=== PATIENT | female | born 1970 | race Caucasian/White ===

== ENCOUNTER 2016-12-03 12:43 | Emergency (ER) | payer MEDICARE, MEDICAID ==
[~2016-12-03 12:43] MED LIST: /CARB4TA PO; /HYDR1TAB PO; /LAMO20TA; ALBU17IN INH; ALPR1TAB3 PO; AMIT100TA PO; AMIT75TA PO; ATEN50TA2 PO; AUGM875T27 PO; BACT800T5 PO; BENZ100C5 PO; BUSP1TAB PO; CARI350T19 PO; CELE20TA; CIPR-250 PO; DOXY100C PO; DRIS50002 PO; FLUC150T PO; HYDR25TAB PO; HYDRO50TAB PO; IBUP200T2 PO; IBUP80TA PO; KLOR1TAB77 PO; LANS30CA PO; LASI40TA PO; LEVO750T33 PO; METO10TA2 PO; MORP15TASA PO; MYCO500T PO; ONDA4TAB6 PO; OXYC-299 PO; OXYC1TAB23 PO; OXYC1TAB55 PO; PAXI30TA11 PO; PERC10TA17 PO; PERCOCET PO; PRED10TA PO; PRED20TA PO; PROP20TA2; PROZ40CA; REME15TA; REST30CA PO; ROBA750T4 PO; SERO50TA PO; SERT-141 PO; SPIR25TA2 PO; TYLE325T5 PO; VENL37TA PO; WELL100T PO; WELLTAB38 PO; ZOLO100T PO
[2016-12-03] MEDS ORDERED: diphenhydrAMINE INJ 50MG/ML VIAL (J1200) As Ordered ONE (13:45)
[2016-12-03] MEDS ORDERED: METOCLOPRAMIDE INJ 10MG/2ML VIAL (J2765) As Ordered ONE (13:45)
[2016-12-03 14:54] LABS: BASO % 0.5 % (0.0-1.0); EOS # 0.1 K/mm3 (0.0-0.50); LARGE UNSTAINED CELL # 0.1 K/mm3 (0.0-0.4); LARGE UNSTAINED CELL % 1.6 % (0.0-4.0); LYMPH # 1.1 K/mm3 (1.5-4.5); LYMPH % 15.5 % (24.0-44.0); MEAN CORPUSCULAR HEMOGLOBIN 29.2 pg (27.0-33.0); MEAN CORPUSCULAR HGB CONC 32.7 g/dl (32.0-36.5); MEAN CORPUSCULAR VOLUME 89.5 fl (80.0-96.0); MONO # 0.2 K/mm3 (0.0-0.8); MONO % 3.1 % (0.0-5.0); NEUTROPHILS # 5.3 K/mm3 (1.8-7.7); NEUTROPHILS % 77.3 % (36.0-66.0); PLATELET COUNT, AUTOMATED 270 k/mm3 (150-450); RED CELL DISTRIBUTION WIDTH 13.6 % (11.5-14.5); WHITE BLOOD COUNT 6.8 K/mm3 (4.0-10.0)
[2016-12-03 15:13] LABS: ALBUMIN 3.9 GM/DL (3.2-5.2); ALBUMIN/GLOBULIN RATIO 1.26 (1.00-1.93); ALKALINE PHOSPHATASE 90 U/L (45-117); ALT/SGPT 22 U/L (12-78); ANION GAP 7 MEQ/L (8-16); AST/SGOT 13 U/L (15-37); BILIRUBIN,TOTAL 0.3 MG/DL (0.2-1.0); BLOOD UREA NITROGEN 12 MG/DL (7-18); CALCIUM LEVEL 9.5 MG/DL (8.5-10.1); CARBON DIOXIDE LEVEL 28 MEQ/L (21-32); CHLORIDE LEVEL 108 MEQ/L (98-107); CREATININE FOR GFR 0.77 MG/DL (0.55-1.02); GLOMERULAR FILTRATION RATE > 60.0 (>58); GLUCOSE, FASTING 107 MG/DL (70-105); POTASSIUM SERUM 3.8 MEQ/L (3.5-5.1); SODIUM LEVEL 143 MEQ/L (136-145)
[2016-12-03] MEDS ORDERED: ISOVUE-370 76% 100ML VIAL (Q9967) As Ordered ONE (15:22)
--- NOTE | 2016-12-03 15:47 | REP ---
Head CT without contrast followed by with IV contrast. : History: Extreme headache. Comparison study: September 23, 2011. CT contrast dose: 75 ml of Isovue [address] findings: Bone window settings demonstrate an intact bony calvarium. There is no evidence of skull fracture or incidental bony calvarial lesion. The visualized paranasal sinuses appear clear. No intraorbital abnormality is seen. On soft tissue window setting images; the lateral, third, and fourth ventricles are normal in size and position. Hill-white differentiation pattern is normal above and below the tentorium. There are is no evidence of intracranial hemorrhage. No mass, edema, infarction, or midline shift is seen. No extra-axial fluid collection is appreciated. Postcontrast CT images show enhancement of normal vessels. No abnormal contrast enhancement is appreciated. Impression: Negative head CT, without and with IV contrast . Signed by Boby Camara MD 12/03/2016 03:39 P
[2016-12-03 15:52] LABS: ERYTHROCYTE SEDIMENTATION RATE 19 mm/hr (0-20)
--- NOTE | 2016-12-03 16:25 | EDDOCDS ---
Nurse's Notes [facility] Name: Meg Garcia Age: 46 yrs Sex: Female : 1970 Arrival Date: 12/03/2016 Time: 12:43 Bed I2 / M2 Private MD: Marifer Chiang Diagnosis: Migraine without aura, not intractable, without status migrainosus Presentation: 12/03 12:58 Presenting complaint: Patient states: "My ears are always ringing but for the past 3-4 jc4 days they have been ringing really bad. I'm dizzy, it feels like there are electrical shocks in my head that go into my neck and my arms. I'm going from hot to cold". This patient has no additional risk factors. Adult Sepsis Screening: The patient does not have new or worsening altered mentation. Patient's respiratory rate is less than 22. Systolic blood pressure is greater than 100. Patient has a qSOFA score of 0- Negative Sepsis Screen. Suicide/Homicide risk assessment- the patient denies having any suicidal and/or homicidal ideations and does not present with any other emotional, behavioral or mental health complaints. 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 Transition of care: patient was not received from another setting of care. 12:58 Acuity: LB Level 3 jc4 12:58 Method Of Arrival: Walkin/Carried/Asstd jc4 Triage Assessment: 13:02 Headache History: A change in the character of the headache the patient is experiencing jc4 has occured. General: Appears in no apparent distress. Pain:. Neurological: Level of Consciousness is awake, alert. 13:02 Pain: Denies pain. Pain currently is 0 out of 10 on a pain scale. Pain began 2-3 days jc4 ago Also complains of ringing in ears. HIV screening NA for this visit Offered previously. 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 cyclosporine 50mg Oral cap twice a day (Last dose: 12/02/2016) 2. lansoprazole 30 mg oral cpDR 1 cap once daily (Last dose: 12/02/2016) 3. Lasix 40 mg Oral tab 1 tab 2 times per day (Last dose: 12/02/2016) 4. MS Contin 15 mg Oral TbER 1 tab every 12 hours (Last dose: Unknown) 5. Paxil 30 mg Oral tab 1 tab once daily (Last dose: 12/02/2016) 6. Percocet 10-325 mg Oral tab 1 tab every 6 hours as needed (Last dose: 12/02/2016) 7. potassium chloride 20 mEq Oral TbTQ 2 times per day (Last dose: 12/02/2016) 8. Soma 350 mg Oral tab 1 tab 3 times per day (Last dose: 12/02/2016) 9. hydrochlorothiazide 25 mg Oral tab 1 tab once daily (Last dose: 12/02/2016) 10. Wellbutrin XL 150 mg Oral Tb24 1 tab once daily (Last dose: 12/02/2016) 11. Xanax 1 mg Oral tab 1 tab 3 times per day (Last dose: 12/02/2016) - PMHx: COPD; edema; Fibromyalgia; GERD; Hypertension; lung disease; Lupus; - PSHx: Appendectomy; Laparoscopy; lung biopsy; - Social history: Smoking status: Patient uses tobacco products, light tobacco smoker. No barriers to communication noted, The patient speaks fluent Bhutanese. - Family history: Not pertinent. - : The pt / caregiver states he / she is not on anticoagulants. Home medication list is obtained from the patient. - Exposure Risk Screening:: None identified. Screenin:34 Screening information is obtained from the patient. Primary language is Bhutanese. Fall jam1 risk: No risks identified. Assistance ADL's: requires no assistance with activities of daily living. Abuse/DV Screen: The patient / caregiver reports he/she is: not in a situation that causes fear, pain or injury. Nutritional screening: No deficits noted. Exposure Risk Screening: None identified. Advance Directives: Currently, there is no health care proxy. There is no active DNR order. There is no living will. There is no Power of Aircraft Technician. Advance directive information has not previously been placed in an [facility] medical record. Further advance directive information is declined. home support is adequate. Assessment: 13:51 General: Appears in no apparent distress, comfortable, Behavior is cooperative. Pain: kr3 Location: head Pain currently is 6 out of 10 on a pain scale. At worst was 10 out of 10 on a pain scale. Quality of pain is described as electrical shocks. Neurological: Level of Consciousness is awake, alert. Respiratory: Respiratory effort is even, unlabored. Derm: Skin is normal. 14:30 Reassessment: No significant improvement following initial round of medication. jo3 Continuing to monitor . 15:36 General: Appears in no apparent distress, Behavior is appropriate for age, cooperative. jo3 General: Taken to CT at this time. Reports that "buzzing" sensation has resolved. Remains somewhat photosensitive. Rates pain a 3/10. Awaiting results. Aware of plan of care . Neurological: Level of Consciousness is awake, alert, Oriented to person, place, time. Respiratory: Airway is patent Respiratory effort is even, unlabored. 16:21 Reassessment: Patient appears in no apparent distress at this time. Patient states jo3 feeling better. Patient states symptoms have improved. Pt reports slight MENDENHALL. Discharged at this time . Vital Signs: 12:46 BP 129 / 86; Pulse 71; Resp 16; Temp 96.5; Pulse Ox 100% ; Weight 86.18 kg; Height 5 elp ft. 5 in. (165.10 cm); Pain 0/10; 16:21 BP 121 / 77; Pulse 68; Resp 16; Temp 97.8(T); Pulse Ox 98% on R/A; jo3 12:46 Body Mass Index 31.62 (86.18 kg, 165.10 cm) [facility] Vitals: 12:46 Log In Time: December 03, 2016 at 12:43. [facility] ED Course: 12:44 Patient visited by Asya Toney PCA. elp 12:44 Patient moved to Waiting elp 12:45 Marifer Chiang is Private Physician. elp 12:46 Patient visited by Asya Toney PCA. elp 12:46 Patient moved to Pre RCE elp 12:59 Triage Initiated jc4 13:04 Patient moved to Triage 1 jc4 13:19 [facility] Jauregui [facility] is [facility]. btw 13:19 Daisy Hernandez MD is Attending Physician. btw 13:19 Patient visited by Brodie Jauregui PA. btw 13:28 Patient moved to I2 / M2 dls 13:34 Pt greeted and oriented to ED. Patient advised of names of staff involved in care, jam1 location of call johnson, wait times and NPO status. Patient has correct armband on for positive identification. Placed in gown. Bed in low position. Call light in reach. Side rails up X 1. Door closed. 13:39 [facility] Payment Agreement was scanned into [employer] and attached to record. lg 13:40 Inserted saline lock: 20 gauge in right antecubital area. Labs drawn. (by ED staff). jo3 Sent per order to lab. 13:45 CRP Sent. kr3 13:45 ESR Sent. kr3 13:45 Complete Comphrensive Metabolic Sent. kr3 13:45 CBC with Diff Sent. kr3 13:50 Patient visited by Diana Vargas RN. kr3 13:51 The patient / caregiver is instructed regarding the plan of care and ED course. kr3 15:37 Patient visited by Sarah Mohamud RN. jo3 15:48 CT Head W/o Foll By With Contr Returned. EDMS 16:11 Marifer Chiang is Referral Physician. btw 16:21 Discontinued IV lock intact, bleeding controlled, pressure dressing applied, No jo3 redness/swelling at site. No procedures done that require assistance. Administered Medications: 13:48 Drug: diphenhydrAMINE 50 mg [diphenhydramine 50 mg/mL injection solution (1 mL)] Route: kr3 IVP; Site: right antecubital; 14:17 Follow up: Response: No significant change. kr3 13:51 Drug: Metoclopramide 20 mg [metoclopramide 5 mg/mL injection solution] Route: IV; Rate: kr3 80 mg/hr; Infused Over: 15 mins; Site: right antecubital; 14:17 Follow up: Response: No significant change.; IV Status: Completed infusion kr3 Order Results: Lab Order: CBC with Diff; SPEC'M 12/03/16 14:39 Test: WHITE BLOOD COUNT; Value: 6.8; Range: 4.0-10.0; Units: K/mm3; Status: F Test: RED BLOOD COUNT; Value: 5.00; Range: 4.00-5.40; Units: M/mm3; Status: F Test: HEMOGLOBIN; Value: 14.6; Range: 12.0-16.0; Units: g/dl; Status: F Test: HEMATOCRIT; Value: 44.7; Range: 36.0-47.0; Units: %; Status: F Test: MEAN CORPUSCULAR VOLUME; Value: 89.5; Range: 80.0-96.0; Units: fl; Status: F Test: MEAN CORPUSCULAR HEMOGLOBIN; Value: 29.2; Range: 27.0-33.0; Units: pg; Status: F Test: MEAN CORPUSCULAR HGB CONC; Value: 32.7; Range: 32.0-36.5; Units: g/dl; Status: F Test: RED CELL DISTRIBUTION WIDTH; Value: 13.6; Range: 11.5-14.5; Units: %; Status: F Test: PLATELET COUNT, AUTOMATED; Value: 270; Range: 150-450; Units: k/mm3; Status: F Test: NEUTROPHILS %; Value: 77.3; Range: 36.0-66.0; Abnormal: Above high normal; Units: %; Status: F Test: LYMPH %; Value: 15.5; Range: 24.0-44.0; Abnormal: Below low normal; Units: %; Status: F Test: MONO %; Value: 3.1; Range: 0.0-5.0; Units: %; Status: F Test: EOS %; Value: 2.0; Range: 0.0-3.0; Units: %; Status: F Test: BASO %; Value: 0.5; Range: 0.0-1.0; Units: %; Status: F Test: LARGE UNSTAINED CELL %; Value: 1.6; Range: 0.0-4.0; Units: %; Status: F Test: NEUTROPHILS #; Value: 5.3; Range: 1.8-7.7; Units: K/mm3; Status: F Test: LYMPH #; Value: 1.1; Range: 1.5-4.5; Abnormal: Below low normal; Units: K/mm3; Status: F Test: MONO #; Value: 0.2; Range: 0.0-0.8; Units: K/mm3; Status: F Test: EOS #; Value: 0.1; Range: 0.0-0.50; Units: K/mm3; Status: F Test: BASO #; Value: 0.0; Range: 0.0-0.2; Units: K/mm3; Status: F Test: LARGE UNSTAINED CELL #; Value: 0.1; Range: 0.0-0.4; Units: K/mm3; Status: F Lab Order: Complete Comphrensive Metabolic; SPEC'M 12/03/16 14:39 Test: GLUCOSE, FASTING; Value: 107; Range: 70-105; Abnormal: Above high normal; Units: MG/DL; Status: F Test: BLOOD UREA NITROGEN; Value: 12; Range: 7-18; Units: MG/DL; Status: F Test: CREATININE FOR GFR; Value: 0.77; Range: 0.55-1.02; Units: MG/DL; Status: F Test: GLOMERULAR FILTRATION RATE; Value: > 60.0; Range: >58; Status: F Test: SODIUM LEVEL; Value: 143; Range: 136-145; Units: MEQ/L; Status: F Test: POTASSIUM SERUM; Value: 3.8; Range: 3.5-5.1; Units: MEQ/L; Status: F Test: CHLORIDE LEVEL; Value: 108; Range: 98-107; Abnormal: Above high normal; Units: MEQ/L; Status: F Test: CARBON DIOXIDE LEVEL; Value: 28; Range: 21-32; Units: MEQ/L; Status: F Test: ANION GAP; Value: 7; Range: 8-16; Abnormal: Below low normal; Units: MEQ/L; Status: F Test: CALCIUM LEVEL; Value: 9.5; Range: 8.5-10.1; Units: MG/DL; Status: F Test: AST/SGOT; Value: 13; Range: 15-37; Abnormal: Below low normal; Units: U/L; Status: F Test: ALT/SGPT; Value: 22; Range: 12-78; Units: U/L; Status: F Test: ALKALINE PHOSPHATASE; Value: 90; Range: 45-117; Units: U/L; Status: F Test: BILIRUBIN,TOTAL; Value: 0.3; Range: 0.2-1.0; Units: MG/DL; Status: F Test: TOTAL PROTEIN; Value: 7.0; Range: 6.4-8.2; Units: GM/DL; Status: F Test: ALBUMIN; Value: 3.9; Range: 3.2-5.2; Units: GM/DL; Status: F Test: ALBUMIN/GLOBULIN RATIO; Value: 1.26; Range: 1.00-1.93; Status: F Test Note: ; Units are mL/min/1.73 m2 Chronic Kidney Disease Staging per NKF: Stage I & II GFR >=60 Normal to Mildly Decreased Stage III GFR 30-59 Moderately Decreased Stage IV GFR 15-29 Severely Decreased Stage V GFR <15 Very Little GFR Left ESRD GFR <15 on EXTRA HAND Lab Order: ESR; SPEC'M 12/03/16 14:39 Test: ERYTHROCYTE SEDIMENTATION RATE; Value: 19; Range: 0-20; Units: mm/hr; Status: F Lab Order: CRP; SPEC'M 12/03/16 14:39 Test: C REACTIVE PROTEIN QUANTITATIV; Value: 0.36; Range: 0.00-0.30; Abnormal: Above high normal; Units: MG/DL; Status: F Radiology Order: CT Head W/o Foll By With Contr Test: CT Head W/o Foll By With Contr REASON FOR EXAMINATION: "Extreme MENDENHALL"; Head CT without contrast followed by with IV contrast. :; ; History: Extreme headache.; ; Comparison study: September 23, 2011.; ; CT contrast dose: 75 ml of Isovue 370 is administered intravenously.; ; CT findings: Bone window settings demonstrate an intact bony calvarium. There; is no evidence of skull fracture or incidental bony calvarial lesion. The; visualized paranasal sinuses appear clear. No intraorbital abnormality is seen.; On soft tissue window setting images; the lateral, third, and fourth ventricles; are normal in size and position. Hill-white differentiation pattern is normal; above and below the tentorium. There are is no evidence of intracranial; hemorrhage. No mass, edema, infarction, or midline shift is seen. No; extra-axial fluid collection is appreciated. Postcontrast CT images show; enhancement of normal vessels. No abnormal contrast enhancement is appreciated.; ; Impression:; ; Negative head CT, without and with IV contrast .; ; ; Signed by; Boby Camara MD 12/03/2016 03:39 P; Outcome: 16:12 Discharge ordered by Provider. btw 16:24 Discharge Assessment: Patient awake, alert and oriented x 3. No cognitive and/or jo3 functional deficits noted. Patient verbalized understanding of disposition instructions. patient administered narcotics - no. The following High Risk Discharge criteria are identified: None. Discharged to home ambulatory. Condition: stable Condition: improved. Discharge instructions given to patient, Instructed on discharge instructions, follow up and referral plans. Demonstrated understanding of instructions, Pt was receptive of discharge instructions/ teaching. CT Study completed. Property sent home with patient. 16:24 Patient left the ED. jo3 Signatures: Dispatcher [employer] EDMS Marj Nair, RN RN dls Mary Rivera, MANAGER OF PHOTOGRAPHY MANAGER OF PHOTOGRAPHY jam1 Paris Rutherford, Reg Reg lg Diana Vargas,RN RN flory3 Sarah Mohamud,RN RN pj3 Brodie Jauregui, Sarah Bhakta, RN RN jc4 Asya Toney, MANAGER OF PHOTOGRAPHY MANAGER OF PHOTOGRAPHY elp CHRISTOFER
--- NOTE | 2016-12-03 16:25 | EDDOCDS ---
Physician Documentation [facility] Name: Meg Garcia Age: 46 yrs Sex: Female : 1970 Arrival Date: 12/03/2016 Time: 12:43 Bed I2 / M2 Private MD: Marifer Chiang Disposition: 12/03/16 16:12 Discharged to Home/Self Care. Impression: Migraine without aura, not intractable, without status migrainosus. - Condition is Stable. - Discharge Instructions: Migraine Headache, [id number]. - Medication Reconciliation, Local Pharmacy Hours form. - Follow up: Marifer Chiang; When: Call to arrange an appointment; Reason: Further diagnostic work-up, Recheck today's complaints, Continuance of care. - Problem is new. - Symptoms have improved. Historical: - Allergies: Mobic (gets aggressive); Neurontin (gets aggressive); - Home Meds: 1. cyclosporine 50mg Oral cap twice a day (Last dose: 12/02/2016) 2. lansoprazole 30 mg oral cpDR 1 cap once daily (Last dose: 12/02/2016) 3. Lasix 40 mg Oral tab 1 tab 2 times per day (Last dose: 12/02/2016) 4. MS Contin 15 mg Oral TbER 1 tab every 12 hours (Last dose: Unknown) 5. Paxil 30 mg Oral tab 1 tab once daily (Last dose: 12/02/2016) 6. Percocet 10-325 mg Oral tab 1 tab every 6 hours as needed (Last dose: 12/02/2016) 7. potassium chloride 20 mEq Oral TbTQ 2 times per day (Last dose: 12/02/2016) 8. Soma 350 mg Oral tab 1 tab 3 times per day (Last dose: 12/02/2016) 9. hydrochlorothiazide 25 mg Oral tab 1 tab once daily (Last dose: 12/02/2016) 10. Wellbutrin XL 150 mg Oral Tb24 1 tab once daily (Last dose: 12/02/2016) 11. Xanax 1 mg Oral tab 1 tab 3 times per day (Last dose: 12/02/2016) - PMHx: COPD; edema; Fibromyalgia; GERD; Hypertension; lung disease; Lupus; - PSHx: Appendectomy; Laparoscopy; lung biopsy; - Social history: Smoking status: Patient uses tobacco products, light tobacco smoker. No barriers to communication noted, The patient speaks fluent Mongolian. - Family history: Not pertinent. - : The pt / caregiver states he / she is not on anticoagulants. Home medication list is obtained from the patient. - Exposure Risk Screening:: None identified. 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 5 in. (165.10 cm); Pain 0/10; 16:21 BP 121 / 77; Pulse 68; Resp 16; Temp 97.8(T); Pulse Ox 98% on R/A; jo3 12:46 Body Mass Index 31.62 (86.18 kg, 165.10 cm) elp MDM: 13:25 Financial registration complete. lg 13:27 IV Saline Lock ordered. btw 13:27 Metoclopramide 20 mg IV at 80 mg/hr once over 15 mins ordered. btw 13:27 diphenhydrAMINE 50 mg IVP once ordered. btw 13:28 CBC with Diff Ordered. EDMS 13:28 Complete Comphrensive Metabolic Ordered. EDMS 13:28 ESR Ordered. EDMS 13:28 CRP Ordered. EDMS 13:28 CT Head W/o Foll By With Contr Ordered. EDMS 13:39 [facility] Payment Agreement was scanned into [email or web address] and attached to record. lg 15:19 CBC with Diff Reviewed. btw 15:19 Complete Comphrensive Metabolic Reviewed. btw 15:19 CRP Reviewed. btw 16:09 CBC with Diff Reviewed. btw 16:09 ESR Reviewed. btw 16:09 CT Head W/o Foll By With Contr Reviewed. btw Administered Medications: 13:48 Drug: diphenhydrAMINE 50 mg [diphenhydramine 50 mg/mL injection solution (1 mL)] Route: kr3 IVP; Site: right antecubital; 14:17 Follow up: Response: No significant change. kr3 13:51 Drug: Metoclopramide 20 mg [metoclopramide 5 mg/mL injection solution] Route: IV; Rate: kr3 80 mg/hr; Infused Over: 15 mins; Site: right antecubital; 14:17 Follow up: Response: No significant change.; IV Status: Completed infusion kr3 Signatures: Dispatcher [employer] Paris Ball Reg Reg lg Sarah Mohamud,GARFIELD RN jo3 Brodie Jauregui PA PA btw Castle, Jennifer, RN RN jc4 Diana Vargas RN kr3 The chart was reviewed and I authenticate all verbal orders and agree with the evaluation and treatment provided.Attachments: 13:39 [facility] Payment Agreement lg MTDD
--- NOTE | 2016-12-06 11:23 | EDDOCDS ---
Physician Documentation [facility] Name: Meg Garcia Age: 46 yrs Sex: Female : 1970 Arrival Date: 12/03/2016 Time: 12:43 Bed I2 / M2 Private MD: Marifer Chiang Disposition: 12/03/16 16:12 Discharged to Home/Self Care. Impression: Migraine without aura, not intractable, without status migrainosus. - Condition is Stable. - Discharge Instructions: Migraine Headache, [id number]. - Medication Reconciliation, Local Pharmacy Hours form. - Follow up: Marifer Chiang; When: Call to arrange an appointment; Reason: Further diagnostic work-up, Recheck today's complaints, Continuance of care. - Problem is new. - Symptoms have improved. Historical: - Allergies: Mobic (gets aggressive); Neurontin (gets aggressive); - Home Meds: 1. cyclosporine 50mg Oral cap twice a day (Last dose: 12/02/2016) 2. lansoprazole 30 mg oral cpDR 1 cap once daily (Last dose: 12/02/2016) 3. Lasix 40 mg Oral tab 1 tab 2 times per day (Last dose: 12/02/2016) 4. MS Contin 15 mg Oral TbER 1 tab every 12 hours (Last dose: Unknown) 5. Paxil 30 mg Oral tab 1 tab once daily (Last dose: 12/02/2016) 6. Percocet 10-325 mg Oral tab 1 tab every 6 hours as needed (Last dose: 12/02/2016) 7. potassium chloride 20 mEq Oral TbTQ 2 times per day (Last dose: 12/02/2016) 8. Soma 350 mg Oral tab 1 tab 3 times per day (Last dose: 12/02/2016) 9. hydrochlorothiazide 25 mg Oral tab 1 tab once daily (Last dose: 12/02/2016) 10. Wellbutrin XL 150 mg Oral Tb24 1 tab once daily (Last dose: 12/02/2016) 11. Xanax 1 mg Oral tab 1 tab 3 times per day (Last dose: 12/02/2016) - PMHx: COPD; edema; Fibromyalgia; GERD; Hypertension; lung disease; Lupus; - PSHx: Appendectomy; Laparoscopy; lung biopsy; - Social history: Smoking status: Patient uses tobacco products, light tobacco smoker. No barriers to communication noted, The patient speaks fluent Venezuelan. - Family history: Not pertinent. - : The pt / caregiver states he / she is not on anticoagulants. Home medication list is obtained from the patient. - Exposure Risk Screening:: None identified. 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 5 in. (165.10 cm); Pain 0/10; 16:21 BP 121 / 77; Pulse 68; Resp 16; Temp 97.8(T); Pulse Ox 98% on R/A; jo3 12:46 Body Mass Index 31.62 (86.18 kg, 165.10 cm) elp MDM: 13:25 Financial registration complete. lg 13:27 IV Saline Lock ordered. btw 13:27 Metoclopramide 20 mg IV at 80 mg/hr once over 15 mins ordered. btw 13:27 diphenhydrAMINE 50 mg IVP once ordered. btw 13:28 CBC with Diff Ordered. EDMS 13:28 Complete Comphrensive Metabolic Ordered. EDMS 13:28 ESR Ordered. EDMS 13:28 CRP Ordered. EDMS 13:28 CT Head W/o Foll By With Contr Ordered. EDMS 13:39 [facility] Payment Agreement was scanned into [employer] and attached to record. lg 15:19 CBC with Diff Reviewed. btw 15:19 Complete Comphrensive Metabolic Reviewed. btw 15:19 CRP Reviewed. btw 16:09 CBC with Diff Reviewed. btw 16:09 ESR Reviewed. btw 16:09 CT Head W/o Foll By With Contr Reviewed. btw 20:19 T-Sheet-- Draft Copy was scanned into [employer] and attached to record. klr Administered Medications: 13:48 Drug: diphenhydrAMINE 50 mg [diphenhydramine 50 mg/mL injection solution (1 mL)] Route: kr3 IVP; Site: right antecubital; 14:17 Follow up: Response: No significant change. kr3 13:51 Drug: Metoclopramide 20 mg [metoclopramide 5 mg/mL injection solution] Route: IV; Rate: kr3 80 mg/hr; Infused Over: 15 mins; Site: right antecubital; 14:17 Follow up: Response: No significant change.; IV Status: Completed infusion kr3 Signatures: Dispatcher [employer] EDParis Sparks, Francis Reg lg Sarah Mohamud RN RN jo3 Brodie Jauregui PA PA btw Castle, Jennifer, RN RN jc4 Cristel Royal Kathleen RN kr3 The chart was reviewed and I authenticate all verbal orders and agree with the evaluation and treatment provided.Attachments: 13:39 [facility] Payment Agreement lg 20:19 T-Sheet-- Draft Copy david Chart Complete MTDD
--- NOTE | 2016-12-06 11:23 | EDDOCDS ---
Nurse's Notes [facility] Name: Meg Garcia Age: 46 yrs Sex: Female : 1970 Arrival Date: 12/03/2016 Time: 12:43 Bed I2 / M2 Private MD: Marifer Chiang Diagnosis: Migraine without aura, not intractable, without status migrainosus Presentation: 12/03 12:58 Presenting complaint: Patient states: "My ears are always ringing but for the past 3-4 jc4 days they have been ringing really bad. I'm dizzy, it feels like there are electrical shocks in my head that go into my neck and my arms. I'm going from hot to cold". This patient has no additional risk factors. Adult Sepsis Screening: The patient does not have new or worsening altered mentation. Patient's respiratory rate is less than 22. Systolic blood pressure is greater than 100. Patient has a qSOFA score of 0- Negative Sepsis Screen. Suicide/Homicide risk assessment- the patient denies having any suicidal and/or homicidal ideations and does not present with any other emotional, behavioral or mental health complaints. 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 Transition of care: patient was not received from another setting of care. 12:58 Acuity: LB Level 3 jc4 12:58 Method Of Arrival: Walkin/Carried/Asstd jc4 Triage Assessment: 13:02 Headache History: A change in the character of the headache the patient is experiencing jc4 has occured. General: Appears in no apparent distress. Pain:. Neurological: Level of Consciousness is awake, alert. 13:02 Pain: Denies pain. Pain currently is 0 out of 10 on a pain scale. Pain began 2-3 days jc4 ago Also complains of ringing in ears. HIV screening NA for this visit Offered previously. 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 cyclosporine 50mg Oral cap twice a day (Last dose: 12/02/2016) 2. lansoprazole 30 mg oral cpDR 1 cap once daily (Last dose: 12/02/2016) 3. Lasix 40 mg Oral tab 1 tab 2 times per day (Last dose: 12/02/2016) 4. MS Contin 15 mg Oral TbER 1 tab every 12 hours (Last dose: Unknown) 5. Paxil 30 mg Oral tab 1 tab once daily (Last dose: 12/02/2016) 6. Percocet 10-325 mg Oral tab 1 tab every 6 hours as needed (Last dose: 12/02/2016) 7. potassium chloride 20 mEq Oral TbTQ 2 times per day (Last dose: 12/02/2016) 8. Soma 350 mg Oral tab 1 tab 3 times per day (Last dose: 12/02/2016) 9. hydrochlorothiazide 25 mg Oral tab 1 tab once daily (Last dose: 12/02/2016) 10. Wellbutrin XL 150 mg Oral Tb24 1 tab once daily (Last dose: 12/02/2016) 11. Xanax 1 mg Oral tab 1 tab 3 times per day (Last dose: 12/02/2016) - PMHx: COPD; edema; Fibromyalgia; GERD; Hypertension; lung disease; Lupus; - PSHx: Appendectomy; Laparoscopy; lung biopsy; - Social history: Smoking status: Patient uses tobacco products, light tobacco smoker. No barriers to communication noted, The patient speaks fluent Croatian. - Family history: Not pertinent. - : The pt / caregiver states he / she is not on anticoagulants. Home medication list is obtained from the patient. - Exposure Risk Screening:: None identified. Screenin:34 Screening information is obtained from the patient. Primary language is Croatian. Fall jam1 risk: No risks identified. Assistance ADL's: requires no assistance with activities of daily living. Abuse/DV Screen: The patient / caregiver reports he/she is: not in a situation that causes fear, pain or injury. Nutritional screening: No deficits noted. Exposure Risk Screening: None identified. Advance Directives: Currently, there is no health care proxy. There is no active DNR order. There is no living will. There is no Power of Aerologist. Advance directive information has not previously been placed in an [facility] medical record. Further advance directive information is declined. home support is adequate. Assessment: 13:51 General: Appears in no apparent distress, comfortable, Behavior is cooperative. Pain: kr3 Location: head Pain currently is 6 out of 10 on a pain scale. At worst was 10 out of 10 on a pain scale. Quality of pain is described as electrical shocks. Neurological: Level of Consciousness is awake, alert. Respiratory: Respiratory effort is even, unlabored. Derm: Skin is normal. 14:30 Reassessment: No significant improvement following initial round of medication. jo3 Continuing to monitor . 15:36 General: Appears in no apparent distress, Behavior is appropriate for age, cooperative. jo3 General: Taken to CT at this time. Reports that "buzzing" sensation has resolved. Remains somewhat photosensitive. Rates pain a 3/10. Awaiting results. Aware of plan of care . Neurological: Level of Consciousness is awake, alert, Oriented to person, place, time. Respiratory: Airway is patent Respiratory effort is even, unlabored. 16:21 Reassessment: Patient appears in no apparent distress at this time. Patient states jo3 feeling better. Patient states symptoms have improved. Pt reports slight MENDENHALL. Discharged at this time . Vital Signs: 12:46 BP 129 / 86; Pulse 71; Resp 16; Temp 96.5; Pulse Ox 100% ; Weight 86.18 kg; Height 5 elp ft. 5 in. (165.10 cm); Pain 0/10; 16:21 BP 121 / 77; Pulse 68; Resp 16; Temp 97.8(T); Pulse Ox 98% on R/A; jo3 12:46 Body Mass Index 31.62 (86.18 kg, 165.10 cm) [facility] Vitals: 12:46 Log In Time: December 03, 2016 at 12:43. [facility] ED Course: 12:44 Patient visited by Asya Toney PCA. elp 12:44 Patient moved to Waiting elp 12:45 Marifer Chiang is Private Physician. elp 12:46 Patient visited by Asya Toney PCA. elp 12:46 Patient moved to Pre RCE elp 12:59 Triage Initiated jc4 13:04 Patient moved to Triage 1 jc4 13:19 [facility]. btw 13:19 Daisy Hernandez MD is Attending Physician. btw 13:19 Patient visited by Brodie Jauregui PA. btw 13:28 Patient moved to I2 / M2 dls 13:34 Pt greeted and oriented to ED. Patient advised of names of staff involved in care, jam1 location of call johnson, wait times and NPO status. Patient has correct armband on for positive identification. Placed in gown. Bed in low position. Call light in reach. Side rails up X 1. Door closed. 13:39 [facility] [place] was scanned into minicabit and attached to record. lg 13:40 Inserted saline lock: 20 gauge in right antecubital area. Labs drawn. (by ED staff). jo3 Sent per order to lab. 13:45 CRP Sent. kr3 13:45 ESR Sent. kr3 13:45 Complete Comphrensive Metabolic Sent. kr3 13:45 CBC with Diff Sent. kr3 13:50 Patient visited by Diana Vargas RN. kr3 13:51 The patient / caregiver is instructed regarding the plan of care and ED course. kr3 15:37 Patient visited by Sarah Mohamud RN. jo3 15:48 CT Head W/o Foll By With Contr Returned. EDMS 16:11 Marifer Chiang is Referral Physician. btw 16:21 Discontinued IV lock intact, bleeding controlled, pressure dressing applied, No jo3 redness/swelling at site. No procedures done that require assistance. 20:19 T-Sheet-- Draft Copy was scanned into minicabit and attached to record. klr Administered Medications: 13:48 Drug: diphenhydrAMINE 50 mg [diphenhydramine 50 mg/mL injection solution (1 mL)] Route: kr3 IVP; Site: right antecubital; 14:17 Follow up: Response: No significant change. kr3 13:51 Drug: Metoclopramide 20 mg [metoclopramide 5 mg/mL injection solution] Route: IV; Rate: kr3 80 mg/hr; Infused Over: 15 mins; Site: right antecubital; 14:17 Follow up: Response: No significant change.; IV Status: Completed infusion kr3 Order Results: Lab Order: CBC with Diff; SPEC'M 12/03/16 14:39 Test: WHITE BLOOD COUNT; Value: 6.8; Range: 4.0-10.0; Units: K/mm3; Status: F Test: RED BLOOD COUNT; Value: 5.00; Range: 4.00-5.40; Units: M/mm3; Status: F Test: HEMOGLOBIN; Value: 14.6; Range: 12.0-16.0; Units: g/dl; Status: F Test: HEMATOCRIT; Value: 44.7; Range: 36.0-47.0; Units: %; Status: F Test: MEAN CORPUSCULAR VOLUME; Value: 89.5; Range: 80.0-96.0; Units: fl; Status: F Test: MEAN CORPUSCULAR HEMOGLOBIN; Value: 29.2; Range: 27.0-33.0; Units: pg; Status: F Test: MEAN CORPUSCULAR HGB CONC; Value: 32.7; Range: 32.0-36.5; Units: g/dl; Status: F Test: RED CELL DISTRIBUTION WIDTH; Value: 13.6; Range: 11.5-14.5; Units: %; Status: F Test: PLATELET COUNT, AUTOMATED; Value: 270; Range: 150-450; Units: k/mm3; Status: F Test: NEUTROPHILS %; Value: 77.3; Range: 36.0-66.0; Abnormal: Above high normal; Units: %; Status: F Test: LYMPH %; Value: 15.5; Range: 24.0-44.0; Abnormal: Below low normal; Units: %; Status: F Test: MONO %; Value: 3.1; Range: 0.0-5.0; Units: %; Status: F Test: EOS %; Value: 2.0; Range: 0.0-3.0; Units: %; Status: F Test: BASO %; Value: 0.5; Range: 0.0-1.0; Units: %; Status: F Test: LARGE UNSTAINED CELL %; Value: 1.6; Range: 0.0-4.0; Units: %; Status: F Test: NEUTROPHILS #; Value: 5.3; Range: 1.8-7.7; Units: K/mm3; Status: F Test: LYMPH #; Value: 1.1; Range: 1.5-4.5; Abnormal: Below low normal; Units: K/mm3; Status: F Test: MONO #; Value: 0.2; Range: 0.0-0.8; Units: K/mm3; Status: F Test: EOS #; Value: 0.1; Range: 0.0-0.50; Units: K/mm3; Status: F Test: BASO #; Value: 0.0; Range: 0.0-0.2; Units: K/mm3; Status: F Test: LARGE UNSTAINED CELL #; Value: 0.1; Range: 0.0-0.4; Units: K/mm3; Status: F Lab Order: Complete Comphrensive Metabolic; SPEC'M 12/03/16 14:39 Test: GLUCOSE, FASTING; Value: 107; Range: 70-105; Abnormal: Above high normal; Units: MG/DL; Status: F Test: BLOOD UREA NITROGEN; Value: 12; Range: 7-18; Units: MG/DL; Status: F Test: CREATININE FOR GFR; Value: 0.77; Range: 0.55-1.02; Units: MG/DL; Status: F Test: GLOMERULAR FILTRATION RATE; Value: > 60.0; Range: >58; Status: F Test: SODIUM LEVEL; Value: 143; Range: 136-145; Units: MEQ/L; Status: F Test: POTASSIUM SERUM; Value: 3.8; Range: 3.5-5.1; Units: MEQ/L; Status: F Test: CHLORIDE LEVEL; Value: 108; Range: 98-107; Abnormal: Above high normal; Units: MEQ/L; Status: F Test: CARBON DIOXIDE LEVEL; Value: 28; Range: 21-32; Units: MEQ/L; Status: F Test: ANION GAP; Value: 7; Range: 8-16; Abnormal: Below low normal; Units: MEQ/L; Status: F Test: CALCIUM LEVEL; Value: 9.5; Range: 8.5-10.1; Units: MG/DL; Status: F Test: AST/SGOT; Value: 13; Range: 15-37; Abnormal: Below low normal; Units: U/L; Status: F Test: ALT/SGPT; Value: 22; Range: 12-78; Units: U/L; Status: F Test: ALKALINE PHOSPHATASE; Value: 90; Range: 45-117; Units: U/L; Status: F Test: BILIRUBIN,TOTAL; Value: 0.3; Range: 0.2-1.0; Units: MG/DL; Status: F Test: TOTAL PROTEIN; Value: 7.0; Range: 6.4-8.2; Units: GM/DL; Status: F Test: ALBUMIN; Value: 3.9; Range: 3.2-5.2; Units: GM/DL; Status: F Test: ALBUMIN/GLOBULIN RATIO; Value: 1.26; Range: 1.00-1.93; Status: F Test Note: ; Units are mL/min/1.73 m2 Chronic Kidney Disease Staging per NKF: Stage I & II GFR >=60 Normal to Mildly Decreased Stage III GFR 30-59 Moderately Decreased Stage IV GFR 15-29 Severely Decreased Stage V GFR <15 Very Little GFR Left ESRD GFR <15 on HELICOPTER OFFICER Lab Order: ESR; SPEC'M 12/03/16 14:39 Test: ERYTHROCYTE SEDIMENTATION RATE; Value: 19; Range: 0-20; Units: mm/hr; Status: F Lab Order: CRP; SPEC'M 12/03/16 14:39 Test: C REACTIVE PROTEIN QUANTITATIV; Value: 0.36; Range: 0.00-0.30; Abnormal: Above high normal; Units: MG/DL; Status: F Radiology Order: CT Head W/o Foll By With Contr Test: CT Head W/o Foll By With Contr REASON FOR EXAMINATION: "Extreme MENDENHALL"; Head CT without contrast followed by with IV contrast. :; ; History: Extreme headache.; ; Comparison study: September 23, 2011.; ; CT contrast dose: 75 ml of Isovue 370 is administered intravenously.; ; CT findings: Bone window settings demonstrate an intact bony calvarium. There; is no evidence of skull fracture or incidental bony calvarial lesion. The; visualized paranasal sinuses appear clear. No intraorbital abnormality is seen.; On soft tissue window setting images; the lateral, third, and fourth ventricles; are normal in size and position. Hill-white differentiation pattern is normal; above and below the tentorium. There are is no evidence of intracranial; hemorrhage. No mass, edema, infarction, or midline shift is seen. No; extra-axial fluid collection is appreciated. Postcontrast CT images show; enhancement of normal vessels. No abnormal contrast enhancement is appreciated.; ; Impression:; ; Negative head CT, without and with IV contrast .; ; ; Signed by; Boby Camara MD 12/03/2016 03:39 P; Outcome: 16:12 Discharge ordered by Provider. btw 16:24 Discharge Assessment: Patient awake, alert and oriented x 3. No cognitive and/or jo3 functional deficits noted. Patient verbalized understanding of disposition instructions. patient administered narcotics - no. The following High Risk Discharge criteria are identified: None. Discharged to home ambulatory. Condition: stable Condition: improved. Discharge instructions given to patient, Instructed on discharge instructions, follow up and referral plans. Demonstrated understanding of instructions, Pt was receptive of discharge instructions/ teaching. CT Study completed. Property sent home with patient. 16:24 Patient left the ED. jo3 Signatures: Dispatcher [employer] EDMS Marj Nair, RN RN Mary Main, INSPECTOR AND UNLOADER INSPECTOR AND UNLOADER jam1 Paris Rutherford, Reg Reg lg Diana Vargas,RN RN flory3 Sarah Mohamud,RN RN pj3 Brodie Jauregui PA PA btw Sarah Hagan, RN RN jc4 Asya Toney, INSPECTOR AND UNLOADER INSPECTOR AND UNLOADER Cristel Perera Chart Complete MTDD
--- NOTE | 2016-12-06 11:23 | EDDOCDS ---
Physician Documentation [facility] Name: Meg Garcia Age: 46 yrs Sex: Female : 1970 Arrival Date: 12/03/2016 Time: 12:43 Bed I2 / M2 Private MD: Marifer Chiang Disposition: 12/03/16 16:12 Discharged to Home/Self Care. Impression: Migraine without aura, not intractable, without status migrainosus. - Condition is Stable. - Discharge Instructions: Migraine Headache, [id number]. - Medication Reconciliation, Local Pharmacy Hours form. - Follow up: Marifer Chiang; When: Call to arrange an appointment; Reason: Further diagnostic work-up, Recheck today's complaints, Continuance of care. - Problem is new. - Symptoms have improved. Historical: - Allergies: Mobic (gets aggressive); Neurontin (gets aggressive); - Home Meds: 1. cyclosporine 50mg Oral cap twice a day (Last dose: 12/02/2016) 2. lansoprazole 30 mg oral cpDR 1 cap once daily (Last dose: 12/02/2016) 3. Lasix 40 mg Oral tab 1 tab 2 times per day (Last dose: 12/02/2016) 4. MS Contin 15 mg Oral TbER 1 tab every 12 hours (Last dose: Unknown) 5. Paxil 30 mg Oral tab 1 tab once daily (Last dose: 12/02/2016) 6. Percocet 10-325 mg Oral tab 1 tab every 6 hours as needed (Last dose: 12/02/2016) 7. potassium chloride 20 mEq Oral TbTQ 2 times per day (Last dose: 12/02/2016) 8. Soma 350 mg Oral tab 1 tab 3 times per day (Last dose: 12/02/2016) 9. hydrochlorothiazide 25 mg Oral tab 1 tab once daily (Last dose: 12/02/2016) 10. Wellbutrin XL 150 mg Oral Tb24 1 tab once daily (Last dose: 12/02/2016) 11. Xanax 1 mg Oral tab 1 tab 3 times per day (Last dose: 12/02/2016) - PMHx: COPD; edema; Fibromyalgia; GERD; Hypertension; lung disease; Lupus; - PSHx: Appendectomy; Laparoscopy; lung biopsy; - Social history: Smoking status: Patient uses tobacco products, light tobacco smoker. No barriers to communication noted, The patient speaks fluent Icelandic. - Family history: Not pertinent. - : The pt / caregiver states he / she is not on anticoagulants. Home medication list is obtained from the patient. - Exposure Risk Screening:: None identified. 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 5 in. (165.10 cm); Pain 0/10; 16:21 BP 121 / 77; Pulse 68; Resp 16; Temp 97.8(T); Pulse Ox 98% on R/A; jo3 12:46 Body Mass Index 31.62 (86.18 kg, 165.10 cm) elp MDM: 13:25 Financial registration complete. lg 13:27 IV Saline Lock ordered. btw 13:27 Metoclopramide 20 mg IV at 80 mg/hr once over 15 mins ordered. btw 13:27 diphenhydrAMINE 50 mg IVP once ordered. btw 13:28 CBC with Diff Ordered. EDMS 13:28 Complete Comphrensive Metabolic Ordered. EDMS 13:28 ESR Ordered. EDMS 13:28 CRP Ordered. EDMS 13:28 CT Head W/o Foll By With Contr Ordered. EDMS 13:39 [facility] Payment Agreement was scanned into NPTV and attached to record. lg 15:19 CBC with Diff Reviewed. btw 15:19 Complete Comphrensive Metabolic Reviewed. btw 15:19 CRP Reviewed. btw 16:09 CBC with Diff Reviewed. btw 16:09 ESR Reviewed. btw 16:09 CT Head W/o Foll By With Contr Reviewed. btw 20:19 T-Sheet-- Draft Copy was scanned into NPTV and attached to record. klr Administered Medications: 13:48 Drug: diphenhydrAMINE 50 mg [diphenhydramine 50 mg/mL injection solution (1 mL)] Route: kr3 IVP; Site: right antecubital; 14:17 Follow up: Response: No significant change. kr3 13:51 Drug: Metoclopramide 20 mg [metoclopramide 5 mg/mL injection solution] Route: IV; Rate: kr3 80 mg/hr; Infused Over: 15 mins; Site: right antecubital; 14:17 Follow up: Response: No significant change.; IV Status: Completed infusion kr3 Signatures: Dispatcher [employer] EDParis Sparks, Francis Reg lg Sarah Mohamud RN RN jo3 Brodie Jauregui PA PA btw Castle, Jennifer, RN RN jc4 Cristel Royal Kathleen RN kr3 The chart was reviewed and I authenticate all verbal orders and agree with the evaluation and treatment provided.Attachments: 13:39 [facility] Payment Agreement lg 20:19 T-Sheet-- Draft Copy david Chart Complete MTDD
== END 2016-12-03 16:24 | disposition home or self-care (01) ==
LOC: M ED 12:43
DX: G43.909 Migraine, unspecified, not intractable, without status migrainosus (principal); I10 Essential (primary) hypertension; J44.9 Chronic obstructive pulmonary disease, unspecified; M79.7 Fibromyalgia; K21.9 Gastro-esophageal reflux disease without esophagitis; D68.62 Lupus anticoagulant syndrome; R60.0 Localized edema; Z87.09 Personal history of other diseases of the respiratory system; Z79.899 Other long term (current) drug therapy; Z88.6 Allergy status to analgesic agent; Z88.8 Allergy status to other drugs, medicaments and biological substances; F17.210 Nicotine dependence, cigarettes, uncomplicated
CPT/HCPCS: 36415; 70470; 80053; 85025; 85652; 86140; 96365; 96375; 99284; J1200; J2765; Q9967

== ENCOUNTER → 2017-03-03 | Outpatient (CLI) | payer MEDICARE, MEDICAID ==
[~2017-03-03] MED LIST changes: -CARI350T19 PO; +CARI350T20 PO; -SERT-141 PO; +SERT50TA PO
--- NOTE | 2017-03-03 11:58 | REP ---
CERVICAL SPINE, EIGHT VIEWS: HISTORY: Spondylosis. There is no acute fracture. The C6-7 intervertebral disc is decreased in height consistent with disc degeneration. Osteophytes are present on C6 and C7. There is narrowing of the left C6 neural foramen secondary to uncinate process hypertrophy. The remaining neural foramina are patent. There are 2 mm of retrolisthesis of C4 on C5 with extension. This is not seen in neutral or flexion radiographs. IMPRESSION: Degenerative change as described above. Signed by Imer Medina MD 03/03/2017 12:01 P
--- NOTE | 2017-03-03 12:07 | REP ---
LUMBAR SPINE, SEVEN VIEWS: HISTORY: Spondylosis. COMPARISON: 06/08/2016 An interspinous pacer is present at the L4-5 level. There is no acute fracture or subluxation. The L4-5 intervertebral disc is decreased in height consistent with disc degeneration. Osteophytes are present on L5. There is narrowing of the L4-5 and L5-S1 facet joints. IMPRESSION: The patient is status post interspinous spacer placement at the L4-5 level. Degenerative change as described above. Signed by Imer Medina MD 03/03/2017 12:09 P
== END ==
LOC: M RAD 10:54
PROVIDERS: ATTEND Neurological Surgery
DX: M47.892 Other spondylosis, cervical region (principal); M47.896 Other spondylosis, lumbar region; M50.923 Unspecified cervical disc disorder at C6-C7 level; M51.36 Other intervertebral disc degeneration, lumbar region

== ENCOUNTER → 2017-03-08 | Outpatient (CLI) | payer MEDICARE, MEDICAID ==
--- NOTE | 2017-03-15 23:35 | ECWPNPC ---
PATIENT NAME: CONSTANCE WYMAN : 1970 GENDER: FEMALE VISIT DATE: 03/08/2017 DISCHARGE DATE: 03/08/17 1018 VISIT LOCKED DATE TIME: PHYSICIAN: KIM VELASCO RESOURCE: KIM VELASCO REASON FOR APPOINTMENT 1. INCREASED BACK PAIN HISTORY OF PRESENT ILLNESS HISTORY OF PRESENT ILLNESS: HERE FOR F/U AND MEDICINE MANAGEMENT OF CHRONIC LBP.WAS DOING WELL UNTIL LAST WEEK WHEN SHE WAS ASSISTING TO MOVE A 400# MAN AND HAD RETURN OF SEVERE LOW BACK PAIN/RIGHT LEG NUMBNESS.REPORTING DIARHEA STOOLS.SAW DR. VALENCIA ON AN URGENT BASIS 5 DAYS AGO.HX OF LUMBAR SURGERY WITH HARDWARE .DR. VALENCIA PUT HER ON HYDROCODONE 5/325 1-2 TAB BID.HE ORDERD IMAGING OF L/S SPINE WHICH WILL BE DONE TODAY.REPORTING R>L LOWER EXTREMITY NUMBNESS.RATING LBP 7/10 VAS AT REST AND 9/10 WITH MOVEMENT.PATIENT IS IN OBVIOUS DISTRESS. PAIN THE PATIENT DESCRIBES THE PAIN... FALL RISK SCREENING: SCREENING :NO FALLS IN THE PAST YEAR CURRENT MEDICATIONS TAKING LASIX 40 MG TABLET 1 TABLET ORALLY BID TAKING POTASSIUM CHLORIDE 20 MG CAPSULE EXTENDED RELEASE 1 CAPSULE WITH FOOD ORALLY TWICE A DAY TAKING WELLBUTRIN XL 150 MG TABLET EXTENDED RELEASE 24 HOUR 1 TABLET IN THE MORNING ORALLY ONCE A DAY TAKING PAXIL 30 MG TABLET 1 TABLET IN THE MORNING ORALLY ONCE A DAY TAKING NORTRIPTYLINE HCL 10 MG CAPSULE 3 CAPSULE= 30 MG ORALLY ONCE A DAY TAKING LANSOPRAZOLE 30 MG CAPSULE DELAYED RELEASE 1 CAPSULE ORALLY ONCE A DAY TAKING XANAX 1 MG TABLET 1 TABLET ORALLY THREE TIMES DAILY NEEDED TAKING IBUPROFEN 800 MG TABLET 1 TABLET ORALLY THREE TIMES A DAY TAKING ATENOLOL 50 MG TABLET 1 TABLET ORALLY TWICE A DAY TAKING HYDROCHLOROTHIAZIDE 25 MG TABLET 1 TABLET ORALLY ONCE A DAY TAKING VITAMIN D 88641 UNIT CAPSULE 1 CAPSULE ORALLY WEEKLY TAKING SOMA 350 MG TABLET 1 TABLET NEEDED ORALLY TID MDD3 TAKING BUSPAR 15 MG ORALLY DAILY TAKING NORCO 5-325 MG TABLET 1 TABLET NEEDED ORALLY EVERY 6 HRS NOT-TAKING BUSPAR 10 MG TABLET 2 TABLET ORALLY TWICE A DAY NOT-TAKING SPIRONOLACTONE 25 MG TABLET 1 TABLET ORALLY DAILY NOT-TAKING ADDERALL 15 MG TABLET 1 TABLET IN THE MORNING ORALLY TWICE A DAY NEEDED NOT-TAKING PERCOCET 10-325 MG TABLET 1 ORALLY 1 TAB Q6H PRN MDD4 NOT-TAKING MORPHINE SULFATE ER 15 MG TABLET EXTENDED RELEASE 1 TABLET ORALLY EVERY 12 HRS MDD2 NOT-TAKING VALIUM 10 MG TABLET 1 ORALLY 1 TAB 1HR PRE PROC. MDD1, NOTES: 07-21-16 3446 MEDICATION LIST REVIEWED AND RECONCILED WITH THE PATIENT PAST MEDICAL HISTORY FIBROMYALGIA LUPUS INTERSTITIAL LUNG DISEASE INFLAMMATORY ARTHRITIS ALLERGIES MOBIC: AGGRESIVE: SIDE EFFECTS NEURONTIN: AGGRESIVE: SIDE EFFECTS IMURAN: NAUSEA/VOMITING: ALLERGY SOCIAL HISTORY GENERAL: PAIN CLINIC PFS, CLERGY, PUBLIC HEALTH REFERRALS CLERGY REFERRAL NEEDED?NO WAS THE PROVIDER NOTIFIED OF ANY PERTINENT INFO?NO PFS REFERRAL NEEDED?NO PUBLIC HEALTH REFERRAL NEEDED?NO PATIENT: ____. REVIEW OF SYSTEMS CONSTITUTIONAL: ANY CHANGE IN YOUR MEDICAL CONDITION? YES, INCREASED PAIN . RECENT ILLNESS DENIES . CHILLS NO . FEVER NO . WEIGHT LOSS DENIES . INFECTION: DO YOU HAVE NEW INFECTIONS? NO . DO YOU HAVE HISTORY OF MRSA? NO . MUSCULOSKELETAL: ANY NEW PATTERNS OF PAIN OR NUMBNESS? YES, ENTIRE RIGHT LEG INCREASED PAIN AND MUSCLE CRAMPS, INCREASED PAIN UP BACK AND HEADACHES . GASTROENTEROLOGY: ANY NEW CHANGE IN BOWEL CONTROL? NO . GENITOURINARY: ANY NEW CHANGE IN BLADDER CONTROL? NO . IS THERE A CHANCE YOU COULD BE ? NO . HEMATOLOGY/LYMPH: DO YOU TAKE ANY BLOOD THINNERS? (FOR EXAMPLE- COUMADIN, PLAVIX, AGGRENOX, PLATEL, PRADAXA, OR XARELTO) NO . WHEN WAS YOUR LAST DOSE? DATE: TIME: . NEUROLOGY: HAVE YOU FALLEN IN THE PAST 6 MONTHS? NO . ANY NEW EXTREMITY NUMBNESS OR WEAKNESS? NO . CARDIOLOGY: DO YOU HAVE A PACEMAKER OR DEFIBRILLATOR? NO . CHEST PAIN DENIES . SHORTNESS OF BREATH DENIES . RESPIRATORY: HAVE YOU BEEN SICK IN THE PAST WEEK? NO . FEVER NO . FLU LIKE SYMPTOMS? NO . COUGH NO, DENIES . SHORTNESS OF BREATH DENIES . INTEGUMENTARY: DO YOU HAVE ANY RASHES OR OPEN SORES? YES, LUPUS . ALLERGIC/IMMUNO: ARE YOU ALLERGIC TO SHELLFISH OR IV DYE? NO . ANY NEW ALLERGIES? NO . PSYCHIATRIC: DO YOU HAVE THOUGHTS OF HURTING YOURSELF OR SOMEONE ELSE? NO . ARE YOU ABUSED, NEGLECTED, OR IN AN UNSAFE ENVIRONMENT? NO . ENDOCRINOLOGY: ARE YOU DIABETIC? NO . OTHER: DO YOU NEED ANY PRESCRIPTIONS? YES . IF YES, PLEASE LIST: PAIN MEDS AND MUSCLE RELAXER . ANY NEW PROBLEMS WITH YOUR MEDICATIONS? NO . WHEN DID YOU LAST EAT? ____ . WHEN DID YOU LAST DRINK? ____ . WHAT DID YOU LAST DRINK? ____ . NAME OF PERSON DRIVING YOU HOME? ____ . DO YOU HAVE ANY OTHER QUESTIONS OR CONCERNS NO . REVIEWED BY: PROVIDER: KIM BERNAL . VITAL SIGNS WT 184 LBS, HT 65 IN, BMI 30.62 INDEX, BP 124/71 MM HG, HR 66 /MIN, RR 16 /MIN, TEMP 97.8 F, OXYGEN SAT % 98, NA INITIALS [id number], REVIEWED BY: CS. EXAMINATION GENERAL EXAMINATION: LUNGS:LUNG SOUNDS ARE CLEAR. HEART:HEART RATE REGULAR. MUSCULOSKELETAL:*, MUSCLE STRENGTH TESTING 3/5 RLE.4/5 LLE., PALPATION: POSITIVE FOR PAIN OVER L/S SPINE. POSITIVE FOR PAIN OVER L/S PARASPINALS. DIAGNOSTIC: . ASSESSMENTS LUMBAR DISC HERNIATION - M51.26 (PRIMARY) ACUTE LOW BACK PAIN DUE TO SPINAL DISORDER - M54.5 LUMBAR RADICULOPATHY - M54.16 CHRONIC PRESCRIPTION OPIATE USE - Z79.891 TREATMENT LUMBAR DISC HERNIATION REFILL SOMA TABLET, 350 MG, 1 TABLET NEEDED, ORALLY, TID MDD3, 15 DAYS, 45, REFILLS 0 START PERCOCET TABLET, 10-325 MG, 1 TABLET NEEDED, ORALLY, EVERY 6 HRS PRN MDD4, 30 DAY(S), 120, REFILLS 0 NOTES: ISTOP REGISTRY REVIEWED AND DEMNOSTRATES COMPLLIANCE. BRINGS IN MEDICATIONS WHICH IS APPROPRIATE FOR WHAT WAS DISPENSED. RECENT URINE TOXICOLOGY REVIEWED. NO UNAUTHORIZED MEDICATIONS. NO ILLICIT SUBSTANCES AND PRESCRIBED MEDICATIONS WERE PRESENT. , RISKS AND BENEFITS OF NARCOTIC/OPIOD MEDICATIONS WERE REVIEWED WITH PATIENT - THIS INCLUDES BUT IS NOT LIMITED TO RISK OF DEPENDANCE/DEVELOPMENT OF ADDICTION, MOOD DISTURBANCE AND DEPRESSION, OSTEOPOROSIS, HORMONAL AND LABIDAL CHANGES, RESPIRATORY DEPRESSION AND . PATIENT IS ADVISED NOT TO DRIVE WHILE ON THESE MEDICATIONS. PROCEDURE CODES FA211 ESTABILISHED PATIENT [facility] CHARGE G1030 PAIN ASSESS POS TOOL F/U PLAN DOC G8427 DOC MEDS VERIFIED W/PT OR RE DISPOSITION & COMMUNICATION FOLLOW UP 4 WEEKS ELECTRONICALLY SIGNED BY GABE ELLIOTT ON 03/15/2017 AT 07:13 PM EDT DISCLAIMER : THIS IS A VISIT SUMMARY EXTRACTED FROM THE [email or web address] CHART. IT IS NOT A COPY OF THE [email or web address] PROGRESS NOTE. CHRISTOFER
== END ==
LOC: M PAIN 09:20
PROVIDERS: ATTEND Nurse Practitioner Family
DX: G89.29 Other chronic pain (principal); M51.26 Other intervertebral disc displacement, lumbar region; M54.16 Radiculopathy, lumbar region; M19.90 Unspecified osteoarthritis, unspecified site; M79.7 Fibromyalgia; M32.9 Systemic lupus erythematosus, unspecified; M47.817 Spondylosis without myelopathy or radiculopathy, lumbosacral region; M46.1 Sacroiliitis, not elsewhere classified; J84.9 Interstitial pulmonary disease, unspecified; Z79.891 Long term (current) use of opiate analgesic; Z79.1 Long term (current) use of non-steroidal anti-inflammatories (NSAID); Z79.899 Other long term (current) drug therapy; Z88.8 Allergy status to other drugs, medicaments and biological substances; Z98.1 Arthrodesis status
CPT/HCPCS: 72131; G0463

== ENCOUNTER → 2017-03-08 | Outpatient (CLI) | payer MEDICAID, MEDICARE ==
--- NOTE | 2017-03-08 16:19 | REP ---
CT lumbar spine without contrast: History: Sacral ileitis. Comparison is made with the CT study from 02/08/2016. The prior study showed moderate central canal stenosis at L4-5. In the interval since the prior study the patient has undergone a surgical fusion across the L4-5 interspinous level with a spinous process clamp in place. CT findings: The sacroiliac joints are normal on CT images. No bony destructive lesion is seen. A laminectomy defect is visible on the right side at the L4-5. There is disc space narrowing at L4-5 as before. There is a small quantity of air consistent with vacuum phenomenon in the 4-5 disc. The previously noted diffusely bulging disc is resolved. There is some spray artifact from the metallic fusion device. At L3-4, there is no evidence of disc herniation. The L2-3 and L1-2 disc levels remain unremarkable. At L5-S1, there is mild bilateral facet hypertrophy unchanged from prior study. Impression: Status post spinous process fusion clamping across L4-5. Status post right L4-5 laminectomy. Improved central canal stenosis. There is some osteoarthritic facet hypertrophy at L5-S1 unchanged. No other new abnormality. Signed by Boby Camara MD 03/09/2017 01:08 P
== END ==
LOC: M RAD 15:03
PROVIDERS: ATTEND Neurological Surgery
DX: M46.1 Sacroiliitis, not elsewhere classified (principal); M47.817 Spondylosis without myelopathy or radiculopathy, lumbosacral region

== ENCOUNTER → 2017-04-07 | Outpatient (CLI) | payer MEDICARE, MEDICAID ==
--- NOTE | 2017-04-20 23:43 | ECWPNPC ---
PATIENT NAME: CONSTANCE WYMAN : 1970 GENDER: FEMALE VISIT DATE: 04/07/2017 DISCHARGE DATE: 04/07/17 1555 VISIT LOCKED DATE TIME: PHYSICIAN: KIM VELASCO RESOURCE: KIM VELASCO REASON FOR APPOINTMENT 1. BACK HISTORY OF PRESENT ILLNESS HISTORY OF PRESENT ILLNESS: HERE FOR F/U AND MEDICINE MANAGEMENT OF CHRONIC LBP.WAS DOING WELL UNTIL 6 WEEKS AGO WHEN SHE WAS ASSISTING TO MOVE A 400# MAN AND HAD RETURN OF SEVERE LOW BACK PAIN.HX OF LUMBAR SURGERY WITH HARDWARE .REPORTING R>L LOWER EXTREMITY NUMBNESS.RATING LBP 8/10 VAS AT REST AND 9/10 WITH MOVEMENT.PATIENT IS IN OBVIOUS DISTRESS.REPORTS TWO EPISODES OF URINARY INCONTINENCE LAST WEEK.DISCUSSED SERIOUS NATURE OF THIS AND NEED TO NOTIFY DR. CORONEL OFFICE IMMEDIATLEY.LOLI ALSO ADVISED ER EVALUATION WITH ANY FURTHER EPISODES.CURRENTLY USING OXYCODONE 10/325 AND SOMA 350MG APROXIMATLEY 2-3 TIMES PER DAY.FINDS MEDICATION EFFECTIVE BUT CONTINUES TO REPORT SEVERE PAIN.PAIN IS AGGREVATED BY SLIGHT FLEXION OF SPINE. PAIN THE PATIENT DESCRIBES THE PAIN... THE PATIENT DESCRIBES THE PAIN... FALL RISK SCREENING: SCREENING :NO FALLS IN THE PAST YEAR CURRENT MEDICATIONS TAKING LASIX 40 MG TABLET 1 TABLET ORALLY BID TAKING POTASSIUM CHLORIDE 20 MG CAPSULE EXTENDED RELEASE 1 CAPSULE WITH FOOD ORALLY TWICE A DAY TAKING WELLBUTRIN XL 150 MG TABLET EXTENDED RELEASE 24 HOUR 1 TABLET IN THE MORNING ORALLY ONCE A DAY TAKING PAXIL 30 MG TABLET 1 TABLET IN THE MORNING ORALLY ONCE A DAY TAKING NORTRIPTYLINE HCL 10 MG CAPSULE 3 CAPSULE= 30 MG ORALLY ONCE A DAY TAKING LANSOPRAZOLE 30 MG CAPSULE DELAYED RELEASE 1 CAPSULE ORALLY ONCE A DAY TAKING XANAX 1 MG TABLET 1 TABLET ORALLY THREE TIMES DAILY NEEDED TAKING IBUPROFEN 800 MG TABLET 1 TABLET ORALLY THREE TIMES A DAY TAKING ATENOLOL 50 MG TABLET 1 TABLET ORALLY TWICE A DAY TAKING HYDROCHLOROTHIAZIDE 25 MG TABLET 1 TABLET ORALLY ONCE A DAY TAKING VITAMIN D 78769 UNIT CAPSULE 1 CAPSULE ORALLY WEEKLY TAKING BUSPAR 15 MG ORALLY DAILY TAKING PERCOCET 10-325 MG TABLET 1 TABLET NEEDED ORALLY EVERY 6 HRS PRN MDD4 TAKING SOMA 350 MG TABLET 1 TABLET NEEDED ORALLY TID MDD3 NOT-TAKING NORCO 5-325 MG TABLET 1 TABLET NEEDED ORALLY EVERY 6 HRS NOT-TAKING BUSPAR 10 MG TABLET 2 TABLET ORALLY TWICE A DAY NOT-TAKING SPIRONOLACTONE 25 MG TABLET 1 TABLET ORALLY DAILY NOT-TAKING ADDERALL 15 MG TABLET 1 TABLET IN THE MORNING ORALLY TWICE A DAY NEEDED NOT-TAKING PERCOCET 10-325 MG TABLET 1 ORALLY 1 TAB Q6H PRN MDD4 NOT-TAKING MORPHINE SULFATE ER 15 MG TABLET EXTENDED RELEASE 1 TABLET ORALLY EVERY 12 HRS MDD2 NOT-TAKING VALIUM 10 MG TABLET 1 ORALLY 1 TAB 1HR PRE PROC. MDD1, NOTES: 07-21-16 1105 MEDICATION LIST REVIEWED AND RECONCILED WITH THE PATIENT PAST MEDICAL HISTORY FIBROMYALGIA LUPUS INTERSTITIAL LUNG DISEASE INFLAMMATORY ARTHRITIS ALLERGIES MOBIC: AGGRESIVE: SIDE EFFECTS NEURONTIN: AGGRESIVE: SIDE EFFECTS IMURAN: NAUSEA/VOMITING: ALLERGY SURGICAL HISTORY LOWER BACK SURGERY 08/2016 HOSPITALIZATION/MAJOR DIAGNOSTIC PROCEDURE LUPUS BACK PAIN REVIEW OF SYSTEMS CONSTITUTIONAL: ANY CHANGE IN YOUR MEDICAL CONDITION? NO . CHILLS NO . FEVER NO . INFECTION: DO YOU HAVE NEW INFECTIONS? NO . DO YOU HAVE HISTORY OF MRSA? NO . MUSCULOSKELETAL: ANY NEW PATTERNS OF PAIN OR NUMBNESS? YES. LBP AND SACRAL PAIN 07/06. PT STATES PAIN MEDS HELPED AT FIRST, BUT PAIN IS WORSE NOW; PT STATES SHE IS IN UNBEARABLE PAIN IF SHE BENDS OVER/DOWN. . GASTROENTEROLOGY: ANY NEW CHANGE IN BOWEL CONTROL? NO . GENITOURINARY: ANY NEW CHANGE IN BLADDER CONTROL? YES. PT C/O INCONTINENCE SINCE LAST VISIT 03/23/17. . IS THERE A CHANCE YOU COULD BE ? NO . HEMATOLOGY/LYMPH: DO YOU TAKE ANY BLOOD THINNERS? (FOR EXAMPLE- COUMADIN, PLAVIX, AGGRENOX, PLATEL, PRADAXA, OR XARELTO) NO . WHEN WAS YOUR LAST DOSE? DATE: TIME: . NEUROLOGY: HAVE YOU FALLEN IN THE PAST 6 MONTHS? NO . ANY NEW EXTREMITY NUMBNESS OR WEAKNESS? NO . CARDIOLOGY: DO YOU HAVE A PACEMAKER OR DEFIBRILLATOR? NO . RESPIRATORY: HAVE YOU BEEN SICK IN THE PAST WEEK? NO . FEVER NO . FLU LIKE SYMPTOMS? NO . COUGH NO . INTEGUMENTARY: DO YOU HAVE ANY RASHES OR OPEN SORES? NO . ALLERGIC/IMMUNO: ARE YOU ALLERGIC TO SHELLFISH OR IV DYE? NO . ANY NEW ALLERGIES? NO . PSYCHIATRIC: DO YOU HAVE THOUGHTS OF HURTING YOURSELF OR SOMEONE ELSE? NO . ARE YOU ABUSED, NEGLECTED, OR IN AN UNSAFE ENVIRONMENT? NO . ENDOCRINOLOGY: ARE YOU DIABETIC? NO . OTHER: DO YOU NEED ANY PRESCRIPTIONS? NO . IF YES, PLEASE LIST: ____ . ANY NEW PROBLEMS WITH YOUR MEDICATIONS? NO . WHEN DID YOU LAST EAT? ____ . WHEN DID YOU LAST DRINK? ____ . WHAT DID YOU LAST DRINK? ____ . NAME OF PERSON DRIVING YOU HOME? ____ . DO YOU HAVE ANY OTHER QUESTIONS OR CONCERNS NO . REVIEWED BY: PROVIDER: KIM BERNAL . VITAL SIGNS WT 180.0 LBS, HT 65 IN, BMI 29.95 INDEX, BP 112/64 MM HG, HR 67 /MIN, RR 16 /MIN, TEMP 98.3 F, OXYGEN SAT % 99%, SAFE IN ENV? (Y/N) Y, NA INITIALS TL 1451, REVIEWED BY: EM. EXAMINATION GENERAL EXAMINATION: LUNGS:LUNG SOUNDS ARE CLEAR. HEART:HEART RATE REGULAR. MUSCULOSKELETAL:*, MUSCLE STRENGTH TESTING 3/5 RLE.4/5 LLE., PALPATION: POSITIVE FOR PAIN OVER L/S SPINE. POSITIVE FOR PAIN OVER L/S PARASPINALS. DIAGNOSTIC: . ASSESSMENTS LUMBAR DISC HERNIATION - M51.26 (PRIMARY) ACUTE LOW BACK PAIN DUE TO SPINAL DISORDER - M54.5 LUMBAR RADICULOPATHY - M54.16 CHRONIC PRESCRIPTION OPIATE USE - Z79.891 TREATMENT LUMBAR DISC HERNIATION REFILL PERCOCET TABLET, 10-325 MG, 1 TABLET NEEDED, ORALLY, EVERY 6 HRS PRN MDD4, 30 DAY(S), 120, REFILLS 0 CONTINUE SOMA TABLET, 350 MG, 1 TABLET NEEDED, ORALLY, TID MDD3, 30 DAY(S), 90, REFILLS 1 NOTES: ISTOP REGISTRY REVIEWED AND DEMNOSTRATES COMPLLIANCE. BRINGS IN MEDICATIONS WHICH IS APPROPRIATE FOR WHAT WAS DISPENSED. RECENT URINE TOXICOLOGY REVIEWED. NO UNAUTHORIZED MEDICATIONS. NO ILLICIT SUBSTANCES AND PRESCRIBED MEDICATIONS WERE PRESENT. , REVIEWED WITH PATIENT THE POTENTIAL RISK OF INCREASED SEDATION, RESPIRATORY SUPPRESSION AND WITH THE COMBINATION OF BENZODIAZAPINE AND OPIOD MEDICATIONS. PATIENT STATES HE UNDERSTANDS THIS RISK AND WISHES TO CONTINUE WITH THERAPY, RISKS AND BENEFITS OF NARCOTIC/OPIOD MEDICATIONS WERE REVIEWED WITH PATIENT - THIS INCLUDES BUT IS NOT LIMITED TO RISK OF DEPENDANCE/DEVELOPMENT OF ADDICTION, MOOD DISTURBANCE AND DEPRESSION, OSTEOPOROSIS, HORMONAL AND LABIDAL CHANGES, RESPIRATORY DEPRESSION AND . PATIENT IS ADVISED NOT TO DRIVE WHILE ON THESE MEDICATIONS. PROCEDURE CODES G8730 PAIN ASSESS POS TOOL F/U PLAN DOC G8427 DOC MEDS VERIFIED W/PT OR RE DISPOSITION & COMMUNICATION FOLLOW UP 2 WEEKS ELECTRONICALLY SIGNED BY GABE ELLIOTT ON 04/20/2017 AT 05:25 PM EDT DISCLAIMER : THIS IS A VISIT SUMMARY EXTRACTED FROM THE [employer] CHART. IT IS NOT A COPY OF THE [employer] PROGRESS NOTE. CHRISTOFER
== END ==
LOC: M PAIN 14:40
PROVIDERS: ATTEND Nurse Practitioner Family
DX: G89.29 Other chronic pain (principal); M51.26 Other intervertebral disc displacement, lumbar region; M54.16 Radiculopathy, lumbar region; M79.7 Fibromyalgia; M32.9 Systemic lupus erythematosus, unspecified; M13.80 Other specified arthritis, unspecified site; J84.9 Interstitial pulmonary disease, unspecified; Z88.8 Allergy status to other drugs, medicaments and biological substances; Z79.82 Long term (current) use of aspirin; Z79.891 Long term (current) use of opiate analgesic; Z79.899 Other long term (current) drug therapy

== ENCOUNTER → 2017-04-21 | Outpatient (CLI) | payer MEDICARE, MEDICAID ==
[2017-04-21 16:31] LABS: BLOOD UREA NITROGEN 13 MG/DL (7-18); CREATININE FOR GFR 0.86 MG/DL (0.55-1.02); GLOMERULAR FILTRATION RATE > 60.0 (>58)
== END ==
LOC: M LAB 14:25
PROVIDERS: ATTEND Neurological Surgery
DX: Z01.812 Encounter for preprocedural laboratory examination (principal)

== ENCOUNTER → 2017-05-03 | Outpatient (CLI) | payer MEDICARE, MEDICAID ==
--- NOTE | 2017-05-04 00:57 | ECWPNPC ---
PATIENT NAME: CONSTANCE WYMAN : 1970 GENDER: FEMALE VISIT DATE: 05/03/2017 DISCHARGE DATE: 05/03/17 1614 VISIT LOCKED DATE TIME: PHYSICIAN: KIM VELASCO RESOURCE: KIM VELASCO REASON FOR APPOINTMENT 1. FOLLOWUP HISTORY OF PRESENT ILLNESS HISTORY OF PRESENT ILLNESS: HERE FOR F/U AND MEDICINE MANAGEMENT OF CHRONIC LBP AND BILATERAL LEG R>L PAIN/NUMBNESS.HX OF LUMBAR SURGERY WITH HARDWARE .REPORTING R>L LOWER EXTREMITY NUMBNESS.RATING LBP 4/10 VAS .CONTINUES WITH EPISODES OF URINARY LEAKAGE .DISCUSSED SERIOUS NATURE OF THIS ADVISED ER EVALUATION WITH ANY FURTHER EPISODES. SAW DR. VALENCIA DUE TO URINARY INCONTINENCE AND MRI OF L/S AND CERVICAL SPINE WAS DONE.PATIENT STATES THAT DR. VALENCIA TOLD HER URINARY INCONTINENCE MAY BE FROM CERVICAL SPINE.CURRENTLY USING OXYCODONE 10/325 AND SOMA 350MG APROXIMATLEY 2-3 TIMES PER DAY.FINDS MEDICATION EFFECTIVE BUT CONTINUES TO REPORT SEVERE PAIN.PAIN IS AGGREVATED BY SLIGHT FLEXION OF SPINE. PAIN THE PATIENT DESCRIBES THE PAIN... THE PATIENT DESCRIBES THE PAIN... THE PATIENT DESCRIBES THE PAIN... FALL RISK SCREENING: SCREENING :NO FALLS IN THE PAST YEAR CURRENT MEDICATIONS TAKING LASIX 40 MG TABLET 1 TABLET ORALLY BID TAKING POTASSIUM CHLORIDE 20 MG CAPSULE EXTENDED RELEASE 1 CAPSULE WITH FOOD ORALLY TWICE A DAY TAKING WELLBUTRIN XL 150 MG TABLET EXTENDED RELEASE 24 HOUR 1 TABLET IN THE MORNING ORALLY ONCE A DAY TAKING PAXIL 30 MG TABLET 1 TABLET IN THE MORNING ORALLY ONCE A DAY TAKING NORTRIPTYLINE HCL 10 MG CAPSULE 3 CAPSULE= 30 MG ORALLY ONCE A DAY TAKING LANSOPRAZOLE 30 MG CAPSULE DELAYED RELEASE 1 CAPSULE ORALLY ONCE A DAY TAKING XANAX 1 MG TABLET 1 TABLET ORALLY THREE TIMES DAILY NEEDED TAKING IBUPROFEN 800 MG TABLET 1 TABLET ORALLY THREE TIMES A DAY TAKING ATENOLOL 50 MG TABLET 1 TABLET ORALLY TWICE A DAY TAKING HYDROCHLOROTHIAZIDE 25 MG TABLET 1 TABLET ORALLY ONCE A DAY TAKING VITAMIN D 00255 UNIT CAPSULE 1 CAPSULE ORALLY WEEKLY TAKING BUSPAR 15 MG ORALLY DAILY TAKING PERCOCET 10-325 MG TABLET 1 TABLET NEEDED ORALLY EVERY 6 HRS PRN MDD4 TAKING SOMA 350 MG TABLET 1 TABLET NEEDED ORALLY TID MDD3 NOT-TAKING NORCO 5-325 MG TABLET 1 TABLET NEEDED ORALLY EVERY 6 HRS NOT-TAKING BUSPAR 10 MG TABLET 2 TABLET ORALLY TWICE A DAY NOT-TAKING SPIRONOLACTONE 25 MG TABLET 1 TABLET ORALLY DAILY NOT-TAKING ADDERALL 15 MG TABLET 1 TABLET IN THE MORNING ORALLY TWICE A DAY NEEDED NOT-TAKING PERCOCET 10-325 MG TABLET 1 ORALLY 1 TAB Q6H PRN MDD4 NOT-TAKING MORPHINE SULFATE ER 15 MG TABLET EXTENDED RELEASE 1 TABLET ORALLY EVERY 12 HRS MDD2 NOT-TAKING VALIUM 10 MG TABLET 1 ORALLY 1 TAB 1HR PRE PROC. MDD1, NOTES: 07-21-16 1105 MEDICATION LIST REVIEWED AND RECONCILED WITH THE PATIENT PAST MEDICAL HISTORY FIBROMYALGIA LUPUS INTERSTITIAL LUNG DISEASE INFLAMMATORY ARTHRITIS ALLERGIES MOBIC: AGGRESIVE: SIDE EFFECTS NEURONTIN: AGGRESIVE: SIDE EFFECTS IMURAN: NAUSEA/VOMITING: ALLERGY SURGICAL HISTORY LOWER BACK SURGERY 08/2016 HOSPITALIZATION/MAJOR DIAGNOSTIC PROCEDURE LUPUS BACK PAIN REVIEW OF SYSTEMS CONSTITUTIONAL: ANY CHANGE IN YOUR MEDICAL CONDITION? NO . CHILLS NO . FEVER NO . INFECTION: DO YOU HAVE NEW INFECTIONS? NO . DO YOU HAVE HISTORY OF MRSA? NO . MUSCULOSKELETAL: ANY NEW PATTERNS OF PAIN OR NUMBNESS? NO . GASTROENTEROLOGY: ANY NEW CHANGE IN BOWEL CONTROL? NO . GENITOURINARY: ANY NEW CHANGE IN BLADDER CONTROL? YES, INCONTINENCE . IS THERE A CHANCE YOU COULD BE ? NO . HEMATOLOGY/LYMPH: DO YOU TAKE ANY BLOOD THINNERS? (FOR EXAMPLE- COUMADIN, PLAVIX, AGGRENOX, PLATEL, PRADAXA, OR XARELTO) NO . WHEN WAS YOUR LAST DOSE? DATE: TIME: . NEUROLOGY: HAVE YOU FALLEN IN THE PAST 6 MONTHS? NO . ANY NEW EXTREMITY NUMBNESS OR WEAKNESS? NO . CARDIOLOGY: DO YOU HAVE A PACEMAKER OR DEFIBRILLATOR? NO . RESPIRATORY: HAVE YOU BEEN SICK IN THE PAST WEEK? NO . FEVER NO . FLU LIKE SYMPTOMS? NO . COUGH NO . INTEGUMENTARY: DO YOU HAVE ANY RASHES OR OPEN SORES? NO . ALLERGIC/IMMUNO: ARE YOU ALLERGIC TO SHELLFISH OR IV DYE? NO . ANY NEW ALLERGIES? NO . PSYCHIATRIC: DO YOU HAVE THOUGHTS OF HURTING YOURSELF OR SOMEONE ELSE? NO . ARE YOU ABUSED, NEGLECTED, OR IN AN UNSAFE ENVIRONMENT? NO . ENDOCRINOLOGY: ARE YOU DIABETIC? NO . OTHER: DO YOU NEED ANY PRESCRIPTIONS? YES, PERCOSET . IF YES, PLEASE LIST: ____ . ANY NEW PROBLEMS WITH YOUR MEDICATIONS? NO . WHEN DID YOU LAST EAT? ____ . WHEN DID YOU LAST DRINK? ____ . WHAT DID YOU LAST DRINK? ____ . NAME OF PERSON DRIVING YOU HOME? ____ . DO YOU HAVE ANY OTHER QUESTIONS OR CONCERNS NO . REVIEWED BY: PROVIDER: KIM BERNAL . VITAL SIGNS WT 185 LBS, HT 65 IN, BMI 30.78 INDEX, BP 118/73 MM HG, HR 56 /MIN, RR 16 /MIN, TEMP 98.3 F, OXYGEN SAT % 96%, SAFE IN ENV? (Y/N) Y, NA INITIALS AW 1531, REVIEWED BY: EM. EXAMINATION GENERAL EXAMINATION: LUNGS:LUNG SOUNDS ARE CLEAR. HEART:HEART RATE REGULAR. MUSCULOSKELETAL:*, MUSCLE STRENGTH TESTING 3/5 RLE.4/5 LLE., PALPATION: POSITIVE FOR PAIN OVER L/S SPINE. POSITIVE FOR PAIN OVER L/S PARASPINALS.SPECIFIC POINT TENDERNESS OVER BILATERAL SIJ R>L. DIAGNOSTIC: . ASSESSMENTS LUMBAR DISC HERNIATION - M51.26 (PRIMARY) CHRONIC PRESCRIPTION OPIATE USE - Z79.891 BILATERAL SACROILIITIS - M46.1 TREATMENT LUMBAR DISC HERNIATION REFILL IBUPROFEN TABLET, 800 MG, 1 TABLET, ORALLY, THREE TIMES A DAY, 30 DAY(S), 90 TABLET, REFILLS 5 REFILL PERCOCET TABLET, 10-325 MG, 1 TABLET NEEDED, ORALLY, EVERY 6 HRS PRN MDD4, 30 DAY(S), 120, REFILLS 0 CONTINUE SOMA TABLET, 350 MG, 1 TABLET NEEDED, ORALLY, TID MDD3 NOTES: BILATRAL SIJ, ISTOP REGISTRY REVIEWED AND DEMNOSTRATES COMPLLIANCE. BRINGS IN MEDICATIONS WHICH IS APPROPRIATE FOR WHAT WAS DISPENSED. RECENT URINE TOXICOLOGY REVIEWED. NO UNAUTHORIZED MEDICATIONS. NO ILLICIT SUBSTANCES AND PRESCRIBED MEDICATIONS WERE PRESENT. , RISKS AND BENEFITS OF NARCOTIC/OPIOD MEDICATIONS WERE REVIEWED WITH PATIENT - THIS INCLUDES BUT IS NOT LIMITED TO RISK OF DEPENDANCE/DEVELOPMENT OF ADDICTION, MOOD DISTURBANCE AND DEPRESSION, OSTEOPOROSIS, HORMONAL AND LABIDAL CHANGES, RESPIRATORY DEPRESSION AND . PATIENT IS ADVISED NOT TO DRIVE WHILE ON THESE MEDICATIONS.URINE TOX TODAY,ANATOMY OF THE SACROILIAC JOINT MATERIAL WAS PRINTED, REVIEWED AND GIVEN TO PT,CERVICAL EPIDURAL INJECTION: YOUR EXPERIENCE MATERIAL WAS PRINTED, REVIEWED AND GIVEN TO PT,ANATOMY OF THE SACROILIAC JOINT MATERIAL WAS PRINTED, REVIEWED AND GIVEN TO PT. [facility] REASON:CERVICAL DISC PROTRUSION/LUMBAR DISC PROTRUSION W RADICULOPATHY-NEW ONSET URINARY LEAKAGE PROCEDURE CODES FA211 ESTABILISHED PATIENT [facility] CHARGE DISPOSITION & COMMUNICATION FOLLOW UP 6 WEEKS (REASON: BILATRAL SIJ) ELECTRONICALLY SIGNED BY GABE ELLIOTT ON 05/03/2017 AT 04:51 PM EDT DISCLAIMER : THIS IS A VISIT SUMMARY EXTRACTED FROM THE [employer] CHART. IT IS NOT A COPY OF THE [email or web address] PROGRESS NOTE. CHRISTOFER
== END ==
LOC: M PAIN 15:00
PROVIDERS: ATTEND Nurse Practitioner Family
DX: G89.29 Other chronic pain (principal); M51.26 Other intervertebral disc displacement, lumbar region; M46.1 Sacroiliitis, not elsewhere classified; M79.7 Fibromyalgia; M19.90 Unspecified osteoarthritis, unspecified site; M32.9 Systemic lupus erythematosus, unspecified; J84.9 Interstitial pulmonary disease, unspecified; Z88.8 Allergy status to other drugs, medicaments and biological substances; Z79.891 Long term (current) use of opiate analgesic; Z79.1 Long term (current) use of non-steroidal anti-inflammatories (NSAID); Z79.899 Other long term (current) drug therapy

== ENCOUNTER → 2017-05-12 | Outpatient (CLI) | payer MEDICARE, MEDICAID ==
[~2017-05-12] MED LIST changes: +BUPIVACAINE HCL 0.25% 30 ML VIAL As Ordered ONE; +ISOVUE-M 300 61% 15ML VIAL (Q9967) As Ordered ONE; +LIDOCAINE 1% SDV INJ 30 ML VIAL As Ordered ONE; +TRIAMCINOLONE ACETONIDE SUSP 40 MG/ML VIAL (J3301) As Ordered ONE; +diazePAM 5 MG TAB As Ordered ONE; +oxyCODONE 5MG TAB As Ordered ONE
--- NOTE | 2017-05-12 15:45 | REP ---
FLUOROSCOPIC GUIDANCE: The images were reviewed with Dr. Hill. The patient has a history of sacroiliitis. The portable C-arm was provided in the OR for Dr. Soria for fluoroscopic guidance. Five intraoperative fluoroscopic spot films were obtained for needle placement verification for bilateral SI joint injection. The films are on the PACs system and are available for review. 9 seconds of fluoroscopic time was utilized for this procedure. Reviewed by JAVID Boss 05/12/2017 03:57 PEdited and Signed by Jacob Hill MD 05/12/2017 05:29 P
--- NOTE | 2017-05-19 00:01 | ECWPNPC ---
PATIENT NAME: CONSTANCE WYMAN : 1970 GENDER: FEMALE VISIT DATE: 05/12/2017 DISCHARGE DATE: 05/12/17 1128 VISIT LOCKED DATE TIME: PHYSICIAN: JOHN LLANES RESOURCE: JOHN LLANES REASON FOR APPOINTMENT 1. [facility] HISTORY OF PRESENT ILLNESS HISTORY OF PRESENT ILLNESS: PAIN THE PATIENT DESCRIBES THE PAIN... THE PATIENT DESCRIBES THE PAIN... PAIN THE PATIENT DESCRIBES THE PAIN... THE PATIENT DESCRIBES THE PAIN... FALL RISK SCREENING: SCREENING :NO FALLS IN THE PAST YEAR :NO FALLS IN THE PAST YEAR SCREENING :NO FALLS IN THE PAST YEAR :NO FALLS IN THE PAST YEAR CURRENT MEDICATIONS TAKING LASIX 40 MG TABLET 1 TABLET ORALLY BID, NOTES: 05/11/17599 TAKING POTASSIUM CHLORIDE 20 MG CAPSULE EXTENDED RELEASE 1 CAPSULE WITH FOOD ORALLY TWICE A DAY, NOTES: 05/11/17599 TAKING WELLBUTRIN XL 150 MG TABLET EXTENDED RELEASE 24 HOUR 1 TABLET IN THE MORNING ORALLY ONCE A DAY, NOTES: 05/10/17 TAKING PAXIL 30 MG TABLET 1 TABLET IN THE MORNING ORALLY ONCE A DAY, NOTES: 05/11/17599 TAKING NORTRIPTYLINE HCL 10 MG CAPSULE 3 CAPSULE= 30 MG ORALLY ONCE A DAY, NOTES: 05/11/17599 TAKING LANSOPRAZOLE 30 MG CAPSULE DELAYED RELEASE 1 CAPSULE ORALLY ONCE A DAY, NOTES: 05/11/17599 TAKING XANAX 1 MG TABLET 1 TABLET ORALLY THREE TIMES DAILY NEEDED, NOTES: 05/10/17 TAKING ATENOLOL 50 MG TABLET 1 TABLET ORALLY TWICE A DAY, NOTES: 05/11/17599 TAKING HYDROCHLOROTHIAZIDE 25 MG TABLET 1 TABLET ORALLY ONCE A DAY, NOTES: 05/11/17599 TAKING VITAMIN D 32650 UNIT CAPSULE 1 CAPSULE ORALLY WEEKLY, NOTES: 05/09/17 TAKING BUSPAR 15 MG ORALLY DAILY, NOTES: 05/11/17599 TAKING IBUPROFEN 800 MG TABLET 1 TABLET ORALLY THREE TIMES A DAY, NOTES: 05/12/17 08 TAKING PERCOCET 10-325 MG TABLET 1 TABLET NEEDED ORALLY EVERY 6 HRS PRN MDD4, NOTES: 05/12/17 0600 TAKING SOMA 350 MG TABLET 1 TABLET NEEDED ORALLY TID MDD3, NOTES: 05/12/17 0800 TAKING SANDIMMUNE 25 MG CAPSULE ORALLY TAKES 50 MG TWICE A DAY, NOTES: 05/03/17 NOT-TAKING NORCO 5-325 MG TABLET 1 TABLET NEEDED ORALLY EVERY 6 HRS NOT-TAKING BUSPAR 10 MG TABLET 2 TABLET ORALLY TWICE A DAY NOT-TAKING SPIRONOLACTONE 25 MG TABLET 1 TABLET ORALLY DAILY NOT-TAKING ADDERALL 15 MG TABLET 1 TABLET IN THE MORNING ORALLY TWICE A DAY NEEDED NOT-TAKING PERCOCET 10-325 MG TABLET 1 ORALLY 1 TAB Q6H PRN MDD4 NOT-TAKING MORPHINE SULFATE ER 15 MG TABLET EXTENDED RELEASE 1 TABLET ORALLY EVERY 12 HRS MDD2 NOT-TAKING VALIUM 10 MG TABLET 1 ORALLY 1 TAB 1HR PRE PROC. MDD1, NOTES: 07-21-16 1105 MEDICATION LIST REVIEWED AND RECONCILED WITH THE PATIENT PAST MEDICAL HISTORY FIBROMYALGIA LUPUS INTERSTITIAL LUNG DISEASE INFLAMMATORY ARTHRITIS ALLERGIES MOBIC: AGGRESIVE: SIDE EFFECTS NEURONTIN: AGGRESIVE: SIDE EFFECTS IMURAN: NAUSEA/VOMITING: SIDE EFFECTS SURGICAL HISTORY L4-5 LAMINECTOMY LOWER BACK SURGERY (DR. VALENCIA) 08/2016 SOCIAL HISTORY GENERAL: TOBACCO USE ARE YOU A: CURRENT SMOKER , ADDITIONAL FINDINGS: TOBACCO USER MODERATE CIGARETTE SMOKER (10-19 CIGS/DAY) , SMOKING CESSATION INFORMATION GIVEN SEE ABOVE, VAPOR NO , E-CIGARETTE NO , ARE YOU INTERESTED IN QUITTING? THINKING ABOUT QUITTING , HOW MANY CIGARETTES A DAY DO YOU SMOKE? 11-20 , HOW SOON AFTER YOU WAKE UP DO YOU SMOKE YOUR FIRST CIGARETTE? 6-30 MIN , HOW OFTEN DO YOU SMOKE CIGARETTES? EVERY DAY , PATIENT COUNSELED ON THE DANGERS OF TOBACCO USE AND URGED TO QUIT: INFORMATION RE SMOKING CEASSATION OFFERED TO PT, COUNSELED THE PATIENT ON SMOKING CESSATION, EDUCATION PROVIDED SEE ABOVE. RECREATIONAL DRUG USE DRUG USE?NO PATIENT DENIES ABUSE OR MISSUSED OF ANY MEDICATION. PATIENT DENIES USE OF ANY ILLEGAL SUBSTANCE INCLUDING MARIJUANA OR COCAINE. CAFFEINE CAFFEINE USE? YES , HOW OFTEN AND HOW MUCH? 2 COFFEE 2 SODAS. LEARNING BARRIERS / SPECIAL NEEDS ABILITY TO UNDERSTAND VERBAL INSTRUCTIONS AVERAGE, ABILITY TO UNDERSTAND WRITTEN INSTRUCTIONS AVERAGE, KNOWLEDGE OF EDUCATIONAL NEEDS/TREATMENT PLAN AVERAGE, GNOSTICISM? NO, LEARNING PREFERENCE NO PREFERENCE, ORIENTED TO PLAN OF CARE: PATIENT, TEACHING MATERIALS PRINTED HANDOUT, RESPONSE TO EDUCATION EXPLAINES ACCURATELY/VERBALIZES UNDERSTANDING, PAIN MANAGEMENT PATIENT, TEACHING MATERIALS PRINTED HANDOUT, RESPONSE TO EDUCATION EXPLAINS ACCURATELY/VERBALIZES UNDERSTANDING. PSYCHOLOGICAL HX TREATMENT YES , HOW OFTEN AND HOW MUCH? WEEKLY. PAIN CLINIC PFS, CLERGY, PUBLIC HEALTH REFERRALS PFS REFERRAL NEEDED?NO CLERGY REFERRAL NEEDED?NO PUBLIC HEALTH REFERRAL NEEDED?NO WAS THE PROVIDER NOTIFIED OF ANY PERTINENT INFO?YES REVIEWED BY: KIMMY. PATIENT: DENIES USE OF ANY ILLEGAL SUBSTANCE INCLUDING MARIJUANA OR COCAINE, REPORTS BEING EMOTIONALLY STABLE, REPORTS HAVING A SAFE AND ADEQUATE PLACE TO STORE THE MEDICATIONS, IS AWARE THAT THEY ARE RESPONSIBLE AND GUARDIAN OF THE PRESCRIBED MEDICATIONS, DENIES RECREATIONAL DRUG USE. ADVANCE DIRECTIVES HEALTH CARE PROXY? NO DECLINES FURTHER INFORMATION AT THIS TIME, POWER OF WHOLESALE ACCOUNT EXECUTIVE? NO . HOSPITALIZATION/MAJOR DIAGNOSTIC PROCEDURE LUPUS BACK PAIN SURGERY REVIEW OF SYSTEMS REVIEWED BY: PROVIDER: , . CONSTITUTIONAL: ANY CHANGE IN YOUR MEDICAL CONDITION? NO, NO . CHILLS NO, NO . FEVER NO, NO . INFECTION: DO YOU HAVE NEW INFECTIONS? NO, NO . DO YOU HAVE HISTORY OF MRSA? NO, NO . MUSCULOSKELETAL: ANY NEW PATTERNS OF PAIN OR NUMBNESS? NO, NO . GASTROENTEROLOGY: ANY NEW CHANGE IN BOWEL CONTROL? NO, NO . GENITOURINARY: ANY NEW CHANGE IN BLADDER CONTROL? NO, NO . IS THERE A CHANCE YOU COULD BE ? NO, NO . HEMATOLOGY/LYMPH: DO YOU TAKE ANY BLOOD THINNERS? (FOR EXAMPLE- COUMADIN, PLAVIX, AGGRENOX, PLATEL, PRADAXA, OR XARELTO) NO, NO . WHEN WAS YOUR LAST DOSE? DATE: TIME: , DATE: TIME: . NEUROLOGY: HAVE YOU FALLEN IN THE PAST 6 MONTHS? NO, NO . ANY NEW EXTREMITY NUMBNESS OR WEAKNESS? NO, NO . CARDIOLOGY: DO YOU HAVE A PACEMAKER OR DEFIBRILLATOR? NO, NO . RESPIRATORY: HAVE YOU BEEN SICK IN THE PAST WEEK? NO, NO . FEVER NO, NO . FLU LIKE SYMPTOMS? NO, NO . COUGH NO, NO . INTEGUMENTARY: DO YOU HAVE ANY RASHES OR OPEN SORES? NO, NO . ALLERGIC/IMMUNO: ARE YOU ALLERGIC TO SHELLFISH OR IV DYE? NO, NO . ANY NEW ALLERGIES? NO, NO . PSYCHIATRIC: DO YOU HAVE THOUGHTS OF HURTING YOURSELF OR SOMEONE ELSE? NO, NO . ARE YOU ABUSED, NEGLECTED, OR IN AN UNSAFE ENVIRONMENT? NO, NO . ENDOCRINOLOGY: ARE YOU DIABETIC? NO, NO . OTHER: DO YOU NEED ANY PRESCRIPTIONS? NO, NO . IF YES, PLEASE LIST: ____, ____ . ANY NEW PROBLEMS WITH YOUR MEDICATIONS? NO, NO . WHEN DID YOU LAST EAT? 2329, ____ . WHEN DID YOU LAST DRINK? 2329, ____ . WHAT DID YOU LAST DRINK? SODA, ____ . NAME OF PERSON DRIVING YOU HOME? DONNIE AMOS, ____ . DO YOU HAVE ANY OTHER QUESTIONS OR CONCERNS NO, NO . VITAL SIGNS WT 185 LBS, HT 65 IN, BMI 30.78 INDEX, BP 102/71 MM HG, HR 70 /MIN, RR 16 /MIN, TEMP 99.7 F, OXYGEN SAT % 97%, NA INITIALS AW 0951, REVIEWED BY: LESLEY. ASSESSMENTS SACROILIITIS, NOT ELSEWHERE CLASSIFIED - M46.1 (PRIMARY) PROCEDURES PN SI PRE PROCEDURE DIAGNOSIS SACROILIITIS, SACROILIAC JOINT DYSFUNCTION POST PROCEDURE DIAGNOSIS SACROILIITIS, SACROILIAC JOINT DYSFUNCTION PROCEDURE BILATERAL SACROILIAC JOINT BLOCK SURGEON DR. JOHN LLANES SIEBEL CONSULTANT NONE ANESTHESIA LOCAL PRE PROCEDURE NOTE PATIENT WITH HISTORY OF CHRONIC LOW BACK PAIN. I EVALUATED THE PATIENT AND REVIEWED THE CHART. I WENT OVER THE RISKS, ALTERNATIVES, AND BENEFITS ASSOCIATED WITH THIS PROCEDURE. THE PATIENT WOULD LIKE TO PROCEED AND GAVE CONSENT TO PERFORM THE PROCEDURE. THE PATIENT DENIES UNEXPLAINABLE WEIGHT LOSS, FEVER, CHILLS, OR NEW CHANGES IN URINARY OR BOWEL CONTROL DESCRIPTION OF PROCEDURE THE PATIENT WAS BROUGHT TO THE PROCEDURE ROOM AND PLACED IN THE PRONE POSITION. THE LUMBOSACRAL AREA WAS CLEANED WITH CHLORAPREP SOLUTION AND DRAPED ASEPTICALLY. THE PROCEDURE WAS DONE UNDER STERILE CONDITIONS. I CHECKED LATERALITY AND THE LEVEL WHERE THE PROCEDURE WAS GOING TO BE PERFORMED WITH THE PATIENT AND THE SUPPORTING STAFF AT THE MOMENT OF THE TIME OUT IN THE PROCEDURE ROOM. UNDER FLUOROSCOPIC GUIDANCE, TARGET POINT WAS SELECTED AT THE LOWER BORDER OF THE RIGHT AND LEFT SACROILIAC JOINT. TARGET POINT WAS SELECTED AFTER MEDIAL ROTATION AND TILT OF THE MAGNIFIER OF THE C-ARM. LIDOCAINE WAS USED TO NUMB THE SKIN AND SUBCUTANEOUS TISSUE BELOW IT. A SPINAL NEEDLE, 22-GAUGE, WAS ADVANCED UNDER FLUOROSCOPIC GUIDANCE AND FOLLOWING PATIENT FEEDBACK UNTIL THE TARGET AREA WAS TOUCHED. THE POSITION OF THE NEEDLE WAS VERIFIED WITH AP AND LATERAL VIEWS. AFTER PROPER POSITION OF THE NEEDLE WAS ACHIEVED, ISOVUE M DYE 30%, 0.25 ML, WAS INJECTED SHOWING SPREAD OF THE DYE. THEN, A SOLUTION OF 20 MG OF KENALOG WAS INJECTED IN RIGHT JOINT WITH 3 ML OF BUPIVACAINE 0.125%. THERE WAS NO EVIDENCE OF BLOOD, PARESTHESIA OR CEREBROSPINAL FLUID DURING THE PROCEDURE. THE PATIENT WAS SENT TO THE RECOVERY ROOM. THE PATIENT WAS MOVING THE EXTREMITIES AND DOING WELL. THERE WAS NO COMPLICATION DURING THE PROCEDURE. FLUOROSCOPY TIME WAS 9 SECONDS POST PROCEDURE NOTE THE PATIENT WILL BE SEEN IN A FOLLOW UP IN THE NEXT FEW WEEKS. INSTRUCTIONS WERE GIVEN, QUESTIONS WERE ANSWERED, AND THE PATIENT EXPRESSED UNDERSTANDING AND AGREED WITH THE PLAN. I, CHER FORD, DOCUMENTED THE ABOVE INFORMATION ACTING A SCRIBE FOR DR. LLANES. I HAVE REVIEWED THE ABOVE DOCUMENT, WRITTEN BY CHER FORD SCRIBE AND I VERIFY THAT IT IS [facility]UR[facility] DIAGNOSTIC IMAGING [facility] FLUORO GUIDANCE (PAIN)[id number] PROCEDURE CODES 85026 INJECT SACROILIAC JOINT 6045F RADXPS IN END [id number] PXD DISPOSITION & COMMUNICATION FOLLOW UP 3 WEEKS ELECTRONICALLY SIGNED BY JOHN LLANES MD ON 05/18/2017 AT 11:10 AM EDT DISCLAIMER : THIS IS A VISIT SUMMARY EXTRACTED FROM THE [employer] CHART. IT IS NOT A COPY OF THE [employer] PROGRESS NOTE. MTDD
== END ==
LOC: M PAIN 09:00
PROVIDERS: ATTEND Anesthesiology
DX: G89.29 Other chronic pain (principal); M46.1 Sacroiliitis, not elsewhere classified; M79.7 Fibromyalgia; M32.9 Systemic lupus erythematosus, unspecified; J84.10 Pulmonary fibrosis, unspecified; F17.210 Nicotine dependence, cigarettes, uncomplicated; Z79.891 Long term (current) use of opiate analgesic; Z79.1 Long term (current) use of non-steroidal anti-inflammatories (NSAID); Z79.899 Other long term (current) drug therapy; Z88.8 Allergy status to other drugs, medicaments and biological substances
CPT/HCPCS: G0260; J3301; Q9967

== ENCOUNTER → 2017-06-06 | Outpatient (CLI) | payer MEDICARE, MEDICAID ==
[~2017-06-06] MED LIST changes: -BUPIVACAINE HCL 0.25% 30 ML VIAL As Ordered ONE; +CARI350T PO; -CARI350T20 PO; -ISOVUE-M 300 61% 15ML VIAL (Q9967) As Ordered ONE; +LEVO750T13 PO; -LEVO750T33 PO; -LIDOCAINE 1% SDV INJ 30 ML VIAL As Ordered ONE; +OXYC-141 PO; -OXYC-299 PO; +OXYC-403 PO; -OXYC1TAB55 PO; -PERC10TA17 PO; +PERC10TA26 PO; -TRIAMCINOLONE ACETONIDE SUSP 40 MG/ML VIAL (J3301) As Ordered ONE; -diazePAM 5 MG TAB As Ordered ONE; -oxyCODONE 5MG TAB As Ordered ONE
--- NOTE | 2017-06-07 01:13 | ECWPNPC ---
PATIENT NAME: CONSTANCE WYMAN : 1970 GENDER: FEMALE VISIT DATE: 06/06/2017 DISCHARGE DATE: 06/06/17 1015 VISIT LOCKED DATE TIME: PHYSICIAN: KIM VELASCO RESOURCE: KIM VELASCO REASON FOR APPOINTMENT 1. POST [facility] HISTORY OF PRESENT ILLNESS HISTORY OF PRESENT ILLNESS: HERE FOR POST PROCEDURE F/U.HAD [facility] ON 05-12-17.REPORTS NO IMPROVEMENT IN PAIN POST PROCEDURE AND SOME AGGREVATION.CURRENTLY HAVING A LUPUS FLARE UP AND HAVING INCREASE IN LOW BACK.WILL BE STARTING PREDNISONE BY PRIMARY CARE TODAY FOR THIS.COMPLAINING OF RIGHT HIP INTERMITTENT SHARP PAIN WITH DRAGGING OF RIGHT FOOT.USING OXYCODONE 10/325 Q6H PRN WITH SOME IMPROVEMENT.COMPLAINING OF RIGHT LEG CRAMPING AT NIGHT MAINLY.CURRENTLY USING SOMA 350MG BID.RATING PAIN VAS 7/10. PAIN THE PATIENT DESCRIBES THE PAIN... FALL RISK SCREENING: SCREENING :NO FALLS IN THE PAST YEAR CURRENT MEDICATIONS TAKING LASIX 40 MG TABLET 1 TABLET ORALLY BID TAKING POTASSIUM CHLORIDE 20 MG CAPSULE EXTENDED RELEASE 1 CAPSULE WITH FOOD ORALLY TWICE A DAY TAKING WELLBUTRIN XL 150 MG TABLET EXTENDED RELEASE 24 HOUR 1 TABLET IN THE MORNING ORALLY ONCE A DAY TAKING PAXIL 30 MG TABLET 1 TABLET IN THE MORNING ORALLY ONCE A DAY TAKING NORTRIPTYLINE HCL 10 MG CAPSULE 3 CAPSULE= 30 MG ORALLY ONCE A DAY TAKING XANAX 1 MG TABLET 1 TABLET ORALLY THREE TIMES DAILY NEEDED TAKING ATENOLOL 50 MG TABLET 1 TABLET ORALLY TWICE A DAY TAKING HYDROCHLOROTHIAZIDE 25 MG TABLET 1 TABLET ORALLY ONCE A DAY TAKING VITAMIN D 53443 UNIT CAPSULE 1 CAPSULE ORALLY WEEKLY TAKING BUSPAR 15 MG ORALLY DAILY TAKING IBUPROFEN 800 MG TABLET 1 TABLET ORALLY THREE TIMES A DAY TAKING PERCOCET 10-325 MG TABLET 1 TABLET NEEDED ORALLY EVERY 6 HRS PRN MDD4 TAKING SOMA 350 MG TABLET 1 TABLET NEEDED ORALLY TID MDD3 TAKING SANDIMMUNE 25 MG CAPSULE ORALLY TAKES 50 MG TWICE A DAY TAKING KEFLEX 250 MG CAPSULE 1 CAPSULE ORALLY EVERY 6 HRS TAKING PROTONIX 40 MG TABLET DELAYED RELEASE 1 TABLET ORALLY ONCE A DAY TAKING PREDNISONE 20 MG TABLET 2 TABLET ORALLY ONCE A DAY NOT-TAKING LANSOPRAZOLE 30 MG CAPSULE DELAYED RELEASE 1 CAPSULE ORALLY ONCE A DAY NOT-TAKING NORCO 5-325 MG TABLET 1 TABLET NEEDED ORALLY EVERY 6 HRS NOT-TAKING BUSPAR 10 MG TABLET 2 TABLET ORALLY TWICE A DAY NOT-TAKING SPIRONOLACTONE 25 MG TABLET 1 TABLET ORALLY DAILY NOT-TAKING ADDERALL 15 MG TABLET 1 TABLET IN THE MORNING ORALLY TWICE A DAY NEEDED NOT-TAKING PERCOCET 10-325 MG TABLET 1 ORALLY 1 TAB Q6H PRN MDD4 NOT-TAKING MORPHINE SULFATE ER 15 MG TABLET EXTENDED RELEASE 1 TABLET ORALLY EVERY 12 HRS MDD2 NOT-TAKING VALIUM 10 MG TABLET 1 ORALLY 1 TAB 1HR PRE PROC. MDD1, NOTES: 07-21-16 1105 MEDICATION LIST REVIEWED AND RECONCILED WITH THE PATIENT PAST MEDICAL HISTORY FIBROMYALGIA LUPUS INTERSTITIAL LUNG DISEASE INFLAMMATORY ARTHRITIS ALLERGIES MOBIC: AGGRESIVE: SIDE EFFECTS NEURONTIN: AGGRESIVE: SIDE EFFECTS IMURAN: NAUSEA/VOMITING: SIDE EFFECTS SURGICAL HISTORY L4-5 LAMINECTOMY LOWER BACK SURGERY (DR. VALENCIA) 08/2016 HOSPITALIZATION/MAJOR DIAGNOSTIC PROCEDURE LUPUS BACK PAIN SURGERY REVIEW OF SYSTEMS REVIEWED BY: PROVIDER: KIM BERNAL . CONSTITUTIONAL: ANY CHANGE IN YOUR MEDICAL CONDITION? YES, LUPUS EXACERBATION . CHILLS NO . FEVER NO . INFECTION: DO YOU HAVE NEW INFECTIONS? NO . DO YOU HAVE HISTORY OF MRSA? NO . MUSCULOSKELETAL: ANY NEW PATTERNS OF PAIN OR NUMBNESS? YES, RIGHT HIP PAIN . GASTROENTEROLOGY: ANY NEW CHANGE IN BOWEL CONTROL? NO . GENITOURINARY: ANY NEW CHANGE IN BLADDER CONTROL? NO . IS THERE A CHANCE YOU COULD BE ? NO . HEMATOLOGY/LYMPH: DO YOU TAKE ANY BLOOD THINNERS? (FOR EXAMPLE- COUMADIN, PLAVIX, AGGRENOX, PLATEL, PRADAXA, OR XARELTO) NO . WHEN WAS YOUR LAST DOSE? DATE: TIME: . NEUROLOGY: HAVE YOU FALLEN IN THE PAST 6 MONTHS? NO . ANY NEW EXTREMITY NUMBNESS OR WEAKNESS? NO . CARDIOLOGY: DO YOU HAVE A PACEMAKER OR DEFIBRILLATOR? NO . RESPIRATORY: HAVE YOU BEEN SICK IN THE PAST WEEK? NO . FEVER NO . FLU LIKE SYMPTOMS? NO . COUGH NO . INTEGUMENTARY: DO YOU HAVE ANY RASHES OR OPEN SORES? NO . ALLERGIC/IMMUNO: ARE YOU ALLERGIC TO SHELLFISH OR IV DYE? NO . ANY NEW ALLERGIES? NO . PSYCHIATRIC: DO YOU HAVE THOUGHTS OF HURTING YOURSELF OR SOMEONE ELSE? NO . ARE YOU ABUSED, NEGLECTED, OR IN AN UNSAFE ENVIRONMENT? NO . ENDOCRINOLOGY: ARE YOU DIABETIC? NO . OTHER: DO YOU NEED ANY PRESCRIPTIONS? YES, SOMA,PERCOSET . IF YES, PLEASE LIST: ____ . ANY NEW PROBLEMS WITH YOUR MEDICATIONS? NO . WHEN DID YOU LAST EAT? ____ . WHEN DID YOU LAST DRINK? ____ . WHAT DID YOU LAST DRINK? ____ . NAME OF PERSON DRIVING YOU HOME? ____ . DO YOU HAVE ANY OTHER QUESTIONS OR CONCERNS NO . VITAL SIGNS WT 183.4 LBS, HT 65 IN, BMI 30.52 INDEX, BP 125/65 MM HG, HR 64 /MIN, RR 16 /MIN, TEMP 96.6 F, OXYGEN SAT % 96%, SAFE IN ENV? (Y/N) Y, NA INITIALS CT 09:40, REVIEWED BY: MIRELLA. EXAMINATION GENERAL EXAMINATION: LUNGS:LUNG SOUNDS ARE CLEAR. HEART:HEART RATE REGULAR. MUSCULOSKELETAL:*, MUSCLE STRENGTH TESTING 3/5 RLE.4/5 LLE., PALPATION: POSITIVE FOR PAIN OVER L/S SPINE. POSITIVE FOR PAIN OVER L/S PARASPINALS.SPECIFIC POINT TENDERNESS OVER BILATERAL SIJ R>L. DIAGNOSTIC: . ASSESSMENTS LUMBAR DISC HERNIATION - M51.26 (PRIMARY) CHRONIC PRESCRIPTION OPIATE USE - Z79.891 SYSTEMIC LUPUS ERYTHEMATOSUS, UNSPECIFIED SLE TYPE, UNSPECIFIED ORGAN INVOLVEMENT STATUS - M32.9 TREATMENT LUMBAR DISC HERNIATION REFILL NORTRIPTYLINE HCL CAPSULE, 10 MG, 3 CAPSULE= 30 MG, ORALLY, ONCE A DAY, 30 DAY(S), 90 CAPSULE, REFILLS 2 REFILL IBUPROFEN TABLET, 800 MG, 1 TABLET, ORALLY, THREE TIMES A DAY, 30 DAY(S), 90 TABLET, REFILLS 5 REFILL PERCOCET TABLET, 10-325 MG, 1 TABLET NEEDED, ORALLY, EVERY 6 HRS PRN MDD4, 30 DAY(S), 120, REFILLS 0 REFILL SOMA TABLET, 350 MG, 1 TABLET NEEDED, ORALLY, TID MDD3, 30 DAY(S), 90, REFILLS 2 NOTES: ISTOP REGISTRY REVIEWED AND DEMNOSTRATES COMPLLIANCE. BRINGS IN MEDICATIONS WHICH IS APPROPRIATE FOR WHAT WAS DISPENSED. RECENT URINE TOXICOLOGY REVIEWED. NO UNAUTHORIZED MEDICATIONS. NO ILLICIT SUBSTANCES AND PRESCRIBED MEDICATIONS WERE PRESENT. , RISKS AND BENEFITS OF NARCOTIC/OPIOD MEDICATIONS WERE REVIEWED WITH PATIENT - THIS INCLUDES BUT IS NOT LIMITED TO RISK OF DEPENDANCE/DEVELOPMENT OF ADDICTION, MOOD DISTURBANCE AND DEPRESSION, OSTEOPOROSIS, HORMONAL AND LABIDAL CHANGES, RESPIRATORY DEPRESSION AND . PATIENT IS ADVISED NOT TO DRIVE WHILE ON THESE MEDICATIONS. REFERRAL TO:[facility] REASON:RIGHT LEG WEAKNESS AND FOOT DROP,LUPUS ,S/P LUMBAR SURGERY PROCEDURE CODES FA211 ESTABILISHED PATIENT [facility]GE G8730 PAIN ASSESS POS TOOL F/U PLAN DOC G8427 DOC MEDS VERIFIED W/PT OR RE DISPOSITION & COMMUNICATION FOLLOW UP 2 MONTHS ELECTRONICALLY SIGNED BY GABE ELLIOTT ON 06/06/2017 AT 04:03 PM EDT DISCLAIMER : THIS IS A VISIT SUMMARY EXTRACTED FROM THE [employer] CHART. IT IS NOT A COPY OF THE [employer] PROGRESS NOTE. CHRISTOFER
== END ==
LOC: M PAIN 09:00
PROVIDERS: ATTEND Nurse Practitioner Family
DX: G89.29 Other chronic pain (principal); M51.26 Other intervertebral disc displacement, lumbar region; M32.9 Systemic lupus erythematosus, unspecified; M79.7 Fibromyalgia; M25.551 Pain in right hip; J84.9 Interstitial pulmonary disease, unspecified; Z79.891 Long term (current) use of opiate analgesic; Z88.8 Allergy status to other drugs, medicaments and biological substances; Z79.52 Long term (current) use of systemic steroids; Z79.1 Long term (current) use of non-steroidal anti-inflammatories (NSAID); Z79.899 Other long term (current) drug therapy

== ENCOUNTER → 2017-08-31 | Outpatient (CLI) | payer MEDICARE, MEDICAID ==
--- NOTE | 2017-09-19 01:04 | ECWPNPC ---
PATIENT NAME: CONSTANCE WYMAN : 1970 GENDER: FEMALE VISIT DATE: 08/31/2017 DISCHARGE DATE: 08/31/17 1443 VISIT LOCKED DATE TIME: PHYSICIAN: KIM VELASCO RESOURCE: KIM VELASCO HISTORY OF PRESENT ILLNESS HISTORY OF PRESENT ILLNESS: HERE FOR ROUTINE F/U OF CHRONIC LOW BACK PAIN/RIGHT POSTERIOR LEG PAIN.ALSO SUFFERING FROM NECK AND LEFT ARM PAIN.RATING PAIN VAS 6/10.VERY SICK TODAY AND HAS BEEN HAVING ALMOST CONTINUOUS FLARE SINCE MAY.WILL BE STARTING BENLISTA WEEKLY SUB Q PRESCRIBED BY RHEUMATOLOGY.CURRENTLY TAKING SOMA 350MG TID,IBUPROFEN 800MG TID,CORISPROLOL 350MG TID AND PERCOCET 10/325 WITH SOME IMPROVEMENT. PAIN THE PATIENT DESCRIBES THE PAIN... FALL RISK SCREENING: SCREENING :NO FALLS IN THE PAST YEAR CURRENT MEDICATIONS TAKING LASIX 40 MG TABLET 1 TABLET ORALLY BID TAKING POTASSIUM CHLORIDE 20 MG CAPSULE EXTENDED RELEASE 1 CAPSULE WITH FOOD ORALLY TWICE A DAY TAKING WELLBUTRIN XL 150 MG TABLET EXTENDED RELEASE 24 HOUR 1 TABLET IN THE MORNING ORALLY ONCE A DAY TAKING PAXIL 30 MG TABLET 1 TABLET IN THE MORNING ORALLY ONCE A DAY TAKING XANAX 1 MG TABLET 1 TABLET ORALLY THREE TIMES DAILY NEEDED TAKING ATENOLOL 50 MG TABLET 1 TABLET ORALLY TWICE A DAY TAKING HYDROCHLOROTHIAZIDE 25 MG TABLET 1 TABLET ORALLY ONCE A DAY TAKING BUSPAR 15 MG ORALLY TWICE A DAY TAKING PREDNISONE 20 MG TABLET 1 TAB ORALLY ONCE A DAY TAKING NORTRIPTYLINE HCL 10 MG CAPSULE 3 CAPSULE= 30 MG ORALLY ONCE A DAY TAKING IBUPROFEN 800 MG TABLET 1 TABLET ORALLY THREE TIMES A DAY TAKING PERCOCET 10-325 MG TABLET 1 TABLET NEEDED ORALLY EVERY 6 HRS PRN MDD4 TAKING SOMA 350 MG TABLET 1 TABLET NEEDED ORALLY TID MDD3 TAKING LEVAQUIN 500 MG TABLET 1 TABLET ORALLY ONCE A DAY TAKING CYCLOSPORINE 25 MG CAPSULE 2 CAP ORALLY TWICE A DAY TAKING LANSOPRAZOLE 30 MG CAPSULE DELAYED RELEASE 1 CAPSULE ORALLY ONCE A DAY NOT-TAKING VITAMIN D 01888 UNIT CAPSULE 1 CAPSULE ORALLY WEEKLY NOT-TAKING SANDIMMUNE 25 MG CAPSULE ORALLY TAKES 50 MG TWICE A DAY NOT-TAKING KEFLEX 250 MG CAPSULE 1 CAPSULE ORALLY EVERY 6 HRS NOT-TAKING PROTONIX 40 MG TABLET DELAYED RELEASE 1 TABLET ORALLY ONCE A DAY NOT-TAKING NORCO 5-325 MG TABLET 1 TABLET NEEDED ORALLY EVERY 6 HRS NOT-TAKING BUSPAR 10 MG TABLET 2 TABLET ORALLY TWICE A DAY NOT-TAKING SPIRONOLACTONE 25 MG TABLET 1 TABLET ORALLY DAILY NOT-TAKING ADDERALL 15 MG TABLET 1 TABLET IN THE MORNING ORALLY TWICE A DAY NEEDED NOT-TAKING PERCOCET 10-325 MG TABLET 1 ORALLY 1 TAB Q6H PRN MDD4 NOT-TAKING MORPHINE SULFATE ER 15 MG TABLET EXTENDED RELEASE 1 TABLET ORALLY EVERY 12 HRS MDD2 NOT-TAKING VALIUM 10 MG TABLET 1 ORALLY 1 TAB 1HR PRE PROC. MDD1, NOTES: 07-21-16 1105 MEDICATION LIST REVIEWED AND RECONCILED WITH THE PATIENT PAST MEDICAL HISTORY FIBROMYALGIA LUPUS INTERSTITIAL LUNG DISEASE INFLAMMATORY ARTHRITIS ALLERGIES MOBIC: AGGRESIVE: SIDE EFFECTS NEURONTIN: AGGRESIVE: SIDE EFFECTS IMURAN: NAUSEA/VOMITING: SIDE EFFECTS SOCIAL HISTORY GENERAL: TOBACCO USE ARE YOU A: CURRENT SMOKER , ADDITIONAL FINDINGS: TOBACCO USER MODERATE CIGARETTE SMOKER (10-19 CIGS/DAY) , SMOKING CESSATION INFORMATION GIVEN SEE ABOVE, VAPOR NO , E-CIGARETTE NO , ARE YOU INTERESTED IN QUITTING? THINKING ABOUT QUITTING , HOW MANY CIGARETTES A DAY DO YOU SMOKE? 11-20 , HOW SOON AFTER YOU WAKE UP DO YOU SMOKE YOUR FIRST CIGARETTE? 6-30 MIN , HOW OFTEN DO YOU SMOKE CIGARETTES? EVERY DAY , PATIENT COUNSELED ON THE DANGERS OF TOBACCO USE AND URGED TO QUIT: INFORMATION RE SMOKING CEASSATION OFFERED TO PT, COUNSELED THE PATIENT ON SMOKING CESSATION, EDUCATION PROVIDED SEE ABOVE. RECREATIONAL DRUG USE DRUG USE?NO PATIENT DENIES ABUSE OR MISSUSED OF ANY MEDICATION. PATIENT DENIES USE OF ANY ILLEGAL SUBSTANCE INCLUDING MARIJUANA OR COCAINE. CAFFEINE CAFFEINE USE? YES , HOW OFTEN AND HOW MUCH? 2 COFFEE 2 SODAS. EVANGELICAL [id number] NONE LANGUAGE LANGUAGES SPOKEN:TAJIK LEARNING BARRIERS / SPECIAL NEEDS BARRIERS TO LEARNING?NO HEARING IMPAIRED?NO VISION IMPAIRED?YES :CORRECTIVE LENSES COGNITIVELY IMPAIRED?NO READINESS TO LEARN?YES LEARNING PREFERENCES?NO LEARNING CAPABILITIES PRESENT?YES EMOTIONAL BARRIERS?NO SPECIAL DEVICES?NO SPARES SCHEDULER NEEDED?NO PSYCHOLOGICAL HX TREATMENT YES , HOW OFTEN AND HOW MUCH? WEEKLY. PAIN CLINIC PFS, CLERGY, PUBLIC HEALTH REFERRALS PFS REFERRAL NEEDED?NO CLERGY REFERRAL NEEDED?NO PUBLIC HEALTH REFERRAL NEEDED?NO WAS THE PROVIDER NOTIFIED OF ANY PERTINENT INFO?YES HAS THE PATIENT BEEN EDUCATED REGARDING HIS/HER PLAN OF CARE?YES HAS THE PATIENT BEEN EDUCATED REGARDING PAIN, THE RISK FOR PAIN, THE IMPORTANCE OF EFFECTIVE PAIN MANAGEMENT, AND THE PAIN ASSESSMENT PROCESS?YES REVIEWED BY: KIMMY. PATIENT: DENIES USE OF ANY ILLEGAL SUBSTANCE INCLUDING MARIJUANA OR COCAINE, REPORTS BEING EMOTIONALLY STABLE, REPORTS HAVING A SAFE AND ADEQUATE PLACE TO STORE THE MEDICATIONS, IS AWARE THAT THEY ARE RESPONSIBLE AND GUARDIAN OF THE PRESCRIBED MEDICATIONS, DENIES RECREATIONAL DRUG USE. ADVANCE DIRECTIVES HEALTH CARE PROXY? NO DECLINES FURTHER INFORMATION AT THIS TIME, POWER OF HERBICIDE SPRAYER? NO . REVIEW OF SYSTEMS REVIEWED BY: PROVIDER: KIM BERNAL . CONSTITUTIONAL: ANY CHANGE IN YOUR MEDICAL CONDITION? YES, LUPUS FLARE UP. WEARING OXYGEN BECAUSE OF LUPUS INTERFERING WITH LUNG DISEASE. GOING TO BE STARTING BENLYSTA INJECTIONS THIS WEEK . CHILLS NO . FEVER NO . INFECTION: DO YOU HAVE NEW INFECTIONS? NO . DO YOU HAVE HISTORY OF MRSA? NO . MUSCULOSKELETAL: ANY NEW PATTERNS OF PAIN OR NUMBNESS? NO . GASTROENTEROLOGY: ANY NEW CHANGE IN BOWEL CONTROL? NO . GENITOURINARY: ANY NEW CHANGE IN BLADDER CONTROL? NO . IS THERE A CHANCE YOU COULD BE ? NO . HEMATOLOGY/LYMPH: DO YOU TAKE ANY BLOOD THINNERS? (FOR EXAMPLE- COUMADIN, PLAVIX, AGGRENOX, PLATEL, PRADAXA, OR XARELTO) NO . WHEN WAS YOUR LAST DOSE? DATE: TIME: . NEUROLOGY: HAVE YOU FALLEN IN THE PAST 6 MONTHS? YES . ANY NEW EXTREMITY NUMBNESS OR WEAKNESS? NO . CARDIOLOGY: DO YOU HAVE A PACEMAKER OR DEFIBRILLATOR? NO . RESPIRATORY: HAVE YOU BEEN SICK IN THE PAST WEEK? NO . FEVER NO . FLU LIKE SYMPTOMS? NO . COUGH NO . INTEGUMENTARY: DO YOU HAVE ANY RASHES OR OPEN SORES? NO . ALLERGIC/IMMUNO: ARE YOU ALLERGIC TO SHELLFISH OR IV DYE? NO . ANY NEW ALLERGIES? NO . PSYCHIATRIC: DO YOU HAVE THOUGHTS OF HURTING YOURSELF OR SOMEONE ELSE? NO . ARE YOU ABUSED, NEGLECTED, OR IN AN UNSAFE ENVIRONMENT? NO . ENDOCRINOLOGY: ARE YOU DIABETIC? NO . OTHER: DO YOU NEED ANY PRESCRIPTIONS? YES . IF YES, PLEASE LIST: SOMA AND OXYCODONE . ANY NEW PROBLEMS WITH YOUR MEDICATIONS? NO . WHEN DID YOU LAST EAT? ____ . WHEN DID YOU LAST DRINK? ____ . WHAT DID YOU LAST DRINK? ____ . NAME OF PERSON DRIVING YOU HOME? ____ . DO YOU HAVE ANY OTHER QUESTIONS OR CONCERNS NO . VITAL SIGNS WT 180 LBS, HT 65 IN, BMI 29.95 INDEX, BP 107/55 MM HG, HR 57 /MIN, RR 16 /MIN, TEMP 98.3 F, OXYGEN SAT % 96%, SAFE IN ENV? (Y/N) YES, NA INITIALS [place] 13:43, REVIEWED BY: [place]. EXAMINATION GENERAL EXAMINATION: LUNGS:LUNG SOUNDS ARE CLEAR. HEART:HEART RATE REGULAR. MUSCULOSKELETAL:*, MUSCLE STRENGTH TESTING 3/5 RLE.4/5 LLE., PALPATION: POSITIVE FOR PAIN OVER L/S SPINE. POSITIVE FOR PAIN OVER L/S PARASPINALS.SPECIFIC POINT TENDERNESS OVER BILATERAL SIJ R>L. DIAGNOSTIC: . ASSESSMENTS LUMBAR DISC HERNIATION - M51.26 (PRIMARY) SYSTEMIC LUPUS ERYTHEMATOSUS, UNSPECIFIED SLE TYPE, UNSPECIFIED ORGAN INVOLVEMENT STATUS - M32.9 TREATMENT LUMBAR DISC HERNIATION REFILL PERCOCET TABLET, 10-325 MG, 1 TABLET NEEDED, ORALLY, EVERY 6 HRS PRN MDD4, 30 DAY(S), 120, REFILLS 0 REFILL SOMA TABLET, 350 MG, 1 TABLET NEEDED, ORALLY, TID MDD3, 30 DAY(S), 90, REFILLS 2 REFILL IBUPROFEN TABLET, 800 MG, 1 TABLET, ORALLY, THREE TIMES A DAY, 30 DAY(S), 90 TABLET, REFILLS 5 NOTES: ISTOP REGISTRY REVIEWED [id number] AND DEMNOSTRATES COMPLLIANCE. BRINGS IN MEDICATIONS WHICH IS APPROPRIATE FOR WHAT WAS DISPENSED. RECENT URINE TOXICOLOGY REVIEWED. NO UNAUTHORIZED MEDICATIONS. NO ILLICIT SUBSTANCES AND PRESCRIBED MEDICATIONS WERE PRESENT. , RISKS AND BENEFITS OF NARCOTIC/OPIOD MEDICATIONS WERE REVIEWED WITH PATIENT - THIS INCLUDES BUT IS NOT LIMITED TO RISK OF DEPENDANCE/DEVELOPMENT OF ADDICTION, MOOD DISTURBANCE AND DEPRESSION, OSTEOPOROSIS, HORMONAL AND LABIDAL CHANGES, RESPIRATORY DEPRESSION AND . PATIENT IS ADVISED NOT TO DRIVE WHILE ON THESE MEDICATIONS. PROCEDURE CODES FA211 ESTABILISHED PATIENT [facility] FACILITY CHARGE G8730 PAIN ASSESS POS TOOL F/U PLAN DOC G8427 DOC MEDS VERIFIED W/PT OR RE DISPOSITION & COMMUNICATION FOLLOW UP 3 MONTHS ELECTRONICALLY SIGNED BY GABE ELLIOTT ON 09/18/2017 AT 08:11 PM EDT DISCLAIMER : THIS IS A VISIT SUMMARY EXTRACTED FROM THE [employer] CHART. IT IS NOT A COPY OF THE [employer] PROGRESS NOTE. MTDD
== END ==
LOC: M PAIN 13:45
PROVIDERS: ATTEND Nurse Practitioner Family
DX: G89.29 Other chronic pain (principal); M51.26 Other intervertebral disc displacement, lumbar region; M32.9 Systemic lupus erythematosus, unspecified; M79.7 Fibromyalgia; J84.9 Interstitial pulmonary disease, unspecified; F17.210 Nicotine dependence, cigarettes, uncomplicated; Z79.891 Long term (current) use of opiate analgesic; Z79.899 Other long term (current) drug therapy; Z79.52 Long term (current) use of systemic steroids; Z88.8 Allergy status to other drugs, medicaments and biological substances

== ENCOUNTER → 2017-10-24 | Outpatient (CLI) | payer MEDICARE, MEDICAID ==
--- NOTE | 2017-11-09 00:18 | ECWPNPC ---
PATIENT NAME: CONSTANCE WYMAN : 1970 GENDER: FEMALE VISIT DATE: 10/24/2017 DISCHARGE DATE: 10/24/17 1506 VISIT LOCKED DATE TIME: PHYSICIAN: KIM VELASCO RESOURCE: KIM VELASCO REASON FOR APPOINTMENT 1. INCREASED PAIN HISTORY OF PRESENT ILLNESS HISTORY OF PRESENT ILLNESS: HERE FOR ROUTINE F/U OF CHRONIC LOW BACK PAIN/RIGHT POSTERIOR LEG PAIN.ALSO SUFFERING FROM NECK AND LEFT ARM PAIN.RATING PAIN VAS 9/10.VERY SICK TODAY AND HAS BEEN HAVING ALMOST CONTINUOUS FLARE SINCE MAY.STARTED BENLISTA WEEKLY SUB Q PRESCRIBED BY RHEUMATOLOGY.NOT NOTICING MUCH IMPROVEMENT.TAKING FENTANYL 12MCG Q3 DAYS WITHOUT IMPROVEMENT.THIS WAS STARTED ONE MONTH AGOCURRENTLY TAKING SOMA 350MG TID,IBUPROFEN 800MG TID, AND PERCOCET 10/325 WITH SOME IMPROVEMENT.TRIALED ON LYRICA 200MG AND THIS CAUSED SEVERE SIDE EFFECTS/SUICIDAL IDEATION.TRIALED ON GABAPENTIN WITH SIMILIAR EFFECT. PAIN THE PATIENT DESCRIBES THE PAIN... THE PATIENT DESCRIBES THE PAIN... FALL RISK SCREENING: SCREENING :NO FALLS IN THE PAST YEAR CURRENT MEDICATIONS TAKING LASIX 40 MG TABLET 1 TABLET ORALLY BID TAKING POTASSIUM CHLORIDE 20 MG CAPSULE EXTENDED RELEASE 1 CAPSULE WITH FOOD ORALLY TWICE A DAY TAKING WELLBUTRIN XL 150 MG TABLET EXTENDED RELEASE 24 HOUR 1 TABLET IN THE MORNING ORALLY ONCE A DAY TAKING PAXIL 30 MG TABLET 1 TABLET IN THE MORNING ORALLY ONCE A DAY TAKING XANAX 1 MG TABLET 1 TABLET ORALLY THREE TIMES DAILY NEEDED TAKING ATENOLOL 50 MG TABLET 1 TABLET ORALLY TWICE A DAY TAKING BUSPAR 15 MG ORALLY TWICE A DAY TAKING NORTRIPTYLINE HCL 10 MG CAPSULE 3 CAPSULE= 30 MG ORALLY ONCE A DAY TAKING CYCLOSPORINE 25 MG CAPSULE 2 CAP ORALLY TWICE A DAY TAKING LANSOPRAZOLE 30 MG CAPSULE DELAYED RELEASE 1 CAPSULE ORALLY ONCE A DAY TAKING SOMA 350 MG TABLET 1 TABLET NEEDED ORALLY TID MDD3 TAKING IBUPROFEN 800 MG TABLET 1 TABLET ORALLY THREE TIMES A DAY TAKING FENTANYL 12 MCG/HR PATCH 72 HOUR 1 PATCH TO SKIN TRANSDERMAL 1 PATCH A32P=JJN TAKING PERCOCET 10-325 MG TABLET 1 TABLET NEEDED ORALLY EVERY 6 HRS PRN MDD4 TAKING BENLYSTA 400 MG SOLUTION RECONSTITUTED 1 INJECTION SUBCUTANEOUSLY WEEKLY NOT-TAKING HYDROCHLOROTHIAZIDE 25 MG TABLET 1 TABLET ORALLY ONCE A DAY NOT-TAKING PREDNISONE 20 MG TABLET 1 TAB ORALLY ONCE A DAY NOT-TAKING LEVAQUIN 500 MG TABLET 1 TABLET ORALLY ONCE A DAY NOT-TAKING LYRICA 200 MG CAPSULE 1 CAPSULE ORALLY TID MDD3 NOT-TAKING VITAMIN D [id number] UNIT CAPSULE 1 CAPSULE ORALLY WEEKLY NOT-TAKING SANDIMMUNE 25 MG CAPSULE ORALLY TAKES 50 MG TWICE A DAY NOT-TAKING KEFLEX 250 MG CAPSULE 1 CAPSULE ORALLY EVERY 6 HRS NOT-TAKING PROTONIX 40 MG TABLET DELAYED RELEASE 1 TABLET ORALLY ONCE A DAY NOT-TAKING NORCO 5-325 MG TABLET 1 TABLET NEEDED ORALLY EVERY 6 HRS NOT-TAKING BUSPAR 10 MG TABLET 2 TABLET ORALLY TWICE A DAY NOT-TAKING SPIRONOLACTONE 25 MG TABLET 1 TABLET ORALLY DAILY NOT-TAKING ADDERALL 15 MG TABLET 1 TABLET IN THE MORNING ORALLY TWICE A DAY NEEDED NOT-TAKING PERCOCET 10-325 MG TABLET 1 ORALLY 1 TAB Q6H PRN MDD4 NOT-TAKING MORPHINE SULFATE ER 15 MG TABLET EXTENDED RELEASE 1 TABLET ORALLY EVERY 12 HRS MDD2 NOT-TAKING VALIUM 10 MG TABLET 1 ORALLY 1 TAB 1HR PRE PROC. MDD1, NOTES: [id number] MEDICATION LIST REVIEWED AND RECONCILED WITH THE PATIENT PAST MEDICAL HISTORY FIBROMYALGIA LUPUS INTERSTITIAL LUNG DISEASE INFLAMMATORY ARTHRITIS ALLERGIES MOBIC: AGGRESIVE: SIDE EFFECTS NEURONTIN: AGGRESIVE: SIDE EFFECTS IMURAN: NAUSEA/VOMITING: SIDE EFFECTS SURGICAL HISTORY L4-5 LAMINECTOMY LOWER BACK SURGERY (DR. VALENCIA) 08/2016 SOCIAL HISTORY GENERAL: TOBACCO USE ARE YOU A:CURRENT SMOKER ARE YOU INTERESTED IN QUITTING?NOT READY TO QUIT COUNSELED THE PATIENT ON SMOKING EFFECTS, EDUCATION [id number] PATIENT COUNSELED ON THE DANGERS OF TOBACCO USE AND URGED TO QUIT:10/24/2017 RECREATIONAL DRUG USE DRUG USE?NO PATIENT DENIES ABUSE OR MISSUSED OF ANY MEDICATION. PATIENT DENIES USE OF ANY ILLEGAL SUBSTANCE INCLUDING MARIJUANA OR COCAINE. CAFFEINE CAFFEINE USE? YES , HOW OFTEN AND HOW MUCH? 2 COFFEE 2 SODAS. YAZDANISM [id number] NONE LANGUAGE LANGUAGES SPOKEN:TELUGU LEARNING BARRIERS / SPECIAL NEEDS BARRIERS TO LEARNING?NO HEARING IMPAIRED?NO VISION IMPAIRED?YES :CORRECTIVE LENSES COGNITIVELY IMPAIRED?NO READINESS TO LEARN?YES LEARNING PREFERENCES?NO LEARNING CAPABILITIES PRESENT?YES EMOTIONAL BARRIERS?NO SPECIAL DEVICES?NO BACTERIOLOGY PROFESSOR NEEDED?NO PSYCHOLOGICAL HX TREATMENT YES , HOW OFTEN AND HOW MUCH? WEEKLY. PAIN CLINIC PFS, CLERGY, PUBLIC HEALTH REFERRALS PFS REFERRAL NEEDED?NO CLERGY REFERRAL NEEDED?NO PUBLIC HEALTH REFERRAL NEEDED?NO WAS THE PROVIDER NOTIFIED OF ANY PERTINENT INFO?YES HAS THE PATIENT BEEN EDUCATED REGARDING HIS/HER PLAN OF CARE?YES HAS THE PATIENT BEEN EDUCATED REGARDING PAIN, THE RISK FOR PAIN, THE IMPORTANCE OF EFFECTIVE PAIN MANAGEMENT, AND THE PAIN ASSESSMENT PROCESS?YES REVIEWED BY: KIMMY. PATIENT: DENIES USE OF ANY ILLEGAL SUBSTANCE INCLUDING MARIJUANA OR COCAINE, REPORTS BEING EMOTIONALLY STABLE, REPORTS HAVING A SAFE AND ADEQUATE PLACE TO STORE THE MEDICATIONS, IS AWARE THAT THEY ARE RESPONSIBLE AND GUARDIAN OF THE PRESCRIBED MEDICATIONS, DENIES RECREATIONAL DRUG USE. ADVANCE DIRECTIVES HEALTH CARE PROXY? NO DECLINES FURTHER INFORMATION AT THIS TIME, POWER OF SALES APPRENTICE? NO . HOSPITALIZATION/MAJOR DIAGNOSTIC PROCEDURE LUPUS BACK PAIN SURGERY REVIEW OF SYSTEMS REVIEWED BY: PROVIDER: KIM BERNAL . CONSTITUTIONAL: ANY CHANGE IN YOUR MEDICAL CONDITION? YES, NEW BACK PAIN, PT STATES SHE HEARD IT POP AND HAS BEEN IN SEVERE BACK PAIN SINCE THEN . CHILLS NO . FEVER NO . INFECTION: DO YOU HAVE NEW INFECTIONS? NO . DO YOU HAVE HISTORY OF MRSA? NO . MUSCULOSKELETAL: ANY NEW PATTERNS OF PAIN OR NUMBNESS? YES, PT STATES SHE WENT TO REACH FOR A COFFEE CUP ON 10/13/17 AND THREW HER BACK OUT . GASTROENTEROLOGY: ANY NEW CHANGE IN BOWEL CONTROL? NO . GENITOURINARY: ANY NEW CHANGE IN BLADDER CONTROL? NO . IS THERE A CHANCE YOU COULD BE ? NO . HEMATOLOGY/LYMPH: DO YOU TAKE ANY BLOOD THINNERS? (FOR EXAMPLE- COUMADIN, PLAVIX, AGGRENOX, PLATEL, PRADAXA, OR XARELTO) NO . WHEN WAS YOUR LAST DOSE? DATE: TIME: . NEUROLOGY: HAVE YOU FALLEN IN THE PAST 6 MONTHS? YES, PT STATES SHE FALLS OCCASIONALLY FROM PAIN, WEAKNESS AND LOSS OF BALANCE . ANY NEW EXTREMITY NUMBNESS OR WEAKNESS? NO . CARDIOLOGY: DO YOU HAVE A PACEMAKER OR DEFIBRILLATOR? NO . RESPIRATORY: HAVE YOU BEEN SICK IN THE PAST WEEK? NO . FEVER NO . FLU LIKE SYMPTOMS? NO . COUGH NO . INTEGUMENTARY: DO YOU HAVE ANY RASHES OR OPEN SORES? YES, RASH ON HANDS AND WRIST, PT STATES FROM LUPUS . ALLERGIC/IMMUNO: ARE YOU ALLERGIC TO SHELLFISH OR IV DYE? NO . ANY NEW ALLERGIES? NO . PSYCHIATRIC: DO YOU HAVE THOUGHTS OF HURTING YOURSELF OR SOMEONE ELSE? NO . ARE YOU ABUSED, NEGLECTED, OR IN AN UNSAFE ENVIRONMENT? NO . ENDOCRINOLOGY: ARE YOU DIABETIC? NO . OTHER: DO YOU NEED ANY PRESCRIPTIONS? YES, TO DISCUSS WITH Boogie VELASCO . IF YES, PLEASE LIST: ____ . ANY NEW PROBLEMS WITH YOUR MEDICATIONS? NO . WHEN DID YOU LAST EAT? ____ . WHEN DID YOU LAST DRINK? ____ . WHAT DID YOU LAST DRINK? ____ . NAME OF PERSON DRIVING YOU HOME? ____ . DO YOU HAVE ANY OTHER QUESTIONS OR CONCERNS NO . VITAL SIGNS WT 180 LBS, HT 65 IN, BMI 29.95 INDEX, BP 120/61 MM HG, HR 74 /MIN, RR 16 /MIN, TEMP 97.4 F, OXYGEN SAT % 92%, NA INITIALS SC 14:17, REVIEWED BY: EM. EXAMINATION GENERAL EXAMINATION: LUNGS:LUNG SOUNDS ARE CLEAR. HEART:HEART RATE REGULAR. MUSCULOSKELETAL:*, MUSCLE STRENGTH TESTING 3/5 RLE.4/5 LLE., PALPATION: POSITIVE FOR PAIN OVER L/S SPINE. POSITIVE FOR PAIN OVER L/S PARASPINALS.SPECIFIC POINT TENDERNESS OVER BILATERAL SIJ R>L. DIAGNOSTIC: . ASSESSMENTS LUMBAR DISC HERNIATION - M51.26 (PRIMARY) SYSTEMIC LUPUS ERYTHEMATOSUS, UNSPECIFIED SLE TYPE, UNSPECIFIED ORGAN INVOLVEMENT STATUS - M32.9 TREATMENT LUMBAR DISC HERNIATION REFILL SOMA TABLET, 350 MG, 1 TABLET NEEDED, ORALLY, TID MDD3, 30 DAY(S), 90, REFILLS 2 REFILL IBUPROFEN TABLET, 800 MG, 1 TABLET, ORALLY, THREE TIMES A DAY, 30 DAY(S), 90 TABLET, REFILLS 5 INCREASE FENTANYL PATCH 72 HOUR, 25 MCG/HR, 1 PATCH TO SKIN, TRANSDERMAL, 1 PATCH M28T=KDG, 30 DAY(S), 10, REFILLS 0 REFILL PERCOCET TABLET, 10-325 MG, 1 TABLET NEEDED, ORALLY, EVERY 6 HRS PRN MDD4, 30 DAY(S), 120, REFILLS 0 PROCEDURE CODES FA211 ESTABILISHED PATIENT [facility] FACILITY CHARGE G8730 PAIN ASSESS POS TOOL F/U PLAN DOC G8427 DOC MEDS VERIFIED W/PT OR RE DISPOSITION & COMMUNICATION FOLLOW UP 4 WEEKS ELECTRONICALLY SIGNED BY GABE ELLIOTT ON 11/08/2017 AT 01:42 PM EST DISCLAIMER : THIS IS A VISIT SUMMARY EXTRACTED FROM THE [employer] CHART. IT IS NOT A COPY OF THE [employer] PROGRESS NOTE. MTDD
== END ==
LOC: M PAIN 14:30
PROVIDERS: ATTEND Nurse Practitioner Family
DX: G89.29 Other chronic pain (principal); M51.26 Other intervertebral disc displacement, lumbar region; M32.9 Systemic lupus erythematosus, unspecified; M79.7 Fibromyalgia; F17.210 Nicotine dependence, cigarettes, uncomplicated; J84.10 Pulmonary fibrosis, unspecified; Z79.891 Long term (current) use of opiate analgesic; Z79.899 Other long term (current) drug therapy; Z88.8 Allergy status to other drugs, medicaments and biological substances

== ENCOUNTER → 2017-12-14 | Outpatient (CLI) | payer MEDICARE, MEDICAID | LOC: M PAIN 13:15 | DX: M51.26 Other intervertebral disc displacement, lumbar region (principal); M25.551 Pain in right hip; M79.7 Fibromyalgia; M32.9 Systemic lupus erythematosus, unspecified; M06.4 Inflammatory polyarthropathy; J84.9 Interstitial pulmonary disease, unspecified; F17.200 Nicotine dependence, unspecified, uncomplicated; Z88.6 Allergy status to analgesic agent; Z88.8 Allergy status to other drugs, medicaments and biological substances; Z79.1 Long term (current) use of non-steroidal anti-inflammatories (NSAID); Z79.891 Long term (current) use of opiate analgesic; Z79.899 Other long term (current) drug therapy | CPT/HCPCS: G0463 ==

== ENCOUNTER → 2017-12-21 | Outpatient (CLI) | payer SELFPAY, MEDICARE ==
[2017-12-21 15:51] LABS: IRON (FE) 27 UG/DL (50-170); PERCENT SATURATION 8.2 % (13.2-45.0); TOTAL IRON BINDING CAPACITY 329 UG/DL (250-450)
[2017-12-22 10:03] LABS: ALPHA FETOPROTEIN TUMOR QUANT 5.6 NG/ML (<8.1)
[2017-12-22 10:38] LABS: HEPATITIS B SURFACE ANTIGEN NEGATIVE (NEGATIVE)
[2017-12-22 10:42] LABS: HEPATITIS C VIRUS ABY INDEX < 0.0 INDEX (<0.8)
[2017-12-22 10:45] LABS: HEPATITIS B CORE ANTIBODY IGM NEGATIVE (NEGATIVE)
[2017-12-22 10:47] LABS: HEPATITIS A ANTIBODY IGM NEGATIVE (NEGATIVE)
[2017-12-23 08:06] LABS: ALPHA 1 ANTITRYPSIN 175 mg/dL (90-200)
[2017-12-23 08:06] LABS: CERULOPLASMIN 39.2 mg/dL (19.0-39.0)
== END ==
LOC: M RAD 14:02
DX: R79.89 Other specified abnormal findings of blood chemistry (principal); M32.9 Systemic lupus erythematosus, unspecified
CPT/HCPCS: 73721

== ENCOUNTER → 2018-01-15 | Outpatient (CLI) | payer MEDICARE, MEDICAID | LOC: M PAIN 14:30 | DX: G89.29 Other chronic pain (principal); M51.26 Other intervertebral disc displacement, lumbar region; M25.551 Pain in right hip; M79.7 Fibromyalgia; M32.9 Systemic lupus erythematosus, unspecified; F17.210 Nicotine dependence, cigarettes, uncomplicated; J84.9 Interstitial pulmonary disease, unspecified; Z79.891 Long term (current) use of opiate analgesic; Z79.899 Other long term (current) drug therapy; Z88.8 Allergy status to other drugs, medicaments and biological substances | CPT/HCPCS: G0463 ==

== ENCOUNTER → 2018-03-29 | Outpatient (CLI) | payer MEDICARE | LOC: M PAIN 13:45 | DX: M51.26 Other intervertebral disc displacement, lumbar region (principal); M19.90 Unspecified osteoarthritis, unspecified site; G89.29 Other chronic pain; M79.7 Fibromyalgia; M32.9 Systemic lupus erythematosus, unspecified; J84.9 Interstitial pulmonary disease, unspecified; M06.4 Inflammatory polyarthropathy; F17.200 Nicotine dependence, unspecified, uncomplicated; Z79.891 Long term (current) use of opiate analgesic; Z79.899 Other long term (current) drug therapy; Z88.5 Allergy status to narcotic agent; Z88.8 Allergy status to other drugs, medicaments and biological substances | CPT/HCPCS: G0463 ==

== ENCOUNTER → 2018-05-03 | Outpatient (CLI) | payer MEDICARE, SELFPAY | LOC: M PAIN 08:30 | DX: M51.26 Other intervertebral disc displacement, lumbar region (principal); M32.9 Systemic lupus erythematosus, unspecified; M06.4 Inflammatory polyarthropathy; M79.7 Fibromyalgia; J84.9 Interstitial pulmonary disease, unspecified; F17.200 Nicotine dependence, unspecified, uncomplicated; Z79.891 Long term (current) use of opiate analgesic; Z79.899 Other long term (current) drug therapy; Z88.6 Allergy status to analgesic agent; Z88.8 Allergy status to other drugs, medicaments and biological substances; Z91.81 History of falling | CPT/HCPCS: G0463 ==

== ENCOUNTER → 2018-07-26 | Outpatient (CLI) | payer MEDICARE, SELFPAY | LOC: M PAIN 08:45 | DX: M70.61 Trochanteric bursitis, right hip (principal); M51.26 Other intervertebral disc displacement, lumbar region; G89.29 Other chronic pain; M32.9 Systemic lupus erythematosus, unspecified; M06.4 Inflammatory polyarthropathy; F17.210 Nicotine dependence, cigarettes, uncomplicated; F17.200 Nicotine dependence, unspecified, uncomplicated; Z79.891 Long term (current) use of opiate analgesic; Z79.899 Other long term (current) drug therapy; Z88.6 Allergy status to analgesic agent; Z88.8 Allergy status to other drugs, medicaments and biological substances | CPT/HCPCS: G0463 ==

== ENCOUNTER 2018-08-15 15:09 | Emergency (ER) | payer SELFPAY, MEDICARE ==
[2018-08-15] MEDS: predniSONE 20 MG TAB PO (17:16)
[2018-08-15] MEDS: KETOROLAC 60 MG/2 ML VIAL (J1885) IM (17:18)
== END 2018-08-15 18:02 | disposition home or self-care (01) ==
LOC: M ED 15:09
DX: M16.11 Unilateral primary osteoarthritis, right hip (principal); G89.29 Other chronic pain; I10 Essential (primary) hypertension; J44.9 Chronic obstructive pulmonary disease, unspecified; J84.9 Interstitial pulmonary disease, unspecified; M32.9 Systemic lupus erythematosus, unspecified; K21.9 Gastro-esophageal reflux disease without esophagitis; M79.7 Fibromyalgia; F17.210 Nicotine dependence, cigarettes, uncomplicated; Z79.891 Long term (current) use of opiate analgesic; Z79.899 Other long term (current) drug therapy; Z88.8 Allergy status to other drugs, medicaments and biological substances
CPT/HCPCS: J1885

== ENCOUNTER → 2018-08-20 | Outpatient (CLI) | payer MEDICARE, SELFPAY ==
[~2018-08-20] MED LIST changes: -/CARB4TA PO; -/HYDR1TAB PO; -/LAMO20TA; -ALBU17IN INH; -ALPR1TAB3 PO; -AMIT100TA PO; -AMIT75TA PO; -ATEN50TA2 PO; -AUGM875T27 PO; -BACT800T5 PO; -BENZ100C5 PO; +BUPIVACAINE HCL 0.25% 30 ML VIAL As Ordered; -BUSP1TAB PO; -CARI350T PO; -CELE20TA; -CIPR-250 PO; -DOXY100C PO; -DRIS50002 PO; -FLUC150T PO; -HYDR25TAB PO; -HYDRO50TAB PO; -IBUP200T2 PO; -IBUP80TA PO; +ISOVUE-M 300 61% 15ML VIAL (Q9967) As Ordered; -KLOR1TAB77 PO; -LANS30CA PO; -LASI40TA PO; -LEVO750T13 PO; +LIDOCAINE 1% SDV INJ 30 ML VIAL As Ordered; -METO10TA2 PO; +MIDAZOLAM INJ 2 MG/2 ML VIAL (J2250) As Ordered; -MORP15TASA PO; -MYCO500T PO; -ONDA4TAB6 PO; -OXYC-141 PO; -OXYC-403 PO; -OXYC1TAB23 PO; -PAXI30TA11 PO; -PERC10TA26 PO; -PERCOCET PO; -PRED10TA PO; -PRED20TA PO; -PROP20TA2; -PROZ40CA; -REME15TA; -REST30CA PO; -ROBA750T4 PO; -SERO50TA PO; -SERT50TA PO; -SPIR25TA2 PO; +TRIAMCINOLONE ACETONIDE SUSP 40 MG/ML VIAL (J3301) As Ordered; -TYLE325T5 PO; -VENL37TA PO; -WELL100T PO; -WELLTAB38 PO; -ZOLO100T PO; +fentaNYL 100 MCG/2 ML INJECTION (J3010) As Ordered
== END ==
LOC: M PAIN 13:30
DX: M70.61 Trochanteric bursitis, right hip (principal); M79.7 Fibromyalgia; M32.9 Systemic lupus erythematosus, unspecified; J84.9 Interstitial pulmonary disease, unspecified; F17.210 Nicotine dependence, cigarettes, uncomplicated; Z79.891 Long term (current) use of opiate analgesic; Z79.899 Other long term (current) drug therapy; Z88.6 Allergy status to analgesic agent; Z88.8 Allergy status to other drugs, medicaments and biological substances
CPT/HCPCS: J3301

== ENCOUNTER → 2018-08-29 | Outpatient (CLI) | payer MEDICARE, SELFPAY | LOC: M PAIN 11:30 | DX: M25.551 Pain in right hip (principal); M16.11 Unilateral primary osteoarthritis, right hip; F17.210 Nicotine dependence, cigarettes, uncomplicated; Z79.891 Long term (current) use of opiate analgesic; Z79.899 Other long term (current) drug therapy; Z88.8 Allergy status to other drugs, medicaments and biological substances | CPT/HCPCS: G0463 ==

== ENCOUNTER → 2018-09-07 | Outpatient (CLI) | payer SELFPAY, MEDICARE ==
[2018-09-07 12:52] LABS: EOS % 0.1 % (0.0-3.0); HEMOGLOBIN 12.2 g/dl (12.0-15.5); IMMATURE GRANULOCYTE # 0.1 10^3/uL (0-0); IMMATURE GRANULOCYTE % 0.8 % (0-3.0); LYMPH # 0.7 10^3/uL (1.5-4.5); LYMPH % 9.4 % (24.0-44.0); MEAN CORPUSCULAR HEMOGLOBIN 31.9 pg (27.0-33.0); MEAN CORPUSCULAR HGB CONC 33.9 g/dl (32.0-36.5); MONO # 0.3 10^3/uL (0.0-0.8); MONO % 3.7 % (0.0-5.0); NEUTROPHILS # 6.3 10^3/uL (1.8-7.7); PLATELET COUNT, AUTOMATED 141 10^3/uL (150-450); RED BLOOD COUNT 3.83 10^6/uL (4.00-5.40); RED CELL DISTRIBUTION WIDTH 14.8 % (11.5-14.5); WHITE BLOOD COUNT 7.3 10^3/uL (4.0-10.0)
[2018-09-07 13:04] LABS: INR 0.91; PROTHROMBIN TIME 12.3 SECONDS (12.1-14.4)
[2018-09-07 13:08] LABS: APPEARANCE, URINE CLEAR (CLEAR); BACTERIA, URINE AUTO NEGATIVE (NEGATIVE); BILIRUBIN, URINE AUTO NEGATIVE (NEGATIVE); BLOOD, URINE BLOOD NEGATIVE (NEGATIVE); COLOR, URINE STRAW (YELLOW); GLUCOSE, URINE (UA) AUTO NEGATIVE (NEGATIVE); KETONE, URINE AUTO NEGATIVE (NEGATIVE); LEUKOCYTE ESTERASE, URINE AUTO NEGATIVE (NEGATIVE); NITRITE, URINE AUTO NEGATIVE (NEGATIVE); PROTEIN, URINE AUTO NEGATIVE (NEGATIVE); RBC, URINE AUTO 0 /HPF (0-3); SPECIFIC GRAVITY URINE AUTO 1.004 (1.002-1.035); SQUAMOUS EPITHELIAL CELL UR AU 0 /HPF (0-6); UROBILINOGEN, URINE AUTO 0.2 mg/dL (0.0-2.0); WBC, URINE AUTO 0 /HPF (0-3)
[2018-09-07 13:15] LABS: ERYTHROCYTE SEDIMENTATION RATE 8 mm/hr (0-20)
[2018-09-07 13:18] LABS: ESTIMATED AVERAGE GLUCOSE 123 MG/DL (60-110); HEMOGLOBIN A1c 5.9 %
[2018-09-07 13:36] LABS: ALBUMIN 3.5 GM/DL (3.2-5.2); ALBUMIN/GLOBULIN RATIO 1.46 (1.00-1.93); ALKALINE PHOSPHATASE 89 U/L (45-117); ALT/SGPT 49 U/L (12-78); ANION GAP 8 MEQ/L (8-16); AST/SGOT 15 U/L (7-37); BILIRUBIN,TOTAL 0.4 MG/DL (0.2-1.0); BLOOD UREA NITROGEN 9 MG/DL (7-18); C REACTIVE PROTEIN QUANTITATIV 0.94 MG/DL (0.00-0.30); CALCIUM LEVEL 8.3 MG/DL (8.5-10.1); CARBON DIOXIDE LEVEL 27 MEQ/L (21-32); CHLORIDE LEVEL 107 MEQ/L (98-107); CHOLESTEROL LEVEL 153 MG/DL (<200); CREATININE FOR GFR 0.73 MG/DL (0.55-1.30); FERRITIN 85 NG/ML (8-252); FREE T4 0.96 NG/DL (0.76-1.46); GLOMERULAR FILTRATION RATE > 60.0 (>58); GLUCOSE, FASTING 137 MG/DL (70-100); HDL CHOLESTEROL 60 MG/DL (>40); IRON (FE) 101 UG/DL (50-170); LDL CHOLESTEROL 79 MG/DL (<100); NON-HDL-C 93 MG/DL; PERCENT SATURATION 32.7 % (13.2-45.0); POTASSIUM SERUM 4.1 MEQ/L (3.5-5.1); RHEUMATOID FACTOR QUANT < 10.0 IU/ML (<15.0); SODIUM LEVEL 142 MEQ/L (136-145); THYROID STIMULATING HORMONE 0.511 uIU/ML (0.358-3.740); TOTAL IRON BINDING CAPACITY 309 UG/DL (250-450); TOTAL PROTEIN 5.9 GM/DL (6.4-8.2); TRIGLYCERIDES LEVEL 68 MG/DL (<150)
[2018-09-07 13:37] LABS: TOTAL 25(OH) VITAMIN D 24.7 NG/ML (30.0-100.0)
[2018-09-07 13:39] LABS: CREATININE, URINE < 13.0 MG/DL; MALB URINE SIEMENS < 5.0 MG/L
[2018-09-07 13:41] LABS: FOLATE > 24.0 NG/ML (>5.4); MAU/CREAT RATIO 38.5 MCG/MG (0.0-30.0)
[2018-09-10 00:07] LABS: CYCLIC CITRULLINATED PEPTIDE 5 units (0-19)
== END ==
LOC: M LAB 11:53
DX: J84.9 Interstitial pulmonary disease, unspecified (principal); M32.9 Systemic lupus erythematosus, unspecified; K21.9 Gastro-esophageal reflux disease without esophagitis; M79.7 Fibromyalgia; I10 Essential (primary) hypertension; E78.2 Mixed hyperlipidemia; R73.03 Prediabetes
CPT/HCPCS: 82746

== ENCOUNTER → 2018-09-12 | Outpatient (CLI) | payer MEDICARE | LOC: M PAIN 15:45 | DX: M16.11 Unilateral primary osteoarthritis, right hip (principal); M25.551 Pain in right hip; G89.29 Other chronic pain; J84.9 Interstitial pulmonary disease, unspecified; M06.4 Inflammatory polyarthropathy; Z72.0 Tobacco use; Z79.891 Long term (current) use of opiate analgesic; Z79.899 Other long term (current) drug therapy; Z88.5 Allergy status to narcotic agent; Z88.8 Allergy status to other drugs, medicaments and biological substances; Z87.39 Personal history of other diseases of the musculoskeletal system and connective tissue | CPT/HCPCS: G0463 ==

== ENCOUNTER → 2018-10-09 | Outpatient (CLI) | payer MEDICARE, SELFPAY | LOC: M PAIN 09:45 | DX: M70.61 Trochanteric bursitis, right hip (principal); M32.9 Systemic lupus erythematosus, unspecified; G89.29 Other chronic pain; M19.90 Unspecified osteoarthritis, unspecified site; M79.7 Fibromyalgia; Z72.0 Tobacco use; Z79.891 Long term (current) use of opiate analgesic; Z79.899 Other long term (current) drug therapy; Z88.5 Allergy status to narcotic agent; Z88.8 Allergy status to other drugs, medicaments and biological substances | CPT/HCPCS: G0463 ==

== ENCOUNTER → 2018-10-09 | Outpatient (CLI) | payer MEDICARE, SELFPAY | LOC: M PAIN 09:45 | DX: M70.61 Trochanteric bursitis, right hip (principal); M32.9 Systemic lupus erythematosus, unspecified; M06.4 Inflammatory polyarthropathy; M79.7 Fibromyalgia; J84.9 Interstitial pulmonary disease, unspecified; Z72.0 Tobacco use; Z79.891 Long term (current) use of opiate analgesic; Z88.5 Allergy status to narcotic agent; Z88.8 Allergy status to other drugs, medicaments and biological substances | CPT/HCPCS: G0463 ==

== ENCOUNTER → 2018-12-13 | Outpatient (CLI) | payer MEDICARE, SELFPAY ==
[~2018-12-13] MED LIST changes: +/CARB4TA PO; +/HYDR1TAB PO; +/LAMO20TA; +ALBU17IN INH; +ALPR1TAB3 PO; +AMIT100TA PO; +AMIT75TA PO; +ATEN50TA2 PO; +ATOR1TAB19 PO; +AUGM875T27 PO; +BACT800T5 PO; +BENZ-18 PO; -BUPIVACAINE HCL 0.25% 30 ML VIAL As Ordered; +BUSP15TA47 PO; +BUSP1TAB PO; +CARI1TAB7 PO; +CELE20TA; +CIPR-250 PO; +DOXY100C PO; +DRIS50003 PO; +DURA75DI2 TD; +FENT1DIS14; +FLUC150T PO; +HYDR25TAB PO; +HYDRO50TAB PO; +IBUP1TAB7 PO; +IBUP200T2 PO; +IBUP80TA PO; -ISOVUE-M 300 61% 15ML VIAL (Q9967) As Ordered; +KLOR1TAB77 PO; +LANS30CA PO; +LASI40TA9 PO; +LEVO750T13 PO; -LIDOCAINE 1% SDV INJ 30 ML VIAL As Ordered; +METH2.5T48; +METO10TA2 PO; -MIDAZOLAM INJ 2 MG/2 ML VIAL (J2250) As Ordered; +MORP15TASA PO; +MYCO500T PO; +ONDA4TAB6 PO; +OXYC-141 PO; +OXYC-403 PO; +OXYC15TA76 PO; +OXYC1TAB23 PO; +PANT40TA3 PO; +PAXI30TA11 PO; +PERC10TA26 PO; +PERCOCET PO; +POTA20TA6 PO; +PRED10TA PO; +PRED20TA PO; +PROAAER10 INH; +PROP20TA2; +PROZ40CA; +REME15TA; +REST30CA PO; +ROBA750T4 PO; +SERO50TA PO; +SERT50TA PO; +SPIR-10 PO; -TRIAMCINOLONE ACETONIDE SUSP 40 MG/ML VIAL (J3301) As Ordered; +TYLE325T5 PO; +VENL37TA PO; +WELL100T PO; +WELLTAB38 PO; +ZOLO100T PO; +[UNRECOGNIZED DRUG - CODE] XX; -fentaNYL 100 MCG/2 ML INJECTION (J3010) As Ordered
[2018-12-13 13:42] LABS: HEMATOCRIT 41.9 % (36.0-47.0); HEMOGLOBIN 13.8 g/dl (12.0-15.5); MEAN CORPUSCULAR HEMOGLOBIN 31.1 pg (27.0-33.0); MEAN CORPUSCULAR HGB CONC 32.9 g/dl (32.0-36.5); MEAN CORPUSCULAR VOLUME 94.4 fl (80.0-96.0); PLATELET COUNT, AUTOMATED 193 10^3/uL (150-450); RED BLOOD COUNT 4.44 10^6/uL (4.00-5.40); WHITE BLOOD COUNT 5.8 10^3/uL (4.0-10.0)
[2018-12-13 13:48] LABS: INR 0.92; PROTHROMBIN TIME 12.5 SECONDS (12.1-14.4)
[2018-12-13 14:03] LABS: ALBUMIN 3.7 GM/DL (3.2-5.2); ALT/SGPT 18 U/L (12-78); BILIRUBIN,TOTAL 0.3 MG/DL (0.2-1.0); BLOOD UREA NITROGEN 16 MG/DL (7-18); CALCIUM LEVEL 8.7 MG/DL (8.5-10.1); CARBON DIOXIDE LEVEL 26 MEQ/L (21-32); CHLORIDE LEVEL 104 MEQ/L (98-107); CREATININE FOR GFR 0.94 MG/DL (0.55-1.30); GLOMERULAR FILTRATION RATE > 60.0 (>58); GLUCOSE, FASTING 137 MG/DL (70-100); POTASSIUM SERUM 3.9 MEQ/L (3.5-5.1); SODIUM LEVEL 138 MEQ/L (136-145); TOTAL PROTEIN 6.3 GM/DL (6.4-8.2)
--- NOTE | 2018-12-13 14:15 | REP ---
Chest two views HISTORY: Preop Comparison: 11/15/2016 Linear densities are present in the right lower lobe consistent with scar. The left lung is clear. The heart is normal in size. The pulmonary vasculature is normal in appearance. The bony structure is intact. IMPRESSION: No acute disease. Electronically Signed by Imer Medina MD 12/13/2018 02:05 P
[2018-12-13 14:35] LABS: ERYTHROCYTE SEDIMENTATION RATE 5 mm/hr (0-20)
--- NOTE | 2018-12-13 20:34 | ECGEPIP ---
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
== END ==
LOC: M LAB 12:52
PROVIDERS: ATTEND Orthopaedic Surgery
DX: M16.11 Unilateral primary osteoarthritis, right hip (principal)

== ENCOUNTER 2018-12-31 07:01 | Inpatient (IN) | payer MEDICARE, SELFPAY ==
--- NOTE | 2018-12-24 14:44 | HPE ---
DATE OF ADMISSION: 12/31/2018 HISTORY OF PRESENT ILLNESS: This is a pleasant 48-year-old female with continuing symptomatic right hip osteoarthritis. She has consented for a right total hip arthroplasty per Dr. Jonathan Muir. Medical optimization per MICHAEL Grajeda. X-rays are consistent with advanced osteoarthritis. ALLERGIES: Meloxicam adverse reaction severe mood changes, gabapentin adverse reaction mood change. MEDICATIONS: Medication list includes: Hydroxyzine HCL 50 mg 1 tab by mouth four times a day as needed, ibuprofen 800 mg by mouth three times a day. She is reminded to discontinue that preoperative five day before surgery, alprazolam 1 mg tablet by mouth three times a day, paroxetine HCL 30 mg tablet by mouth daily, bupropion HCL 150 mg tab every 24 hours, Fentanyl 75 mcg every 72 hours, Oxycodone HCL 50 mg tablet 1 tab by mouth four times a day as needed, furosemide 4 mg tablet by mouth twice a day, nortriptyline HCL 10 mg capsule 30 mg by mouth at bedtime, atorvastatin calcium 10 mg by mouth daily, atenolol 50 mg by mouth twice a day, Zofran 4 mg patient by mouth three times a day as needed, albuterol sulfate 0.5-3 mg ampule nebulizer 3ml IH four times a day, albuterol sulfate (ProAir HFA) 200/8.5 gm inhale 1-2 puff IH every 4-6 hours as needed. MEDICAL PROBLEMS: Symptomatic right hip osteoarthritis, anxiety, depression, gout, headaches, hearing loss, hypertension, irritable colon, ischemic attacks, bradycardia, smoker, obesity, systemic lupus erythematous, borderline diabetes FAMILY HISTORY: Abnormal vision. Daughter has MS. Carcinoma of breast. Diabetes mellitus, hearing loss, hypertension, kidney disease. SOCIAL HISTORY: She is a smoker looking to cut back. Denies alcohol intake or illicit drugs. REVIEW OF SYSTEMS: Denies chest pain, shortness of breath, dyspnea on exertion, fevers, chills, malaise, upper respiratory or urinary tract symptoms. LABORATORY STUDIES: RBC 4.19, MCH 32.7, glucose fasting elevated at 137, creatinine for GFR 0394, alkaline phosphatase 119, otherwise labs were grossly within normal limits acquired on 12/13/2018. Additionally on 12/21/2018 additional labs showed ceruloplasmin 39.2, iron SATN MFR SERPL 8.2 and serum iron measurement 27. Chest x-ray, no acute disease, [facility], service date 12/13/[address] Medina EKG sinus bradycardia, possible left atrial enlargement read by Dr. Ricardo. Consent was completed 11/15/2018. PHYSICAL EXAMINATION: Height 5'3 1/,2", weight 193.2, temperature 98.1, BLOOD PRESSURE 98/61 which she states is within her normal, pulse 62, respiration 16. She is a pleasant obese female in no acute distress. She is alert and oriented times three. Mood and affect are appropriate. She is ambulating with favoring of her left lower extremity. Right hip range of motion is limited and irritable throughout range of motion. Bilateral lower are supple, soft and nontender to palpation and gross intact to light touch. Benign and noninfectious looking. Skin is intact. Bowel sounds times four, soft and nontender. Chest rise symmetric and regular rate and rhythm. Lungs are clear to auscultation. Neck is supple and negative JVD or bruits. Normocephalic. IMPRESSION: 1. Right hip symptomatic osteoarthritis. 2. Patient consented for a right total hip arthroplasty per Dr. Jonathan Muir. 3. Medical optimization per Kobe RODRIGUEZ 4. call or contact centre team leader or OR 2 grams IV Kefzol in OR. 5. SCD and TEDS in OR. MTDD
[~2018-12-31] VITALS: Ht 165.1 cm; Wt 89.5 kg
[2018-12-31] VITALS (8 sets, daily range): BP systolic 98–148; BP diastolic 54–82; O2SAT 97
[~2018-12-31 07:01] MED LIST changes: +ACETAMINOPHEN 500 MG TAB PO ONE; +LR 1,000 ML IV ONE
[2018-12-31 07:41] LABS: URINE PREG TEST NEGATIVE (NEGATIVE)
[2018-12-31] MEDS ORDERED: ONDANSETRON 4MG/2ML VIAL (J2405) As Ordered ONE ×2 (08:16→12:42)
[2018-12-31] MEDS ORDERED: PROPOFOL 200 MG/20 ML VIAL As Ordered ONE (08:16)
[2018-12-31] MEDS ORDERED: LIDOCAINE 2% INJ 100 MG/5 ML SDV (FOR ANES.) As Ordered ONE (08:16)
[2018-12-31] MEDS ORDERED: dexameTHASONE 4 MG/ML 1ML VIAL (J1100) As Ordered ONE (08:16)
[2018-12-31] MEDS ORDERED: fentaNYL 100 MCG/2 ML INJECTION (J3010) As Ordered ONE ×3 (08:17→12:42)
[2018-12-31] MEDS ORDERED: MIDAZOLAM INJ 2 MG/2 ML VIAL (J2250) As Ordered ONE ×2 (08:18→14:09)
[2018-12-31] MEDS ORDERED: ROCURONIUM BROMIDE 50 MG/5 ML VIAL As Ordered ONE (08:50)
[2018-12-31] MEDS ORDERED: SUGAMMADEX SODIUM 500 MG/5 ML VIAL (BRIDION) As Ordered ONE (08:50)
[2018-12-31] MEDS ORDERED: HYDROmorphone HCL 2 MG/ML 1ML VIAL (J1170) As Ordered ONE ×2 (08:50→10:40)
[2018-12-31] MEDS ORDERED: ATENOLOL 25 MG TAB As Ordered ONE (08:51)
[2018-12-31] MEDS ORDERED: ATENOLOL 50 MG TAB PO ONE (09:00)
[2018-12-31] MEDS ORDERED: ceFAZolin 1GM INJ (J0690 PER 500MG) As Ordered ONE (09:30)
[2018-12-31] MEDS: MORPHINE 1MG/ML IN 0.9% NACL 100ML IV BAG IV PRN (10:55)
[2018-12-31] MEDS ORDERED: ePHEDrine SULFATE 25 MG/5 ML(5MG/ML) SYRINGE As Ordered ONE (11:06)
[2018-12-31] MEDS ORDERED: EPINEPHrine INJ 1 MG/ML 1ML AMP As Ordered ONE (11:15)
[2018-12-31] MEDS ORDERED: TRANEXAMIC ACID 100 MG/ML 10ML VIAL As Ordered ONE (11:15)
[2018-12-31] MEDS ORDERED: PERCOCET 5MG/325MG TAB As Ordered ONE (12:42)
[2018-12-31] MEDS ORDERED: diphenhydrAMINE INJ 50MG/ML VIAL (J1200) IV PRN (12:45)
[2018-12-31] MEDS ORDERED: NALOXONE INJ 0.4 MG/1 ML VIAL (J2310) IV PRN (12:45)
[2018-12-31] MEDS ORDERED: EPIDURAL/PCA KEYS XX PRN (12:45)
[2018-12-31] MEDS ORDERED: NALBUPHINE HCL 10 MG/ML AMP (J2300) IV PRN (12:45)
[2018-12-31] MEDS ORDERED: FLEET ENEMA PR PRN (12:45)
[2018-12-31] MEDS: fentaNYL 100 MCG/2 ML INJECTION (J3010) IV PRN ×4 (12:45→13:00)
[2018-12-31] MEDS ORDERED: LR 1,000 ML IV SCH ×2 (12:45)
[2018-12-31] MEDS ORDERED: ONDANSETRON 4MG/2ML VIAL (J2405) IV PRN ×2 (12:45)
[2018-12-31] MEDS: PERCOCET 5MG/325MG TAB PO PRN ×2 (12:45→13:15)
[2018-12-31] MEDS ORDERED: METOCLOPRAMIDE INJ 10MG/2ML VIAL (J2765) IV PRN (12:45)
--- NOTE | 2018-12-31 13:04 | REP ---
AP, LATERAL RIGHT HIP, TWO VIEWS: HISTORY: Hip replacement. The patient is status-post right total hip replacement. There is no acute fracture or dislocation. Subcutaneous air and surgical sheila are present in the overlying soft tissue. IMPRESSION:The patient is status-post right total hip replacement. There is anatomic alignment. Electronically Signed by Imer Medina MD 12/31/2018 01:06 P
[2018-12-31] MEDS ORDERED: KETAMINE HCL 200 MG/20 ML VIAL As Ordered ONE (14:11)
[2018-12-31] MEDS ORDERED: MIDAZOLAM INJ 2 MG/2 ML VIAL (J2250) IV ONE (14:30)
[2018-12-31] MEDS: HYDROMORPHONE HCL 0.5 MG/ 0.5 ML SYRINGE (J1170 PER 1) IV PRN ×4 (14:30→15:00)
[2018-12-31] MEDS ORDERED: HYDROMORPHONE HCL 0.5 MG/ 0.5 ML SYRINGE (J1170 PER 1) As Ordered ONE ×2 (14:32→14:35)
[2018-12-31] MEDS ORDERED: ALBUTEROL 90 MCG/ACT 8GM HFA INHALER INH PRN (17:15)
--- NOTE | 2018-12-31 17:21 | CR.PDOC ---
General Date of Consultation: Dec 31, 2018 Consultation REASON FOR CONSULTATION/CHIEF COMPLAINT: Presented to [facility] for an elective R hip replacement with orthopedic surgery. 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 Patient follows with Marifer Chiang as an outpatient for her primary care. . She has received medical clearance 1 week ago after receiving blood work, x-ray and EKG. Patient noted that she has failed to improve her right hip pain with medications and steroid injections that she was scheduled for a right hip replacement with orthopedic surgery. Patients post operatively. Currently she denies any headache, visual changes, nausea, vomiting, chest pain, shortness breath, palpitations, cough, abdominal pain, observation, diarrhea or discomfort with urination. She denies any recent fevers or chills in the last 2 weeks. ALLERGIES: Please see below. HOME MEDICATIONS: Please see below. PAST MEDICAL HISTORY: HTN, Hx of Bradycardia, Borderline DM2, SLE, Fibromyalgia, hearing loss 2/2 SLE, Headaches 2/2 SLE, TIA 2/2 SLE, Anxiety / Depression, Gout PAST SURGICAL HISTORY: Back surgery 2016 Bar placement of lumbar spine Appendectomy 1982 Adhesion removal, 1999 FAMILY HISTORY: - Noncontributory SOCIAL HISTORY: - Denies the use of alcohol or illicit drugs; current smoker of 20 years at less than 1 PPD - Denies recent travel or sick contacts - Lives with daughter REVIEW OF SYSTEMS: 10 point review systems complete, all negative otherwise stated in HPI PHYSICAL EXAMINATION: - Vitals: BP 137/66, HR 66, RR 20, Sat 98%RA, Temp 98.0F - General: Lying in bed, Complaining of R hip pain , Speaking in full sentences, AAOx3 - HEENT: NC, AT, PERRLA, EOMI - CVS: RRR, +S1S2, - Lungs: Fair air entry bilaterally, Clear to auscultation, No wheezing / rales / rhonchi - Abdomen: Soft, Non-distended, Non-tender - Extremities: No lower extremity edema, No calf tenderness, significant right hip pain - Neuro: No focal motor or sensory deficit - Skin: No visible rashes LABORATORY DATA: Please see below. ASSESSMENT/PLAN: Osteoarthritis of right hip - s/p total right hip arthroplasty (POD#0) - Presented to [facility] for an elective right hip arthroplasty with orthopedic surgery - Patient has received medical clearance via outpatient provider, Marifer Chiang - Pain control, anticoagulation and physical therapy at the direction of orthopedic surgery Uncontrolled pain - Patient has noted significant pain after surgery - Attending as discussed case with Dr. Bethea (Pain management) - Adjustments of pain regimen have been made and patient was transferred over to telemetry monitoring HTN - Blood pressure appears well controlled - Will resume Atenolol Hx of Bradycardia - Will continue to monitor with telemetry Borderline DM2 - Will check A1c SLE - Hearing loss 2/2 SLE - Headaches 2/2 SLE - TIA 2/2 SLE DLP - c/w Atorvastatin Fibromyalgia / Anxiety / Depression - c/w Paroxetine, Alprazolam, Bupropion, Buspirone Gout - Currently not on any medications GERD - c/w Protonix BID DVT prophylaxis - On full anticoagulation with Xarelto as per orthopedic surgery Vital Signs/I&O Vital Signs Date Time Temp Pulse Resp B/P (MAP) Pulse Ox O2 Delivery O2 Flow Rate FiO2 12/31/18 17:01 2.0 12/31/18 17:00 97 Nasal Cannula 12/31/18 16:58 21 12/31/18 16:00 98.0 66 137/66 (89) Laboratory Data Labs 24H Laboratory Tests 2 12/31/18 07:26: Urine Test NEGATIVE Allergies Coded Allergies: Gabapentin (Verified Adverse Reaction, Intermediate, mood swing, 12/06/18) Meloxicam (Verified Adverse Reaction, Intermediate, mood swings , 08/15/18) Home Medications Scheduled Atenolol (Atenolol) 50 Mg Tab, 50 MG PO ASDIRECTED, (Reported) for tachycardia and hypertension up to BID Atorvastatin Calcium (Atorvastatin Calcium) 10 Mg Tab, 10 MG PO DAILY, (Reported) Bupropion HCl (Wellbutrin Xl) 150 Mg Tab, 150 MG PO DAILY, (Reported) Buspirone HCl (Buspirone HCl) 15 Mg Tab, 15 MG PO BID, (Reported) Fentanyl (Duragesic) 75 Mcg/Hr Dis, 75 MCG TD Q3RD, (Reported) Furosemide (Lasix) 40 Mg Tab, 40 MG PO BID, (Reported) Methocarbamol (Robaxin-750) 750 Mg Tab, 750 MG PO TID, (Reported) Pantoprazole Sodium (Pantoprazole Sodium) 40 Mg Tab, 40 MG PO BID, (Reported) Paroxetine Hydrochloride (Paxil) 30 Mg Tab, 30 MG PO DAILY, (Reported) Potassium Chloride (Potassium Chloride ER) 20 Meq Tab, 20 MEQ PO BID, (Reported) Scheduled PRN Albuterol Sulfate (Proair Hfa) 108 Mcg/Act Aer, 2 PUFF INH Q4HP PRN for WHEEZING, (Reported) Alprazolam (Alprazolam) 1 Mg Tab, 1 MG PO TIDP PRN for ANXIETY/AGITATION, (Reported) Ibuprofen (Ibuprofen) 800 Mg Tab, 800 MG PO Q8HP PRN for PAIN, (Reported) Oxycodone Hcl (Oxycodone HCl) 15 Mg Tab, 15 MG PO Q6H PRN for PAIN, (Reported) CHOLO BARRETT MD Dec 31, 2018 17:21
[2018-12-31] MEDS ORDERED: FENTANYL REMOVAL DOCUMENTATION MISC XX SCH (18:00)
[2018-12-31] MEDS: oxyCODONE 5MG TAB PO SCH ×2 (18:04→22:17)
[2018-12-31] MEDS: PREGABALIN 100 MG CAP (LYRICA) PO SCH ×2 (18:20→22:15)
[2018-12-31] MEDS: fentaNYL 75 MCG/HR PATCH TOP SCH (19:02)
[2018-12-31] MEDS: busPIRone 5 MG TAB PO SCH (22:14)
[2018-12-31] MEDS: PANTOPRAZOLE 40MG TAB (PROTONIX) PO SCH (22:15)
[2018-12-31] MEDS: METHOCARBAMOL 750 MG TAB PO SCH (22:15)
[2018-12-31] MEDS: ACETAMINOPHEN TAB 650MG DOSE (2X325MG) PO PRN (23:07)
[2018-12-31] MEDS: ALPRAZolam 0.5 MG TAB PO PRN (23:07)
[2019-01-01] VITALS (10 sets, daily range): BP systolic 104–124; BP diastolic 53–67; O2SAT 89–97
[2019-01-01] MEDS: MORPHINE 1MG/ML IN 0.9% NACL 100ML IV BAG IV PRN (02:04)
[2019-01-01 06:29] LABS: HEMATOCRIT 31.6 % (36.0-47.0); HEMOGLOBIN 10.6 g/dl (12.0-15.5); MEAN CORPUSCULAR HEMOGLOBIN 31.2 pg (27.0-33.0); MEAN CORPUSCULAR HGB CONC 33.5 g/dl (32.0-36.5); MEAN CORPUSCULAR VOLUME 92.9 fl (80.0-96.0); PLATELET COUNT, AUTOMATED 183 10^3/uL (150-450); WHITE BLOOD COUNT 8.3 10^3/uL (4.0-10.0)
[2019-01-01] MEDS ORDERED: PERCOCET 5MG/325MG TAB PO PRN (06:30)
[2019-01-01] MEDS ORDERED: ONDANSETRON 4 MG TAB (S0181) PO PRN (06:30)
[2019-01-01 06:50] LABS: BLOOD UREA NITROGEN 10 MG/DL (7-18); CALCIUM LEVEL 8.2 MG/DL (8.5-10.1); CARBON DIOXIDE LEVEL 29 MEQ/L (21-32); CHLORIDE LEVEL 105 MEQ/L (98-107); CREATININE FOR GFR 0.68 MG/DL (0.55-1.30); GLOMERULAR FILTRATION RATE > 60.0 (>58); GLUCOSE, FASTING 121 MG/DL (70-100); SODIUM LEVEL 140 MEQ/L (136-145)
[2019-01-01 07:04] LABS: HEMOGLOBIN A1c 6.1 %
[2019-01-01] MEDS: ATORVASTATIN 10 MG TAB PO SCH (09:25)
[2019-01-01] MEDS: ATENOLOL 50 MG TAB PO SCH (09:25)
[2019-01-01] MEDS: PANTOPRAZOLE 40MG TAB (PROTONIX) PO SCH ×2 (09:25→22:36)
[2019-01-01] MEDS: METHOCARBAMOL 750 MG TAB PO SCH ×3 (09:26→22:37)
[2019-01-01] MEDS: PREGABALIN 100 MG CAP (LYRICA) PO SCH ×3 (09:26→22:36)
[2019-01-01] MEDS: MOM 30ML SUSPENSION UDC PO SCH (09:26)
[2019-01-01] MEDS: SENOKOT S TAB PO SCH ×2 (09:26→22:37)
[2019-01-01] MEDS: MIRALAX *UNIT DOSE* 17GM PACKET PO SCH (09:26)
[2019-01-01] MEDS: buPROPion **XL** TABLET 150MG (WELLBUTRIN XL) PO SCH (09:26)
[2019-01-01] MEDS: PARoxetine 10MG TABLET PO SCH (09:26)
[2019-01-01] MEDS: oxyCODONE 5MG TAB PO SCH ×4 (09:28→22:37)
--- NOTE | 2019-01-01 09:33 | CR ---
DATE: 01/01/2018 DATE OF VISIT: 12/31/2018 REFERRING PROVIDER: Dr. Jonathan Muir CHIEF COMPLAINT: Right hip pain post surgical right hip arthroplasty. HISTORY OF PRESENT ILLNESS: Meg is a 48-year-old female known to our pain practice who suffers from chronic pain associated with inflammatory arthropathy with a history of lupus erythematosus. She has been in poor condition over the past few years. She requires [id number] opioid medication. She has been maintained on fentanyl 75 mcg every 72 hours and oxycodone 15 mg four times a day over the past several months. Despite this her pain, especially in the right hip has been out of control. We received a call from Dr. Jonathan Muir after her right hip arthroplasty today requesting our assistance with post-op surgical pain due to her high dose narcotic pain medication and inability to control her postoperative pain. I discussed the patient's history with Dr. Bethea. Discussed current medications and relying on his suggestions today for postoperative pain control in her situation. The plan is to restart her chronic opioid medication of fentanyl 75 mcg every 72 hours and oxycodone 15 mg four times a day, and she would need a monitored environment with both cardiac and respiratory monitoring. Today, I visited her and she was in severe pain. She is approximately 2 hours post-op. She is awake. Alert and oriented. Discussed her situation and agreed to help to try to maintain her pain control while she is hospitalized. PAST MEDICAL HISTORY: 1. Fibromyalgia. 2. Lupus. 3. Interstitial lung disease. 4. Inflammatory arthritis. SURGICAL HISTORY: L4-5 laminectomy, lower back surgery, Dr. Neal, 09/15/2016. FAMILY HISTORY: Daughter with complications of MS. Mother is alive. Father alive. SOCIAL HISTORY: She is currently a smoker. Denies illicit drug use. Denies alcohol use. ALLERGIES: MOBIC, NEURONTIN, IMURAN. PHYSICAL EXAMINATION: Awake, alert, oriented. Appears in severe pain. Vital signs: 97.5, 73, 12. Blood pressure 107/55. Oxygen saturation is 95% on 2 liters oxygen. Cardiac: S1, S2. Normal rate and rhythm. Respiratory: Lung sounds are clear. Respirations nonlabored. Extremities: Warm to touch. No swelling. ASSESSMENT: 1. Acute postoperative pain. 2. Chronic opioid therapy. 3. Inflammatory arthropathy/lupus erythematosus. PLAN: Recommend stat oxycodone 15 mg by mouth dose. Continue morphine IV patient controlled analgesia ([employer]). Start fentanyl 75 mcg patch every 72 hours as she has been on this for several months at home. Start oxycodone 15 mg four times a day as she has been on this at home. Consider starting Xanax therapy as she was on this at home. Consider use of muscle relaxant if necessary. Thank you for allowing us to participate in the care of your patient. We will be glad to follow her progress during her hospital stay. CHRISTOFER
[2019-01-01] MEDS: busPIRone 5 MG TAB PO SCH ×2 (09:36→22:36)
[2019-01-01] MEDS: ALPRAZolam 0.5 MG TAB PO PRN ×2 (10:58→18:33)
--- NOTE | 2019-01-01 13:08 | IPNPDOC ---
Text Note Date of Service The patient was seen on 01/01/19. NOTE Subjective: Patient is a 48-year-old female with PMHx of HTN, Hx of Bradycardia, Borderline DM2, SLE, Fibromyalgia, hearing loss 2/2 SLE, Headaches 2/2 SLE, TIA 2/2 SLE, Anxiety / Depression, Gout who presented to [facility] for an elective right hip replacement with orthopedic surgery. Patient was seen and examined at the bedside. Currently notes that she would like to go home. She denies any CP, SOB or palpitations. Denies any N/V, abdominal pain, C/D. Has had the ability to pass flatus. Objective: Vitals (See below) General: Lying in bed, no acute distress, comfortable, AAOx3 HEENT: NC, AT CVS: RRR, +S1S2 Lungs: Fair air entry b/l, -w/r/r Abdomen: Soft, ND, NT Extremities: - Edema, - Calf tenderness Assessment and plan: Osteoarthritis of right hip - s/p total right hip arthroplasty (POD#1) - Presented to [facility] for an elective right hip arthroplasty with orthopedic surgery - Patient has received medical clearance via outpatient provider, Marifer Chiang - Pain control, anticoagulation and physical therapy at the direction of orthopedic surgery - Will be working with physical therapy today s/p Uncontrolled pain - Patient has noted significant pain after surgery - Adjustments of pain regimen have been made - Has been placed on telemetry monitoring - Dr. Bethea (Pain management) on consultation HTN - Blood pressure appears well controlled - c/w Atenolol Hx of Bradycardia - No significant bradycardia on telemetry Borderline DM2 - A1c of 6.1 - c/w Dietary modifications as an outpatient SLE - Hearing loss 2/2 SLE - Headaches 2/2 SLE - TIA 2/2 SLE DLP - c/w Atorvastatin Fibromyalgia / Anxiety / Depression - c/w Paroxetine, Alprazolam, Bupropion, Buspirone Gout - Currently not on any medications GERD - c/w Protonix BID DVT prophylaxis - On full anticoagulation with Xarelto as per orthopedic surgery Disposition: - c/w Physical therapy until cleared for discharge VS,Fishbone, I+O VS, Fishbone, I+O Laboratory Tests 01/01/19 06:09 Red Blood Count 3.40 L, Mean Corpuscular Volume 92.9, Mean Corpuscular Hemoglobin 31.2, Mean Corpuscular Hemoglobin Concent 33.5, Red Cell Distribution Width 13.6, Calcium Level 8.2 L Vital Signs Date Time Temp Pulse Resp B/P (MAP) Pulse Ox O2 Delivery O2 Flow Rate FiO2 01/01/19 10:00 99.6 86 17 108/64 (79) 93 01/01/19 09:00 Nasal Cannula 2.0 I&O- Last 24 Hours up to 6 AM 01/01/19 06:00 Intake Total 2920 ml Output Total 1585 ml Balance 1335 ml CHOLO BARRETT MD Jan 01, 2019 13:08
[2019-01-01] MEDS: RIVAROXABAN 10 MG TAB (XARELTO) PO SCH (16:58)
[2019-01-01] MEDS: ACETAMINOPHEN TAB 650MG DOSE (2X325MG) PO PRN (18:34)
[2019-01-01] MEDS: PERCOCET 5MG/325MG TAB PO PRN (19:35)
--- NOTE | 2019-01-01 19:52 | RO ---
DATE OF PROCEDURE: 12/31/2018 PREPROCEDURE DIAGNOSIS: Right hip degenerative osteoarthritis. POSTPROCEDURE DIAGNOSIS: Right hip degenerative osteoarthritis. PROCEDURE: Right total hip arthroplasty using a size 6 high off set Hudson stem with a +5 neck and a 36 mm ceramic head with a 52 mm Gription cup with a neutral 36 liner. Prosthesis was made by [employer]. It was a Hudson stem. SURGEON: Dr. Catalina Muir. [employer]: Mr. Jemal Novoa ANESTHESIA: General endotracheal tube anesthesia. COMPLICATIONS: None. ESTIMATED BLOOD LOSS: 200 mL SPECIMENS: Femoral head. DESCRIPTION OF PROCEDURE: Antibiotics were given intravenously preoperatively and successful spinal anesthetic was induced. She was placed in the lateral decubitus position with the down leg well padded, especially the peroneal nerve and axillary roll was utilized. Right hip areas was carefully prepped and draped in the usual sterile fashion. After an appropriate time-out, a longitudinal incision was made for direct lateral approach to the hip. Bovie cautery was used to coagulate the crossing vessels down to the tensor fascia, which was then divided. The gluteus medius was split in anterior one-third and posterior two-third junction, and then carefully dissected down to the gluteus minimus and the anterior hip capsule, carefully dissecting anteriorly as we dislocated the hip and placed it in the leg bag anteriorly. The femoral neck was noted to be very valgus and significantly retroverted, making it very tight and small area for the piriformis fossa starting point. I identified this and used the starter reamer and then the canal finding reamer and then the lateralizing reamer. Then we reamed up to a size 6. Femoral neck osteotomy performed and we began broaching up to a size 6. We then exposed the acetabulum. She was relatively high riding and lateralized. There was a dense thick tissue within the depths of the acetabulum, which was carefully dissected and removed with the Bovie cautery and the bleeding points coagulated. Tranexamic acid was also inserted into the acetabular area to help control the microbleeding. We then began reaming, beginning at a size 47, advanced to a 51. The trial fit nicely using extramedullary jig to help set version and abduction. We copiously irrigated again and then the real 52 Gription cup was placed, again using the extramedullary alignment jig. The central hole eliminator was placed, followed by the classic liner. We then exposed the femoral canal, copiously irrigated with sterile saline irrigant solution and then placed the broach. We initially trialed with a standard offset 1.5 head and neck combination. She was very stable with flexion and internal rotation; however, external rotation she did have a tendency to go outward anteriorly and there was a significant amount of telescoping noted, so I felt it best given our preoperative x-ray, which is lateralized, that the high off set stem would be better. Thus, I trialed with a high offset +5 and this gave her good stability in extension and external rotation, as well as flexion and internal rotation. We then removed the trial components, copiously pulsatile lavaged irrigated out the femoral canal once again and then inserted a real #6 high offset stem, dried the trunion, placed the 36 x +5 ceramic head onto the trunion. We then irrigated again and reduced the hip. Again, she was very stable in flexion and internal rotation and extension and external rotation. Minimal soft tissue telescoping. We then copiously irrigated again and closed the anterior hip capsule and gluteus minimus back anatomically with interrupted #1 PDS suture. We then closed the gluteus medius back anatomically with interrupted #1 PDS sutures. Irrigated between layers. Closed the tensor fascia with a combination of interrupted #1 PDS and #1 running single armed Stratafix. Irrigated again and closed the deep soft tissues in layers and the skin was closed sheila covered by an Optifoam dressing. She was then turned supine and transferred to the recovery room in stable condition. There were no intraoperative complications. Of note, upon dislocation of the hip, the femoral head was noted to be eburnated down to bare bone in the superolateral aspect of the femoral head. Mr. Jemal Novoa was critical to the success of this difficult operation in this morbidly obese patient by helping to manipulate the leg, in and out of the leg bag, dislocate and relocate the hip several times throughout the surgery, helped with appropriate soft tissue retraction so I could perform the operation smoothly and efficiently and safely, helped to close the wound, amongst many other tasks.
[2019-01-02] VITALS (8 sets, daily range): BP systolic 103–126; BP diastolic 54–68; O2SAT 93–94
[2019-01-02] MEDS: PERCOCET 5MG/325MG TAB PO PRN (03:42)
[2019-01-02 06:19] LABS: HEMATOCRIT 29.8 % (36.0-47.0); HEMOGLOBIN 9.8 g/dl (12.0-15.5); MEAN CORPUSCULAR HEMOGLOBIN 30.7 pg (27.0-33.0); MEAN CORPUSCULAR HGB CONC 32.9 g/dl (32.0-36.5); MEAN CORPUSCULAR VOLUME 93.4 fl (80.0-96.0); PLATELET COUNT, AUTOMATED 139 10^3/uL (150-450); RED BLOOD COUNT 3.19 10^6/uL (4.00-5.40); WHITE BLOOD COUNT 6.4 10^3/uL (4.0-10.0)
[2019-01-02 06:43] LABS: BLOOD UREA NITROGEN 9 MG/DL (7-18); CALCIUM LEVEL 7.7 MG/DL (8.5-10.1); CARBON DIOXIDE LEVEL 31 MEQ/L (21-32); CHLORIDE LEVEL 105 MEQ/L (98-107); CREATININE FOR GFR 0.67 MG/DL (0.55-1.30); GLOMERULAR FILTRATION RATE > 60.0 (>58); GLUCOSE, FASTING 108 MG/DL (70-100); POTASSIUM SERUM 4.1 MEQ/L (3.5-5.1); SODIUM LEVEL 140 MEQ/L (136-145)
[2019-01-02] MEDS ORDERED: XARE10TA PO (08:04)
[2019-01-02] MEDS ORDERED: PERC5TAB12 PO (08:04)
[2019-01-02] MEDS: PREGABALIN 100 MG CAP (LYRICA) PO SCH ×3 (08:54→20:57)
[2019-01-02] MEDS: busPIRone 5 MG TAB PO SCH ×2 (08:54→20:55)
[2019-01-02] MEDS: ATENOLOL 50 MG TAB PO SCH (08:55)
[2019-01-02] MEDS: ATORVASTATIN 10 MG TAB PO SCH (08:55)
[2019-01-02] MEDS: METHOCARBAMOL 750 MG TAB PO SCH ×3 (08:55→20:56)
[2019-01-02] MEDS: PARoxetine 10MG TABLET PO SCH (08:55)
[2019-01-02] MEDS: oxyCODONE 5MG TAB PO SCH ×4 (08:56→20:56)
[2019-01-02] MEDS: PANTOPRAZOLE 40MG TAB (PROTONIX) PO SCH ×2 (08:56→20:56)
[2019-01-02] MEDS: buPROPion **XL** TABLET 150MG (WELLBUTRIN XL) PO SCH (08:56)
[2019-01-02] MEDS: SENOKOT S TAB PO SCH ×2 (08:56→20:57)
[2019-01-02] MEDS: MIRALAX *UNIT DOSE* 17GM PACKET PO SCH (08:56)
[2019-01-02] MEDS: MOM 30ML SUSPENSION UDC PO SCH (08:56)
[2019-01-02] MEDS ORDERED: INFLUENZA QUADRIVALENT PF VACCINE 0.5ML SYRINGE (90686) IM ONE (09:00)
--- NOTE | 2019-01-02 12:31 | IPNPDOC ---
Text Note Date of Service The patient was seen on 01/02/19. 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 Patient was seen and examined at the bedside. Overnight, patient was found to have some confusion and sedation. Her opiate medications were held. This morning she is fully oriented and conversive. She denied any chest pain, shortness of breath or palpitations. Denied nausea, vomiting, abdominal pain, diarrhea or discomfort with urination. Patient notes that she's been working with physical therapy, however, has not yet cleared Objective: Vitals (See below) General: Lying in bed, no acute distress, comfortable, AAOx3 HEENT: NC, AT CVS: RRR, +S1S2 Lungs: Fair air entry b/l, auscultationis without any wheezing, rales or rhonchi Abdomen: Soft, remains nondistended without tenderness Extremities: No evidence of large from edema, - Calf tenderness Assessment and plan: Osteoarthritis of right hip - s/p total right hip arthroplasty (POD#2) - Presented to [facility] for an elective right hip arthroplasty with orthopedic surgery - Patient has received medical clearance via outpatient provider, Marifer Chiang - Pain control, anticoagulation and physical therapy at the direction of orthopedic surgery - c/w Physical therapy until cleared for discharge s/p Uncontrolled pain - Patient has noted significant pain after surgery - Adjustments of pain regimen have been made - Has been placed on telemetry monitoring - Dr. Bethea (Pain management) on consultation HTN - Blood pressure appears well controlled - c/w Atenolol Hx of Bradycardia - No significant bradycardia on telemetry Borderline DM2 - A1c of 6.1 - c/w Dietary modifications as an outpatient SLE - Hearing loss 2/2 SLE - Headaches 2/2 SLE - TIA 2/2 SLE DLP - c/w Atorvastatin Fibromyalgia / Anxiety / Depression - c/w Paroxetine, Alprazolam, Bupropion, Buspirone Gout - Currently not on any medications GERD - c/w Protonix BID DVT prophylaxis - On full anticoagulation with Xarelto as per orthopedic surgery Disposition: - c/w Physical therapy until cleared for discharge - Anticipate discharge within 24-48 hours VS,Agathae, I+O VS, Fishbone, I+O Laboratory Tests 01/02/19 06:04 Red Blood Count 3.19 L, Mean Corpuscular Volume 93.4, Mean Corpuscular Hemoglobin 30.7, Mean Corpuscular Hemoglobin Concent 32.9, Red Cell Distribution Width 13.4, Calcium Level 7.7 L Vital Signs Date Time Temp Pulse Resp B/P (MAP) Pulse Ox O2 Delivery O2 Flow Rate FiO2 01/02/19 12:21 2.0 01/02/19 10:00 97.8 86 15 126/68 (87) 94 01/02/19 01:39 Nasal Cannula I&O- Last 24 Hours up to 6 AM 01/02/19 06:00 Intake Total 2700 ml Output Total 850 ml Balance 1850 ml CHOLO BARRETT MD Jan 02, 2019 12:30
[2019-01-02] MEDS: ALPRAZolam 0.5 MG TAB PO PRN ×2 (12:55→21:03)
[2019-01-02] MEDS: RIVAROXABAN 10 MG TAB (XARELTO) PO SCH (17:52)
[2019-01-03 02:00] VITALS: BP 110/60
[2019-01-03 06:00] VITALS: BP 115/68
[2019-01-03] MEDS: ACETAMINOPHEN TAB 650MG DOSE (2X325MG) PO PRN (06:21)
[2019-01-03 06:29] LABS: HEMATOCRIT 30.8 % (36.0-47.0); HEMOGLOBIN 10.1 g/dl (12.0-15.5); MEAN CORPUSCULAR HEMOGLOBIN 30.4 pg (27.0-33.0); MEAN CORPUSCULAR HGB CONC 32.8 g/dl (32.0-36.5); MEAN CORPUSCULAR VOLUME 92.8 fl (80.0-96.0); PLATELET COUNT, AUTOMATED 167 10^3/uL (150-450); RED BLOOD COUNT 3.32 10^6/uL (4.00-5.40); WHITE BLOOD COUNT 6.3 10^3/uL (4.0-10.0)
[2019-01-03 06:54] LABS: BLOOD UREA NITROGEN 6 MG/DL (7-18); CALCIUM LEVEL 8.3 MG/DL (8.5-10.1); CARBON DIOXIDE LEVEL 31 MEQ/L (21-32); CHLORIDE LEVEL 104 MEQ/L (98-107); CREATININE FOR GFR 0.58 MG/DL (0.55-1.30); GLOMERULAR FILTRATION RATE > 60.0 (>58); GLUCOSE, FASTING 105 MG/DL (70-100); POTASSIUM SERUM 4.5 MEQ/L (3.5-5.1); SODIUM LEVEL 138 MEQ/L (136-145)
[2019-01-03] MEDS: METHOCARBAMOL 750 MG TAB PO SCH ×2 (09:13→17:03)
[2019-01-03] MEDS: PREGABALIN 100 MG CAP (LYRICA) PO SCH ×2 (09:14→17:04)
[2019-01-03] MEDS: oxyCODONE 5MG TAB PO SCH ×3 (09:14→17:04)
[2019-01-03 10:17] VITALS: BP 128/62
[2019-01-03] MEDS: MIRALAX *UNIT DOSE* 17GM PACKET PO SCH (10:55)
[2019-01-03] MEDS: PARoxetine 10MG TABLET PO SCH (10:55)
[2019-01-03 10:56] VITALS: BP 128/62
[2019-01-03] MEDS: ATENOLOL 50 MG TAB PO SCH (10:56)
[2019-01-03] MEDS: buPROPion **XL** TABLET 150MG (WELLBUTRIN XL) PO SCH (10:57)
[2019-01-03] MEDS: SENOKOT S TAB PO SCH (10:57)
[2019-01-03] MEDS: PANTOPRAZOLE 40MG TAB (PROTONIX) PO SCH (10:57)
[2019-01-03] MEDS: busPIRone 5 MG TAB PO SCH (10:57)
[2019-01-03] MEDS: ATORVASTATIN 10 MG TAB PO SCH (10:57)
[2019-01-03] MEDS: MOM 30ML SUSPENSION UDC PO SCH (10:59)
[2019-01-03 14:00] VITALS: BP 112/57
[2019-01-03] MEDS: RIVAROXABAN 10 MG TAB (XARELTO) PO SCH (17:03)
[2019-01-03] MEDS: fentaNYL 75 MCG/HR PATCH TOP SCH (17:05)
--- NOTE | 2019-01-13 22:08 | DSES ---
DATE OF ADMISSION: 12/31/2018 DATE OF DISCHARGE: 01/03/2019 DISCHARGE DIAGNOSIS: Right hip arthritis status post right total hip arthroplasty. HISTORY: This is a pleasant 48-year-old female with progressively worsening right hip pain and stiffness. She had failed to improve with conservative treatment and elected for surgery for her continued symptoms. PROCEDURE PERFORMED: Right total hip arthroplasty. HOSPITAL COURSE: The patient was admitted on the day of surgery and underwent right total hip arthroplasty that was without complications. The patient's hospital course was also without complications. She was up with physical therapy per the protocol weightbearing as tolerated to her right lower extremity with her walker. On the day of discharge the patient was doing well. She was weightbearing as tolerated, will resume her preoperative medications and diet. Will use oral medications for pain control and she will use oral medications and thromboembolic deterrent (TEDs) stockings for 30 days postoperatively for deep vein thrombosis (DVT) prophylaxis. Additionally, the patient will follow up in the office two weeks status post for wound check and staple removal. Please refer to the medical record for further detail.
== END 2019-01-03 17:54 | disposition home health service (06) | DRG 470 ==
LOC: M OR 07:01 → M MS5PR 15:25 → M MSPAV 16:30
PROVIDERS: ADMIT Orthopaedic Surgery; ATTEND Orthopaedic Surgery
PROC: 0SR904Z Replacement of Right Hip Joint with Ceramic on Polyethylene Synthetic Substitute, Open Approach (ICD-10-PCS; principal; 2018-12-31 09:45)
DX: M16.11 Unilateral primary osteoarthritis, right hip (principal); F41.9 Anxiety disorder, unspecified; M32.19 Other organ or system involvement in systemic lupus erythematosus; M10.9 Gout, unspecified; I10 Essential (primary) hypertension; E66.9 Obesity, unspecified; R73.03 Prediabetes; H91.90 Unspecified hearing loss, unspecified ear; M79.7 Fibromyalgia; G89.18 Other acute postprocedural pain; K58.9 Irritable bowel syndrome, unspecified; F17.200 Nicotine dependence, unspecified, uncomplicated; Z88.6 Allergy status to analgesic agent; Z88.8 Allergy status to other drugs, medicaments and biological substances; Z79.1 Long term (current) use of non-steroidal anti-inflammatories (NSAID); Z79.899 Other long term (current) drug therapy; Z90.49 Acquired absence of other specified parts of digestive tract; Z86.73 Personal history of transient ischemic attack (TIA), and cerebral infarction without residual deficits; Z79.891 Long term (current) use of opiate analgesic; Z68.32 Body mass index [BMI] 32.0-32.9, adult

== ENCOUNTER → 2019-04-05 | Outpatient (CLI) | payer MEDICARE ==
[~2019-04-05] MED LIST changes: -/CARB4TA PO; -/LAMO20TA; -ACETAMINOPHEN 500 MG TAB PO ONE; +HYDR-2541 PO; +HYDR-4274 PO; -HYDR25TAB PO; -HYDRO50TAB PO; +LAMI1TAB9; -LR 1,000 ML IV ONE; +MORP-38 PO; +PERC5TAB12 PO; -PERCOCET PO; +PRED-351 PO; -PRED10TA PO; +SERT-141 PO; -SERT50TA PO; +TEGR1TAB2 PO; +XARE10TA PO
--- NOTE | 2019-04-26 03:57 | ECWPNPC ---
PATIENT NAME: CONSTANCE WYMAN : 1970 GENDER: FEMALE VISIT DATE: 04/05/2019 DISCHARGE DATE: 04/05/19 1204 VISIT LOCKED DATE TIME: PHYSICIAN: KIM VELASCO RESOURCE: KIM VELASCO DISCLAIMER : THIS IS A VISIT SUMMARY EXTRACTED FROM THE [employer] CHART. IT IS NOT A COPY OF THE [employer] PROGRESS NOTE. CHRISTOFER
== END ==
LOC: M PAIN 11:15
PROVIDERS: ATTEND Nurse Practitioner Family
DX: M19.90 Unspecified osteoarthritis, unspecified site (principal); G89.29 Other chronic pain; M79.7 Fibromyalgia; F17.210 Nicotine dependence, cigarettes, uncomplicated; Z88.6 Allergy status to analgesic agent; Z88.8 Allergy status to other drugs, medicaments and biological substances; Z79.891 Long term (current) use of opiate analgesic; Z79.899 Other long term (current) drug therapy

== ENCOUNTER 2019-04-22 11:35 | Emergency (ER) | payer MEDICARE, SELFPAY ==
[~2019-04-22] VITALS: Ht 165.1 cm; Wt 91.6 kg
[~2019-04-22 11:35] MED LIST changes: -MORP-38 PO
[2019-04-22] MEDS ORDERED: PERCOCET 5MG/325MG TAB PO ONE (12:00)
[2019-04-22] MEDS ORDERED: MORP-38 PO (12:08)
[2019-04-22] MEDS ORDERED: IBUP1TAB7 PO (12:09)
--- NOTE | 2019-04-22 12:32 | REP ---
Clinical: Trauma. Technique: AP, lateral, bilateral oblique views right hand . Findings: The osseous structures and joint spaces are intact and normal. There is no evidence for acute fracture or dislocation. Surrounding soft tissues are unremarkable. No subcutaneous emphysema or radiodense foreign body. Impression: No acute fracture or dislocation. Electronically Signed by Nathan Farr MD 04/22/2019 12:23 P
--- NOTE | 2019-04-22 12:32 | REP ---
Clinical: Trauma. Technique: AP, lateral right humerus. Findings: The osseous structures and joint spaces are intact and normal. There is no evidence for acute fracture or dislocation. Surrounding soft tissues are unremarkable. No subcutaneous emphysema or radiodense foreign body. Impression: No acute fracture or dislocation. Electronically Signed by Nathan Farr MD 04/22/2019 12:23 P
--- NOTE | 2019-04-22 12:36 | REP ---
Clinical: Trauma . Technique: Internal rotation, external rotation, and Y view right shoulder . Findings: There is a nondisplaced avulsion fracture of the greater tuberosity. No other fracture or dislocation is appreciated. Impression: Nondisplaced avulsion fracture of the greater tuberosity. Electronically Signed by Nathan Farr MD 04/22/2019 12:27 P
--- NOTE | 2019-04-22 12:37 | REP ---
Clinical: Trauma. Technique: AP, lateral right forearm Findings: The osseous structures and joint spaces are intact and normal. There is no evidence for acute fracture or dislocation. Surrounding soft tissues are unremarkable. No subcutaneous emphysema or radiodense foreign body. Impression: No acute fracture or dislocation. Electronically Signed by Nathan Farr MD 04/22/2019 12:28 P
--- NOTE | 2019-04-22 12:38 | REP ---
Clinical: Trauma. Technique: AP, lateral, bilateral oblique views right foot . Findings: The osseous structures and joint spaces are intact and there is no evidence for acute fracture or dislocation. Moderate degenerative changes involving the first metatarsophalangeal joint. Surrounding soft tissues are unremarkable. No subcutaneous emphysema or radiodense foreign body. Impression: No acute fracture or dislocation. Electronically Signed by Natahn Farr MD 04/22/2019 12:29 P
[2019-04-22 13:12] VITALS: BP 115/71
[2019-04-22] MEDS ORDERED: KETOROLAC 60 MG/2 ML VIAL (J1885) IM ONE (13:15)
== END 2019-04-22 13:36 | disposition home or self-care (01) ==
LOC: M ED 11:35
DX: S42.201A Unspecified fracture of upper end of right humerus, initial encounter for closed fracture (principal); S40.021A Contusion of right upper arm, initial encounter; X58.XXXA Exposure to other specified factors, initial encounter; Y92.89 Other specified places as the place of occurrence of the external cause; Y93.K1 Activity, walking an animal; I10 Essential (primary) hypertension; J44.9 Chronic obstructive pulmonary disease, unspecified; J45.909 Unspecified asthma, uncomplicated; K21.9 Gastro-esophageal reflux disease without esophagitis; F33.9 Major depressive disorder, recurrent, unspecified; F41.9 Anxiety disorder, unspecified; Z78.0 Asymptomatic menopausal state; Z79.899 Other long term (current) drug therapy; Z88.8 Allergy status to other drugs, medicaments and biological substances; F17.210 Nicotine dependence, cigarettes, uncomplicated
CPT/HCPCS: 73030; 73060; 73090; 73130; 73630; 96372; 99284; J1885

== ENCOUNTER → 2019-06-27 | Outpatient (CLI) | payer MEDICARE, SELFPAY ==
[~2019-06-27] MED LIST changes: +ALPR0.5T3 PO; +METH750T2 PO; +MORP-69 PO
--- NOTE | 2019-07-16 01:13 | ECWPNPC ---
PATIENT NAME: CONSTANCE WYMAN : 1970 GENDER: FEMALE VISIT DATE: 06/27/2019 DISCHARGE DATE: 06/27/19 1137 VISIT LOCKED DATE TIME: PHYSICIAN: KIM VELASCO RESOURCE: KIM VELASCO REASON FOR APPOINTMENT 1. LOW BACK HISTORY OF PRESENT ILLNESS HISTORY OF PRESENT ILLNESS: HERE FOR F/U OF CHRONIC LBP WITH RIGHT LEG RADICULAR SYMPTOMS.RATING PAIN VAS 4/10.HAS BEEN DOING QUITE WELL LATELY.HAS REDUCED NARCOTIC PAIN MEDICATION.DISCUSSED MEDICATION AND TREATMENT OPTIONS. PAIN THE PATIENT DESCRIBES THE PAIN... FALL RISK SCREENING: SCREENING :NO FALLS REPORTED IN THE LAST YEAR CURRENT MEDICATIONS TAKING LASIX 40 MG TABLET 1 TABLET ORALLY BID TAKING POTASSIUM CHLORIDE 20 MG CAPSULE EXTENDED RELEASE 1 CAPSULE WITH FOOD ORALLY TWICE A DAY TAKING WELLBUTRIN XL 150 MG TABLET EXTENDED RELEASE 24 HOUR 1 TABLET IN THE MORNING ORALLY ONCE A DAY TAKING PAXIL 30 MG TABLET 1 TABLET IN THE MORNING ORALLY ONCE A DAY TAKING BUSPAR 15 MG ORALLY TWICE A DAY TAKING ROBAXIN-750 750 MG TABLET 1 TABLET ORALLY Q6H PRN TAKING OXYCODONE HCL 15 MG TABLET 1 TABLET ORALLY EVERY 6 HRS MDD4 TAKING MS CONTIN 15 MG TABLET EXTENDED RELEASE 1 TABLET ORALLY EVERY 12 HRS MDD2 TAKING XANAX 1 MG TABLET 1 TABLET ORALLY THREE TIMES DAILY NEEDED NOT-TAKING VALIUM 10 MG TABLET 1 TABLET NEEDED ORALLY PRN MDD1 #10 TAB SHOULD LAST 30 DAYS NOT-TAKING NORTRIPTYLINE HCL 10 MG CAPSULE 3 CAPSULE= 30 MG ORALLY ONCE A DAY NOT-TAKING METHOTREXATE 8 TABS OF 2.5MG ORAL WEEKLY NOT-TAKING LYRICA 200 MG CAPSULE 1 CAPSULE ORALLY TID MDD3 NOT-TAKING FENTANYL 75 MCG/HR PATCH 72 HOUR 1 PATCH TO SKIN TRANSDERMAL 1 PATCH [id number] NOT-TAKING PREDNISONE 10 MG TABLET 1 TABLET ORALLY 5 TAB X3 DAYS,4 TAB X3DAY,3TABX3,2TABX3,1TABX3, NOTES: 1 WEEK MEDICATION LIST REVIEWED AND RECONCILED WITH THE PATIENT PAST MEDICAL HISTORY FIBROMYALGIA LUPUS INTERSTITIAL LUNG DISEASE INFLAMMATORY ARTHRITIS BROKEN RIGHT SHOULDER CHRONIC BACK PAIN ALLERGIES MOBIC: AGGRESIVE - SIDE EFFECTS NEURONTIN: AGGRESIVE - SIDE EFFECTS IMURAN: NAUSEA/VOMITING - SIDE EFFECTS SURGICAL HISTORY L4-5 LAMINECTOMY LOWER BACK SURGERY (DR. VALENCIA) 08/2016 APPENDECTOMY 1983 ABDOMINAL ADHESION SURGERY LUNG BIOPSY RIGHT HIP REPLACEMENT 12/2018 FAMILY HISTORY FATHER: ALIVE MOTHER: ALIVE DAUGHTER DUE TO COMPLICATIONS FROM MS. SOCIAL HISTORY GENERAL: TOBACCO USE ARE YOU A:CURRENT SMOKER ARE YOU INTERESTED IN QUITTING?READY TO QUIT TRYING TO QUIT CURRENTLY - HAS CUT BACK SIGNIFICANTLY. COUNSELED THE PATIENT ON TOBACCO USE, CESSATION [id number]/01/2019 HOW MANY CIGARETTES A DAY DO YOU SMOKE?5 OR LESS PATIENT COUNSELED ON THE DANGERS OF TOBACCO USE AND URGED TO QUIT:06/27/2019 PAIN CLINIC PFS, CLERGY, PUBLIC HEALTH REFERRALS PFS REFERRAL NEEDED?NO CLERGY REFERRAL NEEDED?NO PUBLIC HEALTH REFERRAL NEEDED?NO WAS THE PROVIDER NOTIFIED OF ANY PERTINENT INFO?YES HAS THE PATIENT BEEN EDUCATED REGARDING HIS/HER PLAN OF CARE?YES RIGHT TROCHANTERIC BURSA INJECTION HAS THE PATIENT BEEN EDUCATED REGARDING PAIN, THE RISK FOR PAIN, THE IMPORTANCE OF EFFECTIVE PAIN MANAGEMENT, AND THE PAIN ASSESSMENT PROCESS?YES LATEX QUESTIONNAIRE LATEX ALLERGY : HAVE YOU EVER DEVELOPED ANY TYPE OF REACTION AFTER HANDLING LATEX PRODUCTS SUCH RUBBER GLOVES, CONDOMS, DIAPHRAGMS, BALLOONS, SOCKS, OR UNDERWEAR?YES - PLEASE INDICATE :RUBBER GLOVES LATEX ALLERGY : HAVE YOU EVER DEVELOPED ANY TYPE OF REACTION DURING OR AFTER DENTAL APPOINTMENT, VAGINAL/RECTAL EXAMINATION, SURGICAL PROCEDURE, OR ANY OTHER EXPOSURE?NO LATEX RISK : HAVE YOU EVER HAD ANY DIFFICULTY BREATHING OR HIVES AFTER EATING OR HANDLING ANY FRUITS, OR VEGETABLES; SUCH KIWI, BANANAS, STONE FRUITS, OR CHESTNUTSNO LATEX RISK : DO YOU HAVE A PREVIOUS PERSONAL HISTORY OF MORE THAN NINE SURGERIES, SPINA BIFIDA, OR REPEATED CATHERIZATIONS? NO LATEX RISK : ARE YOU FREQUENTLY EXPOSED TO LATEX PRODUCTS IN YOUR OCCUPATION?NO DATE ASKED : 06/27/2019 CAFFEINE CAFFEINE USE?YES HOW OFTEN AND HOW MUCH? 5-7 DRINKS PER DAY ADVANCE DIRECTIVE ADVANCE DIRECTIVE DISCUSSED WITH PATIENT:YES PATIENT DECLINED HCP INFO AT THIS TIME. BAPTISM [id number] NONE LANGUAGE LANGUAGES SPOKEN:[place] ALCOHOL SCREENING DID YOU HAVE A DRINK CONTAINING ALCOHOL IN THE PAST YEAR?NO POINTS0 INTERPRETATIONNEGATIVE RECREATIONAL DRUG USE DRUG USE?NO PATIENT DENIES ABUSE OR MISSUSED OF ANY MEDICATION. PATIENT DENIES USE OF ANY ILLEGAL SUBSTANCE INCLUDING MARIJUANA OR COCAINE. LEARNING BARRIERS / SPECIAL NEEDS BARRIERS TO LEARNING?NO HEARING IMPAIRED?NO VISION IMPAIRED?YES :CORRECTIVE LENSES COGNITIVELY IMPAIRED?NO READINESS TO LEARN?YES LEARNING PREFERENCES?NO LEARNING CAPABILITIES PRESENT?YES EMOTIONAL BARRIERS?NO SPECIAL DEVICES?NO MEDICAL SALES NEEDED?NO REVIEWED WITH PT 08/29/18 1149 BVREVIEWED WITH PT 10/09/18 1017 BVREVIEWED WITH PATIENT 06/27/19 1106 JS. HOSPITALIZATION/MAJOR DIAGNOSTIC PROCEDURE LUPUS BACK PAIN SURGERY REVIEW OF SYSTEMS REVIEWED BY: PROVIDER: KIM BERNAL . CONSTITUTIONAL: ANY CHANGE IN YOUR MEDICAL CONDITION? YES, BROKEN RIGHT SHOULDER AT THE END OF MARCH FROM WALKING HER DOG . CHILLS NO . FEVER NO . INFECTION: DO YOU HAVE NEW INFECTIONS? NO . DO YOU HAVE HISTORY OF MRSA? NO . MUSCULOSKELETAL: ANY NEW PATTERNS OF PAIN OR NUMBNESS? YES, BILATERAL LEGS EXTREMELY WEAK THE PAST FEW DAYS - HAS BEEN MORE ACTIVE RECENTLY, TAKING CARE OF GRAVE SITES. STATES LEGS FELT LIKE RUBBER AND COULD BARELY HOLD HER UP . GASTROENTEROLOGY: ANY NEW CHANGE IN BOWEL CONTROL? NO . GENITOURINARY: ANY NEW CHANGE IN BLADDER CONTROL? NO . IS THERE A CHANCE YOU COULD BE ? NO . HEMATOLOGY/LYMPH: DO YOU TAKE ANY BLOOD THINNERS? (FOR EXAMPLE- COUMADIN, PLAVIX, AGGRENOX, PLATEL, PRADAXA, OR XARELTO) NO . WHEN WAS YOUR LAST DOSE? DATE: TIME: . NEUROLOGY: HAVE YOU FALLEN IN THE PAST 12 MONTHS? YES, STATES FALL AT THE END OF MARCH WHILE WALKING HER DOG, BROKE HER RIGHT SHOULDER . ANY NEW EXTREMITY NUMBNESS OR WEAKNESS? YES, BILATERAL LEGS EXTREMELY WEAK THE PAST FEW DAYS - HAS BEEN MORE ACTIVE RECENTLY, TAKING CARE OF GRAVE SITES. STATES LEGS FELT LIKE RUBBER AND COULD BARELY HOLD HER UP. LOST HER BALANCE A FEW TIMES BUT STATES NO FALLS . CARDIOLOGY: DO YOU HAVE A PACEMAKER OR DEFIBRILLATOR? NO . RESPIRATORY: HAVE YOU BEEN SICK IN THE PAST WEEK? NO . FEVER NO . FLU LIKE SYMPTOMS? NO . COUGH NO . INTEGUMENTARY: DO YOU HAVE ANY RASHES OR OPEN SORES? NO . ALLERGIC/IMMUNO: ARE YOU ALLERGIC TO IV DYE? NO . ANY NEW ALLERGIES? NO . PSYCHIATRIC: DO YOU HAVE THOUGHTS OF HURTING YOURSELF OR SOMEONE ELSE? NO . ARE YOU ABUSED, NEGLECTED, OR IN AN UNSAFE ENVIRONMENT? NO . ENDOCRINOLOGY: ARE YOU DIABETIC? NO . OTHER: DO YOU NEED ANY PRESCRIPTIONS? YES - WOULD LIKE TO DISCUSS MEDICATIONS WITH KIM . IF YES, PLEASE LIST: ____ . ANY NEW PROBLEMS WITH YOUR MEDICATIONS? NO . WHEN DID YOU LAST EAT? ____ . WHEN DID YOU LAST DRINK? ____ . WHAT DID YOU LAST DRINK? ____ . NAME OF PERSON DRIVING YOU HOME? ____ . DO YOU HAVE ANY OTHER QUESTIONS OR CONCERNS YES, WOULD LIKE TO BE OFF THE MORPHINE . VITAL SIGNS WT 202.6 LBS, HT 65 IN, BMI 33.71 INDEX, BP 143/77 MM HG, HR 60 /MIN, RR 16 /MIN, TEMP 97.5 F, OXYGEN SAT % 98%, SAFE IN ENV? (Y/N) YES, NA INITIALS MP 1053, REVIEWED BY: CASSIUS. EXAMINATION GENERAL EXAMINATION: GENERALAWAKE,ALERT ,PLEAASANT . PSYCHAFFECT NORMAL . LUNGS:LUNG PAN ARE CLEAR TO AUSCULTATION BILATERALLY. GOOD MOVEMENT OF AIR . HEART:S1, S2 IN A REGULAR RATE AND RHYTHM. NO SIGNIFICANT MURMURS, RUBS OR GALLOPS NOTED . ASSESSMENTS INFLAMMATORY ARTHROPATHY - M19.90 (PRIMARY) TREATMENT INFLAMMATORY ARTHROPATHY REFILL OXYCODONE HCL TABLET, 15 MG, 1 TABLET, ORALLY, Q8H PRN MDD3, 30 DAY(S), 90, REFILLS 0 STOP MS CONTIN TABLET EXTENDED RELEASE, 15 MG, 1 TABLET, ORALLY, EVERY 12 HRS MDD2 CONTINUE ROBAXIN-750 TABLET, 750 MG, 1 TABLET, ORALLY, Q6H PRN NOTES: ADVISED PATIENT TO CONTINUE WEANING DOWN ON MS CONTIN AND OXYCODONE SHE HAS BEEN DOING.SHE WILL TAKE 1/2 TAB MS CONTIN 15MG X5 DAYS AND STOP.SHE WILL TRY TO REDUCE OXYCODONE TO MAX 3 PER DAY AND WILL TRY NOT TO USE 3 EVERYDAY., ISTOP REGISTRY REVIEWED AND DEMONSTRATES COMPLLIANCE. BRINGS IN MEDICATIONS WHICH IS APPROPRIATE FOR WHAT WAS DISPENSED. RECENT URINE TOXICOLOGY REVIEWED. NO UNAUTHORIZED MEDICATIONS. NO ILLICIT SUBSTANCES AND PRESCRIBED MEDICATIONS WERE PRESENT. , RISKS AND BENEFITS OF NARCOTIC/OPIOD MEDICATIONS WERE REVIEWED WITH PATIENT - THIS INCLUDES BUT IS NOT LIMITED TO RISK OF DEPENDANCE/DEVELOPMENT OF ADDICTION, MOOD DISTURBANCE AND DEPRESSION, OSTEOPOROSIS, HORMONAL AND LABIDAL CHANGES, RESPIRATORY DEPRESSION AND . PATIENT IS ADVISED NOT TO DRIVE OR DRINK ALCOHOL WHILE ON THESE MEDICATIONS. PROCEDURE CODES FA211 ESTABILISHED PATIENT [facility] CHARGE DISPOSITION & COMMUNICATION FOLLOW UP 2 MONTHS (REASON: MED MGMNT) ELECTRONICALLY SIGNED BY GABE WELLS ON 07/15/2019 AT 09:05 AM EDT DISCLAIMER : THIS IS A VISIT SUMMARY EXTRACTED FROM THE [employer] CHART. IT IS NOT A COPY OF THE [employer] PROGRESS NOTE. CHRISTOFER
== END ==
LOC: M PAIN 10:45
PROVIDERS: ATTEND Nurse Practitioner Family
DX: M19.90 Unspecified osteoarthritis, unspecified site (principal); G89.29 Other chronic pain; M79.7 Fibromyalgia; M32.9 Systemic lupus erythematosus, unspecified; Z96.641 Presence of right artificial hip joint; F17.210 Nicotine dependence, cigarettes, uncomplicated; Z88.6 Allergy status to analgesic agent; Z88.8 Allergy status to other drugs, medicaments and biological substances; Z79.891 Long term (current) use of opiate analgesic; Z79.899 Other long term (current) drug therapy

== ENCOUNTER → 2019-08-27 | Outpatient (CLI) | payer MEDICARE, SELFPAY ==
[~2019-08-27] MED LIST changes: -ALPR0.5T3 PO; -METH750T2 PO
--- NOTE | 2019-09-16 12:40 | ECWPNPC ---
PATIENT NAME: CONSTANCE WYMAN : 1970 GENDER: FEMALE VISIT DATE: 08/27/2019 DISCHARGE DATE: 08/27/19 1213 VISIT LOCKED DATE TIME: PHYSICIAN: KIM VELASCO RESOURCE: KIM VELASCO REASON FOR APPOINTMENT 1. LOW BACK HISTORY OF PRESENT ILLNESS HISTORY OF PRESENT ILLNESS: HERE FOR F/U OF CHRONIC LBP WITH RIGHT LEG RADICULAR SYMPTOMS.RATING PAIN VAS 8/10.HAS BEEN HAVING A SEVERE FLARE UP OF LUPUS LATELY.HAD A FALL INJURY 4 DAY AGO AND THIS AGGREVATED LOW BACK,RIGHT SHOULDER AND RIGHT FOOT PAIN.DISCUSSED MEDICATION AND TREATMENT OPTIONS. PAIN THE PATIENT DESCRIBES THE PAIN... THE PATIENT DESCRIBES THE PAIN... FALL RISK SCREENING: SCREENING :NO FALLS REPORTED IN THE LAST YEAR CURRENT MEDICATIONS TAKING LASIX 40 MG TABLET 1 TABLET ORALLY BID TAKING POTASSIUM CHLORIDE 20 MG CAPSULE EXTENDED RELEASE 1 CAPSULE WITH FOOD ORALLY TWICE A DAY TAKING WELLBUTRIN XL 150 MG TABLET EXTENDED RELEASE 24 HOUR 1 TABLET IN THE MORNING ORALLY ONCE A DAY TAKING PAXIL 30 MG TABLET 1 TABLET IN THE MORNING ORALLY ONCE A DAY TAKING XANAX 0.5 MG TABLET 1 TABLET ORALLY THREE TIMES DAILY NEEDED TAKING OXYCODONE HCL 15 MG TABLET 1 TABLET ORALLY Q8H PRN MDD3 TAKING MORPHINE SULFATE ER 15 MG TABLET EXTENDED RELEASE 1 TABLET ORALLY 1 AT HS MDD1 TAKING ROBAXIN-750 750 MG TABLET 1 TABLET ORALLY Q6H PRN TAKING TEMAZEPAM 30 MG CAPSULE 1 CAPSULE AT BEDTIME NEEDED ORALLY BEFORE BEDTIME NEEDED FOR SLEEP NOT-TAKING BUSPAR 15 MG ORALLY TWICE A DAY NOT-TAKING VALIUM 10 MG TABLET 1 TABLET NEEDED ORALLY PRN MDD1 #10 TAB SHOULD LAST 30 DAYS NOT-TAKING NORTRIPTYLINE HCL 10 MG CAPSULE 3 CAPSULE= 30 MG ORALLY ONCE A DAY NOT-TAKING METHOTREXATE 8 TABS OF 2.5MG ORAL WEEKLY NOT-TAKING LYRICA 200 MG CAPSULE 1 CAPSULE ORALLY TID MDD3 NOT-TAKING FENTANYL 75 MCG/HR PATCH 72 HOUR 1 PATCH TO SKIN TRANSDERMAL 1 PATCH [id number]=[id number] NOT-TAKING PREDNISONE 10 MG TABLET 1 TABLET ORALLY 5 TAB X3 DAYS,4 TAB X3DAY,3TABX3,2TABX3,1TABX3, NOTES: 1 WEEK MEDICATION LIST REVIEWED AND RECONCILED WITH THE PATIENT PAST MEDICAL HISTORY FIBROMYALGIA LUPUS INTERSTITIAL LUNG DISEASE INFLAMMATORY ARTHRITIS BROKEN RIGHT SHOULDER CHRONIC BACK PAIN ALLERGIES MOBIC: AGGRESIVE - SIDE EFFECTS NEURONTIN: AGGRESIVE - SIDE EFFECTS IMURAN: NAUSEA/VOMITING - SIDE EFFECTS SURGICAL HISTORY L4-5 LAMINECTOMY LOWER BACK SURGERY (DR. VALENCIA) 08/2016 APPENDECTOMY 1983 ABDOMINAL ADHESION SURGERY LUNG BIOPSY RIGHT HIP REPLACEMENT 12/2018 FAMILY HISTORY FATHER: ALIVE MOTHER: ALIVE DAUGHTER DUE TO COMPLICATIONS FROM MS. SOCIAL HISTORY GENERAL: TOBACCO USE ARE YOU A:CURRENT SMOKER ARE YOU INTERESTED IN QUITTING?READY TO QUIT TRYING TO QUIT CURRENTLY - HAS CUT BACK SIGNIFICANTLY. COUNSELED THE PATIENT ON TOBACCO USE, CESSATION [id number]/01/2019 HOW MANY CIGARETTES A DAY DO YOU SMOKE?5 OR LESS PATIENT COUNSELED ON THE DANGERS OF TOBACCO USE AND URGED TO QUIT:08/27/2019 PAIN CLINIC PFS, CLERGY, PUBLIC HEALTH REFERRALS PFS REFERRAL NEEDED?NO CLERGY REFERRAL NEEDED?NO PUBLIC HEALTH REFERRAL NEEDED?NO WAS THE PROVIDER NOTIFIED OF ANY PERTINENT INFO?YES HAS THE PATIENT BEEN EDUCATED REGARDING HIS/HER PLAN OF CARE?YES RIGHT TROCHANTERIC BURSA INJECTION HAS THE PATIENT BEEN EDUCATED REGARDING PAIN, THE RISK FOR PAIN, THE IMPORTANCE OF EFFECTIVE PAIN MANAGEMENT, AND THE PAIN ASSESSMENT PROCESS?YES LATEX QUESTIONNAIRE LATEX ALLERGY : HAVE YOU EVER DEVELOPED ANY TYPE OF REACTION AFTER HANDLING LATEX PRODUCTS SUCH RUBBER GLOVES, CONDOMS, DIAPHRAGMS, BALLOONS, SOCKS, OR UNDERWEAR?YES LATEX ALLERGY : HAVE YOU EVER DEVELOPED ANY TYPE OF REACTION DURING OR AFTER DENTAL APPOINTMENT, VAGINAL/RECTAL EXAMINATION, SURGICAL PROCEDURE, OR ANY OTHER EXPOSURE?NO - PLEASE INDICATE :RUBBER GLOVES DATE ASKED : 06/27/2019 LATEX RISK : HAVE YOU EVER HAD ANY DIFFICULTY BREATHING OR HIVES AFTER EATING OR HANDLING ANY FRUITS, OR VEGETABLES; SUCH KIWI, BANANAS, STONE FRUITS, OR CHESTNUTSNO LATEX RISK : DO YOU HAVE A PREVIOUS PERSONAL HISTORY OF MORE THAN NINE SURGERIES, SPINA BIFIDA, OR REPEATED CATHERIZATIONS? NO LATEX RISK : ARE YOU FREQUENTLY EXPOSED TO LATEX PRODUCTS IN YOUR OCCUPATION?NO CAFFEINE CAFFEINE USE?YES HOW OFTEN AND HOW MUCH? 5-7 DRINKS PER DAY ADVANCE DIRECTIVE ADVANCE DIRECTIVE DISCUSSED WITH PATIENT:YES PATIENT DECLINED HCP INFO AT THIS TIME. [facility] [id number] NONE LANGUAGE LANGUAGES SPOKEN:AZERI ALCOHOL SCREENING DID YOU HAVE A DRINK CONTAINING ALCOHOL IN THE PAST YEAR?NO POINTS0 INTERPRETATIONNEGATIVE RECREATIONAL DRUG USE DRUG USE?NO PATIENT DENIES ABUSE OR MISSUSED OF ANY MEDICATION. PATIENT DENIES USE OF ANY ILLEGAL SUBSTANCE INCLUDING MARIJUANA OR COCAINE. LEARNING BARRIERS / SPECIAL NEEDS BARRIERS TO LEARNING?NO HEARING IMPAIRED?NO VISION IMPAIRED?YES COGNITIVELY IMPAIRED?NO :CORRECTIVE LENSES READINESS TO LEARN?YES LEARNING PREFERENCES?NO LEARNING CAPABILITIES PRESENT?YES EMOTIONAL BARRIERS?NO SPECIAL DEVICES?NO PLATE GLASS GRINDER NEEDED?NO REVIEWED WITH PT 08/29/18 1149 BVREVIEWED WITH PT 10/09/18 1017 BVREVIEWED WITH PATIENT 06/27/19 1106 JSREVIEWED WITH PT 08/27/19 1131 NLJ. HOSPITALIZATION/MAJOR DIAGNOSTIC PROCEDURE LUPUS BACK PAIN SURGERY REVIEW OF SYSTEMS REVIEWED BY: PROVIDER: KIM BERNAL . CONSTITUTIONAL: ANY CHANGE IN YOUR MEDICAL CONDITION? NO . CHILLS NO . FEVER NO . INFECTION: DO YOU HAVE NEW INFECTIONS? NO . DO YOU HAVE HISTORY OF MRSA? NO . MUSCULOSKELETAL: ANY NEW PATTERNS OF PAIN OR NUMBNESS? YES- STATES LOW BACK AND RIGHT LEG PAIN HAVE INCREASED, STATES RIGHT LEG IS TINGLY . GASTROENTEROLOGY: ANY NEW CHANGE IN BOWEL CONTROL? NO . GENITOURINARY: ANY NEW CHANGE IN BLADDER CONTROL? NO . IS THERE A CHANCE YOU COULD BE ? NO . HEMATOLOGY/LYMPH: DO YOU TAKE ANY BLOOD THINNERS? (FOR EXAMPLE- COUMADIN, PLAVIX, AGGRENOX, PLATEL, PRADAXA, OR XARELTO) NO . WHEN WAS YOUR LAST DOSE? DATE: TIME: . NEUROLOGY: HAVE YOU FALLEN IN THE PAST 12 MONTHS? YES- STATES SHE WAS ASLEEP ON THE COUCH ON MONDAY AND WHEN SHE SAT UP SHE COULD NOT FEEL HER RIGHT LEG AND WHEN SHE STOOD UP HER TOES CURLED UNDER HER FOOT AND SHE COULD NOT FEEL HER LEG AT ALL. STATES SOME OF THE FEELING HAS COME BACK IN HER LEG AND HER FOOT AND TOES FEEL WEAK, STATES HER RIGHT FOOT AND RIGHT SHOULDER HURT BUT STATES SHE HAS HAD NO MEDICAL CARE . ANY NEW EXTREMITY NUMBNESS OR WEAKNESS? NO . CARDIOLOGY: DO YOU HAVE A PACEMAKER OR DEFIBRILLATOR? NO . RESPIRATORY: HAVE YOU BEEN SICK IN THE PAST WEEK? NO . FEVER NO . FLU LIKE SYMPTOMS? NO . COUGH NO . INTEGUMENTARY: DO YOU HAVE ANY RASHES OR OPEN SORES? YES- GROIN AREA RELATED TO HER LUPUS . ALLERGIC/IMMUNO: ARE YOU ALLERGIC TO IV DYE? NO . ANY NEW ALLERGIES? NO . PSYCHIATRIC: DO YOU HAVE THOUGHTS OF HURTING YOURSELF OR SOMEONE ELSE? NO . ARE YOU ABUSED, NEGLECTED, OR IN AN UNSAFE ENVIRONMENT? NO . ENDOCRINOLOGY: ARE YOU DIABETIC? NO . OTHER: DO YOU NEED ANY PRESCRIPTIONS? YES . IF YES, PLEASE LIST: ____MORPHONE NEEDS REFILLED . ANY NEW PROBLEMS WITH YOUR MEDICATIONS? NO . WHEN DID YOU LAST EAT? ____ . WHEN DID YOU LAST DRINK? ____ . WHAT DID YOU LAST DRINK? ____ . NAME OF PERSON DRIVING YOU HOME? ____ . DO YOU HAVE ANY OTHER QUESTIONS OR CONCERNS YES- STATES SHE WOULD LIKE TO TALK ABOUT INCREASING HER OXYCODONE DOSE . VITAL SIGNS WT 200.2 LBS, HT 65 IN, BMI 33.31 INDEX, BP 121/73 MM HG, HR 62 /MIN, RR 16 /MIN, TEMP 97.5 F, OXYGEN SAT % 98%, SAFE IN ENV? (Y/N) YES, NA INITIALS SC 11:05, REVIEWED BY: MARIA ELENA. EXAMINATION GENERAL EXAMINATION: GENERAL AWAKE,ALERT ,PLEASANT . PSYCH AFFECT NORMAL . LUNGS: LUNG PAN ARE CLEAR TO AUSCULTATION BILATERALLY. GOOD MOVEMENT OF AIR . HEART: S1, S2 IN A REGULAR RATE AND RHYTHM. NO SIGNIFICANT MURMURS, RUBS OR GALLOPS NOTED . SKIN: FINE RED PAPULAR RASH BILAT ARMS AND FACE. ASSESSMENTS LUPUS - M32.9 (PRIMARY) INFLAMMATORY ARTHROPATHY - M19.90 TREATMENT LUPUS INCREASE OXYCODONE HCL TABLET, 15 MG, 1 TABLET, ORALLY, Q6H PRN MDD4, 30 DAY(S), 120, REFILLS 0 REFILL MORPHINE SULFATE ER TABLET EXTENDED RELEASE, 15 MG, 1 TABLET, ORALLY, 1 AT HS MDD1, 30 DAYS, 30, REFILLS 0 START MEDROL TABLET THERAPY PACK, 4 MG, DIRECTED, ORALLY, DIRECTED, 21 DAY(S), 1, REFILLS 1 NOTES: ISTOP REGISTRY REVIEWED AND DEMONSTRATES COMPLLIANCE. BRINGS IN MEDICATIONS WHICH IS APPROPRIATE FOR WHAT WAS DISPENSED. RECENT URINE TOXICOLOGY REVIEWED. NO UNAUTHORIZED MEDICATIONS. NO ILLICIT SUBSTANCES AND PRESCRIBED MEDICATIONS WERE PRESENT. , RISKS OF NARCOTIC/OPIOD MEDICATIONS INCLUDES BUT IS NOT LIMITED TO RISK OF DEPENDANCE/DEVELOPMENT OF ADDICTION, MOOD DISTURBANCE AND DEPRESSION, OSTEOPOROSIS, HORMONAL AND LABIDAL CHANGES, RESPIRATORY DEPRESSION AND . PATIENT IS ADVISED NOT TO DRIVE OR DRINK ALCOHOL WHILE ON THESE MEDICATIONS. PROCEDURE CODES FA211 ESTABILISHED PATIENT [facility] CHARGE DISPOSITION & COMMUNICATION FOLLOW UP 6 WEEKS (REASON: MED MGMNT) ELECTRONICALLY SIGNED BY GABE WELLS ON 09/10/2019 AT 03:26 PM EDT DISCLAIMER : THIS IS A VISIT SUMMARY EXTRACTED FROM THE [employer] CHART. IT IS NOT A COPY OF THE [employer] PROGRESS NOTE. CHRISTOFER
== END ==
LOC: M PAIN 11:00
PROVIDERS: ATTEND Nurse Practitioner Family
DX: M32.9 Systemic lupus erythematosus, unspecified (principal); M19.90 Unspecified osteoarthritis, unspecified site; M54.5 Low back pain; F17.210 Nicotine dependence, cigarettes, uncomplicated; Z79.891 Long term (current) use of opiate analgesic; Z79.899 Other long term (current) drug therapy; Z88.8 Allergy status to other drugs, medicaments and biological substances

== ENCOUNTER → 2019-10-15 | Outpatient (CLI) | payer MEDICARE, SELFPAY ==
--- NOTE | 2019-10-31 01:33 | ECWPNPC ---
PATIENT NAME: CONSTANCE WYMAN : 1970 GENDER: FEMALE VISIT DATE: 10/15/2019 DISCHARGE DATE: 10/15/19 1130 VISIT LOCKED DATE TIME: PHYSICIAN: KIM VELASCO RESOURCE: KIM VELASCO REASON FOR APPOINTMENT 1. LOW BACK/ MED MNGMNT HISTORY OF PRESENT ILLNESS HISTORY OF PRESENT ILLNESS: HERE FOR F/U OF CHRONIC LBP WITH RIGHT LEG RADICULAR SYMPTOMS.RATING PAIN VAS 4-9/10.HAS BEEN HAVING A SEVERE FLARE UP OF LUPUS LATELY. REPORTING NEW ONSET OF BILATERAL HAND NUMBNESS/TINGLING.DISCUSSED MEDICATION AND TREATMENT OPTIONS.WAS FOLLOWING WITH DR BUENROSTRO/RHEUMATOLOGY WHO TRIALED HER ON MULTIPLE MEDICATIONS WITHOUT IMPROVEMENT OR WITH SEVERE SIDE EFFECTS. PAIN THE PATIENT DESCRIBES THE PAIN... FALL RISK SCREENING: SCREENING :NO FALLS REPORTED IN THE LAST YEAR CURRENT MEDICATIONS TAKING LASIX 40 MG TABLET 1 TABLET ORALLY BID TAKING POTASSIUM CHLORIDE 20 MG CAPSULE EXTENDED RELEASE 1 CAPSULE WITH FOOD ORALLY TWICE A DAY TAKING WELLBUTRIN XL 150 MG TABLET EXTENDED RELEASE 24 HOUR 1 TABLET IN THE MORNING ORALLY ONCE A DAY TAKING PAXIL 30 MG TABLET 1 TABLET IN THE MORNING ORALLY ONCE A DAY TAKING XANAX 0.5 MG TABLET 1 TABLET ORALLY THREE TIMES DAILY NEEDED TAKING ROBAXIN-750 750 MG TABLET 1 TABLET ORALLY Q6H PRN TAKING TEMAZEPAM 30 MG CAPSULE 1 CAPSULE AT BEDTIME NEEDED ORALLY BEFORE BEDTIME NEEDED FOR SLEEP TAKING OXYCODONE HCL 15 MG TABLET 1 TABLET ORALLY Q6H PRN MDD4 TAKING MORPHINE SULFATE ER 15 MG TABLET EXTENDED RELEASE 1 TABLET ORALLY 1 AT HS MDD1 TAKING AMOXICILLIN 875 MG TABLET 1 TABLET ORALLY EVERY 12 HRS, NOTES: 10 DAYS NOT-TAKING MEDROL 4 MG TABLET THERAPY PACK DIRECTED ORALLY DIRECTED NOT-TAKING BUSPAR 15 MG ORALLY TWICE A DAY NOT-TAKING VALIUM 10 MG TABLET 1 TABLET NEEDED ORALLY PRN MDD1 #10 TAB SHOULD LAST 30 DAYS NOT-TAKING NORTRIPTYLINE HCL 10 MG CAPSULE 3 CAPSULE= 30 MG ORALLY ONCE A DAY NOT-TAKING METHOTREXATE 8 TABS OF 2.5MG ORAL WEEKLY NOT-TAKING LYRICA 200 MG CAPSULE 1 CAPSULE ORALLY TID MDD3 NOT-TAKING FENTANYL 75 MCG/HR PATCH 72 HOUR 1 PATCH TO SKIN TRANSDERMAL 1 PATCH U52T=PRZ NOT-TAKING PREDNISONE 10 MG TABLET 1 TABLET ORALLY 5 TAB X3 DAYS,4 TAB X3DAY,3TABX3,2TABX3,1TABX3, NOTES: 1 WEEK MEDICATION LIST REVIEWED AND RECONCILED WITH THE PATIENT PAST MEDICAL HISTORY FIBROMYALGIA LUPUS INTERSTITIAL LUNG DISEASE INFLAMMATORY ARTHRITIS BROKEN RIGHT SHOULDER CHRONIC BACK PAIN BRONCHITIS/SINUSITIS ALLERGIES MOBIC: AGGRESIVE - SIDE EFFECTS NEURONTIN: AGGRESIVE - SIDE EFFECTS IMURAN: NAUSEA/VOMITING - SIDE EFFECTS SURGICAL HISTORY L4-5 LAMINECTOMY LOWER BACK SURGERY (DR. VALENCIA) 08/2016 APPENDECTOMY 1983 ABDOMINAL ADHESION SURGERY LUNG BIOPSY RIGHT HIP REPLACEMENT 12/2018 FAMILY HISTORY FATHER: ALIVE MOTHER: ALIVE DAUGHTER DUE TO COMPLICATIONS FROM MS. SOCIAL HISTORY GENERAL: TOBACCO USE ARE YOU A:CURRENT SMOKER ARE YOU INTERESTED IN QUITTING?READY TO QUIT TRYING TO QUIT CURRENTLY - HAS CUT BACK SIGNIFICANTLY. COUNSELED THE PATIENT ON TOBACCO USE, CESSATION [id number]/19/2019 HOW MANY CIGARETTES A DAY DO YOU SMOKE?5 OR LESS PATIENT COUNSELED ON THE DANGERS OF TOBACCO USE AND URGED TO QUIT:10/15/2019 PAIN CLINIC PFS, CLERGY, PUBLIC HEALTH REFERRALS PFS REFERRAL NEEDED?NO CLERGY REFERRAL NEEDED?NO PUBLIC HEALTH REFERRAL NEEDED?NO WAS THE PROVIDER NOTIFIED OF ANY PERTINENT INFO?YES HAS THE PATIENT BEEN EDUCATED REGARDING HIS/HER PLAN OF CARE?YES RIGHT TROCHANTERIC BURSA INJECTION HAS THE PATIENT BEEN EDUCATED REGARDING PAIN, THE RISK FOR PAIN, THE IMPORTANCE OF EFFECTIVE PAIN MANAGEMENT, AND THE PAIN ASSESSMENT PROCESS?YES LATEX QUESTIONNAIRE LATEX ALLERGY : HAVE YOU EVER DEVELOPED ANY TYPE OF REACTION AFTER HANDLING LATEX PRODUCTS SUCH RUBBER GLOVES, CONDOMS, DIAPHRAGMS, BALLOONS, SOCKS, OR UNDERWEAR?YES - PLEASE INDICATE :RUBBER GLOVES LATEX ALLERGY : HAVE YOU EVER DEVELOPED ANY TYPE OF REACTION DURING OR AFTER DENTAL APPOINTMENT, VAGINAL/RECTAL EXAMINATION, SURGICAL PROCEDURE, OR ANY OTHER EXPOSURE?NO LATEX RISK : HAVE YOU EVER HAD ANY DIFFICULTY BREATHING OR HIVES AFTER EATING OR HANDLING ANY FRUITS, OR VEGETABLES; SUCH KIWI, BANANAS, STONE FRUITS, OR CHESTNUTSNO LATEX RISK : DO YOU HAVE A PREVIOUS PERSONAL HISTORY OF MORE THAN NINE SURGERIES, SPINA BIFIDA, OR REPEATED CATHERIZATIONS? NO LATEX RISK : ARE YOU FREQUENTLY EXPOSED TO LATEX PRODUCTS IN YOUR OCCUPATION?NO DATE ASKED : 06/27/2019 CAFFEINE CAFFEINE USE?YES HOW OFTEN AND HOW MUCH? 5-7 DRINKS PER DAY ADVANCE DIRECTIVE ADVANCE DIRECTIVE DISCUSSED WITH PATIENT:YES PATIENT DECLINED HCP INFO AT THIS TIME. QUAKER [id number] NONE LANGUAGE LANGUAGES SPOKEN:[place]LANDER ALCOHOL SCREENING DID YOU HAVE A DRINK CONTAINING ALCOHOL IN THE PAST YEAR?NO POINTS0 INTERPRETATIONNEGATIVE RECREATIONAL DRUG USE DRUG USE?NO PATIENT DENIES ABUSE OR MISSUSED OF ANY MEDICATION. PATIENT DENIES USE OF ANY ILLEGAL SUBSTANCE INCLUDING MARIJUANA OR COCAINE. LEARNING BARRIERS / SPECIAL NEEDS BARRIERS TO LEARNING?NO HEARING IMPAIRED?NO VISION IMPAIRED?YES COGNITIVELY IMPAIRED?NO :CORRECTIVE LENSES READINESS TO LEARN?YES LEARNING PREFERENCES?NO LEARNING CAPABILITIES PRESENT?YES EMOTIONAL BARRIERS?NO SPECIAL DEVICES?NO DURALUMIN MECHANIC NEEDED?NO REVIEWED WITH PT 08/29/18 1149 BVREVIEWED WITH PT 10/09/18 1017 BVREVIEWED WITH PATIENT 06/27/19 1106 JSREVIEWED WITH PT 08/27/19 1131 NLJREVIEWED WITH PATIENT 10/15/19 1038 JS. HOSPITALIZATION/MAJOR DIAGNOSTIC PROCEDURE LUPUS BACK PAIN SURGERY REVIEW OF SYSTEMS REVIEWED BY: PROVIDER: KIM BERNAL . CONSTITUTIONAL: ANY CHANGE IN YOUR MEDICAL CONDITION? YES, BRONCHITIS/SINUSITIS . CHILLS NO . FEVER NO . INFECTION: DO YOU HAVE NEW INFECTIONS? YES, ON AMOXICILLIN . DO YOU HAVE HISTORY OF MRSA? NO . MUSCULOSKELETAL: ANY NEW PATTERNS OF PAIN OR NUMBNESS? YES, STATES HANDS NUMB/TINGLING ALL THE TIME AND INCREASED PAIN TO BACK AND NOW GONIG DOWN THE LEFT LEG . GASTROENTEROLOGY: ANY NEW CHANGE IN BOWEL CONTROL? NO . GENITOURINARY: ANY NEW CHANGE IN BLADDER CONTROL? NO . IS THERE A CHANCE YOU COULD BE ? NO . HEMATOLOGY/LYMPH: DO YOU TAKE ANY BLOOD THINNERS? (FOR EXAMPLE- COUMADIN, PLAVIX, AGGRENOX, PLATEL, PRADAXA, OR XARELTO) NO . WHEN WAS YOUR LAST DOSE? DATE: TIME: . NEUROLOGY: HAVE YOU FALLEN IN THE PAST 12 MONTHS? YES, STATES PRIOR TO LAST VISIT, DISCUSSED AT PREVIOUS VISIT . ANY NEW EXTREMITY NUMBNESS OR WEAKNESS? YES, LEFT LEG NUMBNESS/WEAKNESS . CARDIOLOGY: DO YOU HAVE A PACEMAKER OR DEFIBRILLATOR? NO . RESPIRATORY: HAVE YOU BEEN SICK IN THE PAST WEEK? YES, BRONCHITIS/SINUSITIS . FEVER YES . FLU LIKE SYMPTOMS? NO . COUGH YES . INTEGUMENTARY: DO YOU HAVE ANY RASHES OR OPEN SORES? YES, LUPUS RASH TO ARMS/HANDS . ALLERGIC/IMMUNO: ARE YOU ALLERGIC TO IV DYE? NO . ANY NEW ALLERGIES? NO . PSYCHIATRIC: DO YOU HAVE THOUGHTS OF HURTING YOURSELF OR SOMEONE ELSE? NO . ARE YOU ABUSED, NEGLECTED, OR IN AN UNSAFE ENVIRONMENT? NO . ENDOCRINOLOGY: ARE YOU DIABETIC? NO . OTHER: DO YOU NEED ANY PRESCRIPTIONS? NO . IF YES, PLEASE LIST: ____ . ANY NEW PROBLEMS WITH YOUR MEDICATIONS? NO . WHEN DID YOU LAST EAT? ____ . WHEN DID YOU LAST DRINK? ____ . WHAT DID YOU LAST DRINK? ____ . NAME OF PERSON DRIVING YOU HOME? ____ . DO YOU HAVE ANY OTHER QUESTIONS OR CONCERNS YES, STATES DIFFERENT PAIN IN BACK - PAIN SEEMS TO BE RIGHT OVER THE SPINE AND HER BACK HAS BEEN "POPPING/CRACKING" FREQUENTLY. PAIN NOW SHOOTING DOWN THE LEFT LEG MORE THAN THE RIGHT LEG . VITAL SIGNS WT 201.2 LBS, HT 65 IN, BMI 33.48 INDEX, BP 127/77 MM HG, HR 52 /MIN, RR 16 /MIN, TEMP 97.4 F, OXYGEN SAT % 98%, SAFE IN ENV? (Y/N) YES, NA INITIALS SC 10:33, REVIEWED BY: CASSIUS. EXAMINATION GENERAL EXAMINATION: LUNGS: LUNG SOUNDS ARE CLEAR . HEART: HEART RATE REGULAR . MUSCULOSKELETAL:*, MUSCLE STRENGTH TESTING 4/5 BILATERAL LOWER EXTREMITIES., ,PALPATION: POSITIVE FOR PAIN OVER L/S SPINE. POSITIVE FOR PAIN OVER L/S PARSPINALS.SPECIFIC POINT TENDERNESS OVER BILAT L4/5-L5/S1 LUMBR FACETS WITH FACET LOADING WELL HEALED SURGICAL SCAR OVER L/S AXIS. NEUROLOGIC EXAM:REPORTING DECREASE IN SENSATION TO LIGHT TOUCH RIGHT KNEE TO FOOT. DIAGNOSTIC:MRI L/S SPINE . ASSESSMENTS INTERVERTEBRAL DISC DISORDERS WITH RADICULOPATHY, LUMBAR REGION - M51.16 LUPUS - M32.9 TREATMENT INTERVERTEBRAL DISC DISORDERS WITH RADICULOPATHY, LUMBAR REGION CONTINUE OXYCODONE HCL TABLET, 15 MG, 1 TABLET, ORALLY, Q6H PRN MDD4 CONTINUE MORPHINE SULFATE ER TABLET EXTENDED RELEASE, 15 MG, 1 TABLET, ORALLY, 1 AT HS MDD1 CONTINUE ROBAXIN-750 TABLET, 750 MG, 1 TABLET, ORALLY, Q6H PRN NOTES: ISTOP REGISTRY REVIEWED AND DEMONSTRATES COMPLLIANCE. BRINGS IN MEDICATIONS WHICH IS APPROPRIATE FOR WHAT WAS DISPENSED. RECENT URINE TOXICOLOGY REVIEWED. NO UNAUTHORIZED MEDICATIONS. NO ILLICIT SUBSTANCES AND PRESCRIBED MEDICATIONS WERE PRESENT. , RISKS OF NARCOTIC/OPIOD MEDICATIONS INCLUDES BUT IS NOT LIMITED TO RISK OF DEPENDANCE/DEVELOPMENT OF ADDICTION, MOOD DISTURBANCE AND DEPRESSION, OSTEOPOROSIS, HORMONAL AND LABIDAL CHANGES, RESPIRATORY DEPRESSION AND . PATIENT IS ADVISED NOT TO DRIVE OR DRINK ALCOHOL WHILE ON THESE MEDICATIONS. PROCEDURE CODES FA211 ESTABILISHED PATIENT [facility] FAC[facility] CHARGE DISPOSITION & COMMUNICATION FOLLOW UP 2 MONTHS (REASON: MED MGMNT) ELECTRONICALLY SIGNED BY GABE WELLS ON 10/30/2019 AT 03:38 PM EST DISCLAIMER : THIS IS A VISIT SUMMARY EXTRACTED FROM THE [employer] CHART. IT IS NOT A COPY OF THE [employer] PROGRESS NOTE. CHRISTOFER
== END ==
LOC: M PAIN 10:15
PROVIDERS: ATTEND Nurse Practitioner Family
DX: M51.16 Intervertebral disc disorders with radiculopathy, lumbar region (principal); G89.29 Other chronic pain; M32.9 Systemic lupus erythematosus, unspecified; M79.7 Fibromyalgia; Z96.641 Presence of right artificial hip joint; F17.210 Nicotine dependence, cigarettes, uncomplicated; Z88.6 Allergy status to analgesic agent; Z88.8 Allergy status to other drugs, medicaments and biological substances; Z79.891 Long term (current) use of opiate analgesic; Z79.899 Other long term (current) drug therapy

== ENCOUNTER 2019-11-21 06:27 | Emergency (ER) | payer MEDICARE, SELFPAY ==
[~2019-11-21] VITALS: Ht 165.1 cm; Wt 90.9 kg
[2019-11-21 07:23] LABS: BASO # 0.1 10^3/uL (0.0-0.2); BASO % 0.8 % (0.0-1.0); EOS # 0.3 10^3/uL (0.0-0.5); EOS % 3.5 % (0.0-3.0); HEMATOCRIT 43.3 % (36.0-47.0); LYMPH # 2.4 10^3/uL (1.5-5.0); LYMPH % 32.6 % (24.0-44.0); MEAN CORPUSCULAR HEMOGLOBIN 29.6 pg (27.0-33.0); MEAN CORPUSCULAR HGB CONC 32.3 g/dl (32.0-36.5); MEAN CORPUSCULAR VOLUME 91.5 fl (80.0-96.0); MONO # 0.5 10^3/uL (0.0-0.8); MONO % 6.7 % (0.0-5.0); NEUTROPHILS # 4.2 10^3/uL (1.5-8.5); NEUTROPHILS % 56.1 % (36.0-66.0); PLATELET COUNT, AUTOMATED 225 10^3/uL (150-450); RED BLOOD COUNT 4.73 10^6/uL (4.00-5.40); WHITE BLOOD COUNT 7.5 10^3/uL (4.0-10.0)
[2019-11-21 07:26] LABS: ABG BASE EXCESS -0.4 (-2.0-2.0); ABG O2 SATURATION 95.1 % (95.0-99.0); ABG PARTIAL PRESSURE CO2 34.3 mmHg (35.0-45.0); ABG PARTIAL PRESSURE O2 68.1 mmHg (75.0-100.0); ABG STANDARD HCO3 24.1 MEQ/L (22.0-26.0); ABG TOTAL CO2 24.1 MEQ/L (22.0-29.0); ABG pH (ARTERIAL) 7.445 UNITS (7.350-7.450)
[2019-11-21] MEDS ORDERED: OXYC15TA76 PO (07:28)
[2019-11-21] MEDS ORDERED: LASI40TA9 PO (07:28)
[2019-11-21] MEDS ORDERED: ALPR0.5T3 PO (07:28)
[2019-11-21] MEDS ORDERED: POTA20TA6 PO (07:28)
[2019-11-21] MEDS ORDERED: METH750T2 PO (07:28)
[2019-11-21 07:35] LABS: INR 0.94; PROTHROMBIN TIME 12.3 SECONDS (11.8-14.0)
--- NOTE | 2019-11-21 07:46 | REP ---
Clinical: Chest pain. Comparison: 12/13/2018. Findings: Trace left basilar atelectasis. Mediastinum and cardiac silhouette are normal. Remainder of lung gómez are clear. No effusion. No pneumothorax. Skeletal structures intact. Impression: Trace left basilar atelectasis. Electronically Signed by Nathan Farr MD 11/21/2019 07:38 A
[2019-11-21 07:47] LABS: ALBUMIN 4.1 GM/DL (3.2-5.2); ALT/SGPT 22 U/L (12-78); BILIRUBIN,DIRECT 0.1 MG/DL (0.0-0.2); BILIRUBIN,TOTAL 0.4 MG/DL (0.2-1.0); CK-MB VALUE MASS < 1.0 NG/ML (<3.6); CPK CREATINE PHOSPHOKINASE 49 U/L (26-192); LIPASE 118 U/L (73-393); MB/CK RELATIVE INDEX 2.04 (< OR =4); TOTAL PROTEIN 7.3 GM/DL (6.4-8.2); TROPONIN I < 0.02 NG/ML (< 0.10)
[2019-11-21] MEDS ORDERED: ISOVUE-370 76% 100ML VIAL (Q9967) As Ordered ONE (08:00)
[2019-11-21 08:24] LABS: ETHYL ALCOHOL (ETHANOL) < 0.003 % (0.000-0.010)
--- NOTE | 2019-11-21 08:39 | REP ---
Clinical: Acute chest pain. Comparison: 03/25/2016 Technique: Axial contrast enhanced images from the thoracic inlet to the upper abdomen using 100 ml Isovue 370 intravenous contrast material with coronal and sagittal re-formations. Findings: Satisfactory enhancement of the pulmonary vasculature is achieved and no filling defects are identified to suggest pulmonary embolus. Thoracic aorta is normal caliber without aneurysm or dissection. Heart and pericardium are normal. Bilateral lung gómez are well aerated and clear without acute pulmonary parenchymal consolidation or atelectasis. No nodule or mass lesion. No pleural effusion/reaction. No pneumothorax. No adenopathy. Impression: No evidence for pulmonary embolus. No acute pleuroparenchymal or mediastinal process. Electronically Signed by Nathan Farr MD 11/21/2019 08:30 A
[2019-11-21 10:15] LABS: CK-MB VALUE MASS < 1.0 NG/ML (<3.6); CPK CREATINE PHOSPHOKINASE 52 U/L (26-192); MB/CK RELATIVE INDEX 1.92 (< OR =4); TROPONIN I < 0.02 NG/ML (< 0.10)
[2019-11-21 10:16] VITALS: BP 102/58
--- NOTE | 2019-11-21 20:58 | ECGEPIP ---
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
--- NOTE | 2019-11-21 20:59 | ECGEPIP ---
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
== END 2019-11-21 10:29 | disposition home or self-care (01) ==
LOC: M ED 06:27
DX: R07.89 Other chest pain (principal); R00.1 Bradycardia, unspecified; R20.2 Paresthesia of skin; E78.5 Hyperlipidemia, unspecified; M54.9 Dorsalgia, unspecified; K21.9 Gastro-esophageal reflux disease without esophagitis; F17.200 Nicotine dependence, unspecified, uncomplicated; Z88.8 Allergy status to other drugs, medicaments and biological substances; Z79.899 Other long term (current) drug therapy
CPT/HCPCS: 36600; 71045; 71275; 80047; 80076; 82550; 82553; 82803; 83690; 84484; 85025; 85610; 93005; 93041; 99285; G0480; Q9967

== ENCOUNTER → 2019-11-29 | Outpatient (CLI) | payer MEDICARE, SELFPAY ==
[~2019-11-29] MED LIST changes: +ALPR0.5T3 PO; +METH750T2 PO
--- NOTE | 2019-12-17 05:19 | ECWPNPC ---
PATIENT NAME: CONSTANCE WYMAN : 1970 GENDER: FEMALE VISIT DATE: 11/29/2019 DISCHARGE DATE: 11/29/19 1145 VISIT LOCKED DATE TIME: PHYSICIAN: KIM VELACSO RESOURCE: KIM VELASCO REASON FOR APPOINTMENT 1. LOW BACK/ MED MNGMNT HISTORY OF PRESENT ILLNESS HISTORY OF PRESENT ILLNESS: HERE FOR F/U OF CHRONIC LBP WITH RIGHT LEG RADICULAR SYMPTOMS.RATING PAIN VAS 7-9/10. DISCUSSED MEDICATION AND TREATMENT OPTIONS.HAVING AN INCREASE IN RIGHT LEG MUSCLE SPASM PAIN.HAVING PROBLEMS WITH CONSTIPATION.HAVING EPISODES OF URINARY INCONTINENCE.COLACE CAUSES NAUSEA.WAS FOLLOWING WITH DR BUENROSTRO/RHEUMATOLOGY WHO TRIALED HER ON MULTIPLE MEDICATIONS WITHOUT IMPROVEMENT OR WITH SEVERE SIDE EFFECTS. PAIN THE PATIENT DESCRIBES THE PAIN... FALL RISK SCREENING: SCREENING :NO FALLS REPORTED IN THE LAST YEAR CURRENT MEDICATIONS TAKING LASIX 40 MG TABLET 1 TABLET ORALLY BID TAKING POTASSIUM CHLORIDE 20 MG CAPSULE EXTENDED RELEASE 1 CAPSULE WITH FOOD ORALLY TWICE A DAY TAKING WELLBUTRIN XL 150 MG TABLET EXTENDED RELEASE 24 HOUR 1 TABLET IN THE MORNING ORALLY ONCE A DAY TAKING PAXIL 30 MG TABLET 1 TABLET IN THE MORNING ORALLY ONCE A DAY TAKING XANAX 0.5 MG TABLET 1 TABLET ORALLY THREE TIMES DAILY NEEDED TAKING TEMAZEPAM 30 MG CAPSULE 1 CAPSULE AT BEDTIME NEEDED ORALLY BEFORE BEDTIME NEEDED FOR SLEEP TAKING OXYCODONE HCL 15 MG TABLET 1 TABLET ORALLY Q6H PRN MDD4 TAKING MORPHINE SULFATE ER 15 MG TABLET EXTENDED RELEASE 1 TABLET ORALLY 1 AT HS MDD1 TAKING ROBAXIN-750 750 MG TABLET 1 TABLET ORALLY Q6H PRN NOT-TAKING AMOXICILLIN 875 MG TABLET 1 TABLET ORALLY EVERY 12 HRS, NOTES: 10 DAYS NOT-TAKING MEDROL 4 MG TABLET THERAPY PACK DIRECTED ORALLY DIRECTED NOT-TAKING BUSPAR 15 MG ORALLY TWICE A DAY NOT-TAKING VALIUM 10 MG TABLET 1 TABLET NEEDED ORALLY PRN MDD1 #10 TAB SHOULD LAST 30 DAYS NOT-TAKING NORTRIPTYLINE HCL 10 MG CAPSULE 3 CAPSULE= 30 MG ORALLY ONCE A DAY NOT-TAKING METHOTREXATE 8 TABS OF 2.5MG ORAL WEEKLY NOT-TAKING LYRICA 200 MG CAPSULE 1 CAPSULE ORALLY TID MDD3 NOT-TAKING FENTANYL 75 MCG/HR PATCH 72 HOUR 1 PATCH TO SKIN TRANSDERMAL 1 PATCH O40A=MMP NOT-TAKING PREDNISONE 10 MG TABLET 1 TABLET ORALLY 5 TAB X3 DAYS,4 TAB X3DAY,3TABX3,2TABX3,1TABX3, NOTES: 1 WEEK MEDICATION LIST REVIEWED AND RECONCILED WITH THE PATIENT PAST MEDICAL HISTORY FIBROMYALGIA LUPUS INTERSTITIAL LUNG DISEASE INFLAMMATORY ARTHRITIS BROKEN RIGHT SHOULDER CHRONIC BACK PAIN BRONCHITIS/SINUSITIS SINUS KESHIA ON EKG ALLERGIES MOBIC: AGGRESIVE - SIDE EFFECTS NEURONTIN: AGGRESIVE - SIDE EFFECTS IMURAN: NAUSEA/VOMITING - SIDE EFFECTS SURGICAL HISTORY L4-5 LAMINECTOMY LOWER BACK SURGERY (DR. VALENCIA) 08/2016 APPENDECTOMY 1983 ABDOMINAL ADHESION SURGERY LUNG BIOPSY RIGHT HIP REPLACEMENT 12/2018 FAMILY HISTORY FATHER: ALIVE MOTHER: ALIVE DAUGHTER DUE TO COMPLICATIONS FROM MS. SOCIAL HISTORY GENERAL: TOBACCO USE ARE YOU A:CURRENT SMOKER ARE YOU INTERESTED IN QUITTING?NOT READY TO QUIT COUNSELED THE PATIENT ON SMOKING EFFECTS, EDUCATION [id number]/03/2020 HOW MANY CIGARETTES A DAY DO YOU SMOKE?5 OR LESS PATIENT COUNSELED ON THE DANGERS OF TOBACCO USE AND URGED TO QUIT:11/29/2019 PAIN CLINIC PFS, CLERGY, PUBLIC HEALTH REFERRALS PFS REFERRAL NEEDED?NO CLERGY REFERRAL NEEDED?NO PUBLIC HEALTH REFERRAL NEEDED?NO WAS THE PROVIDER NOTIFIED OF ANY PERTINENT INFO?YES HAS THE PATIENT BEEN EDUCATED REGARDING HIS/HER PLAN OF CARE?YES RIGHT TROCHANTERIC BURSA INJECTION HAS THE PATIENT BEEN EDUCATED REGARDING PAIN, THE RISK FOR PAIN, THE IMPORTANCE OF EFFECTIVE PAIN MANAGEMENT, AND THE PAIN ASSESSMENT PROCESS?YES LATEX QUESTIONNAIRE LATEX ALLERGY : HAVE YOU EVER DEVELOPED ANY TYPE OF REACTION AFTER HANDLING LATEX PRODUCTS SUCH RUBBER GLOVES, CONDOMS, DIAPHRAGMS, BALLOONS, SOCKS, OR UNDERWEAR?YES - PLEASE INDICATE :RUBBER GLOVES LATEX ALLERGY : HAVE YOU EVER DEVELOPED ANY TYPE OF REACTION DURING OR AFTER DENTAL APPOINTMENT, VAGINAL/RECTAL EXAMINATION, SURGICAL PROCEDURE, OR ANY OTHER EXPOSURE?NO LATEX RISK : HAVE YOU EVER HAD ANY DIFFICULTY BREATHING OR HIVES AFTER EATING OR HANDLING ANY FRUITS, OR VEGETABLES; SUCH KIWI, BANANAS, STONE FRUITS, OR CHESTNUTSNO LATEX RISK : DO YOU HAVE A PREVIOUS PERSONAL HISTORY OF MORE THAN NINE SURGERIES, SPINA BIFIDA, OR REPEATED CATHERIZATIONS? NO LATEX RISK : ARE YOU FREQUENTLY EXPOSED TO LATEX PRODUCTS IN YOUR OCCUPATION?NO DATE ASKED : 06/27/2019 CAFFEINE CAFFEINE USE?YES HOW OFTEN AND HOW MUCH? 5-7 DRINKS PER DAY ADVANCE DIRECTIVE ADVANCE DIRECTIVE DISCUSSED WITH PATIENT:YES 11/29/2019 PATIENT HAS NO ADVANCED DIRECTIVES AND DECLINED HCP INFO AT THIS TIME. JS YAZIDISM [id number] NONE LANGUAGE LANGUAGES SPOKEN:PARAGUAYAN ALCOHOL SCREENING DID YOU HAVE A DRINK CONTAINING ALCOHOL IN THE PAST YEAR?NO POINTS0 INTERPRETATIONNEGATIVE RECREATIONAL DRUG USE DRUG USE?NO PATIENT DENIES ABUSE OR MISSUSED OF ANY MEDICATION. PATIENT DENIES USE OF ANY ILLEGAL SUBSTANCE INCLUDING MARIJUANA OR COCAINE. LEARNING BARRIERS / SPECIAL NEEDS BARRIERS TO LEARNING?NO HEARING IMPAIRED?NO VISION IMPAIRED?YES COGNITIVELY IMPAIRED?NO :CORRECTIVE LENSES READINESS TO LEARN?YES LEARNING PREFERENCES?NO LEARNING CAPABILITIES PRESENT?YES EMOTIONAL BARRIERS?NO SPECIAL DEVICES?NO HEARING INSTRUMENT SPECIALIST NEEDED?NO REVIEWED WITH PT 08/29/18 1149 BVREVIEWED WITH PT 10/09/18 1017 BVREVIEWED WITH PATIENT 06/27/19 1106 JSREVIEWED WITH PT 08/27/19 1131 NLJREVIEWED WITH PATIENT 10/15/19 1038 JSREVIEWED WITH PATIENT 11/29/2019 1049 JS. HOSPITALIZATION/MAJOR DIAGNOSTIC PROCEDURE LUPUS BACK PAIN SURGERY REVIEW OF SYSTEMS REVIEWED BY: PROVIDER: KIM BERNAL . CONSTITUTIONAL: ANY CHANGE IN YOUR MEDICAL CONDITION? NO . CHILLS NO . FEVER NO . INFECTION: DO YOU HAVE NEW INFECTIONS? NO . DO YOU HAVE HISTORY OF MRSA? NO . MUSCULOSKELETAL: ANY NEW PATTERNS OF PAIN OR NUMBNESS? YES, STATES PAIN IS WORSENING - WAKING UP IN THE MORNING VERY SHAKEY WITH PAIN EVERYWHERE. STATES CRAMPS IN LEGS, AND PRESSURE IN PELVIS AREA . GASTROENTEROLOGY: ANY NEW CHANGE IN BOWEL CONTROL? NO . GENITOURINARY: ANY NEW CHANGE IN BLADDER CONTROL? YES, STATES URINARY LEAKING ON A REGULAR BASIS . IS THERE A CHANCE YOU COULD BE ? NO . HEMATOLOGY/LYMPH: DO YOU TAKE ANY BLOOD THINNERS? (FOR EXAMPLE- COUMADIN, PLAVIX, AGGRENOX, PLATEL, PRADAXA, OR XARELTO) NO . WHEN WAS YOUR LAST DOSE? DATE: TIME: . NEUROLOGY: HAVE YOU FALLEN IN THE PAST 12 MONTHS? YES, STATES PRIOR TO LAST VISIT, DISCUSSED AT PREVIOUS VISIT . ANY NEW EXTREMITY NUMBNESS OR WEAKNESS? YES, WEAKNESS CONSTANTLY IN BILATERAL LEGS, NUMBNESS OCCASSIONALLY RIGHT>LEFT LEG . CARDIOLOGY: DO YOU HAVE A PACEMAKER OR DEFIBRILLATOR? NO . RESPIRATORY: HAVE YOU BEEN SICK IN THE PAST WEEK? NO . FEVER NO . FLU LIKE SYMPTOMS? NO . COUGH NO . INTEGUMENTARY: DO YOU HAVE ANY RASHES OR OPEN SORES? YES, LUPUS RASH . ALLERGIC/IMMUNO: ARE YOU ALLERGIC TO IV DYE? NO . ANY NEW ALLERGIES? NO . PSYCHIATRIC: DO YOU HAVE THOUGHTS OF HURTING YOURSELF OR SOMEONE ELSE? NO . ARE YOU ABUSED, NEGLECTED, OR IN AN UNSAFE ENVIRONMENT? NO . ENDOCRINOLOGY: ARE YOU DIABETIC? NO . OTHER: DO YOU NEED ANY PRESCRIPTIONS? YES . IF YES, PLEASE LIST: ____OXYCODONE, MORPHINE . ANY NEW PROBLEMS WITH YOUR MEDICATIONS? NO . WHEN DID YOU LAST EAT? ____ . WHEN DID YOU LAST DRINK? ____ . WHAT DID YOU LAST DRINK? ____ . NAME OF PERSON DRIVING YOU HOME? ____ . DO YOU HAVE ANY OTHER QUESTIONS OR CONCERNS YES, WOULD LIKE TO DISCUSS A NEW MUSCLE RELAXER. FLU VACCINE NOVEMBER 07 . VITAL SIGNS WT 194.0 LBS, HT 65 IN, BMI 32.28 INDEX, BP 107/58 MM HG, HR 61 /MIN, RR 18 /MIN, TEMP 96.0 F, OXYGEN SAT % 96%, SAFE IN ENV? (Y/N) YES, NA INITIALS AW 1044, REVIEWED BY: CASSIUS. EXAMINATION GENERAL EXAMINATION: GENERALAWAKE,ALERT ,PLEAASANT . PSYCHAFFECT NORMAL . LUNGS:LUNG PAN ARE CLEAR TO AUSCULTATION BILATERALLY. GOOD MOVEMENT OF AIR . HEART:S1, S2 IN A REGULAR RATE AND RHYTHM. NO SIGNIFICANT MURMURS, RUBS OR GALLOPS NOTED . ASSESSMENTS LUPUS - M32.9 (PRIMARY) INFLAMMATORY ARTHROPATHY - M19.90 TREATMENT LUPUS REFILL OXYCODONE HCL TABLET, 15 MG, 1 TABLET, ORALLY, Q6H PRN MDD4, 30 DAY(S), 120, REFILLS 0 REFILL MORPHINE SULFATE ER TABLET EXTENDED RELEASE, 15 MG, 1 TABLET, ORALLY, 1 AT HS MDD1, 30 DAYS, 30, REFILLS 0 CONTINUE ROBAXIN-750 TABLET, 750 MG, 1 TABLET, ORALLY, Q6H PRN START MOVANTIK TABLET, 25 MG, 1 TABLET IN THE MORNING, ORALLY, ONCE A DAY, 30 DAY(S), 30, REFILLS 2 NOTES: DUE TO CHRONIC USE OF OPIODS PATIENT IS IN NEED OF MEDICATION SPECIFIC FOR OPIOD INDUCED CONSTIPATION.SHE IS FINDING SENNA DAILY INEFFECTIVE AND IS SUFFERING FROM SEVERE CONSTIPATION ISSUES LATELY.ALSO CANT TOLERATE COLACE DUE TO NAUSEA.DUE TO THIS WE ARE RECOMMENDING A TRIAL OF MOVANTIK 25MG DAILY., ISTOP REGISTRY REVIEWED AND DEMONSTRATES COMPLLIANCE. BRINGS IN MEDICATIONS WHICH IS APPROPRIATE FOR WHAT WAS DISPENSED. RECENT URINE TOXICOLOGY REVIEWED. NO UNAUTHORIZED MEDICATIONS. NO ILLICIT SUBSTANCES AND PRESCRIBED MEDICATIONS WERE PRESENT. , RISKS OF NARCOTIC/OPIOD MEDICATIONS INCLUDES BUT IS NOT LIMITED TO RISK OF DEPENDANCE/DEVELOPMENT OF ADDICTION, MOOD DISTURBANCE AND DEPRESSION, OSTEOPOROSIS, HORMONAL AND LABIDAL CHANGES, RESPIRATORY DEPRESSION AND . PATIENT IS ADVISED NOT TO DRIVE OR DRINK ALCOHOL WHILE ON THESE MEDICATIONS. PREVENTIVE MEDICINE PAIN CLINIC TEACHING: MEDICATIONS PRINTED AND REVIEWED INFORMATION ON NEW MEDICATION, MOVANTIK, WITH PATIENT. PATIENT VERBALIZED AN UNDERSTANDING. NIDA LEW 11/29/2019 11:46:47 AM > . PROCEDURE CODES FA211 ESTABILISHED PATIENT [facility] FACILITY CHARGE DISPOSITION & COMMUNICATION FOLLOW UP 6 WEEKS (REASON: MED MGMNT) ELECTRONICALLY SIGNED BY GABE WELLS ON 12/16/2019 AT 01:29 PM EST DISCLAIMER : THIS IS A VISIT SUMMARY EXTRACTED FROM THE [employer] CHART. IT IS NOT A COPY OF THE [employer] PROGRESS NOTE. MTDD
== END ==
LOC: M PAIN 10:30
PROVIDERS: ATTEND Nurse Practitioner Family
DX: M32.9 Systemic lupus erythematosus, unspecified (principal); M19.90 Unspecified osteoarthritis, unspecified site

== ENCOUNTER → 2020-01-16 | Outpatient (CLI) | payer MEDICARE, SELFPAY ==
[~2020-01-16] MED LIST changes: +OXYC-1 PO; -OXYC15TA76 PO
--- NOTE | 2020-02-04 01:46 | ECWPNPC ---
PATIENT NAME: CONSTANCE WYMAN : 1970 GENDER: FEMALE VISIT DATE: 01/16/2020 DISCHARGE DATE: 01/16/20 1110 VISIT LOCKED DATE TIME: PHYSICIAN: KIM VELASCO RESOURCE: KIM VELASCO REASON FOR APPOINTMENT 1. LOW BACK/ MED HISTORY OF PRESENT ILLNESS HISTORY OF PRESENT ILLNESS: HERE FOR FOLLOW-UP AND MEDICINE MANAGEMENT OF CHRONIC LOW BACK PAIN. SHE FELL A FEW DAYS AGO. THIS HAS AGGRAVATED HER LOW BACK AND RIGHT HIP AREA. HISTORY OF RIGHT HIP REPLACEMENT ONE YEAR AGO. PATIENT REPORTS HYPERSENSITIVITY TO LIGHT TOUCH OVER THE RIGHT HIP, EVEN BEFORE THE FALL AND SHE IS CONCERNED AND ASKING ME TO EXAMINE THIS. TODAY I HAVE ENCOURAGED HER TO MAKE A FOLLOW-UP APPOINTMENT WITH THE [facility]. SHE IS AGREEABLE. COMPLAINING OF NUMBNESS AND TINGLING IN HER HANDS BILATERALLY IN A GLOVELIKE FASHION WHICH HAS BEEN GOING ON FOR SEVERAL MONTHS. PROBABLY NEUROPATHY BUT TODAY WE TALKED ABOUT GETTING A CERVICAL MRI SHE SUFFERS FROM CHRONIC NECK PAIN WELL. FINDS CURRENT CHRONIC PAIN MEDICATION SOMEWHAT EFFECTIVE AT REDUCING PAIN AND KEEPING HER FUNCTIONAL. RATING PAIN LEVEL 4-9/10 VAS. 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 PAIN THE PATIENT DESCRIBES THE PAIN... FALL RISK SCREENING: SCREENING :NO FALLS REPORTED IN THE LAST YEAR CURRENT MEDICATIONS TAKING LASIX 40 MG TABLET 1 TABLET ORALLY BID TAKING POTASSIUM CHLORIDE 20 MG CAPSULE EXTENDED RELEASE 1 CAPSULE WITH FOOD ORALLY TWICE A DAY TAKING WELLBUTRIN XL 150 MG TABLET EXTENDED RELEASE 24 HOUR 1 TABLET IN THE MORNING ORALLY ONCE A DAY TAKING PAXIL 30 MG TABLET 1 TABLET IN THE MORNING ORALLY ONCE A DAY TAKING XANAX 0.5 MG TABLET 1 TABLET ORALLY THREE TIMES DAILY NEEDED TAKING TEMAZEPAM 30 MG CAPSULE 1 CAPSULE AT BEDTIME NEEDED ORALLY BEFORE BEDTIME NEEDED FOR SLEEP TAKING ROBAXIN-750 750 MG TABLET 1 TABLET ORALLY Q6H PRN TAKING OXYCODONE HCL 15 MG TABLET 1 TABLET ORALLY Q6H PRN MDD4 TAKING MORPHINE SULFATE ER 15 MG TABLET EXTENDED RELEASE 1 TABLET ORALLY 1 AT HS MDD1 TAKING ATENOLOL 50 MG TABLET 1 TABLET ORALLY TWICE DAILY TAKING LEVAQUIN 750 MG TABLET 1 TABLET ORALLY ONCE A DAY TAKING PREDNISONE 20 MG TABLET 1 TABLET ORALLY DAILY, NOTES: 1 WEEK TAKING PROBIOTIC - TABLET DELAYED RELEASE 1 CAPSULE ORALLY DAILY NOT-TAKING MOVANTIK 25 MG TABLET 1 TABLET IN THE MORNING ORALLY ONCE A DAY NOT-TAKING AMOXICILLIN 875 MG TABLET 1 TABLET ORALLY EVERY 12 HRS, NOTES: 10 DAYS NOT-TAKING MEDROL 4 MG TABLET THERAPY PACK DIRECTED ORALLY DIRECTED NOT-TAKING BUSPAR 15 MG ORALLY TWICE A DAY NOT-TAKING VALIUM 10 MG TABLET 1 TABLET NEEDED ORALLY PRN MDD1 #10 TAB SHOULD LAST 30 DAYS NOT-TAKING NORTRIPTYLINE HCL 10 MG CAPSULE 3 CAPSULE= 30 MG ORALLY ONCE A DAY NOT-TAKING METHOTREXATE 8 TABS OF 2.5MG ORAL WEEKLY NOT-TAKING LYRICA 200 MG CAPSULE 1 CAPSULE ORALLY TID MDD3 NOT-TAKING FENTANYL 75 MCG/HR PATCH 72 HOUR 1 PATCH TO SKIN TRANSDERMAL 1 PATCH N51F=KWC MEDICATION LIST REVIEWED AND RECONCILED WITH THE PATIENT PAST MEDICAL HISTORY FIBROMYALGIA LUPUS INTERSTITIAL LUNG DISEASE INFLAMMATORY ARTHRITIS BROKEN RIGHT SHOULDER CHRONIC BACK PAIN BRONCHITIS/SINUSITIS SINUS KESHIA ON EKG PNEUMONIA ALLERGIES MOBIC: AGGRESIVE - SIDE EFFECTS NEURONTIN: AGGRESIVE - SIDE EFFECTS IMURAN: NAUSEA/VOMITING - SIDE EFFECTS SURGICAL HISTORY L4-5 LAMINECTOMY LOWER BACK SURGERY (DR. VALENCIA) 08/2016 APPENDECTOMY 1983 ABDOMINAL ADHESION SURGERY LUNG BIOPSY RIGHT HIP REPLACEMENT 12/2018 FAMILY HISTORY FATHER: ALIVE, UNKNOWN HX MOTHER: , LUNG DISEASE-NOT SURE WHAT DAUGHTER DUE TO COMPLICATIONS FROM MS. SOCIAL HISTORY GENERAL: TOBACCO USE ARE YOU A:CURRENT SMOKER ARE YOU INTERESTED IN QUITTING?NOT READY TO QUIT COUNSELED THE PATIENT ON SMOKING EFFECTS, EDUCATION [id number]/20/2020 HOW MANY CIGARETTES A DAY DO YOU SMOKE?5 OR LESS PATIENT COUNSELED ON THE DANGERS OF TOBACCO USE AND URGED TO QUIT:01/16/2020 PAIN CLINIC PFS, CLERGY, PUBLIC HEALTH REFERRALS PFS REFERRAL NEEDED?NO CLERGY REFERRAL NEEDED?NO PUBLIC HEALTH REFERRAL NEEDED?NO HAS THE PATIENT BEEN EDUCATED REGARDING HIS/HER PLAN OF CARE?YES HAS THE PATIENT BEEN EDUCATED REGARDING PAIN, THE RISK FOR PAIN, THE IMPORTANCE OF EFFECTIVE PAIN MANAGEMENT, AND THE PAIN ASSESSMENT PROCESS?YES LATEX QUESTIONNAIRE LATEX ALLERGY : HAVE YOU EVER DEVELOPED ANY TYPE OF REACTION AFTER HANDLING LATEX PRODUCTS SUCH RUBBER GLOVES, CONDOMS, DIAPHRAGMS, BALLOONS, SOCKS, OR UNDERWEAR?YES - PLEASE INDICATE :RUBBER GLOVES HANDS GET RED LATEX ALLERGY : HAVE YOU EVER DEVELOPED ANY TYPE OF REACTION DURING OR AFTER DENTAL APPOINTMENT, VAGINAL/RECTAL EXAMINATION, SURGICAL PROCEDURE, OR ANY OTHER EXPOSURE?NO LATEX RISK : HAVE YOU EVER HAD ANY DIFFICULTY BREATHING OR HIVES AFTER EATING OR HANDLING ANY FRUITS, OR VEGETABLES; SUCH KIWI, BANANAS, STONE FRUITS, OR CHESTNUTSNO LATEX RISK : DO YOU HAVE A PREVIOUS PERSONAL HISTORY OF MORE THAN NINE SURGERIES, SPINA BIFIDA, OR REPEATED CATHERIZATIONS? NO LATEX RISK : ARE YOU FREQUENTLY EXPOSED TO LATEX PRODUCTS IN YOUR OCCUPATION?NO DATE ASKED : 01/16/2020 CAFFEINE CAFFEINE USE?YES HOW OFTEN AND HOW MUCH? 5-7 DRINKS PER DAY ADVANCE DIRECTIVE ADVANCE DIRECTIVE DISCUSSED WITH PATIENT:YES 01/16/2020 PATIENT HAS NO ADVANCED DIRECTIVES. HCP INFORMATION GIVEN TO AND HELP OFFERED IN COMPLETING IF NEEDED. DECLINED AT THIS TIME. AD VOODOO [id number] NONE LANGUAGE LANGUAGES SPOKEN:KAZAKH ALCOHOL SCREENING DID YOU HAVE A DRINK CONTAINING ALCOHOL IN THE PAST YEAR?NO POINTS0 INTERPRETATIONNEGATIVE RECREATIONAL DRUG USE DRUG USE?NO PATIENT DENIES ABUSE OR MISSUSED OF ANY MEDICATION. PATIENT DENIES USE OF ANY ILLEGAL SUBSTANCE INCLUDING MARIJUANA OR COCAINE. 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 HOSPITALIZATION/MAJOR DIAGNOSTIC PROCEDURE LUPUS BACK PAIN SURGERY REVIEW OF SYSTEMS REVIEWED BY: PROVIDER: KIM BERNAL . CONSTITUTIONAL: ANY CHANGE IN YOUR MEDICAL CONDITION? YES, PNEUMONIA AND SINUS INFRECTION X 2 WEEKS, HAD COURSE OF ZITHROMAX AND NOW ON LEVAQUIN . CHILLS NO . FEVER NO . INFECTION: DO YOU HAVE NEW INFECTIONS? YES, PNEUMONIA AND SINUSITIS . DO YOU HAVE HISTORY OF MRSA? NO . MUSCULOSKELETAL: ANY NEW PATTERNS OF PAIN OR NUMBNESS? YES, BOTH HANDS ARE NUMB AND TINGLING FROM WRIST DOWN X 1 MONTH. HEADACHES EVERY MORNING-NOT SURE IF THIS IS FROM HER NECK OR THE LUPUS . GASTROENTEROLOGY: ANY NEW CHANGE IN BOWEL CONTROL? NO . GENITOURINARY: ANY NEW CHANGE IN BLADDER CONTROL? NO . IS THERE A CHANCE YOU COULD BE ? NO . HEMATOLOGY/LYMPH: DO YOU TAKE ANY BLOOD THINNERS? (FOR EXAMPLE- COUMADIN, PLAVIX, AGGRENOX, PLATEL, PRADAXA, OR XARELTO) NO . WHEN WAS YOUR LAST DOSE? DATE: TIME: . NEUROLOGY: HAVE YOU FALLEN IN THE PAST 12 MONTHS? YES, SEVERAL TIMES, LAST WAS YEST-SLIPPED ON ICE LANDING ON HER BUTTOCKS, ALSO HITTING HER COCCYX, JARRING EVERYTHING IN HER BACK. NOT SEEN AFTER . ANY NEW EXTREMITY NUMBNESS OR WEAKNESS? YES, BOTH HANDS AND FEET ARE NUMB AND TINGLING-HANDS EQUAL AND RIGHT FOOT WORSE . CARDIOLOGY: DO YOU HAVE A PACEMAKER OR DEFIBRILLATOR? NO . RESPIRATORY: HAVE YOU BEEN SICK IN THE PAST WEEK? YES . FEVER YES . FLU LIKE SYMPTOMS? NO . COUGH YES-HAS SUBSIDED NOW . INTEGUMENTARY: DO YOU HAVE ANY RASHES OR OPEN SORES? NO . ALLERGIC/IMMUNO: ARE YOU ALLERGIC TO IV DYE? NO . ANY NEW ALLERGIES? NO . PSYCHIATRIC: DO YOU HAVE THOUGHTS OF HURTING YOURSELF OR SOMEONE ELSE? NO . ARE YOU ABUSED, NEGLECTED, OR IN AN UNSAFE ENVIRONMENT? NO . ENDOCRINOLOGY: ARE YOU DIABETIC? NO . OTHER: DO YOU NEED ANY PRESCRIPTIONS? NO . IF YES, PLEASE LIST: ____ . ANY NEW PROBLEMS WITH YOUR MEDICATIONS? NO . WHEN DID YOU LAST EAT? ____ . WHEN DID YOU LAST DRINK? ____ . WHAT DID YOU LAST DRINK? ____ . NAME OF PERSON DRIVING YOU HOME? ____ . DO YOU HAVE ANY OTHER QUESTIONS OR CONCERNS NUMBNESS/SHAKING IN HANDS, WAKING UP WITH HEADACHES DAILY,RIGHT HIP IS STILL PAINFUL . VITAL SIGNS WT 193 LBS, HT 65 IN, BMI 32.11 INDEX, BP 123/66 MM HG, HR 60 /MIN, RR 18 /MIN, TEMP 96.0 F, OXYGEN SAT % 97%, SAFE IN ENV? (Y/N) Y, NA INITIALS AW 0945, REVIEWED BY: SERA. EXAMINATION GENERAL EXAMINATION: GENERALAWAKE,ALERT ,PLEAASANT . PSYCHAFFECT NORMAL . LUNGS:LUNG PAN ARE CLEAR TO AUSCULTATION BILATERALLY. GOOD MOVEMENT OF AIR . HEART:S1, S2 IN A REGULAR RATE AND RHYTHM. NO SIGNIFICANT MURMURS, RUBS OR GALLOPS NOTED . ASSESSMENTS CERVICAL RADICULOPATHY - M54.12 (PRIMARY) POST LAMINECTOMY SYNDROME - M96.1 TREATMENT CERVICAL RADICULOPATHY REFILL OXYCODONE HCL TABLET, 15 MG, 1 TABLET, ORALLY, Q6H PRN MDD4, 30 DAY(S), 120, REFILLS 0 REFILL MORPHINE SULFATE ER TABLET EXTENDED RELEASE, 15 MG, 1 TABLET, ORALLY, 1 AT HS MDD1, 30 DAYS, 30, REFILLS 0 [facility] MRI SPINE, CERVICAL WITHOUT [id number] NOTES: ISTOP REGISTRY REVIEWED AND DEMONSTRATES COMPLLIANCE. BRINGS IN MEDICATIONS WHICH IS APPROPRIATE FOR WHAT WAS DISPENSED. RECENT URINE TOXICOLOGY REVIEWED. NO UNAUTHORIZED MEDICATIONS. NO ILLICIT SUBSTANCES AND PRESCRIBED MEDICATIONS WERE PRESENT. , RISKS OF NARCOTIC/OPIOD MEDICATIONS INCLUDES BUT IS NOT LIMITED TO RISK OF DEPENDANCE/DEVELOPMENT OF ADDICTION, MOOD DISTURBANCE AND DEPRESSION, OSTEOPOROSIS, HORMONAL AND LABIDAL CHANGES, RESPIRATORY DEPRESSION AND . PATIENT IS ADVISED NOT TO DRIVE OR DRINK ALCOHOL WHILE ON THESE MEDICATIONS. PROCEDURE CODES [id number] ESTABILISHED PATIENT [facility] FAC[facility] CHARGE DISPOSITION & COMMUNICATION FOLLOW UP 2 MONTHS (REASON: MRI REVIEW) ELECTRONICALLY SIGNED BY GABE WELLS ON 02/03/2020 AT 02:55 PM EDT DISCLAIMER : THIS IS A VISIT SUMMARY EXTRACTED FROM THE [employer] CHART. IT IS NOT A COPY OF THE [employer] PROGRESS NOTE. CHRISTOFER
== END ==
LOC: M PAIN 09:30
PROVIDERS: ATTEND Nurse Practitioner Family
DX: M54.12 Radiculopathy, cervical region (principal); M96.1 Postlaminectomy syndrome, not elsewhere classified

== ENCOUNTER → 2020-03-30 | Outpatient (CLI) | payer MEDICARE, OTHER, SELFPAY | LOC: M LABSMTC 13:09 | PROVIDERS: ATTEND Family Medicine | DX: Z20.828 Contact with and (suspected) exposure to other viral communicable diseases (principal); Z11.59 Encounter for screening for other viral diseases ==

== ENCOUNTER → 2020-04-30 | Outpatient (CLI) | payer MEDICARE ==
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
== END ==
LOC: M PAIN 10:00 → M TMPAIN 10:00
PROVIDERS: ATTEND Nurse Practitioner Family
DX: M54.12 Radiculopathy, cervical region (principal); M32.9 Systemic lupus erythematosus, unspecified; Z79.891 Long term (current) use of opiate analgesic

== ENCOUNTER → 2020-06-30 | Outpatient (POV) | payer MEDICARE ==
[~2020-06-30] MED LIST changes: +ALPR1TAB3; +ATEN50TA2; +ATOR1TAB19; +BUPR300T92; +HYDR50TA70; +MORP-69; +OXYC10TA12; +PANT40TA29 PO; -PANT40TA3 PO; +PARO40TA2; +POTA1TAB14; +SPIR-10
== END ==
LOC: M PAIN 09:00
PROVIDERS: ATTEND Nurse Practitioner Family
DX: Z79.891 Long term (current) use of opiate analgesic (principal)

== ENCOUNTER 2020-08-08 21:55 | Emergency (ER) | payer BC, MEDICARE ==
[~2020-08-08] VITALS: Ht 165.1 cm; Wt 84.1 kg
[~2020-08-08 21:55] MED LIST changes: -ALPR1TAB3; -ATEN50TA2; -ATOR1TAB19; -BUPR300T92; -HYDR50TA70; -MORP-69; -OXYC10TA12; -PARO40TA2; -POTA1TAB14; -SPIR-10
[2020-08-08] MEDS ORDERED: SPIR-10 (22:08)
[2020-08-08] MEDS ORDERED: ATEN50TA2 (22:08)
[2020-08-08] MEDS ORDERED: PARO40TA2 (22:08)
[2020-08-08] MEDS ORDERED: POTA1TAB14 (22:08)
[2020-08-08] MEDS ORDERED: MORP-69 (22:08)
[2020-08-08] MEDS ORDERED: HYDR50TA70 (22:08)
[2020-08-08] MEDS ORDERED: ATOR1TAB19 (22:08)
[2020-08-08] MEDS ORDERED: ALPR1TAB3 (22:08)
[2020-08-08] MEDS ORDERED: BUPR300T92 (22:08)
[2020-08-08] MEDS ORDERED: OXYC10TA12 (22:08)
[2020-08-08] MEDS ORDERED: ONDANSETRON 4MG/2ML VIAL IV ONE (23:30)
[2020-08-08] MEDS ORDERED: MORPHINE 4 MG/ML 1ML VIAL/SYRINGE (J2270) IV ONE (23:30)
[2020-08-08] MEDS ORDERED: NS 1,000 ML IV ONE (23:30)
[2020-08-08 23:59] LABS: BASO # 0.1 10^3/uL (0.0-0.2); BASO % 0.8 % (0.0-1.0); EOS # 0.3 10^3/uL (0.0-0.5); EOS % 4.1 % (0.0-3.0); HEMATOCRIT 42.3 % (36.0-47.0); HEMOGLOBIN 14.1 g/dl (12.0-15.5); LYMPH # 2.3 10^3/uL (1.5-5.0); LYMPH % 36.3 % (24.0-44.0); MEAN CORPUSCULAR HEMOGLOBIN 29.7 pg (27.0-33.0); MEAN CORPUSCULAR HGB CONC 33.3 g/dl (32.0-36.5); MEAN CORPUSCULAR VOLUME 89.1 fl (80.0-96.0); MONO # 0.4 10^3/uL (0.0-0.8); MONO % 6.9 % (0.0-5.0); NEUTROPHILS # 3.3 10^3/uL (1.5-8.5); NEUTROPHILS % 51.6 % (36.0-66.0); PLATELET COUNT, AUTOMATED 224 10^3/uL (150-450); RED BLOOD COUNT 4.75 10^6/uL (4.00-5.40); WHITE BLOOD COUNT 6.3 10^3/uL (4.0-10.0)
[2020-08-09] MEDS ORDERED: ISOVUE-370 76% 100ML VIAL As Ordered ONE (00:04)
[2020-08-09 00:20] LABS: ALT/SGPT 28 U/L (12-78); BILIRUBIN,DIRECT < 0.1 MG/DL (0.0-0.2); BILIRUBIN,TOTAL 0.2 MG/DL (0.2-1.0); LIPASE 97 U/L (73-393); TOTAL PROTEIN 6.9 GM/DL (6.4-8.2)
--- NOTE | 2020-08-09 00:52 | REPVR ---
PROCEDURE INFORMATION: Exam: CT Abdomen And Pelvis With Contrast Exam date and time: 08/08/2020 12:11 AM Age: 50 years old Clinical indication: Abdominal pain; Localized; Right; Additional info: Right sided abd pain, thoracic back pain TECHNIQUE: Imaging protocol: Computed tomography of the abdomen and pelvis with intravenous contrast. Radiation optimization: All CT scans at this facility use at least one of these dose optimization techniques: automated exposure control; mA and/or kV adjustment per patient size (includes targeted exams where dose is matched to clinical indication); or iterative reconstruction. Contrast material: ISOVUE 370; Contrast volume: 100 ml; Contrast route: INTRAVENOUS (IV); COMPARISON: CT ABD PELVIS W/O CONTRAST 2017-12-21 15:00 FINDINGS: Lungs: Dependent subsegmental pulmonary atelectasis. Liver: Top-normal liver size without masses. Gallbladder and bile ducts: Normal. No calcified stones. No ductal dilation. Pancreas: Normal. No ductal dilation. Spleen: Normal. No splenomegaly. Adrenals: Normal. No mass. Kidneys and ureters: Normal. No hydronephrosis. Stomach and bowel: Excess stool in the colon. Numerous clips in the right lower quadrant. Constipation. Appendix: Appendix appears absent. Intraperitoneal space: Unremarkable. No free air. No significant fluid collection. Vasculature: Unremarkable. No abdominal aortic aneurysm. Lymph nodes: Unremarkable. No enlarged lymph nodes. Bladder: Unremarkable as visualized. Reproductive: Unremarkable as visualized. Bones/joints: Previous lumbar spinal surgical changes with lower lumbar right-sided laminectomy, and interspinous device. Right hip arthroplasty. Diffuse degenerative disc space loss, facet arthropathy and ligamentum flavum thickening, and scattered disc bulge/protrusions cause up to moderate foraminal and spinal stenosis most severe from L3 through S1. Normal spinal curvature, vertebral body heights, and alignment. No spinal fracture or acute subluxation. L4-L5 interspinous device. Severe L4-L5 disc space loss with vacuum disc phenomena. Moderate lumbar spondylosis. Soft tissues: Small fat protruding umbilical hernia. Small fat protruding umbilical hernia. IMPRESSION: 1. Constipation. 2. Small fat protruding umbilical hernia. 3. Moderate lumbar spondylosis. Electronically signed by: Ari Bello On 08/09/2020 00:51:47 AM
[2020-08-09] MEDS ORDERED: MIRALAX *UNIT DOSE* 17GM PACKET PO STA (01:25)
[2020-08-09] MEDS ORDERED: METHOCARBAMOL 1,000 MG/10 ML VIAL (J2800) IV ONE (01:30)
[2020-08-09 01:55] VITALS: BP 114/67
== END 2020-08-09 01:56 | disposition home or self-care (01) ==
LOC: M ED 21:55
DX: K59.00 Constipation, unspecified (principal); M54.9 Dorsalgia, unspecified; R10.9 Unspecified abdominal pain; J44.9 Chronic obstructive pulmonary disease, unspecified; K21.9 Gastro-esophageal reflux disease without esophagitis; M32.9 Systemic lupus erythematosus, unspecified; M51.9 Unspecified thoracic, thoracolumbar and lumbosacral intervertebral disc disorder; F17.200 Nicotine dependence, unspecified, uncomplicated; Z88.8 Allergy status to other drugs, medicaments and biological substances; Z79.899 Other long term (current) drug therapy; Z79.891 Long term (current) use of opiate analgesic
CPT/HCPCS: 74177; 80047; 80076; 81001; 83690; 85025; 96361; 96374; 96375; 99284; J2270; J2405; J2800; Q9967

== ENCOUNTER 2020-08-21 13:27 | Emergency (ER) | payer BC ==
[~2020-08-21] VITALS: Ht 165.1 cm; Wt 83.0 kg
[~2020-08-21 13:27] MED LIST changes: +ALPR1TAB3; +ATEN50TA2; +ATOR1TAB19; +BUPR300T92; +HYDR50TA70; +MORP-69; +OXYC10TA12; +PARO40TA2; +POTA1TAB14; +SPIR-10
[2020-08-21] MEDS ORDERED: methylPREDNISolone 125MG 2ML VIAL IV ONE (15:15)
[2020-08-21 15:40] LABS: APPEARANCE, URINE CLEAR (CLEAR); BACTERIA, URINE AUTO NEGATIVE (NEGATIVE); BILIRUBIN, URINE AUTO NEGATIVE (NEGATIVE); BLOOD, URINE BLOOD NEGATIVE (NEGATIVE); COLOR, URINE STRAW (YELLOW); GLUCOSE, URINE (UA) AUTO NEGATIVE (NEGATIVE); KETONE, URINE AUTO NEGATIVE (NEGATIVE); LEUKOCYTE ESTERASE, URINE AUTO 1+ (NEGATIVE); NITRITE, URINE AUTO NEGATIVE (NEGATIVE); PROTEIN, URINE AUTO NEGATIVE (NEGATIVE); RBC, URINE AUTO 0 /HPF (0-3); SPECIFIC GRAVITY URINE AUTO 1.004 (1.002-1.035); SQUAMOUS EPITHELIAL CELL UR AU 0 /HPF (0-6); UROBILINOGEN, URINE AUTO 0.2 mg/dL (0.0-2.0); WBC, URINE AUTO 6 /HPF (0-3)
[2020-08-21] MEDS ORDERED: CYCLOBENZAPRINE 10MG TABLET PO ONE (15:45)
--- NOTE | 2020-08-21 18:51 | REPVR ---
PROCEDURE INFORMATION: Exam: MR Lumbar Spine Without Contrast. Exam date and time: 08/21/2020 6:21 PM Age: 50 years old Clinical indication: Other: Low back pain, radiculopathy, reported saddle anesthesia TECHNIQUE: Imaging protocol: Multiplanar magnetic resonance images of the lumbar spine without intravenous contrast. COMPARISON: MRI-Spine, L.S. without con 07/29/2014 10:06 AM FINDINGS: Vertebrae: No acute compression fracture. Normal alignment. Disc spaces are well maintained at all levels be sides L4-L5. Spinal cord: Normal signal. No cord compression. L1-L2: No significant disc disease. No significant spinal canal stenosis. No neural foraminal stenosis. L2-L3: No significant disc disease. No significant spinal canal stenosis. No neural foraminal stenosis. L3-L4: No significant disc disease. Mild spinal canal stenosis. No neural foraminal stenosis. L4-L5: There is an interspinous fusion device. Probable prior bilateral hemilaminectomies although artifact obscures the posterior elements. There is marked disc space narrowing and endplate degeneration. The neural foramina are patent. There is mild spinal canal stenosis. There is no compression of the exiting L5 nerve roots. L5-S1: No significant disc disease. Mild spinal canal stenosis. No neural foraminal stenosis. Soft tissues: Unremarkable. IMPRESSION: There is no significant spinal canal stenosis or neural foraminal narrowing in the lumbar spine. There is no compression of the conus medullaris. No nerve root compression is apparent. Electronically signed by: Eli Comer On 08/21/2020 18:51:10 PM
[2020-08-21 19:17] LABS: BLOOD UREA NITROGEN 18 MG/DL (7-18); CALCIUM LEVEL 8.9 MG/DL (8.5-10.1); CARBON DIOXIDE LEVEL 25 MEQ/L (21-32); CHLORIDE LEVEL 111 MEQ/L (98-107); CREATININE FOR GFR 0.89 MG/DL (0.55-1.30); GLOMERULAR FILTRATION RATE > 60.0 (>51); GLUCOSE, FASTING 98 MG/DL (70-100); POTASSIUM SERUM 4.5 MEQ/L (3.5-5.1); SODIUM LEVEL 143 MEQ/L (136-145)
[2020-08-21 19:50] LABS: MAGNESIUM LEVEL 2.3 MG/DL (1.8-2.4)
[2020-08-21 20:06] VITALS: BP 112/72
== END 2020-08-21 20:11 | disposition home or self-care (01) ==
LOC: M ED 13:27
DX: R20.2 Paresthesia of skin (principal); M54.5 Low back pain; G89.29 Other chronic pain; I10 Essential (primary) hypertension; K21.9 Gastro-esophageal reflux disease without esophagitis; M32.9 Systemic lupus erythematosus, unspecified; F41.9 Anxiety disorder, unspecified; F32.9 Major depressive disorder, single episode, unspecified; F17.200 Nicotine dependence, unspecified, uncomplicated; Z88.8 Allergy status to other drugs, medicaments and biological substances; Z79.899 Other long term (current) drug therapy; Z79.891 Long term (current) use of opiate analgesic
CPT/HCPCS: 72148; 80047; 80048; 81001; 83735; 96374; 99284; J2930

== ENCOUNTER → 2020-09-30 | Outpatient (CLI) | payer BC ==
--- NOTE | 2020-10-02 02:22 | ECWPNPC ---
PATIENT NAME: CONSTANCE WYMAN : 1970 GENDER: FEMALE VISIT DATE: 09/30/2020 DISCHARGE DATE: 09/30/20 1120 VISIT LOCKED DATE TIME: PHYSICIAN: KIM VELASCO RESOURCE: KIM VELASCO REASON FOR APPOINTMENT 1. MED MANAGEMENT HISTORY OF PRESENT ILLNESS DEPRESSION SCREENING: PHQ-2 (2015 EDITION) LITTLE INTEREST OR PLEASURE IN DOING THINGS?NOT AT ALL FEELING DOWN, DEPRESSED, OR HOPELESS?NOT AT ALL TOTAL SCORE0 GENERAL: HERE FOR FOLLOW-UP OF CHRONIC LOW BACK PAIN/MEDICATION MANAGEMENT. HAS BEEN EXPERIENCING AN INCREASE IN PRESSURE TYPE PAIN IN HER LOWER BACK . THIS HAS BEEN OVER THE PAST 3 MONTHS. SHE IS WORKING AND STANDING ON HER FEET FOR 12 HOURS AT TIMES. REPORTING DIFFICULTY AT SLEEP DUE TO PAIN. WAS SEEN AT THE END OF AT [facility] FOR INCREASE IN LOW BACK PAIN. MRI OF THE LS-SPINE DONE AT THAT VISIT IS REVIEWED WITH PATIENT. NO SIGNIFICANT PATHOLOGY. SHE IS STATUS POST LUMBAR FUSION WITH HARDWARE. REPORTING NORMAL BOWEL AND BLADDER FUNCTION. REVIEWED MEDICATIONS AND MADE SOME ADJUSTMENTS TODAY. -. FALL RISK SCREENING: SCREENING :NO FALLS REPORTED IN THE LAST YEAR NONE PAIN SCREENING: PATIENT HAS A COMPLAINT OF ACUTE OR CHRONIC PAIN :YES LOCATION OF PAIN:LOW BACK INTENSITY OF PAIN (SCALE OF 1 TO 10):6 WHEN MOVING AND WALKING AND PAIN KEEPS HER UP AT NIGHT WHAT DOES YOUR PAIN FEEL LIKE:ACHING, BURNING, SHARP, STABBING DURATION:CONTINOUS PAIN IS INCREASED BY:ACTIVITIES, PROLONGED STANDING PAIN IS DECREASED BY:USE OF PAIN MEDICATIONS NURSING NOTE: -. PAIN CENTER INTAKE QUESTIONS: DO YOU HAVE A HISTORY OF MRSA? :NO DO YOU TAKE A BLOOD THINNERS? :NO DO YOU HAVE ANY BLEEDING DISORDERS? :NO ANY NEW NUMBNESS OR WEAKNESS IN YOUR LEGS OR ARMS? :NO ANY PACEMAKER,DEFIBRILLATOR, OR DORSAL COLUMN STIMULATOR? :NO DO YOU HAVE ANY RASHES OR OPEN SORES? :NO ARE YOU ALLERGIC TO IV DYE? :NO ARE YOU DIABETIC? :NO ANY NEW PROBLEMS WITH YOUR MEDICATIONS? :YES ONE MED SHE DOES NOT THINK IS WORKING LIKE IT SHOULD HAVE YOU RECEIVED A VACCINE IN THE PAST 30 DAYS? :NO DO YOU PLAN TO RECEIVE A VACCINE IN THE NEXT 21 DAYS? :NO DO YOU NEED ANY PRESCRIPTION? :YES DO YOU TAKE ANY IMMUNOSUPPRESSIVE MEDICATIONS? :NO IS THERE A CHANCE YOU COULD BE ? :NO ARE YOU BREAST FEEDING? :NO CURRENT MEDICATIONS TAKING LASIX 40 MG TABLET 1 TABLET ORALLY BID TAKING POTASSIUM CHLORIDE 20 MG CAPSULE EXTENDED RELEASE 1 CAPSULE WITH FOOD ORALLY TWICE A DAY TAKING WELLBUTRIN XL 150 MG TABLET EXTENDED RELEASE 24 HOUR 1 TABLET IN THE MORNING ORALLY ONCE A DAY TAKING PAXIL 30 MG TABLET 1 TABLET IN THE MORNING ORALLY ONCE A DAY TAKING XANAX 0.5 MG TABLET 1 TABLET ORALLY THREE TIMES DAILY NEEDED TAKING ATENOLOL 50 MG TABLET 1 TABLET ORALLY TWICE DAILY TAKING PROBIOTIC - TABLET DELAYED RELEASE 1 CAPSULE ORALLY DAILY TAKING ROBAXIN-750 750 MG TABLET 1 TABLET ORALLY THREE TIMES DAILY TAKING MORPHINE SULFATE ER 30 MG CAPSULE EXTENDED RELEASE 24 HOUR 1 TABLET ORALLY MDD 1 DAILY TAKING OXYCODONE HCL 15 MG TABLET 1 TABLET ORALLY Q8H PRN MDD3 TAKING SOMA 350 MG TABLET 1 TABLET NEEDED ORALLY AT BED TIME NOT-TAKING TEMAZEPAM 30 MG CAPSULE 1 CAPSULE AT BEDTIME NEEDED ORALLY BEFORE BEDTIME NEEDED FOR SLEEP NOT-TAKING PREDNISONE 20 MG TABLET 1 TABLET ORALLY DAILY, NOTES: 1 WEEK NOT-TAKING KETOROLAC TROMETHAMINE 10 MG TABLET 1 TABLET WITH FOOD OR MILK NEEDED ORALLY EVERY 6 HRS NOT-TAKING LEVAQUIN 750 MG TABLET 1 TABLET ORALLY ONCE A DAY NOT-TAKING KETOROLAC TROMETHAMINE 10 MG TABLET 1 TABLET WITH FOOD OR MILK NEEDED ORALLY EVERY 6 HRS NOT-TAKING MOVANTIK 25 MG TABLET 1 TABLET IN THE MORNING ORALLY ONCE A DAY NOT-TAKING AMOXICILLIN 875 MG TABLET 1 TABLET ORALLY EVERY 12 HRS, NOTES: 10 DAYS NOT-TAKING MEDROL 4 MG TABLET THERAPY PACK DIRECTED ORALLY DIRECTED NOT-TAKING BUSPAR 15 MG ORALLY TWICE A DAY NOT-TAKING VALIUM 10 MG TABLET 1 TABLET NEEDED ORALLY PRN MDD1 #10 TAB SHOULD LAST 30 DAYS NOT-TAKING NORTRIPTYLINE HCL 10 MG CAPSULE 3 CAPSULE= 30 MG ORALLY ONCE A DAY NOT-TAKING METHOTREXATE 8 TABS OF 2.5MG ORAL WEEKLY NOT-TAKING LYRICA 200 MG CAPSULE 1 CAPSULE ORALLY TID MDD3 NOT-TAKING FENTANYL 75 MCG/HR PATCH 72 HOUR 1 PATCH TO SKIN TRANSDERMAL 1 PATCH H30P=IKL MEDICATION LIST REVIEWED AND RECONCILED WITH THE PATIENT PAST MEDICAL HISTORY FIBROMYALGIA LUPUS INTERSTITIAL LUNG DISEASE INFLAMMATORY ARTHRITIS BROKEN RIGHT SHOULDER CHRONIC BACK PAIN BRONCHITIS/SINUSITIS SINUS KESHIA ON EKG PNEUMONIA ALLERGIES MOBIC: AGGRESIVE - SIDE EFFECTS NEURONTIN: AGGRESIVE - SIDE EFFECTS IMURAN: NAUSEA/VOMITING - SIDE EFFECTS SURGICAL HISTORY L4-5 LAMINECTOMY LOWER BACK SURGERY (DR. VALENCIA) 08/2016 APPENDECTOMY 1983 ABDOMINAL ADHESION SURGERY LUNG BIOPSY RIGHT HIP REPLACEMENT 12/2018 FAMILY HISTORY FATHER: ALIVE, UNKNOWN HX MOTHER: , LUNG DISEASE-NOT SURE WHAT DAUGHTER DUE TO COMPLICATIONS FROM MS. SOCIAL HISTORY GENERAL: TOBACCO USE ARE YOU A:CURRENT SMOKER HOW MANY CIGARETTES A DAY DO YOU SMOKE?5 OR LESS ARE YOU INTERESTED IN QUITTING?NOT READY TO QUIT PATIENT COUNSELED ON THE DANGERS OF TOBACCO USE AND URGED TO QUIT:01/16/2020 COUNSELED THE PATIENT ON SMOKING EFFECTS, EDUCATION [id number]/04/2020 LATEX QUESTIONNAIRE LATEX ALLERGY : HAVE YOU EVER DEVELOPED ANY TYPE OF REACTION AFTER HANDLING LATEX PRODUCTS SUCH RUBBER GLOVES, CONDOMS, DIAPHRAGMS, BALLOONS, SOCKS, OR UNDERWEAR?YES - PLEASE INDICATE :RUBBER GLOVES HANDS GET RED LATEX ALLERGY : HAVE YOU EVER DEVELOPED ANY TYPE OF REACTION DURING OR AFTER DENTAL APPOINTMENT, VAGINAL/RECTAL EXAMINATION, SURGICAL PROCEDURE, OR ANY OTHER EXPOSURE?NO LATEX RISK : HAVE YOU EVER HAD ANY DIFFICULTY BREATHING OR HIVES AFTER EATING OR HANDLING ANY FRUITS, OR VEGETABLES; SUCH KIWI, BANANAS, STONE FRUITS, OR CHESTNUTSNO LATEX RISK : DO YOU HAVE A PREVIOUS PERSONAL HISTORY OF MORE THAN NINE SURGERIES, SPINA BIFIDA, OR REPEATED CATHERIZATIONS? NO LATEX RISK : ARE YOU FREQUENTLY EXPOSED TO LATEX PRODUCTS IN YOUR OCCUPATION?NO DATE ASKED : 09/30/2020 ALCOHOL SCREENING DID YOU HAVE A DRINK CONTAINING ALCOHOL IN THE PAST YEAR?NO POINTS0 INTERPRETATIONNEGATIVE RECREATIONAL DRUG USE DRUG USE?NO PATIENT DENIES ABUSE OR MISSUSED OF ANY MEDICATION. PATIENT DENIES USE OF ANY ILLEGAL SUBSTANCE INCLUDING MARIJUANA OR COCAINE. CAFFEINE CAFFEINE USE?YES HOW OFTEN AND HOW MUCH? 5-7 DRINKS PER DAY SCIENTOLOGIST [id number] NONE LANGUAGE LANGUAGES SPOKEN:UKRAINIAN LEARNING BARRIERS / SPECIAL NEEDS BARRIERS TO LEARNING?NO HEARING IMPAIRED?NO VISION IMPAIRED?YES COGNITIVELY IMPAIRED?NO :CORRECTIVE LENSES READINESS TO LEARN?YES LEARNING PREFERENCES?NO LEARNING CAPABILITIES PRESENT?YES EMOTIONAL BARRIERS?NO SPECIAL DEVICES?NO COOKIE MIXER HELPER NEEDED?NO PAIN CLINIC PFS, CLERGY, PUBLIC HEALTH REFERRALS PFS REFERRAL NEEDED?NO CLERGY REFERRAL NEEDED?NO PUBLIC HEALTH REFERRAL NEEDED?NO HAS THE PATIENT BEEN EDUCATED REGARDING HIS/HER PLAN OF CARE?YES HAS THE PATIENT BEEN EDUCATED REGARDING PAIN, THE RISK FOR PAIN, THE IMPORTANCE OF EFFECTIVE PAIN MANAGEMENT, AND THE PAIN ASSESSMENT PROCESS?YES ADVANCE DIRECTIVE ADVANCE DIRECTIVE DISCUSSED WITH PATIENT:YES PATIENT HAS NO ADVANCED DIRECTIVES. HCP INFORMATION GIVEN TO AND HELP OFFERED IN COMPLETING IF NEEDED. DECLINED AT THIS TIME. REVIEWED WITH PT 08/29/18 1149 BVREVIEWED WITH PT 10/09/18 1017 BVREVIEWED WITH PATIENT 06/27/19 1106 JSREVIEWED WITH PT 08/27/19 1131 NLJREVIEWED WITH PATIENT 10/15/19 1038 JSREVIEWED WITH PATIENT 11/29/2019 1049 JS. HOSPITALIZATION/MAJOR DIAGNOSTIC PROCEDURE LUPUS BACK PAIN SURGERY ER ON SEPTEMBER 19 AND REVIEW OF SYSTEMS CONSTITUTIONAL: ANY RECENT FEVER NO . CHILLS NO . WEIGHT CHANGE OF UNKNOWN REASONS NO . GASTROENTEROLOGY: NEW UNEXPLAINABLE CHANGES IN BOWEL CONTROL NO . CONSTIPATION NO . GENITOURINARY: ANY NEW CHANGE IN BLADDER CONTROL? NO . NEUROLOGY: NEW ONSET DIZZINESS OR NEUROLOGICAL CHANGES NOT MENTIONED NO . NEW NUMBNESS OR PAIN PATTERNS NOT MENTIONED AND PERTINENT TO TODAY'S VISIT NO . CARDIOLOGY: NEW CHEST PRESSURE NO . NEW CHEST PAIN NO . RESPIRATORY: UNEXPLAINABLE COUGH NO . NEW SHORTNESS OF BREATH NO . VITAL SIGNS WT 184.0 LBS, HT 65 IN, BMI 30.62 INDEX, BP 112/53 MM HG, HR 56 /MIN, RR 18 /MIN, TEMP 97.5 F, OXYGEN SAT % 98%, SAFE IN ENV? (Y/N) YES, NA INITIALS AW 1023, REVIEWED BY: CASSIUS. EXAMINATION GENERAL EXAMINATION: GENERAL AWAKE,ALERT ,PLEASANT . PSYCH AFFECT NORMAL . LUNGS: LUNG PAN ARE CLEAR TO AUSCULTATION BILATERALLY. GOOD MOVEMENT OF AIR . HEART: S1, S2 IN A REGULAR RATE AND RHYTHM. NO SIGNIFICANT MURMURS, RUBS OR GALLOPS NOTED . DIAGNOSTIC TESTS REVIEWEDMRI L/S SPINE 07/2020 . ASSESSMENTS CHRONIC PRESCRIPTION OPIATE USE - Z79.891 (PRIMARY) POST LAMINECTOMY SYNDROME - M96.1 TREATMENT CHRONIC PRESCRIPTION OPIATE USE REFILL OXYCODONE HCL TABLET, 15 MG, 1 TABLET, ORALLY, EVERY 8 HOURS NEEDED FOR PAIN MDD 3, 30 DAYS, 90, REFILLS 0 START MS CONTIN TABLET EXTENDED RELEASE, 30 MG, 1 TABLET, ORALLY, BEFORE BEDTIME, 30 DAYS, 30, REFILLS 0 NOTES: TODAY WE MADE MEDICATION ADJUSTMENTS. I RECOMMEND INCREASING MS CONTIN TO 30 MG AT AT BEDTIME. REDUCE OXYCODONE 15 MG TO EVERY 8 HOURS NEEDED FOR SEVERE PAIN EPISODES. CONTINUE SOMA 350 MG AT BEDTIME. USING ROBAXIN DURING THE DAYTIME WITH MAXIMUM OF 3 TABLETS A DAY. FOLLOW-UP WILL BE SCHEDULED IN 2 MONTHS. , ISTOP REGISTRY REVIEWED AND DEMONSTRATES COMPLLIANCE. BRINGS IN MEDICATIONS WHICH IS APPROPRIATE FOR WHAT WAS DISPENSED. RECENT URINE TOXICOLOGY REVIEWED. NO UNAUTHORIZED MEDICATIONS. NO ILLICIT SUBSTANCES AND PRESCRIBED MEDICATIONS WERE PRESENT. URINE TOX TODAY , RISKS OF NARCOTIC/OPIOD MEDICATIONS INCLUDES BUT IS NOT LIMITED TO RISK OF DEPENDANCE/DEVELOPMENT OF ADDICTION, MOOD DISTURBANCE AND DEPRESSION, OSTEOPOROSIS, HORMONAL AND LABIDAL CHANGES, RESPIRATORY DEPRESSION AND . PATIENT IS ADVISED NOT TO DRIVE OR DRINK ALCOHOL WHILE ON THESE MEDICATIONS. PROCEDURE CODES [id number] ESTABILISHED PATIENT [facility] CHARGE DISPOSITION & COMMUNICATION FOLLOW UP 2 MONTHS (REASON: MED MGMNT) ELECTRONICALLY SIGNED BY GABE WELLS ON 10/01/2020 AT 03:13 PM EST DISCLAIMER : THIS IS A VISIT SUMMARY EXTRACTED FROM THE [employer] CHART. IT IS NOT A COPY OF THE [employer] PROGRESS NOTE. CHRISTOFER
== END ==
LOC: M PAIN 10:30
PROVIDERS: ATTEND Nurse Practitioner Family
DX: M96.1 Postlaminectomy syndrome, not elsewhere classified (principal); M79.7 Fibromyalgia; M32.9 Systemic lupus erythematosus, unspecified; F17.210 Nicotine dependence, cigarettes, uncomplicated; Z79.891 Long term (current) use of opiate analgesic; Z79.899 Other long term (current) drug therapy; Z88.8 Allergy status to other drugs, medicaments and biological substances

== ENCOUNTER → 2020-10-12 | Outpatient (REF) | payer BC | LOC: M LAB REF 12:47 | PROVIDERS: ATTEND Physician Assistant | DX: R19.7 Diarrhea, unspecified (principal) ==

== ENCOUNTER → 2020-10-15 | Outpatient (CLI) | payer SELFPAY | LOC: M LABSMTC 10:04 | PROVIDERS: ATTEND Pediatrics | DX: Z20.828 Contact with and (suspected) exposure to other viral communicable diseases (principal) ==

== ENCOUNTER → 2020-11-30 | Outpatient (CLI) | payer BC ==
[~2020-11-30] MED LIST changes: +PROHANCE 279.3MG/ML 15ML VIAL As Ordered ONE; +PROHANCE 279.3MG/ML 5ML VIAL As Ordered ONE
--- NOTE | 2020-12-01 08:22 | REP ---
INDICATION: SYSTEMIC LUPUS ERTHEMATOSUS RELATED SYNDROME LUPUS. Low back pain. COMPARISON: Comparison is made with MRI studies of the lumbar spine dated August 21, 2020 and July 29, 2014.. TECHNIQUE: Sagittal and axial T1 and T2-weighted scans are acquired in the usual fashion with and without fat saturation. Sequences include spin echo, turbo spin-echo, and STIR imaging sequences. FINDINGS: In the interval between the 2 prior study dates, the patient has undergone laminectomy and posterior element fusion across the L4-5 disc. The L4-5 disc remains narrowed and there is some reactive marrow change on either side of the narrowed L4-5 disc. The previously noted right paracentral disc protrusion is resolved. There is minimal discogenic spurring encroaching on the right neural foramen. This is unchanged from the most recent prior study of August 21, 2020. There is post laminectomy enlargement of the thecal sac at the 4 5 level. There is magnetic field susceptibility artifact arising from the spinous processes at the L4 and L5 level consistent with the fusion hardware. At L5-S1, today's study demonstrates osteoarthritic facet disease bilaterally unchanged from the prior study. No evidence of thecal sac compression or nerve root compression at L5-S1. At L3-4, there is moderate osteoarthritic facet hypertrophy and some ligamentum flavum hypertrophy. In combination with mild diffuse disc bulging, there is mild central canal stenosis at L3-4. The midline AP dimension of the thecal sac at L3-4 is 9 mm. The facet hypertrophy is more pronounced than on the 2014 study at L3-4 and the central disc bulging is new compared to 2014. The AP dimension of the thecal sac in 2014 was 12.7 mm. There is bulging of the foraminal segments of the disc on both sides but no nerve root impingement is appreciated. At L2-3, there is no evidence of focal disc protrusion or cauda equina compression. The L1-2 level remains unremarkable. No extra vertebral abnormality is observed. There is a mild levoconvex curvature on coronal cold roller images. There is evidence of a right hip arthroplasty on cold roller images. The tip of the conus medullaris is normal in position and appearance at L1. IMPRESSION: Stable postoperative changes at L4-5. Mild right-sided neural foraminal narrowing at L4-5 unchanged from the most recent prior study. There is mild central canal stenosis at L3-4 with progression of osteoarthritic facet disease at L3-4 and ligamentum flavum hypertrophy when compared with the 2014 prior study. No new disc herniation seen. <Electronically signed by Juan Camara > 12/01/20 0806
--- NOTE | 2020-12-01 08:27 | REP ---
INDICATION: SYSTEMIC LUPUS ERTHEMATOSUS RELATED SYNDROME. Memory loss. COMPARISON: Comparison CT study of the brain is from December 03, 2016.. TECHNIQUE: Axial and sagittal imaging planes are utilized for T1 and T2-weighted scans. Sequences include spin-echo, fast spin echo, FLAIR, and diffusion weighted sequences. The gadolinium enhancement dose is 17 mL of intravenous ProHance. Post gadolinium enhanced T1 weighted images are obtained in all 3 planes. FINDINGS: No bony calvarial defect is seen. Craniocervical junction and upper cervical cord are unremarkable. There is no MR evidence of significant paranasal sinus disease. No intraorbital abnormality is seen. Diffusion-weighted scans show no evidence of restricted diffusion to suggest acute ischemia or other lesion. There is no evidence of intracranial hemorrhage. There are a few scattered foci on T2 FLAIR images of the subcortical white matter hyperintensity consistent with mild small vessel changes. No extra-axial fluid collection or mass lesion is observed. Postcontrast imaging shows enhancement in normal intracranial vascular structures. No abnormal intracranial contrast enhancement is appreciated. IMPRESSION: Minimal small vessel changes. Otherwise negative MRI study of the brain without and with intravenous contrast. No acute intracranial lesion seen. <Electronically signed by Juan Camara > 12/01/20 6725
== END ==
LOC: M RAD 17:13
PROVIDERS: ATTEND Physician Assistant
DX: M32.9 Systemic lupus erythematosus, unspecified (principal); R41.3 Other amnesia; M51.26 Other intervertebral disc displacement, lumbar region; M43.26 Fusion of spine, lumbar region; M25.78 Osteophyte, vertebrae; M51.36 Other intervertebral disc degeneration, lumbar region
CPT/HCPCS: 70553; 72148; A9576

== ENCOUNTER → 2020-11-30 | Outpatient (CLI) | payer BC ==
[~2020-11-30] MED LIST changes: -PROHANCE 279.3MG/ML 15ML VIAL As Ordered ONE; -PROHANCE 279.3MG/ML 5ML VIAL As Ordered ONE
--- NOTE | 2020-12-02 04:41 | ECWPNPC ---
PATIENT NAME: CONSTANCE WYMAN : 1970 GENDER: FEMALE VISIT DATE: 11/30/2020 DISCHARGE DATE: 11/30/20 1207 VISIT LOCKED DATE TIME: PHYSICIAN: KIM VELASCO RESOURCE: KIM VELASCO REASON FOR APPOINTMENT 1. MED MANAGEMENT HISTORY OF PRESENT ILLNESS GENERAL: HERE FOR FOLLOW-UP AND MEDICATION MANAGEMENT FOR PERSISTENT LOW BACK PAIN. PAIN HAS INCREASED OVER THE PAST WEEK. [facility] HAS ORDERED AN MRI OF THE LUMBAR SACRAL SPINE WELL A BRAIN MRI. SHE WILL HAVE THAT COMPLETED SOON. SHE WILL HAVE FOLLOW-UP SCHEDULED WITH PRIMARY CARE SUSIE CARTWRIGHT. REPORTING SIGNIFICANTLY HIGH LEVELS OF PAIN DESPITE HIGH DOSES OF NARCOTIC PAIN MEDICATION. SHE FEELS ROBAXIN DURING THE DAYTIME IS NOT HELPFUL. DISCUSSED MEDICATION OPTIONS. BRINGS IN HER MEDICATION WHICH IS APPROPRIATE FOR WHAT WAS DISPENSED. 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 REPORTING EPISODES OF SEVERE CONSTIPATION. DISCUSSED BOWEL REGIMEN. -. FALL RISK SCREENING: SCREENING :NO FALLS REPORTED IN THE LAST YEAR NONE PAIN SCREENING: PATIENT HAS A COMPLAINT OF ACUTE OR CHRONIC PAIN :YES LOCATION OF PAIN:LOW BACK INTENSITY OF PAIN (SCALE OF 1 TO 10):7 WHEN MOVING AND WALKING AND PAIN KEEPS HER UP AT NIGHT, PAIN IN THIGH MUSCLE CAUSED PATIENT TO SCREAM OUT IN PAIN. WHAT DOES YOUR PAIN FEEL LIKE:ACHING, BURNING, SHARP, STABBING DURATION:CONTINOUS PAIN IS INCREASED BY:ACTIVITIES, PROLONGED STANDING PAIN IS DECREASED BY:USE OF PAIN MEDICATIONS TREATMENT/MEDICATIONS USED TO MANAGE PAIN:OTC PAIN RELIEVERS, NSAIDS, TOPICAL CORTICOSTEROIDS, OPIOIDS, PHYSICAL THERAPY PAIN CENTER INTAKE QUESTIONS: DO YOU HAVE A HISTORY OF MRSA? :NO DO YOU TAKE A BLOOD THINNERS? :NO DO YOU HAVE ANY BLEEDING DISORDERS? :NO ANY NEW NUMBNESS OR WEAKNESS IN YOUR LEGS OR ARMS? :NO ANY PACEMAKER,DEFIBRILLATOR, OR DORSAL COLUMN STIMULATOR? :NO DO YOU HAVE ANY RASHES OR OPEN SORES? :NO ARE YOU ALLERGIC TO IV DYE? :NO ARE YOU DIABETIC? :NO ANY NEW PROBLEMS WITH YOUR MEDICATIONS? :NO HAVE YOU RECEIVED A VACCINE IN THE PAST 30 DAYS? :NO DO YOU PLAN TO RECEIVE A VACCINE IN THE NEXT 21 DAYS? :NO DO YOU NEED ANY PRESCRIPTION? :YES OXYCODONE, MORPHINE, SOMA DO YOU TAKE ANY IMMUNOSUPPRESSIVE MEDICATIONS? :NO IS THERE A CHANCE YOU COULD BE ? :NO ARE YOU BREAST FEEDING? :NO CURRENT MEDICATIONS TAKING LASIX 40 MG TABLET 1 TABLET ORALLY BID TAKING POTASSIUM CHLORIDE 20 MG CAPSULE EXTENDED RELEASE 1 CAPSULE WITH FOOD ORALLY TWICE A DAY TAKING WELLBUTRIN XL 150 MG TABLET EXTENDED RELEASE 24 HOUR 1 TABLET IN THE MORNING ORALLY ONCE A DAY TAKING PAXIL 30 MG TABLET 1 TABLET IN THE MORNING ORALLY ONCE A DAY TAKING XANAX 0.5 MG TABLET 1 TABLET ORALLY THREE TIMES DAILY NEEDED TAKING ATENOLOL 50 MG TABLET 1 TABLET ORALLY TWICE DAILY TAKING PROBIOTIC - TABLET DELAYED RELEASE 1 CAPSULE ORALLY DAILY TAKING ROBAXIN-750 750 MG TABLET 1 TABLET ORALLY THREE TIMES DAILY TAKING MORPHINE SULFATE ER 30 MG CAPSULE EXTENDED RELEASE 24 HOUR 1 TABLET ORALLY MDD 1 DAILY TAKING SOMA 350 MG TABLET 1 TABLET NEEDED ORALLY AT BED TIME TAKING OXYCODONE HCL 15 MG TABLET 1 TABLET ORALLY EVERY 8 HOURS NEEDED FOR PAIN MDD 3 NOT-TAKING MS CONTIN 30 MG TABLET EXTENDED RELEASE 1 TABLET ORALLY BEFORE BEDTIME NOT-TAKING TEMAZEPAM 30 MG CAPSULE 1 CAPSULE AT BEDTIME NEEDED ORALLY BEFORE BEDTIME NEEDED FOR SLEEP NOT-TAKING PREDNISONE 20 MG TABLET 1 TABLET ORALLY DAILY, NOTES: 1 WEEK NOT-TAKING KETOROLAC TROMETHAMINE 10 MG TABLET 1 TABLET WITH FOOD OR MILK NEEDED ORALLY EVERY 6 HRS NOT-TAKING LEVAQUIN 750 MG TABLET 1 TABLET ORALLY ONCE A DAY NOT-TAKING KETOROLAC TROMETHAMINE 10 MG TABLET 1 TABLET WITH FOOD OR MILK NEEDED ORALLY EVERY 6 HRS NOT-TAKING MOVANTIK 25 MG TABLET 1 TABLET IN THE MORNING ORALLY ONCE A DAY NOT-TAKING AMOXICILLIN 875 MG TABLET 1 TABLET ORALLY EVERY 12 HRS, NOTES: 10 DAYS NOT-TAKING MEDROL 4 MG TABLET THERAPY PACK DIRECTED ORALLY DIRECTED NOT-TAKING BUSPAR 15 MG ORALLY TWICE A DAY NOT-TAKING VALIUM 10 MG TABLET 1 TABLET NEEDED ORALLY PRN MDD1 #10 TAB SHOULD LAST 30 DAYS NOT-TAKING NORTRIPTYLINE HCL 10 MG CAPSULE 3 CAPSULE= 30 MG ORALLY ONCE A DAY NOT-TAKING METHOTREXATE 8 TABS OF 2.5MG ORAL WEEKLY NOT-TAKING LYRICA 200 MG CAPSULE 1 CAPSULE ORALLY TID MDD3 NOT-TAKING FENTANYL 75 MCG/HR PATCH 72 HOUR 1 PATCH TO SKIN TRANSDERMAL 1 PATCH [id number] MEDICATION LIST REVIEWED AND RECONCILED WITH THE PATIENT PAST MEDICAL HISTORY FIBROMYALGIA LUPUS INTERSTITIAL LUNG DISEASE INFLAMMATORY ARTHRITIS BROKEN RIGHT SHOULDER CHRONIC BACK PAIN BRONCHITIS/SINUSITIS SINUS KESHIA ON EKG PNEUMONIA ALLERGIES MOBIC: AGGRESIVE - SIDE EFFECTS NEURONTIN: AGGRESIVE - SIDE EFFECTS IMURAN: NAUSEA/VOMITING - SIDE EFFECTS SURGICAL HISTORY L4-5 LAMINECTOMY LOWER BACK SURGERY (DR. VALENCIA) 08/2016 APPENDECTOMY 1983 ABDOMINAL ADHESION SURGERY LUNG BIOPSY RIGHT HIP REPLACEMENT 12/2018 FAMILY HISTORY FATHER: ALIVE, UNKNOWN HX MOTHER: , LUNG DISEASE-NOT SURE WHAT DAUGHTER DUE TO COMPLICATIONS FROM MS. SOCIAL HISTORY GENERAL: TOBACCO USE ARE YOU A:CURRENT SMOKER ARE YOU INTERESTED IN QUITTING?THINKING ABOUT QUITTING HOW MANY CIGARETTES A DAY DO YOU SMOKE?5 OR LESS PATIENT COUNSELED ON THE DANGERS OF TOBACCO USE AND URGED TO QUIT:11/30/2020 VAPORYES E-CIGARETTENO LATEX QUESTIONNAIRE LATEX ALLERGY : HAVE YOU EVER DEVELOPED ANY TYPE OF REACTION AFTER HANDLING LATEX PRODUCTS SUCH RUBBER GLOVES, CONDOMS, DIAPHRAGMS, BALLOONS, SOCKS, OR UNDERWEAR?YES LATEX ALLERGY : HAVE YOU EVER DEVELOPED ANY TYPE OF REACTION DURING OR AFTER DENTAL APPOINTMENT, VAGINAL/RECTAL EXAMINATION, SURGICAL PROCEDURE, OR ANY OTHER EXPOSURE?NO - PLEASE INDICATE :RUBBER GLOVES HANDS GET RED DATE ASKED : 09/30/2020 LATEX RISK : HAVE YOU EVER HAD ANY DIFFICULTY BREATHING OR HIVES AFTER EATING OR HANDLING ANY FRUITS, OR VEGETABLES; SUCH KIWI, BANANAS, STONE FRUITS, OR CHESTNUTSNO LATEX RISK : DO YOU HAVE A PREVIOUS PERSONAL HISTORY OF MORE THAN NINE SURGERIES, SPINA BIFIDA, OR REPEATED CATHERIZATIONS? NO LATEX RISK : ARE YOU FREQUENTLY EXPOSED TO LATEX PRODUCTS IN YOUR OCCUPATION?NO LUNG CANCER SCREENING SMOKING STATUS:CURRENT SMOKER IS THE PATIENT BETWEEN THE AGE OF 55 AND 77?NO ALCOHOL SCREENING DID YOU HAVE A DRINK CONTAINING ALCOHOL IN THE PAST YEAR?NO POINTS0 INTERPRETATIONNEGATIVE RECREATIONAL DRUG USE DRUG USE?NO PATIENT DENIES ABUSE OR MISSUSED OF ANY MEDICATION. PATIENT DENIES USE OF ANY ILLEGAL SUBSTANCE INCLUDING MARIJUANA OR COCAINE. CAFFEINE CAFFEINE USE?YES HOW OFTEN AND HOW MUCH? 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 HCP INFORMATION GIVEN TO AND HELP OFFERED IN COMPLETING IF NEEDED. DECLINED AT THIS TIME. HOSPITALIZATION/MAJOR DIAGNOSTIC PROCEDURE LUPUS BACK PAIN SURGERY ER ON SEPTEMBER 19 AND ER VISIT: BACK 11/15 REVIEW OF SYSTEMS CONSTITUTIONAL: ANY RECENT FEVER NO . CHILLS NO . WEIGHT CHANGE OF UNKNOWN REASONS NO . GASTROENTEROLOGY: NEW UNEXPLAINABLE CHANGES IN BOWEL CONTROL NO . CONSTIPATION EXPERIENCING CONSTIPATION. DISCUSSED BOWEL REGIMEN. . GENITOURINARY: ANY NEW CHANGE IN BLADDER CONTROL? NO . NEUROLOGY: NEW ONSET DIZZINESS OR NEUROLOGICAL CHANGES NOT MENTIONED NO . NEW NUMBNESS OR PAIN PATTERNS NOT MENTIONED AND PERTINENT TO TODAY'S VISIT NO . CARDIOLOGY: NEW CHEST PRESSURE NO . NEW CHEST PAIN NO . RESPIRATORY: UNEXPLAINABLE COUGH NO . NEW SHORTNESS OF BREATH NO . VITAL SIGNS WT 188.0 LBS, HT 65 IN, BMI 31.28 INDEX, BP 117/58 MM HG, HR 69 /MIN, RR 18 /MIN, TEMP 95.9 F, OXYGEN SAT % 95%, NA INITIALS AW 1122, REVIEWED BY: DARLENE LINK RN BSN. EXAMINATION GENERAL EXAMINATION: GENERALAWAKE,ALERT ,PLEASANT . PSYCHAFFECT NORMAL . LUNGS:LUNG PAN ARE CLEAR TO AUSCULTATION BILATERALLY. GOOD MOVEMENT OF AIR . HEART:S1, S2 IN A REGULAR RATE AND RHYTHM. NO SIGNIFICANT MURMURS, RUBS OR GALLOPS NOTED . ASSESSMENTS CHRONIC PRESCRIPTION OPIATE USE - Z79.891 (PRIMARY) INTERVERTEBRAL DISC DISORDERS WITH RADICULOPATHY, LUMBAR REGION - M51.16 INFLAMMATORY ARTHROPATHY - M19.90 TREATMENT CHRONIC PRESCRIPTION OPIATE USE STOP ROBAXIN-750 TABLET, 750 MG, 1 TABLET, ORALLY, THREE TIMES DAILY REFILL MORPHINE SULFATE ER CAPSULE EXTENDED RELEASE 24 HOUR, 30 MG, 1 TABLET, ORALLY MDD 1, DAILY, 30 DAYS, 30 TABLET, REFILLS 0 CONTINUE SOMA TABLET, 350 MG, 1 TABLET NEEDED, ORALLY, AT BED TIME REFILL OXYCODONE HCL TABLET, 15 MG, 1 TABLET, ORALLY, EVERY 8 HOURS NEEDED FOR PAIN MDD 3, 30 DAYS, 90, REFILLS 0 START BACLOFEN TABLET, 10 MG, 1 TABLET, ORALLY, EVERY 8 HOURS 3 TIMES A DAY, 30 DAYS, 90, REFILLS 2 NOTES: ADVISED PATIENT TO START BACLOFEN 10 MG A HALF A TABLET 3 TIMES A DAY X10 DAYS THEN INCREASE TO ONE TABLET 3 TIMES DAILY. CONTINUE FOLLOW-UP ON MRI OF BRAIN AND SPINE WITH PRIMARY CARE PROVIDER. FOLLOW-UP IS SCHEDULED IN 2 MONTHS. , ISTOP REGISTRY REVIEWED AND DEMONSTRATES COMPLLIANCE. BRINGS IN MEDICATIONS WHICH IS APPROPRIATE FOR WHAT WAS DISPENSED. RECENT URINE TOXICOLOGY REVIEWED. NO UNAUTHORIZED MEDICATIONS. NO ILLICIT SUBSTANCES AND PRESCRIBED MEDICATIONS WERE PRESENT. , RISKS OF NARCOTIC/OPIOD MEDICATIONS INCLUDES BUT IS NOT LIMITED TO RISK OF DEPENDANCE/DEVELOPMENT OF ADDICTION, MOOD DISTURBANCE AND DEPRESSION, OSTEOPOROSIS, HORMONAL AND LABIDAL CHANGES, RESPIRATORY DEPRESSION AND . PATIENT IS ADVISED NOT TO DRIVE OR DRINK ALCOHOL WHILE ON THESE MEDICATIONS. PROCEDURE CODES FA211 ESTABILISHED PATIENT [facility] CHARGE DISPOSITION & COMMUNICATION FOLLOW UP 2 MONTHS (REASON: MEDICATION MANAGEMENT/CHECK ON NEW MEDICATION BACLOFEN) ELECTRONICALLY SIGNED BY GABE WELLS ON 12/01/2020 AT 03:39 PM EST DISCLAIMER : THIS IS A VISIT SUMMARY EXTRACTED FROM THE [employer] CHART. IT IS NOT A COPY OF THE [employer] PROGRESS NOTE. CHRISTOFER
== END ==
LOC: M PAIN 11:00
PROVIDERS: ATTEND Nurse Practitioner Family
DX: M51.16 Intervertebral disc disorders with radiculopathy, lumbar region (principal); M19.90 Unspecified osteoarthritis, unspecified site; M79.7 Fibromyalgia; F17.210 Nicotine dependence, cigarettes, uncomplicated; Z96.641 Presence of right artificial hip joint; Z88.6 Allergy status to analgesic agent; Z88.8 Allergy status to other drugs, medicaments and biological substances; Z79.891 Long term (current) use of opiate analgesic; Z79.899 Other long term (current) drug therapy

== ENCOUNTER → 2020-12-08 | Outpatient (CLI) | payer SELFPAY | LOC: M LABSMTC 13:14 | PROVIDERS: ATTEND Pediatrics | DX: Z20.822 Contact with and (suspected) exposure to COVID-19 (principal) ==

== ENCOUNTER 2020-12-14 09:14 | Emergency (ER) | payer BC, SELFPAY ==
[~2020-12-14] VITALS: Ht 165.1 cm; Wt 83.4 kg
[~2020-12-14 09:14] MED LIST changes: +METH-1165 PO; -METH750T2 PO
--- OUTSIDE RECORDS SUMMARY | 2020-12-14 09:21 | CCD ---
Author Author [employer] Organization [employer] Address Unknown Phone Unavailable Care Team Providers Care Pattern Molder Name Role Phone Faye Briscoe Unavailable PROBLEMS Type Condition ICD9-CM Code [id number] Code Onset Dates Condition S tatus SNOMED Code Notes Problem Intervertebral disc disorders with radiculopathy , lumbar region M51.16 Active 319371232117926 Problem Intervertebral disc disorders with radiculopathy , lumbosacral region M51.17 Active 9067614 Problem Acute low back pain due to spinal disorder M54.5 Active 809670054 Problem Chronic prescription opiate use Z79.891 Active 064975831 Problem Sacroiliitis, not elsewhere classified M46.1 A ctive 994380529 Problem Hip pain, right M25.551 Active 403584144667527 Problem 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 Active 3266529 Problem Lupus M32.9 Active 465747413 Problem Lumbar disc herniation M51.26 Active 804034418 Problem Post laminectomy syndrome M96.1 Active 563100 01 Problem Lumbar radiculopathy M54.16 Active 526751563 Problem Trochanteric bursitis of right hip M70.61 Activ e 204802129208375 Problem Right hip pain M25.551 Active 590646621397482 Problem Primary osteoarthritis of right hip M16.11 Acti ve 534744188 Problem Osteoarthritis of right hip, unspecified osteoarthritis ty pe M16.11 Active 945394669367775 ALLERGIES Allergen (clinical drug ingredient) Drug/Non Drug Allergy do cumented on EMR Reaction Allergy Type Onset Date Status meloxicam Mobic([facility] Code:[address]-69) aggresive Drug Allergy Active azathioprine Imuran([facility] Code:[address]-82) Nausea/Vomiting Drug Jaylen rgy Active gabapentin Neurontin([facility] Code:[address]-79) aggresive Drug Allergy Active ENCOUNTERS from 1970 to 2020-11-11 Encounter Location Date Provider Diagnosis [facility] [address] [place] [id number] Oct, Faye Briscoe Chronic prescription opiate use Z79.891 IMMUNIZATIONS No Information SOCIAL HISTORY Tobacco Use: Social History Observation Description Date Details (start date - stop date) Current Smoker Sex Assigned At : Social History Observation Description Sex Assigned At Unknown Language: Question Answer Notes Languages spoken: Mongolian Mandaen: Question Answer Notes Mandaen 33 None Alcohol Screening: Question Answer Notes Did you have a drink containing alcohol in the past year? No Points 0 Interpretation Negative Tobacco Use: Question Answer Notes Are you a: current smoker Patient counseled on the dangers of tobacco use and urged to quit: 01/16/2020 How many cigarettes a day do you smoke? 5 or less Are you interested in quitting? Not ready to quit Counseled the patient on smoking effects, education provided 04/30/2020 REASON FOR REFERRAL No Information VITAL SIGNS No information MEDICATIONS Medication SIG (Take, Route, Frequency, Duration) Notes Start Da te End Date Status Probiotic - 1 capsule Orally Daily A ctive Lyrica 200 MG 1 capsule Orally TID MDD3 for 30 day(s) 18 O 2016 Not-Taking Paxil 30 MG 1 tablet in the morning Orally Once a day Active Potassium Chloride 20 mg 1 capsule with food Orally Twice a day Active Lasix 40 MG 1 tablet Orally bid Acti ve MS Contin 30 MG 1 tablet Orally before bedtime for 30 Days Oct, Active Atenolol 50 MG 1 tablet Orally twice daily Active Robaxin-750 750 MG 1 tablet Orally three times daily 2017 Active Methotrexate 8 tabs of 2.5mg Oral weekly Not-Taking Medrol 4 MG as directed Orally as directed for 21 day(s) 0 1 Aug, 2019 Not-Taking Oxycodone HCl 15 MG 1 tablet Orally Every 8 hour s as needed for pain MDD 3 for 30 Days Oct, Active Temazepam 30 MG 1 capsule at bedtime as need ed Orally before bedtime NEEDED FOR SLEEP Not-Taking BuSpar 15 mg orally twice a day Not-Taking Wellbutrin XL 150 MG 1 tablet in the morning Orally Once a day Active Ketorolac Tromethamine 10 MG 1 tablet with food or mil k as needed Orally every 6 hrs for 5 day(s) Apr, Not-Taking Valium 10 MG 1 tablet as needed Orally pr n mdd1 #10 tab should last 30 days for 30 day(s) March, Not-Taking Nortriptyline HCl 10 MG 3 capsule= 30 mg Orally Once a day for 30 day (s) Not-Taking Fentanyl 75 MCG/HR 1 patch to skin Transdermal 1 patch [id number] for 30 day(s) Feb, Not-Taking Soma 350 MG 1 tablet as needed Orally AT BED TIME Active Xanax 0.5 MG 1 tablet Orally three times daily as needed Active PredniSONE 20 MG 1 tablet Orally Daily Jun, Not-Taking Movantik 25 MG 1 tablet in the morning Orally Once a day for 30 day(s) Nov, Not-Taking Levaquin 750 MG 1 tablet Orally Once a day for 10 day(s) Not-Taking Amoxicillin 875 MG 1 tablet Orally every 12 hrs for 5 day(s) Not-Taking Ketorolac Tromethamine 10 MG 1 tablet with food or mil k as needed Orally every 6 hrs for 5 day(s) March, Not-Taking Morphine Sulfate ER 30 MG 1 tablet Orally MDD 1 Daily Aug, Active PROCEDURES No Information RESULTS No Results REASON FOR VISIT REFILL OXYCODONE 15 MG MEDICAL (GENERAL) HISTORY Type Description Date Medical History Fibromyalgia Medical History Lupus Medical History interstitial lung disease Medical History inflammatory arthritis Medical History Broken Right Shoulder Medical History Chronic Back Pain Medical History Bronchitis/Sinusitis Medical History Sinus Melo on EKG Medical History Pneumonia Surgical History L4-5 laminectomy lower back surgery (Dr. Neal) 08/2016 Surgical History Appendectomy 1983 Surgical History Abdominal Adhesion Surgery Surgical History Lung Biopsy Surgical History Right Hip Replacement 12/2018 Hospitalization History Lupus Hospitalization History Back Pain Hospitalization History surgery Hospitalization History ER ON SEPTEMBER 19 AND Goals Section No Information Health Concerns No Information MEDICAL EQUIPMENT No Information MENTAL STATUS No Information FUNCTIONAL STATUS No Information ASSESSMENTS Encounter Date Diagnosis Assessment Notes Treatment Notes Treatm ent Clinical Notes Oct, Chronic prescription opiate use (ICD-10 - Z79.89 1) PLAN OF TREATMENT Medication Medication Name Sig Start Date Stop Date MS Contin 30 MG 1 tablet Orally before bedtime for 30 Days 2019 Oxycodone HCl 15 MG 1 tablet Orally Every 8 hour s as needed for pain MDD 3 for 30 Days Oct, Next Appt Details Provider Name:Faye Briscoe, 2020-11-30 11 :00:00 AM, [address] [place], [address], Insurance Providers Payer Name Payer Address Payer Phone Insured Name Patient Relati onship to Insured Coverage Start Date Coverage End Date MILLI/ARISTEO, Joyce [address] [phone] CONSTANCE MARR self
--- OUTSIDE RECORDS SUMMARY | 2020-12-14 09:21 | CCD ---
Author Author [facility] [employer] Organization [facility] [employer] Address Unknown Phone Unavailable Care Team Providers Care Manager Banking Name Role Phone Faye Briscoe Unavailable PROBLEMS Type Condition ICD9-CM Code [id number] Code Onset Dates Condition S tatus SNOMED Code Notes Problem Intervertebral disc disorders with radiculopathy , lumbar region M51.16 Active 896635629872214 Problem Intervertebral disc disorders with radiculopathy , lumbosacral region M51.17 Active 7413979 Problem Acute low back pain due to spinal disorder M54.5 Active 194523966 Problem Chronic prescription opiate use Z79.891 Active 206813681 Problem Sacroiliitis, not elsewhere classified M46.1 A ctive 650647886 Problem Hip pain, right M25.551 Active 707977963509558 Problem 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 Active 8122232 Problem Lupus M32.9 Active 298991272 Problem Lumbar disc herniation M51.26 Active 732221896 Problem Post laminectomy syndrome M96.1 Active 619233 01 Problem Lumbar radiculopathy M54.16 Active 193084857 Problem Trochanteric bursitis of right hip M70.61 Activ e 310100915247155 Problem Right hip pain M25.551 Active 847987764236891 Problem Primary osteoarthritis of right hip M16.11 Acti ve 933671635 Problem Osteoarthritis of right hip, unspecified osteoarthritis ty pe M16.11 Active 096809640785513 ALLERGIES Allergen (clinical drug ingredient) Drug/Non Drug Allergy do cumented on EMR Reaction Allergy Type Onset Date Status meloxicam Mobic([facility] Code:[address]-94) aggresive Drug Allergy Active azathioprine Imuran([facility] Code:[address]-57) Nausea/Vomiting Drug Jaylen rgy Active gabapentin Neurontin([facility] Code:[address]-66) aggresive Drug Allergy Active ENCOUNTERS from 1970 to 2020-12-09 Encounter Location Date Provider Diagnosis [facility] [address] [place] [phone] Nov, Faye Briscoe IMMUNIZATIONS No Information SOCIAL HISTORY Tobacco Use: Social History Observation Description Date Details (start date - stop date) Current Smoker Sex Assigned At : Social History Observation Description Sex Assigned At Unknown Language: Question Answer Notes Languages spoken: [place] Islander Quaker: Question Answer Notes Quaker 33 None Alcohol Screening: Question Answer Notes Did you have a drink containing alcohol in the past year? No Points 0 Interpretation Negative Tobacco Use: Question Answer Notes Are you a: current smoker Patient counseled on the dangers of tobacco use and urged to quit: 11/30/2020 How many cigarettes a day do you smoke? 5 or less Are you interested in quitting? Thinking about quitting REASON FOR REFERRAL No Information VITAL SIGNS No information MEDICATIONS Medication SIG (Take, Route, Frequency, Duration) Notes Start Da te End Date Status Temazepam 30 MG 1 capsule at bedtime as need ed Orally before bedtime NEEDED FOR SLEEP Not-Taking Soma 350 MG 1 tablet as needed Orally AT BED TIME Active Lyrica 200 MG 1 capsule Orally TID MDD3 for 30 day(s) 18 O 2016 Not-Taking Levaquin 750 MG 1 tablet Orally Once a day for 10 day(s) Not-Taking Amoxicillin 875 MG 1 tablet Orally every 12 hrs for 5 day(s) Not-Taking Morphine Sulfate ER 30 MG 1 tablet Orally MDD 1 Daily for 30 Da ys Nov, Active MS Contin 30 MG 1 tablet Orally before bedtime for 30 Days Oct, Not-Taking Ketorolac Tromethamine 10 MG 1 tablet with food or mil k as needed Orally every 6 hrs for 5 day(s) Apr, Not-Taking Movantik 25 MG 1 tablet in the morning Orally Once a day for 30 day(s) Nov, Not-Taking Atenolol 50 MG 1 tablet Orally twice daily Active Probiotic - 1 capsule Orally Daily A ctive Nortriptyline HCl 10 MG 3 capsule= 30 mg Orally Once a day for 30 day (s) Not-Taking Fentanyl 75 MCG/HR 1 patch to skin Transdermal 1 patch [id number] for 30 day(s) Feb, Not-Taking Ketorolac Tromethamine 10 MG 1 tablet with food or mil k as needed Orally every 6 hrs for 5 day(s) March, Not-Taking BuSpar 15 mg orally twice a day Not-Taking Xanax 0.5 MG 1 tablet Orally three times daily as needed Active Baclofen 10 MG 1 tablet Orally Every 8 hours 3 times a day for 30 Days Nov, Active Oxycodone HCl 15 MG 1 tablet Orally Every 8 hour s as needed for pain MDD 3 for 30 Days Nov, Active Valium 10 MG 1 tablet as needed Orally pr n mdd1 #10 tab should last 30 days for 30 day(s) March, Not-Taking PredniSONE 20 MG 1 tablet Orally Daily Jun, Not-Taking Medrol 4 MG as directed Orally as directed for 21 day(s) 0 Aug, Not-Taking Lasix 40 MG 1 tablet Orally bid Acti ve Potassium Chloride 20 mg 1 capsule with food Orally Twice a day Active Methotrexate 8 tabs of 2.5mg Oral weekly Not-Taking Wellbutrin XL 150 MG 1 tablet in the morning Orally Once a day Active Paxil 30 MG 1 tablet in the morning Orally Once a day Active PROCEDURES No Information RESULTS No Results REASON FOR VISIT MORPHINE ER 30 MG MEDICAL (GENERAL) HISTORY Type Description Date [...] Hospitalization History ER ON SEPTEMBER 19 AND Hospitalization History ER Visit: Back 11/15 Goals Section No Information Health Concerns No Information MEDICAL EQUIPMENT No Information MENTAL STATUS No Information FUNCTIONAL STATUS No Information ASSESSMENTS No Information PLAN OF TREATMENT Medication Medication Name Sig Start Date Stop Date Oxycodone HCl 15 MG 1 tablet Orally Every 8 hour s as needed for pain MDD 3 for 30 Days Nov, Baclofen 10 MG 1 tablet Orally Every 8 hours 3 times a day for 30 Days Nov, Morphine Sulfate ER 30 MG 1 tablet Orally MDD 1 Daily for 30 Da ys Nov, Soma 350 MG 1 tablet as needed Orally AT BED TIME Next Appt Details Provider Name:Faye Briscoe, 2021-01-28 11 :30:00 AM, [address] [place], [address], Insurance Providers Payer Name Payer Address Payer Phone Insured Name Patient Relati onship to Insured Coverage Start Date Coverage End Date MILLI/ARSITEO, Joyce [address] [address] CONSTANCE MARR self
--- OUTSIDE RECORDS SUMMARY | 2020-12-14 09:21 | CCD | Continuity of Care Document ---
Author Author Meg MCDONNELL [place] Organization Unknown Address [address] [place] [address] [place] [address] Phone [phone] Care Team Providers Care Supervisor Esters And Emulsifiers Name Role Phone Maia Chiang AUTM [phone] [employer] AUTM [phone] Problems Description No Information Available Social History Type Date Description Comments Sex Unknown ETOH Use Denies alcohol use Tobacco Use Start: Unknown Patient is a current smoker, smo kes every day 1/2ppd Smoking Status Reviewed: 10/08/20 Patient is a current smoker, smokes every day 1/2ppd Allergies, Adverse Reactions, Alerts Description No Known Drug Allergies Medications Active Medications SIG Qnty Indications Ordering Provide r Date Amoxicillin/Clavulanate Potassium 875-125mg Tablets 1 tab by mouth twice a day x10 days 20tabs Jamison Menezes JR., M.D. 10/08/2020 Albuterol Sulfate HFA 108(90Base) mcg/Act Aerosol 1 puff inhaled 3-4 x per day for sob/wheezing 8.500gm Jamison Menezes JR., M.D. 10/08/2020 Mucinex 600mg Tablets ER 12HR 1 tab by mouth twice a day x 10 days 20tabs Jamison Aguilar M.D. 10/08/2020 Atenolol 50mg Tablets bid Unknown Lasix 40mg Tablets bid Unknown Potassium Chloride 20Meq/50ML Solution Unknown Protonix 40mg Tablets DR bid Unknown Wellbutrin XL 300mg Tablets ER 24HR qd Unknown Immunizations Description No Information Available Vital Signs Date Vital Result Comment 10/08/2020 5:42pm BP Systolic 108 mmHg BP Diastolic 75 mmHg Heart Rate 58 /min Respiratory Rate 18 /min O2 % BldC Oximetry 96 % Body Temperature 99.5 F Weight 184.00 lb Height 65 inches 5'5" BMI (Body Mass Index) 30.6 kg/m2 Pain Level 5 Results Description No Information Available Procedures Description No Information Available Medical Devices Description No Information Available Encounters Type Date Location Provider Dx Diagnosis Office Visit 10/08/2020 5:25p Main Office MICHAEL Roblero J0 6.9 Acute upper respiratory infection, unspecified Z20.828 Contact w and exposure to ot h viral communicable diseases Assessments Date Code Description Provider 10/08/2020 J06.9 Acute upper respiratory infectio n, unspecified MICHAEL Roblero 10/08/2020 Z20.828 Contact with and (huerta spected) exposure to other viral communicable diseases MICHAEL Roblero Plan of Treatment No Information Available Functional Status Description No Information Available Mental Status Description No Information Available Referrals Description No Information Available
--- OUTSIDE RECORDS SUMMARY | 2020-12-14 09:21 | CCD ---
Author Author [facility] [employer] [facility] Organization [employer] [facility] Address Unknown Phone Unavailable Care Team Providers Care Nuclear Plant Instrument Technician Name Role Phone Celso Mohan Unavailable PROBLEMS Type Condition ICD9-CM Code [id number] Code Onset Dates Condition S tatus SNOMED Code Notes Problem Intervertebral disc disorders with radiculopathy , lumbar region M51.16 Active 996122646647448 Problem Intervertebral disc disorders with radiculopathy , lumbosacral region M51.17 Active 1021538 Problem Acute low back pain due to spinal disorder M54.5 Active 231221656 Problem Chronic prescription opiate use Z79.891 Active 963434035 Problem Sacroiliitis, not elsewhere classified M46.1 A ctive 431333656 Problem Hip pain, right M25.551 Active 699564956878397 Problem 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 Active 2923333 Problem Lupus M32.9 Active 661197093 Problem Lumbar disc herniation M51.26 Active 348018722 Problem Post laminectomy syndrome M96.1 Active 261228 01 Problem Lumbar radiculopathy M54.16 Active 251960819 Problem Trochanteric bursitis of right hip M70.61 Activ e 252066352821221 Problem Right hip pain M25.551 Active 788980641360512 Problem Primary osteoarthritis of right hip M16.11 Acti ve 817748124 Problem Osteoarthritis of right hip, unspecified osteoarthritis ty pe M16.11 Active 471415509567194 ALLERGIES Allergen (clinical drug ingredient) Drug/Non Drug Allergy do cumented on EMR Reaction Allergy Type Onset Date Status meloxicam Mobic(NDC Code:[address]-24) aggresive Drug Allergy Active azathioprine Imuran(NDC Code:[address]-69) Nausea/Vomiting Drug Jaylen rgy Active gabapentin Neurontin([facility][NOTE 3] Code:[address]-36) aggresive Drug Allergy Active ENCOUNTERS from 1970 to 2020-11-05 Encounter Location Date Provider Diagnosis [facility] [address] [place] [id number] Oct, Celso Mohan Chronic prescription opiate use Z79.891 IMMUNIZATIONS No Information SOCIAL HISTORY Tobacco Use: Social History Observation Description Date Details (start date - stop date) Current Smoker Sex Assigned At : Social History Observation Description Sex Assigned At Unknown Language: Question Answer Notes Languages spoken: Nicaraguan Taoism: Question Answer Notes Taoism 33 None Alcohol Screening: Question Answer Notes [...] 21 day(s) 0 1 Aug, 2019 Not-Taking PredniSONE 20 MG 1 tablet Orally Daily Jun, Not-Taking Temazepam 30 MG 1 capsule at bedtime as need ed Orally before bedtime NEEDED FOR SLEEP Not-Taking BuSpar 15 mg orally twice a day Not-Taking Wellbutrin XL 150 MG 1 tablet in the morning Orally Once a day Active Soma 350 MG 1 tablet as needed Orally AT BED TIME Active Valium 10 MG 1 tablet as needed Orally pr n mdd1 #10 tab should last 30 days for 30 day(s) March, Not-Taking Nortriptyline HCl 10 MG 3 capsule= 30 mg Orally Once a day for 30 day (s) Not-Taking Fentanyl 75 MCG/HR 1 patch to skin Transdermal 1 patch n36h=GLN for 30 day(s) Feb, Not-Taking Oxycodone HCl 15 MG 1 tablet Orally Every 8 hour s as needed for pain MDD 3 for 30 Days Oct, Active Xanax 0.5 MG 1 tablet Orally three times daily as needed Active Ketorolac Tromethamine 10 MG 1 tablet [...] Information RESULTS No Results REASON FOR VISIT OXYCODONE AND MORPHINE ER REFILLS MEDICAL (GENERAL) HISTORY Type Description Date Medical [...] Name:Faye Briscoe, 2020-11-30 11 :00:00 AM, [address] [place], [address], Insurance Providers Payer Name Payer Address Payer Phone Insured Name Patient Relati onship to Insured Coverage Start Date Coverage End Date MILLI/Joyce ALBERTS [address] [phone] CONSTANCE MARR self
--- OUTSIDE RECORDS SUMMARY | 2020-12-14 09:21 | CCD | Continuity of Care Document ---
Author Author Meg MCDONNELL [place] Organization Unknown Address [address] [place] [address] [place] [address] Phone [phone] Care Team Providers Care Central Sterile Supply Technician Name Role Phone Maia Chiang AUTM [phone] [employer] AUTM [phone] Problems Description No Information Available Social History [...]
--- OUTSIDE RECORDS SUMMARY | 2020-12-14 09:21 | CCD ---
Author Author [facility] [employer] Organization [facility] [employer] [facility] Address Unknown Phone Unavailable Care Team Providers Care Health Education Assistant Name Role Phone Faye Briscoe Unavailable PROBLEMS Type Condition ICD9-CM Code ZPZ00-ZG Code Onset Dates Condition S tatus SNOMED Code Notes Problem Intervertebral disc disorders with radiculopathy , lumbar region M51.16 Active 486072800456846 Problem Intervertebral disc disorders with radiculopathy , lumbosacral region M51.17 Active 2792256 Problem Acute low back pain due to spinal disorder M54.5 Active 044832400 Problem Chronic prescription opiate use Z79.891 Active 478032863 Problem Sacroiliitis, not elsewhere classified M46.1 A ctive 597933256 Problem Hip pain, right M25.551 Active 389634323646111 Problem 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 Active 6618482 Problem Lupus M32.9 Active 001493693 Problem Lumbar disc herniation M51.26 Active 938191668 Problem Post laminectomy syndrome M96.1 Active 886816 01 Problem Lumbar radiculopathy M54.16 Active 758179542 Problem Trochanteric bursitis of right hip M70.61 Activ e 290887313050640 Problem Right hip pain M25.551 Active 140261260784649 Problem Primary osteoarthritis of right hip M16.11 Acti ve 323277383 Problem Osteoarthritis of right hip, unspecified osteoarthritis ty pe M16.11 Active 799671559185846 ALLERGIES Allergen (clinical drug ingredient) Drug/Non Drug Allergy do cumented on EMR Reaction Allergy Type Onset Date Status meloxicam Mobic([facility] Code:[address]-30) aggresive Drug Allergy Active azathioprine Imuran(NDC Code:[address]-35) Nausea/Vomiting Drug Jaylen rgy Active gabapentin Neurontin([facility] Code:[address]-37) aggresive Drug Allergy Active ENCOUNTERS from 1970 to 2020-12-02 Encounter Location Date Provider Diagnosis [facility] Pain Center [address] [place] [address] Nov, Faye Briscoe Chronic prescription opiate use Z79.891 ; Intervertebral disc disorders with radiculopathy, lumbar region M51.16 and 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 IMMUNIZATIONS No Information SOCIAL HISTORY Tobacco Use: Social History Observation Description Date Details (start date - stop date) Current Smoker Sex Assigned At : Social History Observation Description Sex Assigned At Unknown Language: Question Answer Notes Languages spoken: Singaporean Nondenominational: Question Answer Notes Nondenominational 33 None Alcohol Screening: Question Answer Notes [...] REASON FOR REFERRAL No Information VITAL SIGNS Weight 188.0 lbs Nov, Height 65 in Nov, BMI 31.28 kg/m2 Nov, Heart Rate 69 /min Nov, Respiratory Rate 18 /min Nov, Temperature 95.9 degrees Fahrenheit Nov, Oximetry 95% Nov, Blood pressure systolic 117 mm Hg Nov, Blood pressure diastolic 58 mm Hg Nov, MEDICATIONS Medication SIG (Take, Route, Frequency, Duration) [...] 1 patch to skin Transdermal 1 patch a72d=ALL for 30 day(s) Feb, Not-Taking Ketorolac Tromethamine [...] 21 day(s) 0 1 Aug, 2019 Not-Taking Lasix 40 MG 1 tablet Orally [...] Information RESULTS No Results REASON FOR VISIT MED MANAGEMENT MEDICAL (GENERAL) HISTORY Type Description Date Medical History Fibromyalgia Medical History Lupus Medical History interstitial lung disease Medical History inflammatory arthritis Medical History Broken Right Shoulder Medical History Chronic Back Pain Medical History Bronchitis/Sinusitis Medical History Sinus Melo on EKG Medical History Pneumonia Surgical History L4-5 laminectomy lower back surgery (Dr. Neal) 08/2016 Surgical History Appendectomy 1982 Surgical History Abdominal Adhesion Surgery Surgical History [...] Notes Treatment Notes Treatm ent Clinical Notes Nov, Chronic prescription opiate use (ICD-10 - Z79.89 1) Advised patient to start baclofen 10 mg a half a tablet 3 times a day x10 days then increase to one tablet 3 times daily. Continue follow-up on MRI of brain and spine with primary care provider. Follow-up is scheduled in 2 months. , ISTOP registry reviewed and demonstrates complliance. Brings in medications which is appropriate for what was dispensed. Recent urine toxicology reviewed. No unauthorized medications. No illicit substances and prescribed medications were present. , Risks of narcotic/opiod medications includes but is not limited to risk of dependance/development of addiction, mood disturbance and depression, osteoporosis, hormonal and labidal changes, respiratory depression and . Patient is advised NOT to DRIVE or drink ALCOHOL while on these medications Nov, Intervertebral disc disorder s with radiculopathy, lumbar region (ICD-10 - M51.16) Nov, Inflammatory arthropathy (ICD-10 - M19.90) PLAN OF TREATMENT Medication Medication Name Sig [...] tablet as needed Orally AT BED TIME Treatment Notes Assessment Notes Clinical Notes Chronic prescription opiate use Advised patient to sta rt baclofen 10 mg a half a tablet 3 times a day x10 days then increase to one tablet 3 times daily. Continue follow-up on MRI of brain and spine with primary care provider. Follow- up is scheduled in 2 months., ISTOP registry reviewed and demonstrates complliance. Brings in medications which is appropriate for what was dispensed. Recent urine toxicology reviewed. No unauthorized medications. No illicit substances and prescribed medications were present., Risks of narcotic/opiod medications includes but is not limited to risk of dependance/development of addiction, mood disturbance and depression, osteoporosis, hormonal and labidal changes, respiratory depression and . Patient is advised NOT to DRIVE or drink ALCOHOL while on these medications Next Appt Details 2 Months Reason:medication management/ch jenny on new medication baclofen Provider Name:Faye Briscoe, 2021-01-28 11 :30:00 AM, [address] [place] [address], [phone], Follow Up:2 Monthsmedication management/check on new medication baclofen Insurance Providers Payer Name Payer Address Payer Phone Insured Name Patient Relati onship to Insured Coverage Start Date Coverage End Date MILLI/ARISTEO, Joyce [address] [id number] [employer] M[employer] self
--- OUTSIDE RECORDS SUMMARY | 2020-12-14 09:21 | CCD | Continuity of Care Document ---
Author Author Meg MCDONNELL [place] Organization Unknown Address [address] [place] [address] [place] [address] Phone [phone] Care Team Providers Care Door Furring Installer Name Role Phone Maia Chiang AUTM [phone] [employer] AUTM [phone] Problems Description No Information Available Social History [...]
--- OUTSIDE RECORDS SUMMARY | 2020-12-14 09:21 | CCD ---
Author Author [employer] [facility] [facility] Organization [employer] [facility] [employer] Address Unknown Phone Unavailable Care Team Providers Care Boat Carpenter Name Role Phone Faye Briscoe Unavailable PROBLEMS Type Condition ICD9-CM Code [id number] Code Onset Dates Condition S tatus SNOMED Code Notes Problem Intervertebral disc disorders with radiculopathy , lumbar region M51.16 Active 128017797099463 Problem Intervertebral disc disorders with radiculopathy , lumbosacral region M51.17 Active 1590459 Problem Acute low back pain due to spinal disorder M54.5 Active 248289755 Problem Chronic prescription opiate use Z79.891 Active 413291855 Problem Sacroiliitis, not elsewhere classified M46.1 A ctive 429587458 Problem Hip pain, right M25.551 Active 391441788386734 Problem 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 Active 6565149 Problem Lupus M32.9 Active 252885811 Problem Lumbar disc herniation M51.26 Active 422507307 Problem Post laminectomy syndrome M96.1 Active 458905 01 Problem Lumbar radiculopathy M54.16 Active 873049538 Problem Trochanteric bursitis of right hip M70.61 Activ e 982742056864979 Problem Right hip pain M25.551 Active 981755346604796 Problem Primary osteoarthritis of right hip M16.11 Acti ve 805073604 Problem Osteoarthritis of right hip, unspecified osteoarthritis ty pe M16.11 Active 684362523555456 ALLERGIES Allergen (clinical drug ingredient) Drug/Non Drug Allergy do cumented on EMR Reaction Allergy Type Onset Date Status meloxicam Mobic(NDC Code:[address]-79) aggresive Drug Allergy Active azathioprine Imuran(NDC Code:[address]-82) Nausea/Vomiting Drug Jaylen rgy Active gabapentin Neurontin([facility] Code:[address]-12) aggresive Drug Allergy Active ENCOUNTERS from 1970 to 2020-10-01 Encounter Location Date Provider Diagnosis [facility] [address] [place] [address] Sep, Faye Briscoe Chronic prescription opiate use Z79.891 and Post laminectomy syndrome M96.1 IMMUNIZATIONS No Information SOCIAL HISTORY Tobacco Use: Social History Observation Description Date Details (start date - stop date) Current Smoker Sex Assigned At : Social History Observation Description Sex Assigned At Unknown Language: Question Answer Notes Languages spoken: Andorran Mandaen: Question Answer Notes Mandaen 33 None [...] FOR REFERRAL No Information VITAL SIGNS Weight 184.0 lbs Sep, Height 65 in Sep, BMI 30.62 kg/m2 Sep, Heart Rate 56 /min Sep, Respiratory Rate 18 /min Sep, Temperature 97.5 degrees Fahrenheit Sep, Oximetry 98% Sep, Blood pressure systolic 112 mm Hg Sep, Blood pressure diastolic 53 mm Hg Sep, MEDICATIONS Medication SIG (Take, Route, Frequency, Duration) Start Date En d Date Status Paxil 30 MG 1 tablet in the morning Orally Once a day Active Potassium Chloride 20 mg 1 capsule with food Orally Twice a day Active Xanax 0.5 MG 1 tablet Orally three times daily as needed Active Fentanyl 75 MCG/HR 1 patch to skin Transdermal 1 patch q72h =MDD for 30 day(s) Feb, Not-Taking Atenolol 50 MG 1 tablet Orally twice daily Active Robaxin-750 750 MG 1 tablet Orally three times daily Dec, Active Probiotic - 1 capsule Orally Daily Activ e Lyrica 200 MG 1 capsule Orally TID MDD3 for 30 day(s) Aug, Not-Taking Lasix 40 MG 1 tablet Orally bid Active PredniSONE 20 MG 1 tablet Orally Daily Jun, No t-Taking Oxycodone HCl 15 MG 1 tablet Orally Every 8 hour s as needed for pain MDD 3 for 30 Days Sep, Active Temazepam 30 MG 1 capsule at bedtime as need ed Orally before bedtime NEEDED FOR SLEEP Not-Taking Valium 10 MG 1 tablet as needed Orally pr n mdd1 #10 tab should last 30 days for 30 day(s) March, Not-Taking Nortriptyline HCl 10 MG 3 capsule= 30 mg Orally Once a day for 30 d ay(s) Not-Taking MS Contin 30 MG 1 tablet Orally before bedtime for 30 Days Sep, Active Medrol 4 MG as directed Orally as directed for 21 day(s) Aug, Not-Taking Methotrexate 8 tabs of 2.5mg Oral weekly Not-Taking Wellbutrin XL 150 MG 1 tablet in the morning Orally Once a day Active Soma 350 MG 1 tablet as needed Orally AT BED TIME Active BuSpar 15 mg orally twice a day Not -Taking Ketorolac Tromethamine 10 MG 1 tablet with food or mil k as needed Orally every 6 hrs for 5 day(s) Apr, Not-Taking Movantik 25 MG 1 tablet in the morning Orally Once a da y for 30 day(s) Nov, Not-Taking Levaquin 750 [...] Hospitalization History ER ON SEPTEMBER 19 AND 17 Goals Section No Information Health Concerns No Information MEDICAL EQUIPMENT No Information MENTAL STATUS No Information FUNCTIONAL STATUS No Information ASSESSMENTS Encounter Date Diagnosis Notes Sep, Chronic prescription opiate use (ICD-10 - Z79.891) Sep, Post laminectomy syndrome (ICD-10 - M96. 1) PLAN OF TREATMENT Medication Medication Name Sig Start Date Stop Date Oxycodone HCl 15 MG 1 tablet Orally Every 8 hour s as needed for pain MDD 3 for 30 Days Sep, MS Contin 30 MG 1 tablet Orally before bedtime for 30 Days 2019 Treatment Notes Assessment Notes Clinical Notes Chronic prescription opiate use Today we made medicati on adjustments. I recommend increasing MS Contin to 30 mg at at bedtime. Reduce oxycodone 15 mg to every 8 hours as needed for severe pain episodes. Continue Soma 350 mg at bedt ashanti. Using Robaxin during the daytime with maximum of 3 tablets a day. Follow-up will be scheduled in 2 months., ISTOP registry reviewed and demonstrates complliance. Brings in medications which is appropriate for what was dispensed. Recent urine toxicology reviewed. No unauthorized medications. No illicit substances and prescribed medications were present.URINE TOX TODAY, Risks of narcotic/opiod medications includes but is not limited to risk of dependance/development of addiction, mood disturbance and depression, osteoporosis, hormonal and labidal changes, respiratory depression and . Patient is advised NOT to DRIVE or drink ALCOHOL while on these medications Next Appt Details 2 Months Reason:MED MGMNT Provider Name:Faye Briscoe, 2020-11-30 11 :00:00 AM, [address] [place], [address], Follow Up:2 MonthsMED MGMNT Insurance Providers Payer Name Payer Address Payer Phone Insured Name Patient Relati onship to Insured Coverage Start Date Coverage End Date BC/ARISTEO, Cindyus [address] [employer] [place] [phone] CONST[employer] MARR self
--- OUTSIDE RECORDS SUMMARY | 2020-12-14 09:22 | CCD ---
Author Author [facility] Organization [facility] Address Unknown Phone Unavailable Support Name Relationship Address Phone [facility]* Next Of Kin [address] [place] [address] Boogie WYMAN ROHAN Next Of Kin [address] [place] [address] CELL JLBOABRIL Next Of Kin [address] [place] [address] NONE, PT PER Next Of Kin - -, - - - NONE, REQUESTED Next Of Kin [address] [place] [address] DISABLED Next Of Kin Unknown Unavailable MARY BARDALES Next Of Kin [address] [place] [address] UE Next Of Kin Unknown Unavailable [facility] Next Of Kin Unknown DONNIE VILA Next Of Kin [address] [place] [address] [facility] Next Of Kin [address] [place] [address] [facility] [place] [address] R[place] [address] [facility] [place] [address] NI BARDALES [place] [address] NAKIA WYMAN Next Of Kin [address] [place] [address] NAKIA WYMAN Next Of Kin [address] [place] [address] DONNIE VILA ECON [address] [place] [address] Unavailable NONE, REQUESTED ECON [address] [place] [address] Unavailable none, requested ECON [facility] [place] [address] Unavailable Care Team Providers Care Investment Recovery Technician Name Role Phone Rolo Will PA Unavailable + Rolo Will PA Unavailable + Rolo Will PA Unavailable + Rolo Will PA Unavailable + Rolo Will PA Unavailable + Rolo Will PA Unavailable + Rolo Will PA Unavailable + Campanaro, Mare Sheree PA Unavailable Unavailable Campanaro, Mare Sheree PA Unavailable Unavailable Campanaro, Mare Sheree PA Unavailable Unavailable Campanaro, Mare Sheree PA Unavailable Unavailable Campanaro, Mare Sheree PA Unavailable Unavailable Campanaro, Mare Sheree PA Unavailable Unavailable Campanaro, Mare Sheree PA Unavailable Unavailable Campanaro, Mare Sheree PA Unavailable Unavailable Campanaro, Mare Sheree PA Unavailable Unavailable Campanaro, Mare Sheree PA Unavailable Unavailable Campanaro, Mare Sheree PA Unavailable Unavailable Campanaro, Mare Sheree PA Unavailable Unavailable Campanaro, Mare Sheree PA Unavailable Unavailable Campanaro, Mare Sheree PA Unavailable Unavailable Campanaro, Mare Sheree PA Unavailable Unavailable Campanaro, Mare Sheree PA Unavailable Unavailable Campanaro, Mare Sheree PA Unavailable Unavailable Campanaro, Mare Sheree PA Unavailable Unavailable Mariia, L Marifer PA Unavailable Unavailable Mariia, L Marifer PA Unavailable Unavailable Mariia, L Marifer PA Unavailable Unavailable Mariia, L Marifer PA Unavailable Unavailable Mariia, L Marifer PA Unavailable Unavailable Mariia, L Marifer PA Unavailable Unavailable Mariia, L Marifer PA Unavailable Unavailable Mariia, L Marifer PA Unavailable Unavailable Mariia, L Marifer PA Unavailable Unavailable Mariia, L Marifer PA Unavailable Unavailable Mariia, L Marifer PA Unavailable Unavailable Mariia, L Marifer PA Unavailable Unavailable Mariia, L Marifer PA Unavailable Unavailable Mariia, L Marifer PA Unavailable Unavailable Mariia, L Marifer PA Unavailable Unavailable Mariia, L Marifer PA Unavailable Unavailable Mariia, L Marifer PA Unavailable Unavailable Mariia, L Marifer PA Unavailable Unavailable Mariia, L Marifer PA Unavailable Unavailable Mariia, L Marifer PA Unavailable Unavailable Mariia, L Marifer PA Unavailable Unavailable Mariia, L Marifer PA Unavailable Unavailable Mariia, L Marifer PA Unavailable Unavailable Mariia, L Marifer PA Unavailable Unavailable Mariia, L Marifer PA Unavailable Unavailable Mariia, L Marifer PA Unavailable Unavailable Mariia, L Marifer PA Unavailable Unavailable Mariia, L Marifer PA Unavailable Unavailable Mariia, L Marifer PA Unavailable Unavailable Mariia, L Marifer PA Unavailable Unavailable Mariia, L Marifer PA Unavailable Unavailable Mariia, L Marifer PA Unavailable Unavailable Mariia, L Marifer PA Unavailable Unavailable Mariia, L Marifer PA Unavailable Unavailable Mariia, L Marifer PA Unavailable Unavailable Mariia, L Marifer PA Unavailable Unavailable Mariia, L Marifer PA Unavailable Unavailable Mariia, L Marifer PA Unavailable Unavailable Mariia, L Marifer PA Unavailable Unavailable Mariia, L Marifer PA Unavailable Unavailable Mariia, L Marifer PA Unavailable Unavailable Mariia, L Marifer PA Unavailable Unavailable Mariia, L Marifer PA Unavailable Unavailable Mariia, L Marifer PA Unavailable Unavailable Mariia, L Marifer PA Unavailable Unavailable Mariia, L Marifer PA Unavailable Unavailable Mariia, L Marifer PA Unavailable Unavailable Mariia, L Marifer PA Unavailable Unavailable Mariia, L Marifer PA Unavailable Unavailable Mariia, L Marifer PA Unavailable Unavailable Mariia, L Marifer PA Unavailable Unavailable Mariia, L Marifer PA Unavailable Unavailable Mariia, L Marifer PA Unavailable Unavailable Mariia, L Marifer PA Unavailable Unavailable Mariia, L Marifer PA Unavailable Unavailable Mariia, L Marifer PA Unavailable Unavailable Mariia, L Marifer PA Unavailable Unavailable Mariia, L Marifer PA Unavailable Unavailable Mariia, L Marifer PA Unavailable Unavailable Mariia, L Marifer PA Unavailable Unavailable Mariia, L Marifer PA Unavailable Unavailable Bernadette Ballard MD Unavailable Unavailable SHABBIR ABARCA FOOD EDITOR Unavailable Unavailable SHABBIR ABARCA FOOD EDITOR Unavailable Unavailable SHABBIR ABARCA FOOD EDITOR Unavailable Unavailable SHABBIR ABARCA FOOD EDITOR Unavailable Unavailable ABARCA, SHABBIR RICHARD FOOD EDITOR Unavailable Unavailable ABARCA, SHABBIR RICHARD FOOD EDITOR Unavailable Unavailable ABARCA, SHABBIR RICHARD FOOD EDITOR Unavailable Unavailable ABARCA, SHABBIR RICHARD FOOD EDITOR Unavailable Unavailable ABARCA, SHABBIR RICHARD FOOD EDITOR Unavailable Unavailable ABARCA, SHABBIR RICHARD FOOD EDITOR Unavailable Unavailable ABARCA, SHABBIR RICHARD FOOD EDITOR Unavailable Unavailable ABARCA, SHABBIR RICHARD FOOD EDITOR Unavailable Unavailable ABARCA, SHABBIR RICHARD FOOD EDITOR Unavailable Unavailable ABARCA, SHABBIR RICHARD FOOD EDITOR Unavailable Unavailable ABARCA, SHABBIR RICHARD FOOD EDITOR Unavailable Unavailable ABARCA, SHABBIR RICHARD FOOD EDITOR Unavailable Unavailable ABARCA, SHABBIR RICHARD FOOD EDITOR Unavailable Unavailable ABARCA, SHABBIR RICHARD FOOD EDITOR Unavailable Unavailable ABARCA, SHABBIR RICHARD FOOD EDITOR Unavailable Unavailable ABARCA, SHABBIR RICHARD FOOD EDITOR Unavailable Unavailable ABARCA, SHABBIR RICHARD FOOD EDITOR Unavailable Unavailable ABARCA, SHABBIR RICHARD FOOD EDITOR Unavailable Unavailable ABARCA, SHABBIR RICHARD FOOD EDITOR Unavailable Unavailable ABARCA, SHABBIR RICHARD FOOD EDITOR Unavailable Unavailable ABARCA, SHABBIR RICHARD FOOD EDITOR Unavailable Unavailable ABARCA, SHABBIR RICHARD FOOD EDITOR Unavailable Unavailable ABARCA, SHABBIR RICHARD FOOD EDITOR Unavailable Unavailable ABARCA, SHABBIR RICHARD FOOD EDITOR Unavailable Unavailable ABARCA, SHABBIR RICHARD FOOD EDITOR Unavailable Unavailable ABARCA, SHABBIR RICHARD FOOD EDITOR Unavailable Unavailable ABARCA, SHABBIR RICHARD FOOD EDITOR Unavailable Unavailable ABARCA, SHABBIR RICHARD FOOD EDITOR Unavailable Unavailable ABARCA, SHABBIR RICHARD FOOD EDITOR Unavailable Unavailable ABARCA, SHABBIR RICHARD FOOD EDITOR Unavailable Unavailable ABARCA, SHABBIR RICHARD FOOD EDITOR Unavailable Unavailable ABARCA, SHABBIR RICHARD FOOD EDITOR Unavailable Unavailable ABARCA, SHABBIR RICHARD FOOD EDITOR Unavailable Unavailable ABARCA, SHABBIR RICHARD FOOD EDITOR Unavailable Unavailable ABARCA, SHABBIR RICHARD FOOD EDITOR Unavailable Unavailable ABARCA, SHABBIR RICHARD FOOD EDITOR Unavailable Unavailable ABARCA, SHABBIR RICHARD FOOD EDITOR Unavailable Unavailable ABARCA, SHABBIR RICHARD FOOD EDITOR Unavailable Unavailable ABARCA, SHABBIR RICHARD FOOD EDITOR Unavailable Unavailable ABARCA, SHABBIR RICHARD FOOD EDITOR Unavailable Unavailable ABARCA, SHABBIR RICHARD FOOD EDITOR Unavailable Unavailable ABARCA, SHABBIR RICHARD FOOD EDITOR Unavailable Unavailable ABARCA, SHABBIR RICHARD FOOD EDITOR Unavailable Unavailable ABARCA, SHABBIR RICHARD FOOD EDITOR Unavailable Unavailable ABARCA, SHABBIR RICHARD FOOD EDITOR Unavailable Unavailable ABARCA, SHABBIR RICHARD FOOD EDITOR Unavailable Unavailable Renee Espana MD Unavailable Unavailable Renee Espana MD Unavailable Unavailable Renee Espana MD Unavailable Unavailable Renee Espana MD Unavailable Unavailable Renee Espana MD Unavailable Unavailable Renee Espana MD Unavailable Unavailable Renee Espana MD Unavailable Unavailable Renee Espana MD Unavailable Unavailable Renee Espana MD Unavailable Unavailable Vaneenenaam, Renee Castillo MD Unavailable Unavailable Vaneenenaam, Renee Castillo MD Unavailable Unavailable Vaneenenaam, Renee Castillo MD Unavailable Unavailable Vaneenenaam, Renee Castillo MD Unavailable Unavailable Vaneenenaam, Renee Castlilo MD Unavailable Unavailable Vaneenenaam, Renee Castillo MD Unavailable Unavailable Vaneenenaam, Renee Castillo MD Unavailable Unavailable Vaneenenaam, Renee Castillo MD Unavailable Unavailable Vaneenenaam, Renee Castillo MD Unavailable Unavailable Vaneenenaam, Renee Castillo MD Unavailable Unavailable Vaneenenaam, Renee Castillo MD Unavailable Unavailable Vaneenenaam, Renee Castillo MD Unavailable Unavailable Vaneenenaam, Renee Castillo MD Unavailable Unavailable Vaneenenaam, Renee Castillo MD Unavailable Unavailable Vaneenenaam, Renee Castillo MD Unavailable Unavailable Vaneenenaam, Renee Castillo MD Unavailable Unavailable Vaneenenaam, Renee Castillo MD Unavailable Unavailable Vaneenenaam, Renee Castillo MD Unavailable Unavailable Vaneenenaam, Renee Castillo MD Unavailable Unavailable Vaneenenaam, Renee Castillo MD Unavailable Unavailable Vaneenenaam, Renee Castillo MD Unavailable Unavailable Vaneenenaam, Renee Castillo MD Unavailable Unavailable Vaneenenaam, Renee Castillo MD Unavailable Unavailable Vaneenenaam, Renee Castillo MD Unavailable Unavailable Vaneenenaam, Renee Castillo MD Unavailable Unavailable Vaneenenaam, Renee Castillo MD Unavailable Unavailable Vaneenenaam, Renee Castillo MD Unavailable Unavailable Vaneenenaam, Renee Castillo MD Unavailable Unavailable Vaneenenaam, Renee Castillo MD Unavailable Unavailable Vaneenenaam, Renee Castillo MD Unavailable Unavailable Vaneenenaam, Renee Castillo MD Unavailable Unavailable Vaneenenaam, Renee Castillo MD Unavailable Unavailable Vaneenenaam, Renee Castillo MD Unavailable Unavailable Vaneenenaam, Renee Castillo MD Unavailable Unavailable Vaneenenaam, Renee Castillo MD Unavailable Unavailable Bernadette BALLARD MD Unavailable Unavailable Bernadette BALLARD MD Unavailable Unavailable Bernadette BALLARD MD Unavailable Unavailable Re-disclosure Warning The records that you are about to access may contain information from federally-assisted alcohol or drug abuse programs. If such information is present, then the following federally mandated warning applies: This information has been disclosed to you from records protected by federal confidentiality rules (42 CFR part 2). The federal rules prohibit you from making any further disclosure of this information unless further disclosure is expressly permitted by the written consent of the person to whom it pertains or as otherwise permitted by 42 CFR part 2. A general authorization for the release of medical or other information is NOT sufficient for this purpose. The Federal rules restrict any use of the information to criminally investigate or prosecute any alcohol or drug abuse patient.The records that you are about to access may contain highly sensitive health information, the redisclosure of which is protected by Article 27-F of the [facility] Public Health law. If you continue you may have access to information: Regarding HIV / AIDS; Provided by facilities licensed or operated by the [facility] Office of Mental Health; or Provided by the [facility] Office for People With Developmental Disabilities. If such information is present, then the following [facility] mandated warning applies: This information has been disclosed to you from confidential records which are protected by state law. State law prohibits you from making any further disclosure of this information without the specific written consent of the person to whom it pertains, or as otherwise permitted by law. Any unauthorized further disclosure in violation of state law may result in a fine or nursing home sentence or both. A general authorization for the release of medical or other information is NOT sufficient authorization for further disc losure. Family History Family Member Name Family Member Gender Family Member Status Date o f Status Description Data Source(s) Unknown Male Problem MEDENT ([facility]) Encounters Encounter Providers Location Date Indications Data Source(s ) [place] [address] [facility] [address] 12/08/2020 12:00:00 AM EST eCW1 ([facility]) Outpatient Attender: Marifer RODRIGUEZ ED-HCCEDWPCP 04/2021 01:46:00 PM EST - 12/02/2020 01:47:00 PM [facility] Patient discharged. [place] [address] [facility] [address] 11/30/2020 12:00:00 AM EST eCW1 ([facility]) Unknown [address] [facility] [place] [address] 11/10/2020 12:00:00 AM EST eCW1 ([facility]) [place] [address] [facility] [address] 11/04/2020 12:00:00 AM EST eCW1 ([facility]) Outpatient Attender: Marifer RODRIGUEZ ED-HCCEDWPC 05/2020 03:34:00 PM EST - 11/02/2020 03:35:00 PM EST [facility] Patient discharged. Outpatient Attender: Sheree ballesteros 10/08/2020 04:25:00 PM EST [facility] ([facility]) [place] [address] [facility] [address] 09/30/2020 12:00:00 AM EST eCW1 ([facility]) [place] [address] [facility] [address] 09/11/2020 12:00:00 AM EDT eCW1 ([facility]) Outpatient Att[facility] 01:43[facility]00 PM EDT - 09/10/2020 01:44:00 PM EDT [facility] Patient discharged. Outpatient Attender: [facility] 08/2020 01:45:00 PM EDT - 08/06/2020 01:46:00 PM EDT [facility] Patient discharged. Outpatient Attender: Marifer RODRIGUEZ ED-HCCEDWPC 01:05:00 PM EDT - 07/14/2020 01:06:00 PM EDT [facility] Patient discharged. Outpatient Attender: Marifer RODRIGUEZ ED-HCCEDWPC 11/2019 07:55:00 AM EDT - 05/27/2020 07:56:00 AM EDT [facility] Patient discharged. [place] [address] [facility] [address] 05/06/2020 12:00:00 AM EDT eCW1 ([facility]) Outpatient CPSCAORT-LABEJN 05/04/2020 08:15:00 PM EDT [facility] Outpatient Attender: Marifer RODRIGUEZ ED-HCCEDWPCP 06/2020 07:07:00 AM EDT - 05/04/2020 07:08:00 AM EDT [facility] Patient discharged. TeleMedicine Est. Pt. Level [address] [place] [phone] 04/30/2020 12:00:00 AM EDT eCW1 ([facility]) Unknown [address] [facility] [place] [address] 04/23/2020 12:00:00 AM EDT [facility] [address] [place] [phone] 04/16/2020 12:00:00 AM EDT [facility]CW1 ([facility]) Outpatient Attender: Marifer RODRIGUEZ ED-HCCDEKPCP 03/2020 01:17:00 PM EDT - 03/31/2020 01:18:00 PM EDT [facility] Patient discharged. [facility] [address] [place] [phone] 03/26/2020 12:00:00 AM EDT [facility]CW1 [facility] [address] [place] [phone] 03/18/2020 12:00:00 AM EDT [facility]) [facility] [address] [place] [phone] 03/17/2020 12:00:00 AM EDT [facility]CW1 [facility]) [facility] [address] [place] [phone] 02/21/2020 12:00:00 AM EDT [facility]CW1 ([facility]) [facility] [address] [place] [phone] 02/17/2020 12:00:00 AM EDT eCW1 ([facility]) [facility] [address] [place] [phone] 01/16/2020 12:00:00 AM EST [facility]CW1 ([facility]) [facility] [address] [place] [phone] 01/13/2020 12:00:00 AM EST [facility]CW[facility]) Outpatient Attender: RICHARD ABARCA [facility] 09:53:00 AM EST - 01/09/2020 09:54:00 AM EST [facility] Patient discharged. [facility] [address] [place] [phone] 01/09/2020 12:00:00 AM EST eCW1 ([facility]) Outpatient Attender: RICHARD ABARCA [facility] 02:26:00 PM EST - 12/16/2019 02:27:00 PM EST [facility] Patient discharged. Emergency Attender: Dwaine RODRIGUEZ ED-ED 020 02:37:00 PM EST - 12/12/2019 03:57:00 PM EST RT FOOT BIG TOE INJURY [facility] RT FOOT BIG TOE INJURY Patient discharged. Outpatient Referrer: Renee Espana MD 12/05/2019 03: 50:00 PM EST [facility] [address] [place] [phone] 11/29/2019 12:00:00 AM EST eCW1 ([facility]) [facility] [address] [place] [phone] 11/15/2019 12:00:00 AM EST eCW1 ([facility]) Outpatient CPSCAORT-LABEJN 11/05/2019 02:43:00 PM EST [facility] Outpatient Attender: Carol Ballard MDAttender: CAROL BALLARD MD [facility] 11/05/2019 12:26:00 PM EST PRE EMPLOYMENT [facility] PRE EMPLOYMENT [facility] [address] [place] [phone] 10/28/2019 12:00:00 AM EST eCW1 ([facility]) Outpatient Attender: CAROL BALLARD MD [facility] 10/22/2019 10:0 6:00 AM EST [facility] EMPLOYMENT [facility] PRE EMPLOYMENT Medications Medication Brand Name Start Date Product Form Dose Route Admi nistrative Instructions Pharmacy Instructions Status Indications Reaction Description Data Source(s) 15 mg 12/10/2020 12:00:00 AM EST tablet 90 TAKE ONE TABLET BY MOUTH EVERY 8 HOURS NEEDED FOR PAIN MAXIMUM DAILY DOSE = 3 TAKE ONE TABLET BY MOUTH EVERY 8 HOURS NEEDED FOR PAIN MAXIMUM DAILY DOSE = 3 SOLD: 12/10/2020 [facility] 30 mg 12/09/2020 12:00:00 AM EST capsule,extend.release pellets 30 TAKE ONE CAPSULE BY MOUTH EVERY DAY MAXIMUM DAILY DOSE = 1 TAKE ONE CAPSULE BY MOUTH EVERY DAY MAXIMUM DAILY DOSE = 1 SOLD: 12/09/2020 [facility] 0.5 mg 12/08/2020 12:00:00 AM EST tablet 20 TAKE ONE TABLET BY MOUTH TWICE A DAY NEEDED MAXIMUM DAILY DOSE = 2 TABLETS TAKE ONE TABLET BY MOUTH TWICE A DAY NEEDED MAXIMUM DAILY DOSE = 2 TABLETS SOLD: 12/08/2020 [facility] 20 mg 12/08/2020 12:00:00 AM EST tablet 24 TAKE 3 TABLETS BY MOUTH WITH FOOD OR MILK FOR 4 DAYS, THEN 2 ONCE DAILY FOR 4 DAYS THEN TAKE ONE TABLET BY MOUTH EVERY DAY FOR 4 DAYS TAKE 3 TABLETS BY MOUTH WITH FOOD OR MIL K FOR 4 DAYS, THEN 2 ONCE DAILY FOR 4 DAYS THEN TAKE ONE TABLET BY MOUTH EVERY DAY FOR 4 DAYS SOLD: 12/08/2020 [facility] 1 mg 12/08/2020 12:00:00 AM EST tablet 90 TAKE ONE TABLET BY MOUTH THREE TIMES A DAY NEEDED MAXIMUM DAILY DOSE = 3 TABLETS TAKE ONE TABLET BY MOUTH THREE TIMES A DAY NEEDED MAXIMUM DAILY DOSE = 3 TABLETS SOLD: 12/08/2020 [facility] 750 mg 12/08/2020 12:00:00 AM EST tablet 10 TAKE ONE TABLET BY MOUTH EVERY DAY FOR 10 DAYS TAKE ONE TABLET BY MOUTH EVERY DAY FOR 10 DAYS SOLD: [facility] Baclofen 10 MG Oral Tablet Baclofen 10 MG 11/30/2020 12:00:00 AM ES T 1.0 {tablet} active Baclofen 10 MG eCW1 ([facility]) Oxycodone Hydrochloride 15 MG Oral Tablet Oxycodone HC l 15 MG Oxycodone HCl 15 MG 11/30/2020 12:00:00 AM EST 1.0 {tablet} activ e Oxycodone HCl 15 MG eCW1 ([facility]) Baclofen 10 MG Oral Tablet Baclofen 10 MG 11/30/2020 12:00:00 AM ES T 1.0 {tablet} active Baclofen 10 MG eCW1 ([facility]) 800 mg 11/30/2020 12:00:00 AM EST tablet 90 TAKE ONE TABLET BY MOUTH THREE TIMES A DAY WITH FOOD OR MILK TAKE ONE TABLET BY MOUTH THREE TIMES A D AY WITH FOOD OR MILK SOLD: 11/30/2020 [facility] Oxycodone Hydrochloride 15 MG Oral Tablet Oxycodone HC l 15 MG Oxycodone HCl 15 MG 11/30/2020 12:00:00 AM EST 1.0 {tablet} activ e Oxycodone HCl 15 MG eCW1 ([facility]) 4 mg 11/30/2020 12:00:00 AM EST tablet,disintegrating 9 0 DISSOLVE ONE TABLET ON TONGUE THREE TIMES A DAY NEEDED DISSOLVE ONE TABLET ON TONGUE THREE TIME S A DAY NEEDED SOLD: 11/30/2020 [facility] Morphine Sulfate 30 MG Extended Release Oral Capsule M orphine Sulfate ER 30 MG Morphine Sulfate ER 30 MG 11/30/2020 12:00:00 AM EST 1.0 {tablet} active Morphine Sulfate ER 30 MG eCW1 ( [facility]) Morphine Sulfate 30 MG Extended Release Oral Capsule M orphine Sulfate ER 30 MG Morphine Sulfate ER 30 MG 11/30/2020 12:00:00 AM EST 1.0 {tablet} active Morphine Sulfate ER 30 MG eCW1 ( [facility]) 10 mg 11/30/2020 12:00:00 AM EST tablet 90 TAKE ONE TABLET BY MOUTH EVERY 8 HOURS THREE TIMES A DAY TAKE ONE TABLET BY MOUTH EVERY 8 HOURS T HREE TIMES A DAY SOLD: 11/30/2020 [facility] 15 mg 11/11/2020 12:00:00 AM EST tablet 90 TAKE ONE TABLET BY MOUTH EVERY 8 HOURS NEEDED FOR PAIN MAXIMUM DAILY DOSE = 3 TABLETS TAKE ONE TABLET BY MOUTH EVERY 8 HOURS NEEDED FOR PAIN MAXIMUM DAILY DOSE = 3 TABLETS SOLD: 11/11/2020 [facility] Oxycodone Hydrochloride 15 MG Oral Tablet Oxycodone HC l 15 MG Oxycodone HCl 15 MG 11/10/2020 12:00:00 AM EST 1.0 {tablet} activ e Oxycodone HCl 15 MG eCW1 ([facility]) 1 % 11/09/2020 12:00:00 AM EST lotion 60 APPLY TWO TIMES A DAY APPLY TWO TIMES A DAY SOLD: 11/11/2020 [facility] Oxycodone Hydrochloride 15 MG Oral Tablet Oxycodone HC l 15 MG Oxycodone HCl 15 MG 11/04/2020 12:00:00 AM EST 1.0 {tablet} activ e Oxycodone HCl 15 MG eCW1 ([facility]) Morphine Sulfate 30 MG Extended Release Oral Tablet [M S Contin] MS Contin 30 MG MS Contin 30 MG 11/04/2020 12:00:00 AM EST 1.0 {tablet} suspended MS Contin 30 MG eCW1 ([facility]) 30 mg 11/04/2020 12:00:00 AM EST tablet extended release 30 TAKE ONE TABLET BY MOUTH BEFORE BEDTIME MAXIMUM DAILY DOSE = 1 TABLET TAKE ONE TABLET BY MOUTH BEFORE BEDTIME MAXIMUM DAILY DOSE = 1 TABLET SOLD: 11/09/2020 [facility] Morphine Sulfate 30 MG Extended Release Oral Tablet [M S Contin] MS Contin 30 MG MS Contin 30 MG 11/04/2020 12:00:00 AM EST 1.0 {tablet} active MS Contin 30 MG eCW1 ([facility]) Morphine Sulfate 30 MG Extended Release Oral Tablet [M S Contin] MS Contin 30 MG MS Contin 30 MG 11/04/2020 12:00:00 AM EST 1.0 {tablet} suspended MS Contin 30 MG eCW1 ([facility]) Morphine Sulfate 30 MG Extended Release Oral Tablet [M S Contin] MS Contin 30 MG MS Contin 30 MG 11/04/2020 12:00:00 AM EST 1.0 {tablet} active MS Contin 30 MG eCW1 ([facility]) 1 mg 11/03/2020 12:00:00 AM EST tablet 90 TAKE ONE TABLET BY MOUTH THREE TIMES A DAY NEEDED MAXIMUM DAILY DOSE =3 TABLETS TAKE ONE TABLET BY MOUTH THREE TIMES A DAY NEEDED MAXIMUM DAILY DOSE =3 TABLETS SOLD: 11/03/2020 [facility] 40 mg 10/29/2020 12:00:00 AM EST tablet 30 TAKE ONE TABLET BY MOUTH EVERY DAY TAKE ONE TABLET BY MOUTH EVERY DAY SOLD: 10/31/2020 [facility] 20 mEq 10/29/2020 12:00:00 AM EST tablet extended release 180 TAKE ONE TABLET BY MOUTH TWICE A DAY WITH FOOD TAKE ONE TABLET BY MOUTH TWICE A DAY WIT H FOOD SOLD: 10/31/2020 [facility] pantoprazole 40 MG Delayed Release Oral Tablet PANTOPRAZOLE SODIUM 10/29/2020 12:00:00 AM EST tablet,delayed release (DR/EC) 180 T NIKKI ONE TABLET BY MOUTH TWICE A DAY TAKE ONE TABLET BY MOUTH TWICE A DAY SOLD: 10/31/2020 [facility] 40 mg 10/29/2020 12:00:00 AM EST tablet 30 TAKE ONE TABLET BY MOUTH EVERY DAY TAKE ONE TABLET BY MOUTH EVERY DAY SOLD: 11/30/2020 [facility] 15 mg 10/13/2020 12:00:00 AM EST tablet 90 TAKE ONE TABLET BY MOUTH EVERY 8 HOURS NEEDED FOR PAIN MAXIMUM DAILY DOSE = 3 TABLETS TAKE ONE TABLET BY MOUTH EVERY 8 HOURS NEEDED FOR PAIN MAXIMUM DAILY DOSE = 3 TABLETS SOLD: 10/13/2020 [facility] 60 ACTUAT Albuterol 0.09 MG/ACTUAT Metered Dose Inhaler Albu terol Sulfate HFA 10/08/2020 12:00:00 AM EST RESPIRATORY active MEDENT ([facility], [facility]) Amoxicillin 875 MG / Clavulanate 125 MG Oral Tablet Am oxicillin/Clavulanate Potassium 10/08/2020 12:00:00 AM EST ORAL active [facility] ([facility], [facility]) 12 HR Guaifenesin 600 MG Extended Release Oral Tablet [Mucin ex] Mucinex 10/08/2020 12:00:00 AM EST ORAL active [facility]ENT ([facility], [facility]) 90 mcg/actuation 10/08/2020 12:00:00 AM EST HFA aerosol inha ler 18 INHALE 1 PUFF BY MOUTH 3-4 TIMES DAILY FOR SHORTNESS OF BREATH/ WHEEZING INHALE 1 PUFF BY MOUTH 3-4 TIMES DAILY FOR SHORTNESS OF BREATH/ WHEEZING SOLD: 10/08/2020 [facility] 875-125 mg 10/08/2020 12:00:00 AM EST tablet 20 TAKE ONE TABLET BY MOUTH TWICE A DAY FOR 10 DAYS TAKE ONE TABLET BY MOUTH TWICE A DAY FOR 10 DAYS SOLD: 10/08/2020 [facility] 1 mg 10/02/2020 12:00:00 AM EST tablet 90 TAKE ONE TABLET BY MOUTH THREE TIMES A DAY NEEDED MAXIMUM DAILY DOSE = 3 TAKE ONE TABLET BY MOUTH THREE TIMES A DAY NEEDED MAXIMUM DAILY DOSE = 3 SOLD: 10/05/2020 [facility] Oxycodone Hydrochloride 15 MG Oral Tablet Oxycodone HC l 15 MG Oxycodone HCl 15 MG 09/30/2020 12:00:00 AM EST 1.0 {tablet} activ e Oxycodone HCl 15 MG eCW1 ([facility]) Morphine Sulfate 30 MG Extended Release Oral Tablet [M S Contin] MS Contin 30 MG MS Contin 30 MG 09/30/2020 12:00:00 AM EST 1.0 {tablet} active MS Contin 30 MG eCW1 ([facility]) 30 mg 09/30/2020 12:00:00 AM EST tablet extended release 30 TAKE ONE TABLET BY MOUTH BEFORE BEDTIME MAXIMUM DAILY DOSE = 1 TABLET TAKE ONE TABLET BY MOUTH BEFORE BEDTIME MAXIMUM DAILY DOSE = 1 TABLET SOLD: 10/01/2020 [facility] Morphine Sulfate 30 MG Extended Release Oral Capsule M orphine Sulfate ER 30 MG Morphine Sulfate ER 30 MG 09/11/2020 12:00:00 AM EDT 1.0 {tablet} active Morphine Sulfate ER 30 MG eCW1 ( [facility]) Morphine Sulfate 30 MG Extended Release Oral Capsule M orphine Sulfate ER 30 MG Morphine Sulfate ER 30 MG 09/11/2020 12:00:00 AM EDT 1.0 {tablet} active Morphine Sulfate ER 30 MG eCW1 ( [facility]) Morphine Sulfate 15 MG Extended Release Oral Tablet Mo rphine Sulfate ER 15 MG Morphine Sulfate ER 15 MG 09/11/2020 12:00:00 AM EDT 1.0 {tablet} active Morphine Sulfate ER 15 MG eCW1 ( [facility]) Morphine Sulfate 30 MG Extended Release Oral Capsule M orphine Sulfate ER 30 MG Morphine Sulfate ER 30 MG 09/11/2020 12:00:00 AM EDT 1.0 {tablet} active Morphine Sulfate ER 30 MG eCW1 ( [facility]) Oxycodone Hydrochloride 15 MG Oral Tablet Oxycodone HC l 15 MG Oxycodone HCl 15 MG 09/11/2020 12:00:00 AM EDT 1.0 {tablet} activ e Oxycodone HCl 15 MG eCW1 ([facility]) 20 mg 09/10/2020 12:00:00 AM EDT tablet 18 TAKE THREE TABLETS BY MOUTH EVERY DAY FOR 3 DAYS; 2 ONCE DAILY FOR 3 DAYS; 1 ONCE DAILY FOR 3 DAYS; TAKE WITH FOOD OR MILK TAKE THREE TABLETS BY MOUTH EVERY DAY FO R 3 DAYS; 2 ONCE DAILY FOR 3 DAYS; 1 ONCE DAILY FOR 3 DAYS; TAKE WITH FOOD OR MILK SOLD: 09/14/2020 [facility] 1 % 09/07/2020 12:00:00 AM EDT lotion 60 APPLY TWO TIMES A DAY APPLY TWO TIMES A DAY SOLD: 10/13/2020 [facility] 1 % 09/07/2020 12:00:00 AM EDT lotion 60 APPLY TWO TIMES A DAY APPLY TWO TIMES A DAY SOLD: 09/14/2020 [facility] 1 mg 09/02/2020 12:00:00 AM EDT tablet 90 TAKE ONE TABLET BY MOUTH THREE TIMES A DAY NEEDED MAXIMUM DAILY DOSE = 3 TAKE ONE TABLET BY MOUTH THREE TIMES A DAY NEEDED MAXIMUM DAILY DOSE = 3 SOLD: 09/03/2020 [facility] 15 mg 08/13/2020 12:00:00 AM EDT tablet extended release 30 TAKE ONE TABLET BY MOUTH EVERY DAY DIRECTED MAXIMUM DAILY DOSE = 1 TAKE ONE TABLET BY MOUTH EVERY DAY DIRECTED MAXIMUM DAILY DOSE = 1 SOLD: 08/13/2020 [facility] 10 mg 08/12/2020 12:00:00 AM EDT tablet 120 TAKE ONE TABLET BY MOUTH FOUR TIMES A DAY MAXIMUM DAILY DOSE = 4 TAKE ONE TABLET BY MOUTH FOUR TIMES A DA Y MAXIMUM DAILY DOSE = 4 SOLD: 08/13/2020 [facility] 24 HR Bupropion Hydrochloride 300 MG Extended Release Oral T ablet BUPROPION HCL 08/06/2020 12:00:00 AM EDT tablet extended release 24 hr 90 TAKE ONE TABLET BY MOUTH EVERY DAY TAKE ONE TABLET BY MOUTH EVERY DAY SOLD: 08/07/2020 [facility] Paroxetine Hydrochloride 40 MG Oral Tablet PAROXETINE HCL 08/06/2020 12:00:00 AM EDT tablet 90 TAKE ONE TABLET BY MOUTH CECY RY DAY IN THE MORNING TAKE ONE TABLET BY MOUTH EVERY DAY IN THE MORNING SOLD: 08/07/2020 [facility] 24 HR Bupropion Hydrochloride 300 MG Extended Release Oral T ablet BUPROPION HCL 08/06/2020 12:00:00 AM EDT tablet extended release 24 hr 90 TAKE ONE TABLET BY MOUTH EVERY DAY TAKE ONE TABLET BY MOUTH EVERY DAY SOLD: 11/02/2020 [facility] Paroxetine Hydrochloride 40 MG Oral Tablet PAROXETINE HCL 08/06/2020 12:00:00 AM EDT tablet 90 TAKE ONE TABLET BY MOUTH CECY DAY IN THE MORNING TAKE ONE TABLET BY MOUTH EVERY DAY IN THE MORNING SOLD: 11/02/2020 [facility] Atenolol 50 MG Oral Tablet ATENOLOL 07/30/2020 12:00:00 AM EDT tablet 180 TAKE ONE TABLET BY MOUTH TWICE A DAY TAKE ONE TABLET BY MOUTH TWICE A DAY SOLD: 07/30/2020 [facility] 20 mEq 07/30/2020 12:00:00 AM EDT tablet extended release 180 TAKE ONE TABLET BY MOUTH TWICE A DAY WITH FOOD TAKE ONE TABLET BY MOUTH TWICE A DAY WIT H FOOD SOLD: 07/30/2020 [facility] 1 mg 07/29/2020 12:00:00 AM EDT tablet 90 TAKE ONE TABLET BY MOUTH THREE TIMES A DAY NEEDED MAXIMUM DAILY DOSE = 3 TABLETS TAKE ONE TABLET BY MOUTH THREE TIMES A DAY NEEDED MAXIMUM DAILY DOSE = 3 TABLETS SOLD: 07/30/2020 [facility] 20 mg 07/16/2020 12:00:00 AM EDT tablet 18 TAKE 3 TABLETS BY MOUTH DAILY FOR 3 DAYS THEN 2 TABLETS BY MOUTH ONCE DAILY FOR 3 DAYS THEN 1 TABLET BY MOUTH ONCE DAILY FOR 3 DAYS TAKE 3 TABLETS BY MOUTH DAILY FOR 3 DAYS THEN 2 TABLETS BY MOUTH ONCE DAILY FOR 3 DAYS THEN 1 TABLET BY MOUTH ONCE DAILY FOR 3 DAYS SOLD: 07/17/2020 [facility] 1 % 07/14/2020 12:00:00 AM EDT lotion 60 APPLY EXTERNALLY TWICE A DAY APPLY EXTERNALLY TWICE A DAY SOLD: 07/14/2020 [facility] 1 % 07/14/2020 12:00:00 AM EDT lotion 60 APPLY EXTERNALLY TWICE A DAY APPLY EXTERNALLY TWICE A DAY SOLD: 08/10/2020 [facility] 10 mg 07/09/2020 12:00:00 AM EDT tablet 120 TAKE ONE TABLET BY MOUTH FOUR TIMES A DAY MAXIMUM DAILY DOSE = 4 TAKE ONE TABLET BY MOUTH FOUR TIMES A DA Y MAXIMUM DAILY DOSE = 4 SOLD: 07/10/2020 [facility] 15 mg 07/09/2020 12:00:00 AM EDT tablet extended release 30 TAKE ONE TABLET BY MOUTH EVERY DAY DIRECTED MAXIMUM DAILY DOSE = 1 TAKE ONE TABLET BY MOUTH EVERY DAY DIRECTED MAXIMUM DAILY DOSE = 1 SOLD: 07/10/2020 [facility] 750 mg 06/30/2020 12:00:00 AM EDT tablet 90 TAKE ONE TABLET BY MOUTH EVERY 8 HOURS NEEDED MAXIMUM DAILY DOSE = 3 TAKE ONE TABLET BY MOUTH EVERY 8 HOURS A S NEEDED MAXIMUM DAILY DOSE = 3 SOLD: 06/30/2020 [facility] 350 mg 06/30/2020 12:00:00 AM EDT tablet 30 TAKE ONE TABLET BY MOUTH EVERY DAY AT BEDTIME FOR CHRONIC PAIN MAXIMUM DAILY DOSE = 1 TAKE ONE TABLET BY MOUTH EVERY DAY AT BEDTIME FOR CHRONIC PAIN MAXIMUM DAILY DOSE = 1 SOLD: 07/30/2020 [facility] 350 mg 06/30/2020 12:00:00 AM EDT tablet 30 TAKE ONE TABLET BY MOUTH EVERY DAY AT BEDTIME FOR CHRONIC PAIN MAXIMUM DAILY DOSE = 1 TAKE ONE TABLET BY MOUTH EVERY DAY AT BEDTIME FOR CHRONIC PAIN MAXIMUM DAILY DOSE = 1 SOLD: 08/28/2020 [facility] 350 mg 06/30/2020 12:00:00 AM EDT tablet 30 TAKE ONE TABLET BY MOUTH EVERY DAY AT BEDTIME FOR CHRONIC PAIN MAXIMUM DAILY DOSE = 1 TAKE ONE TABLET BY MOUTH EVERY DAY AT BEDTIME FOR CHRONIC PAIN MAXIMUM DAILY DOSE = 1 SOLD: 10/05/2020 [facility] 350 mg 06/30/2020 12:00:00 AM EDT tablet 30 TAKE ONE TABLET BY MOUTH EVERY DAY AT BEDTIME FOR CHRONIC PAIN MAXIMUM DAILY DOSE = 1 TAKE ONE TABLET BY MOUTH EVERY DAY AT BEDTIME FOR CHRONIC PAIN MAXIMUM DAILY DOSE = 1 SOLD: 06/30/2020 [facility] 750 mg 06/30/2020 12:00:00 AM EDT tablet 90 TAKE ONE TABLET BY MOUTH EVERY 8 HOURS NEEDED MAXIMUM DAILY DOSE = 3 TAKE ONE TABLET BY MOUTH EVERY 8 HOURS A S NEEDED MAXIMUM DAILY DOSE = 3 SOLD: 10/31/2020 [facility] 350 mg 06/30/2020 12:00:00 AM EDT tablet 30 TAKE ONE TABLET BY MOUTH EVERY DAY AT BEDTIME FOR CHRONIC PAIN MAXIMUM DAILY DOSE = 1 TAKE ONE TABLET BY MOUTH EVERY DAY AT BEDTIME FOR CHRONIC PAIN MAXIMUM DAILY DOSE = 1 SOLD: 11/03/2020 [facility] 750 mg 06/30/2020 12:00:00 AM EDT tablet 90 TAKE ONE TABLET BY MOUTH EVERY 8 HOURS NEEDED MAXIMUM DAILY DOSE = 3 TAKE ONE TABLET BY MOUTH EVERY 8 HOURS A S NEEDED MAXIMUM DAILY DOSE = 3 SOLD: 07/30/2020 [facility] 750 mg 06/30/2020 12:00:00 AM EDT tablet 90 TAKE ONE TABLET BY MOUTH EVERY 8 HOURS NEEDED MAXIMUM DAILY DOSE = 3 TAKE ONE TABLET BY MOUTH EVERY 8 HOURS A S NEEDED MAXIMUM DAILY DOSE = 3 SOLD: 09/30/2020 [facility] 750 mg 06/30/2020 12:00:00 AM EDT tablet 90 TAKE ONE TABLET BY MOUTH EVERY 8 HOURS NEEDED MAXIMUM DAILY DOSE = 3 TAKE ONE TABLET BY MOUTH EVERY 8 HOURS A S NEEDED MAXIMUM DAILY DOSE = 3 SOLD: 11/30/2020 [facility] 750 mg 06/30/2020 12:00:00 AM EDT tablet 90 TAKE ONE TABLET BY MOUTH EVERY 8 HOURS NEEDED MAXIMUM DAILY DOSE = 3 TAKE ONE TABLET BY MOUTH EVERY 8 HOURS A S NEEDED MAXIMUM DAILY DOSE = 3 SOLD: 08/27/2020 [facility] 350 mg 06/30/2020 12:00:00 AM EDT tablet 30 TAKE ONE TABLET BY MOUTH EVERY DAY AT BEDTIME FOR CHRONIC PAIN MAXIMUM DAILY DOSE = 1 TAKE ONE TABLET BY MOUTH EVERY DAY AT BEDTIME FOR CHRONIC PAIN MAXIMUM DAILY DOSE = 1 SOLD: 12/08/2020 [facility] 1 mg 06/26/2020 12:00:00 AM EDT tablet 90 TAKE ONE TABLET BY MOUTH THREE TIMES A DAY NEEDED MAXIMUM DAILY DOSE = 3 TAKE ONE TABLET BY MOUTH THREE TIMES A DAY NEEDED MAXIMUM DAILY DOSE = 3 SOLD: 06/29/2020 [facility] 24 HR Bupropion Hydrochloride 150 MG Extended Release Oral T ablet BUPROPION HCL 06/10/2020 12:00:00 AM EDT tablet extended release 24 hr 30 TAKE ONE TABLET BY MOUTH EVERY DAY TAKE ONE TABLET BY MOUTH EVERY DAY SOLD: 07/09/2020 [facility] 24 HR Bupropion Hydrochloride 150 MG Extended Release Oral T ablet BUPROPION HCL 06/10/2020 12:00:00 AM EDT tablet extended release 24 hr 30 TAKE ONE TABLET BY MOUTH EVERY DAY TAKE ONE TABLET BY MOUTH EVERY DAY SOLD: 06/12/2020 [facility] 800 mg 06/10/2020 12:00:00 AM EDT tablet 90 TAKE ONE TABLET BY MOUTH THREE TIMES A DAY WITH FOOD OR MILK TAKE ONE TABLET BY MOUTH THREE TIMES A D AY WITH FOOD OR MILK SOLD: 06/12/2020 [facility] 800 mg 06/10/2020 12:00:00 AM EDT tablet 90 TAKE ONE TABLET BY MOUTH THREE TIMES A DAY WITH FOOD OR MILK TAKE ONE TABLET BY MOUTH THREE TIMES A D AY WITH FOOD OR MILK SOLD: 08/07/2020 [facility] 4 mg 06/10/2020 12:00:00 AM EDT tablet,disintegrating 9 0 DISSOLVE ONE TABLET ON TONGUE THREE TIMES A DAY NEEDED DISSOLVE ONE TABLET ON TONGUE THREE TIME S A DAY NEEDED SOLD: 10/05/2020 [facility] 800 mg 06/10/2020 12:00:00 AM EDT tablet 90 TAKE ONE TABLET BY MOUTH THREE TIMES A DAY WITH FOOD OR MILK TAKE ONE TABLET BY MOUTH THREE TIMES A D AY WITH FOOD OR MILK SOLD: 07/09/2020 [facility] 4 mg 06/10/2020 12:00:00 AM EDT tablet,disintegrating 9 0 DISSOLVE ONE TABLET ON TONGUE THREE TIMES A DAY NEEDED DISSOLVE ONE TABLET ON TONGUE THREE TIME S A DAY NEEDED SOLD: 09/07/2020 [facility] 4 mg 06/10/2020 12:00:00 AM EDT tablet,disintegrating 9 0 DISSOLVE ONE TABLET ON TONGUE THREE TIMES A DAY NEEDED DISSOLVE ONE TABLET ON TONGUE THREE TIME S A DAY NEEDED SOLD: 11/02/2020 [facility] 4 mg 06/10/2020 12:00:00 AM EDT tablet,disintegrating 9 0 DISSOLVE ONE TABLET ON TONGUE THREE TIMES A DAY NEEDED DISSOLVE ONE TABLET ON TONGUE THREE TIME S A DAY NEEDED SOLD: 06/12/2020 [facility] 4 mg 06/10/2020 12:00:00 AM EDT tablet,disintegrating 9 0 DISSOLVE ONE TABLET ON TONGUE THREE TIMES A DAY NEEDED DISSOLVE ONE TABLET ON TONGUE THREE TIME S A DAY NEEDED SOLD: 07/09/2020 [facility] 800 mg 06/10/2020 12:00:00 AM EDT tablet 90 TAKE ONE TABLET BY MOUTH THREE TIMES A DAY WITH FOOD OR MILK TAKE ONE TABLET BY MOUTH THREE TIMES A D AY WITH FOOD OR MILK SOLD: 10/05/2020 [facility] 800 mg 06/10/2020 12:00:00 AM EDT tablet 90 TAKE ONE TABLET BY MOUTH THREE TIMES A DAY WITH FOOD OR MILK TAKE ONE TABLET BY MOUTH THREE TIMES A D AY WITH FOOD OR MILK SOLD: 11/02/2020 [facility] 4 mg 06/10/2020 12:00:00 AM EDT tablet,disintegrating 9 0 DISSOLVE ONE TABLET ON TONGUE THREE TIMES A DAY NEEDED DISSOLVE ONE TABLET ON TONGUE THREE TIME S A DAY NEEDED SOLD: 08/07/2020 [facility] 800 mg 06/10/2020 12:00:00 AM EDT tablet 90 TAKE ONE TABLET BY MOUTH THREE TIMES A DAY WITH FOOD OR MILK TAKE ONE TABLET BY MOUTH THREE TIMES A D AY WITH FOOD OR MILK SOLD: 09/07/2020 [facility] 24 HR Bupropion Hydrochloride 150 MG Extended Release Oral T ablet BUPROPION HCL 06/10/2020 12:00:00 AM EDT tablet extended release 24 hr 30 TAKE ONE TABLET BY MOUTH EVERY DAY TAKE ONE TABLET BY MOUTH EVERY DAY SOLD: 08/07/2020 [facility] 25 mg 06/03/2020 12:00:00 AM EDT tablet 30 TAKE ONE TABLET BY MOUTH EVERY DAY TAKE ONE TABLET BY MOUTH EVERY DAY SOLD: 06/03/2020 [facility] 750 mg 06/03/2020 12:00:00 AM EDT tablet 120 TAKE ONE TABLET BY MOUTH EVERY 6 HOURS NEEDED TAKE ONE TABLET BY MOUTH EVERY 6 HOURS NEEDED SOLD: 06/03/2020 [facility] 40 mg 06/03/2020 12:00:00 AM EDT tablet 30 TAKE ONE TABLET BY MOUTH EVERY DAY TAKE ONE TABLET BY MOUTH EVERY DAY SOLD: 06/03/2020 [facility] 50 mg 05/27/2020 12:00:00 AM EDT tablet 360 TAKE ONE TABLET BY MOUTH FOUR TIMES A DAY NEEDED TAKE ONE TABLET BY MOUTH FOUR TIMES A DAY NEEDED SO LD: 06/01/2020 [facility] atorvastatin 10 MG Oral Tablet ATORVASTATIN CALCIUM 05/27/2020 1 2:00:00 AM EDT tablet 90 TAKE ONE TABLET BY MOUTH EVERY D AY TAKE ONE TABLET BY MOUTH EVERY DAY SOLD: 09/03/2020 [facility] 10 mg 05/27/2020 12:00:00 AM EDT tablet 90 TAKE ONE TABLET BY MOUTH EVERY DAY TAKE ONE TABLET BY MOUTH EVERY DAY SOLD: 06/01/2020 [facility] atorvastatin 10 MG Oral Tablet ATORVASTATIN CALCIUM 05/27/2020 1 2:00:00 AM EDT tablet 90 TAKE ONE TABLET BY MOUTH EVERY D AY TAKE ONE TABLET BY MOUTH EVERY DAY SOLD: 11/30/2020 [facility] 1 mg 05/27/2020 12:00:00 AM EDT tablet 90 TAKE ONE TABLET BY MOUTH THREE TIMES A DAY NEEDED MAXIMUM DAILY DOSE = 3 TAKE ONE TABLET BY MOUTH THREE TIMES A DAY NEEDED MAXIMUM DAILY DOSE = 3 SOLD: 06/01/2020 [facility] 50 mg 05/27/2020 12:00:00 AM EDT tablet 360 TAKE ONE TABLET BY MOUTH FOUR TIMES A DAY NEEDED TAKE ONE TABLET BY MOUTH FOUR TIMES A DAY NEEDED SO LD: 09/03/2020 [facility] 50 mg 05/27/2020 12:00:00 AM EDT tablet 360 TAKE ONE TABLET BY MOUTH FOUR TIMES A DAY NEEDED TAKE ONE TABLET BY MOUTH FOUR TIMES A DAY NEEDED SO LD: 11/30/2020 [facility] Paroxetine Hydrochloride 30 MG Oral Tablet PAROXETINE HCL 05/18/2020 12:00:00 AM EDT tablet 90 TAKE ONE TABLET BY MOUTH CECY RY MORNING TAKE ONE TABLET BY MOUTH EVERY MORNING SOLD: 05/20/2020 [facility] 10 mg 05/09/2020 12:00:00 AM EDT tablet 20 TAKE ONE TABLET BY MOUTH EVERY 6 HOURS NEEDED WITH FOOD OR MILK TAKE ONE TABLET BY MOUTH EVERY 6 HOURS A S NEEDED WITH FOOD OR MILK SOLD: 05/10/2020 [facility] 1 mg 05/05/2020 12:00:00 AM EDT tablet 90 TAKE ONE TABLET BY MOUTH THREE TIMES A DAY NEEDED, MAXIMUM DAILY DOSE = 3 TAKE ONE TABLET BY MOUTH THREE TIMES A DAY NEEDED, MAXIMUM DAILY DOSE = 3 SOLD: 05/06/2020 [facility] 875-125 mg 05/05/2020 12:00:00 AM EDT tablet 20 TAKE ONE TABLET BY MOUTH EVERY 12 HOURS FOR 10 DAYS TAKE ONE TABLET BY MOUTH EVERY 12 HOURS FOR 10 DAYS SOLD: 05/06/2020 [facility] 0.5 mg 05/05/2020 12:00:00 AM EDT tablet 30 TAKE ONE TABLET BY MOUTH THREE TIMES A DAY MAXIMUM DAILY DOSE = 3 TABLETS ; DO NOT TAKE WITH ALPRAZOLAM TAKE ONE TABLET BY MOUTH THREE TIMES A DAY MAXIMUM DAILY DOSE = 3 TABLETS ; DO NOT TAKE WITH ALPRAZOLAM SOLD: 05/06/2020 [facility] Ketorolac Tromethamine 10 MG Oral Tablet Ketorolac Trometham ine 10 MG 04/30/2020 12:00:00 AM EDT suspended Ketor olac Tromethamine 10 MG eCW1 ([facility]) Ketorolac Tromethamine 10 MG Oral Tablet Ketorolac Trometham ine 10 MG 04/30/2020 12:00:00 AM EDT active Ketorola c Tromethamine 10 MG eCW1 ([facility]) Ketorolac Tromethamine 10 MG Oral Tablet Ketorolac Trometham ine 10 MG 04/30/2020 12:00:00 AM EDT suspended Ketor olac Tromethamine 10 MG eCW1 ([facility]) Ketorolac Tromethamine 10 MG Oral Tablet Ketorolac Trometham ine 10 MG 04/30/2020 12:00:00 AM EDT suspended Ketor olac Tromethamine 10 MG eCW1 ([facility]) Ketorolac Tromethamine 10 MG Oral Tablet Ketorolac Trometham ine 10 MG 04/30/2020 12:00:00 AM EDT suspended Ketor olac Tromethamine 10 MG eCW1 ([facility]) Ketorolac Tromethamine 10 MG Oral Tablet Ketorolac Trometham ine 10 MG 04/30/2020 12:00:00 AM EDT active Ketorola c Tromethamine 10 MG eCW1 ([facility]) Ketorolac Tromethamine 10 MG Oral Tablet Ketorolac Trometham ine 10 MG 04/30/2020 12:00:00 AM EDT active Ketorola c Tromethamine 10 MG eCW1 ([facility]) Ketorolac Tromethamine 10 MG Oral Tablet Ketorolac Trometham ine 10 MG 04/30/2020 12:00:00 AM EDT active Ketorola c Tromethamine 10 MG eCW1 ([facility]) Ketorolac Tromethamine 10 MG Oral Tablet Ketorolac Trometham ine 10 MG 04/30/2020 12:00:00 AM EDT suspended Ketor olac Tromethamine 10 MG eCW1 ([facility]) Oxycodone Hydrochloride 15 MG Oral Tablet Oxycodone HC l 15 MG Oxycodone HCl 15 MG 04/24/2020 12:00:00 AM EDT 1.0 {tablet} activ e Oxycodone HCl 15 MG eCW1 ([facility]) Oxycodone Hydrochloride 15 MG Oral Tablet Oxycodone HC l 15 MG Oxycodone HCl 15 MG 04/24/2020 12:00:00 AM EDT 1.0 {tablet} activ e Oxycodone HCl 15 MG eCW1 ([facility]) Morphine Sulfate 15 MG Extended Release Oral Tablet Mo rphine Sulfate ER 15 MG Morphine Sulfate ER 15 MG 04/24/2020 12:00:00 AM EDT 1.0 {tablet} active Morphine Sulfate ER 15 MG eCW1 ( [facility]) Oxycodone Hydrochloride 15 MG Oral Tablet Oxycodone HC l 15 MG Oxycodone HCl 15 MG 04/24/2020 12:00:00 AM EDT 1.0 {tablet} activ e Oxycodone HCl 15 MG eCW1 ([facility]) Morphine Sulfate 15 MG Extended Release Oral Tablet Mo rphine Sulfate ER 15 MG Morphine Sulfate ER 15 MG 04/24/2020 12:00:00 AM EDT 1.0 {tablet} active Morphine Sulfate ER 15 MG eCW1 ( [facility]) Morphine Sulfate 15 MG Extended Release Oral Tablet Mo rphine Sulfate ER 15 MG Morphine Sulfate ER 15 MG 04/24/2020 12:00:00 AM EDT 1.0 {tablet} active Morphine Sulfate ER 15 MG eCW1 ( [facility]) Ketorolac Tromethamine 10 MG Oral Tablet Ketorolac Trometham ine 10 MG 04/16/2020 12:00:00 AM EDT suspended Ketor olac Tromethamine 10 MG eCW1 ([facility]) Ketorolac Tromethamine 10 MG Oral Tablet Ketorolac Trometham ine 10 MG 04/16/2020 12:00:00 AM EDT suspended Ketor olac Tromethamine 10 MG eCW1 ([facility]) Ketorolac Tromethamine 10 MG Oral Tablet Ketorolac Trometham ine 10 MG 04/16/2020 12:00:00 AM EDT active 1 tablet with food or milk as needed eCW1 ([facility]) Ketorolac Tromethamine 10 MG Oral Tablet Ketorolac Trometham ine 10 MG 04/16/2020 12:00:00 AM EDT suspended Ketor olac Tromethamine 10 MG eCW1 ([facility]) Ketorolac Tromethamine 10 MG Oral Tablet Ketorolac Trometham ine 10 MG 04/16/2020 12:00:00 AM EDT suspended Ketor olac Tromethamine 10 MG eCW1 ([facility]) Ketorolac Tromethamine 10 MG Oral Tablet Ketorolac Trometham ine 10 MG 04/16/2020 12:00:00 AM EDT suspended Ketor olac Tromethamine 10 MG eCW1 ([facility]) Ketorolac Tromethamine 10 MG Oral Tablet Ketorolac Trometham ine 10 MG 04/16/2020 12:00:00 AM EDT suspended Ketor olac Tromethamine 10 MG eCW1 ([facility]) Ketorolac Tromethamine 10 MG Oral Tablet Ketorolac Trometham ine 10 MG 04/16/2020 12:00:00 AM EDT suspended Ketor olac Tromethamine 10 MG eCW1 ([facility]) Ketorolac Tromethamine 10 MG Oral Tablet Ketorolac Trometham ine 10 MG 04/16/2020 12:00:00 AM EDT suspended Ketor olac Tromethamine 10 MG eCW1 ([facility]) Ketorolac Tromethamine 10 MG Oral Tablet Ketorolac Trometham ine 10 MG 04/16/2020 12:00:00 AM EDT suspended Ketor olac Tromethamine 10 MG eCW1 ([facility]) Oxycodone Hydrochloride 15 MG Oral Tablet Oxycodone HC l 15 MG Oxycodone HCl 15 MG 03/18/2020 12:00:00 AM EDT active 1 tablet eCW1 ([facility]) Morphine Sulfate 15 MG Extended Release Oral Tablet Mo rphine Sulfate ER 15 MG Morphine Sulfate ER 15 MG 03/18/2020 12:00:00 AM EDT active 1 tablet eCW1 ([facility]) 750 mg 02/23/2020 12:00:00 AM EDT tablet 120 TAKE ONE TABLET BY MOUTH EVERY 6 HOURS NEEDED TAKE ONE TABLET BY MOUTH EVERY 6 HOURS NEEDED SOLD: 02/23/2020 [facility] 150 mg 02/23/2020 12:00:00 AM EDT tablet extended release 24 hr 90 TAKE ONE TABLET BY MOUTH EVERY MORNING TAKE ONE TABLET BY MOUTH EVERY MORNING SOLD: 02/23/2020 [facility] Morphine Sulfate 15 MG Extended Release Oral Tablet Mo rphine Sulfate ER 15 MG Morphine Sulfate ER 15 MG 02/17/2020 12:00:00 AM EDT active 1 tablet eCW1 ([facility]) Oxycodone Hydrochloride 15 MG Oral Tablet Oxycodone HC l 15 MG Oxycodone HCl 15 MG 02/17/2020 12:00:00 AM EDT active 1 tablet eCW1 ([facility]) Oxycodone Hydrochloride 15 MG Oral Tablet Oxycodone HC l 15 MG Oxycodone HCl 15 MG 01/16/2020 12:00:00 AM EST active 1 tablet eCW1 ([facility]) Morphine Sulfate 15 MG Extended Release Oral Tablet Mo rphine Sulfate ER 15 MG Morphine Sulfate ER 15 MG 01/16/2020 12:00:00 AM EST active 1 tablet eCW1 ([facility]) Morphine Sulfate 15 MG Extended Release Oral Tablet Mo rphine Sulfate ER 15 MG Morphine Sulfate ER 15 MG 01/13/2020 12:00:00 AM EST active 1 tablet eCW1 ([facility]) Oxycodone Hydrochloride 15 MG Oral Tablet Oxycodone HC l 15 MG Oxycodone HCl 15 MG 01/13/2020 12:00:00 AM EST active 1 tablet eCW1 ([facility]) 10 mg 12/13/2019 12:00:00 AM EST tablet 20 TAKE ONE TABLET BY MOUTH EVERY 6 HOURS NEEDED WITH FOOD OR MILK TAKE ONE TABLET BY MOUTH EVERY 6 HOURS A S NEEDED WITH FOOD OR MILK SOLD: 12/14/2019 [facility] naloxegol 25 MG Oral Tablet [Movantik] Movantik 25 MG Movant ik 25 MG 11/29/2019 12:00:00 AM EST 1.0 {tablet_in_the_morning} susp ended Movantik 25 MG eCW1 ([facility]) naloxegol 25 MG Oral Tablet [Movantik] Movantik 25 MG [facility] 25 MG 11/29/2019 12:00:00 AM EST 1.0 {tablet_in_the_morning} susp ended Movantik 25 MG eCW1 ([facility]) naloxegol 25 MG Oral Tablet [Movantik] Movantik 25 MG Movant ik 25 MG 11/29/2019 12:00:00 AM EST 1.0 {tablet_in_the_morning} susp ended Movantik 25 MG eCW1 ([facility]) naloxegol 25 MG Oral Tablet [Movantik] Movantik 25 MG Movant ik 25 MG 11/29/2019 12:00:00 AM EST 1.0 {tablet_in_the_morning} susp ended Movantik 25 MG eCW1 ([facility]) naloxegol 25 MG Oral Tablet [Movantik] Movantik 25 MG Movant ik 25 MG 11/29/2019 12:00:00 AM EST 1.0 {tablet_in_the_morning} susp ended Movantik 25 MG eCW1 ([facility]) 15 mg 11/29/2019 12:00:00 AM EST tablet 120 TAKE ONE TABLET BY MOUTH EVERY 6 HOURS NEEDED MAXIMUM DAILY DOSE = 4 TABLETS TAKE ONE TABLET BY MOUTH EVERY 6 HOURS NEEDED MAXIMUM DAILY DOSE = 4 TABLETS SOLD: 11/29/2019 [facility] naloxegol 25 MG Oral Tablet [Movantik] Movantik 25 MG Movant ik 25 MG 11/29/2019 12:00:00 AM EST 1.0 {tablet_in_the_morning} susp ended Movantik 25 MG eCW1 ([facility]) Oxycodone Hydrochloride 15 MG Oral Tablet Oxycodone HC l 15 MG Oxycodone HCl 15 MG 11/29/2019 12:00:00 AM EST active 1 tablet eCW1 ([facility]) naloxegol 25 MG Oral Tablet [Movantik] Movantik 25 MG Movant ik 25 MG 11/29/2019 12:00:00 AM EST 1.0 {tablet_in_the_morning} susp ended Movantik 25 MG eCW1 ([facility]) 15 mg 11/29/2019 12:00:00 AM EST tablet extended release 30 TAKE 1 TABLET BY MOUTH AT BEDTIME MAXIMUM DAILY DOSE = 1 TAKE 1 TABLET BY MOUTH AT BEDTIME MAXIMUM DAILY DOSE = 1 SOLD: 11/29/2019 [facility] naloxegol 25 MG Oral Tablet [Movantik] Movantik 25 MG Movant ik 25 MG 11/29/2019 12:00:00 AM EST 1.0 {tablet_in_the_morning} susp ended Movantik 25 MG eCW1 ([facility]) naloxegol 25 MG Oral Tablet [Movantik] Movantik 25 MG Movant ik 25 MG 11/29/2019 12:00:00 AM EST suspended 1 tab let in the morning eCW1 ([facility]) naloxegol 25 MG Oral Tablet [Movantik] Movantik 25 MG Movant ik 25 MG 11/29/2019 12:00:00 AM EST 1.0 {tablet_in_the_morning} susp ended Movantik 25 MG eCW1 ([facility]) naloxegol 25 MG Oral Tablet [Movantik] Movantik 25 MG Movant ik 25 MG 11/29/2019 12:00:00 AM EST active 1 tablet in the morning eCW1 ([facility]) Morphine Sulfate 15 MG Extended Release Oral Tablet Mo rphine Sulfate ER 15 MG Morphine Sulfate ER 15 MG 11/29/2019 12:00:00 AM EST active 1 tablet eCW1 ([facility]) 800 mg 11/25/2019 12:00:00 AM EST tablet 90 TAKE ONE TABLET BY MOUTH THREE TIMES A DAY WITH FOOD OR MILK NEEDED TAKE ONE TABLET BY MOUTH THREE TIMES A DAY WITH FOOD OR MILK NEEDED SOLD: 11/25/2019 [facility] Alprazolam 0.5 MG Oral Tablet ALPRAZOLAM 11/25/2019 12:00:00 AM EST ta blet 90 TAKE ONE TABLET BY MOUTH THREE TIMES A DAY NEEDED MAXIMUM DAILY DOSE = 3 TAKE ONE TABLET BY MOUTH THREE TIMES A DAY NEEDED MAXIMUM DAILY DOSE = 3 SOLD: 11/25/2019 [facility] 800 mg 11/25/2019 12:00:00 AM EST tablet 90 TAKE ONE TABLET BY MOUTH THREE TIMES A DAY WITH FOOD OR MILK NEEDED TAKE ONE TABLET BY MOUTH THREE TIMES A DAY WITH FOOD OR MILK NEEDED SOLD: 12/31/2019 [facility] 800 mg 11/25/2019 12:00:00 AM EST tablet 90 TAKE ONE TABLET BY MOUTH THREE TIMES A DAY WITH FOOD OR MILK NEEDED TAKE ONE TABLET BY MOUTH THREE TIMES A DAY WITH FOOD OR MILK NEEDED SOLD: 02/23/2020 [facility] 30 mg 11/25/2019 12:00:00 AM EST capsule 30 TAKE 1 CAPSULE BY MOUTH AT BEDTIME NEEDED MAXIMUM DAILY DOSE = 1 TAKE 1 CAPSULE BY MOUTH AT BEDTIME NEEDED MAXIMUM DAILY DOSE = 1 SOLD: 11/25/2019 [facility] 15 mg 10/29/2019 12:00:00 AM EST tablet 120 TAKE ONE TABLET BY MOUTH EVERY 6 HOURS NEEDED MAXIMUM DAILY DOSE = 4 TAKE ONE TABLET BY MOUTH EVERY 6 HOURS NEEDED MAXIMUM DAILY DOSE = 4 SOLD: 10/31/2019 [facility] Oxycodone Hydrochloride 15 MG Oral Tablet Oxycodone HC l 15 MG Oxycodone HCl 15 MG 10/29/2019 12:00:00 AM EST active 1 tablet eCW1 ([facility]) 750 mg 10/29/2019 12:00:00 AM EST tablet 120 TAKE 1 TABLET BY MOUTH EVERY 6 HOURS NEEDED TAKE 1 TABLET BY MOUTH EVERY 6 HOURS NEEDED SOLD: [facility] Oxycodone Hydrochloride 15 MG Oral Tablet Oxycodone HC l 15 MG Oxycodone HCl 15 MG 10/29/2019 12:00:00 AM EST active 1 tablet eCW1 ([facility]) Morphine Sulfate 15 MG Extended Release Oral Tablet Mo rphine Sulfate ER 15 MG Morphine Sulfate ER 15 MG 10/29/2019 12:00:00 AM EST active 1 tablet eCW1 ([facility]) 750 mg 10/29/2019 12:00:00 AM EST tablet 120 TAKE 1 TABLET BY MOUTH EVERY 6 HOURS NEEDED TAKE 1 TABLET BY MOUTH EVERY 6 HOURS NEEDED SOLD: [facility] Oxycodone Hydrochloride 15 MG Oral Tablet Oxycodone HC l 15 MG Oxycodone HCl 15 MG 10/29/2019 12:00:00 AM EST active 1 tablet eCW1 ([facility]) 15 mg 10/29/2019 12:00:00 AM EST tablet extended release 30 TAKE ONE TABLET BY MOUTH AT BEDTIME MAXIMUM DAILY DOSE = 1 TAKE ONE TABLET BY MOUTH AT BEDTIME MAXIMUM DAILY DOSE = 1 SOLD: 10/31/2019 [facility] Morphine Sulfate 15 MG Extended Release Oral Tablet Mo rphine Sulfate ER 15 MG Morphine Sulfate ER 15 MG 10/29/2019 12:00:00 AM EST active 1 tablet eCW1 ([facility]) 750 mg 10/29/2019 12:00:00 AM EST tablet 120 TAKE 1 TABLET BY MOUTH EVERY 6 HOURS NEEDED TAKE 1 TABLET BY MOUTH EVERY 6 HOURS NEEDED SOLD: 020 [facility] Morphine Sulfate 15 MG Extended Release Oral Tablet Mo rphine Sulfate ER 15 MG Morphine Sulfate ER 15 MG 10/29/2019 12:00:00 AM EST active 1 tablet eCW1 ([facility]) 40 mg 10/15/2019 12:00:00 AM EST tablet 60 TAKE ONE TABLET BY MOUTH TWICE A DAY TAKE ONE TABLET BY MOUTH TWICE A DAY SOLD: 02/23/2020 [facility] 40 mg 10/15/2019 12:00:00 AM EST tablet 60 TAKE ONE TABLET BY MOUTH TWICE A DAY TAKE ONE TABLET BY MOUTH TWICE A DAY SOLD: 12/31/2019 [facility] 40 mg 10/15/2019 12:00:00 AM EST tablet 60 TAKE ONE TABLET BY MOUTH TWICE A DAY TAKE ONE TABLET BY MOUTH TWICE A DAY SOLD: 10/15/2019 [facility] 40 mg 10/15/2019 12:00:00 AM EST tablet 60 TAKE ONE TABLET BY MOUTH TWICE A DAY TAKE ONE TABLET BY MOUTH TWICE A DAY SOLD: 06/29/2020 [facility] 0.5 mg 10/15/2019 12:00:00 AM EST tablet 120 TAKE ONE TABLET BY MOUTH FOUR TIMES A DAY NEEDED MAXIMUM DAILY DOSE = 4 TAKE ONE TABLET BY MOUTH FOUR TIMES A DAY NEEDED MAXIMUM DAILY DOSE = 4 SOLD: 10/15/2019 [facility] 40 mg 10/15/2019 12:00:00 AM EST tablet 60 TAKE ONE TABLET BY MOUTH TWICE A DAY TAKE ONE TABLET BY MOUTH TWICE A DAY SOLD: 11/25/2019 [facility] 40 mg 10/15/2019 12:00:00 AM EST tablet 60 TAKE ONE TABLET BY MOUTH TWICE A DAY TAKE ONE TABLET BY MOUTH TWICE A DAY SOLD: 07/30/2020 [facility] 4 mg 08/27/2019 12:00:00 AM EDT tablets,dose pack 21 TAKE DIRECTED TAKE DIRECTED SOLD: 12/31/2019 [facility] 40 mg 08/06/2019 12:00:00 AM EDT tablet,delayed release (DR/EC) 60 TAKE ONE TABLET BY MOUTH TWICE A DAY TAKE ONE TABLET BY MOUTH TWICE A DAY SOLD: 02/23/2020 [facility] 40 mg 08/06/2019 12:00:00 AM EDT tablet,delayed release (DR/EC) 60 TAKE ONE TABLET BY MOUTH TWICE A DAY TAKE ONE TABLET BY MOUTH TWICE A DAY SOLD: 12/31/2019 [facility] 40 mg 08/06/2019 12:00:00 AM EDT tablet,delayed release (DR/EC) 60 TAKE ONE TABLET BY MOUTH TWICE A DAY TAKE ONE TABLET BY MOUTH TWICE A DAY SOLD: 11/29/2019 [facility] Paroxetine Hydrochloride 30 MG Oral Tablet PAROXETINE HCL 01/17/2019 12:00:00 AM EST tablet 90 TAKE ONE TABLET BY MOUTH DAILY TAKE ONE TABLET BY MOUTH DAILY SOLD: 10/15/2019 [facility] 150 mg 12/29/2018 12:00:00 AM EST tablet extended release 24 hr 90 TAKE ONE TABLET BY MOUTH EVERY DAY TAKE ONE TABLET BY MOUTH EVERY DAY SOLD: 11/29/2019 [facility] 150 mg 12/29/2018 12:00:00 AM EST tablet extended release 24 hr 4 TAKE ONE TABLET BY MOUTH EVERY DAY TAKE ONE TABLET BY MOUTH EVERY DAY SOLD: 11/29/2019 [facility] Insurance Providers Payer name Policy type / Coverage type Policy ID Covered green party ID Covered green party's relationship to wharton Policy [place] Plan Information SELF PAY ONLY [id number] [place]/307 [id number] SP [id number] [place]/307 [id number] SP [id number] [place] [id number] S [id number] [place] 306/806 [id number] SP [id number] [place] 306/806 [id number] SP [id number] EXCELLUS BCBS B [id number] S [id number] EXCELLUS H [id number] Self [id number] MEDICARE [id number] SP [id number] [id number] SELF PAY FINANCIAL ASSISTANCE 521 S 521 HUMANA GOLD [id number] SP [id number] HRSA UNINSURED FUND SP MEDICARE [id number] S [id number] N62 MEDICARE C [id number] S [id number] N62 MEDICARE A [id number] Self [id number] A SELF PAY ONLY [id number] SP [id number] MEDICARE [id number] S [id number] N62 MEDICARE [id number] S [id number] ANSI-Medicare Part B [id number] ANSI-Medicaid [id number] ANSI-Medicare Part B [id number] ANSI-Medicaid [id number] MEDICARE [id number] S [id number] ANSI-Medicaid [id number] ANSI-Medicare Part B [id number] ANSI-Medicaid [id number] ANSI-Medicare Part B [id number] ANSI-Medicare Part B [id number] ANSI-Medicaid [id number] ANSI-Medicare Part B [id number] ANSI-Medicaid [id number] MEDICARE [id number] SP [id number] ANSI-Medicare Part B [id number] ANSI-Medicaid [id number] ANSI-Medicare Part B [id number] ANSI-Medicaid [id number] [place] [id number] Self [id number] Bso ZFC,Yot,ZFH,Ymb,ZFP Health Maintenance Organization (HMO) [id number] Family Dependent [id number] BS [facility] Part B [id number] Self [id number] Medicare [facility] Medicare Primary [id number] Self [id number] ANSI-Medicare Part B [id number] ANSI-Medicaid [id number] Bshmo ZFC,Yot,ZFH,Ymb,ZFP Health Maintenance Organization (HMO) [id number] Family Dependent [id number] BS [facility] Part B [id number] Self [id number] [place] Primary [id number] Self [id number] ANSI-Medicare Part B [id number] ANSI-Medicaid [id number] ANSI-Medicare Part B [id number] ANSI-Medicaid [id number] ANSI-Medicare Part B [id number] ANSI-Medicaid [id number] ANSI-Medicare Part B [id number] ANSI-Medicaid [id number] ANSI-Medicaid [id number] ANSI-Medicare Part B [id number] Bshmo ZFC,Yot,ZFH,Ymb,ZFP Health Maintenance Organization (HMO) [id number] Family Dependent [id number] BS [facility] Part B [id number] Self [id number] [place] Primary [id number] Self [id number] ANSI-Medicaid [id number] ANSI-Medicare Part B [id number] ANSI-Medicaid [id number] ANSI-Medicare Part B [id number] ANSI-Medicare Part B [id number] ANSI-Medicaid [id number] ANSI-Medicare Part B [id number] ANSI-Medicaid [id number] ANSI-Medicaid [id number] ANSI-Medicare Part B [id number] ANSI-Medicare Part B [id number] ANSI-Medicaid [id number] ANSI-Medicare Part B [id number] ANSI-Medicaid [id number] ANSI-Medicare Part B [id number] ANSI-Medicaid [id number] ANSI-Medicare Part B [id number] ANSI-Medicaid [id number] MEDICARE [id number] SP [id number] A ANSI-Medicare Part B [id number] ANSI-Medicaid [id number] ANSI-Medicare Part B [id number] ANSI-Medicaid [id number] MEDICAID [id number] SP [id number] MEDICARE A [id number] Self [id number] A DME Jurisdiction A ALIC C [id number] SELF [id number] Medicaid [id number] S D [id number] SELF [id number] Medicare C [id number] SELF [id number] A MEDICARE [id number] SP [id number] A O UNAVAILABLE UNAVAILA BLE SELF PAY UNAVAILABLE SP UNAVAILA BLE EXCELLUS BCBS B YOU [id number] S YO U [id number] MEDICARE PART A -O/P [id number] 18 [id number] [employer]HC COMMUNITY PLAN XIX [id number] 18 [id number] BLUE CROSS BLUE SHIELD-O/P YOU [id number] 18 YOU [id number] MEDICAID M [id number] Self [id number] MEDICARE C [id number] S [id number] A [place] Medicare Primary [id number] Self [id number] MEDICARE [id number] SP [id number] A [place] Medicare Primary [id number] Self [id number] UNHC COMMUNITY PLAN MCDO [id number] SP [id number] MEDICAID [id number] SP [id number] MEDICAID M [id number] S [id number] UNHC COMMUNITY PLAN MCDO [id number] SP [id number] [facility] I [id number] Self [id number] [facility] [place]/MCR Health Maintenance Organization (HMO) Self [facility](MCAID) O [id number] S [id number] [facility] [id number] SP [id number] PMA MANAGEMENT [facility] [place] [id number] SP [id number] [place] P[place] 302/307 [id number] [place] 306/806 [id number] SP [id number] BLUE CROSS BLUE SHIELD-CLINIC [id number] 18 [id number] MEDICAID [id number] Self [id number] MEDICAID [id number] BCBS HMO [place] O [id number] S [id number] B/S BLUE PPO/HSA (33) [id number] [place] 306/806 [id number] SP [id number] EXCELLUS BCBS P [id number] S [id number] [place] 306/8 P [id number] S [id number] Problems, Conditions, and Diagnoses Code Display Name Description Problem Type Effective Dates Data Source(s) M96.1 56939499 Post laminectomy syndrome Problem 01/16/2020 12:00:00 AM EST eCW1 ([facility]) M96.1 [id number] Post laminectomy syndrome Problem 01/16/2020 12:00:00 AM EST eCW1 ([facility]) R41.3 Other amnesia OTHER AMNESIA Diagnosis 11/02/2020 03:34:00 PM EST [facility] M32.9 Systemic lupus erythematosus, unspecifie d SYSTEMIC LUPUS ERYTHEMATOSUS, UNSPECIFIED Diagnosis 11/02/2020 03:34:00 PM [facility] M51.26 Other intervertebral disc displacement, lumbar region OTHER INTERVERTEBRAL DISC DISPLACEMENT, LUMBAR REGION Diagnosis 2019 01:43:00 PM [facility] F41.9 Anxiety disorder, unspecified ANXIETY DISORDER, UNSPEC IFIED Diagnosis 09/10/2020 01:43:00 PM [facility] F32.9 Major depressive disorder, single episod e, unspecified MAJOR DEPRESSIVE DISORDER, SINGLE EPISODE, UNSPECIFIED Diagnosis 08/06/2020 01:45:00 PM [facility] L03.211 Cellulitis of face CELLULITIS OF FACE Diagnosis 01:05:00 PM [facility] J01.90 Acute sinusitis, unspecified ACUTE SINUSITIS, UNSPECIF IED Diagnosis 05/04/2020 07:07:00 AM [facility] E55.9 Vitamin D deficiency, unspecified VITAMIN D DEFI CIENCY, UNSPECIFIED Diagnosis 05/04/2020 07:07:00 AM [facility] I10 Essential (primary) hypertension ESSENTIAL (PRIMARY) H YPERTENSION Diagnosis 05/04/2020 07:07:00 AM [facility] M79.7 Fibromyalgia FIBROMYALGIA Diagnosis 05/04/2020 07:07:00 A M [facility] J01.40 Acute pansinusitis, unspecified ACUTE PANSINUSIT IS, UNSPECIFIED Diagnosis 01/09/2020 09:53:00 AM [facility] J40 Bronchitis, not specified as acute or ch ronic BRONCHITIS, NOT SPECIFIED ACUTE OR CHRONIC Diagnosis 01/09/2020 09:53:00 AM [facility] Y92.[address] in unspecified n on-institutional (private) residence as the place of occurrence of the external cause OTH PLACE IN UNSP NON-INSTITUT (PRIVATE) RESIDENCE PLACE Diagnosis 12/12/2019 02:37:00 PM [facility] W01.0XXA Fall on same level from slip ping, tripping and stumbling without subsequent striking against object, initial encounter FALL SAME LEV FROM SLIP/TRIP W/O STRIKE AGAINST OBJECT, INIT Diagnosis 12/12/2019 02:37:0 0 PM [facility] S92.311A Displaced fracture of first metatarsal bone, right foot, initial encounter for closed fracture DISP FX OF FIRST METATARSAL BONE, RIGHT FOOT, INIT Diagnosis 12/12/2019 02:37:00 PM [facility] Surgeries/Procedures Procedure Description Date Indications Data Source(s) Hospital outpatient clinic visit for assessment and ma nagement of a patient Hospital Outpatient Clinic Visit 05/04/2020 12:00:00 AM [facility] COLLECTION VENOUS BLOOD VENIPUNCTURE ROUTINE VENIPUNCTURE 12:00:00 AM [facility] THYROXINE FREE ASSAY OF FREE THYROXINE 05/04/2020 12:00:00 AM [facility] THYROID STIMULATING HORMONE TSH ASSAY THYROID STIM HORMONE 0 05/04/2020 12:00:00 AM [facility] 25 HYDROXY INCLUDES FRACTIONS IF PERFORMED VITAMIN D 25 HYDR OXY 05/04/2020 12:00:00 AM [facility] URNLS DIP STICK/TABLET REAGENT AUTO MICROSCOPY URINALYSIS AU TO W/SCOPE 05/04/2020 12:00:00 AM [facility] SEDIMENTATION RATE RBC NON-AUTOMATED RBC SED RATE NONAUTOMAT ED 05/04/2020 12:00:00 AM [facility] BLOOD COUNT COMPLETE AUTO&AUTO DIFRNTL WBC COUNT COMPLETE CB C W/AUTO DIFF WBC 05/04/2020 12:00:00 AM [facility] ALBUMIN URINE MICROALBUMIN QUANTIATIVE UR ALBUMIN QUANTITATI VE 05/04/2020 12:00:00 AM [facility] CREATININE OTHER SOURCE ASSAY OF URINE CREATININE 05/04/2020 12:00: 00 AM [facility] C-REACTIVE PROTEIN C-REACTIVE PROTEIN 05/04/2020 12:00:00 AM [facility] LIPID PANEL LIPID PANEL 05/04/2020 12:00:00 AM [facility] COMPREHENSIVE METABOLIC PANEL COMPREHEN METABOLIC PANEL 06/2020 12:00:00 AM [facility] RADEX FOOT COMPLETE MINIMUM 3 VIEWS X-RAY EXAM OF FOOT 11/27 12:00:00 AM [facility] Injection, ketorolac tromethamine, per 15 mg 0 12:00:00 AM [facility] THERAPEUTIC PROPHYLACTIC/DX INJECTION SUBQ/IM THER/PROPH/CHRISSIE G INJ SC/IM 12/12/2019 12:00:00 AM [facility] EMERGENCY DEPARTMENT VISIT MODERATE SEVERITY EMERGENCY DEPT VISIT 12/12/2019 12:00:00 AM [facility] Results ID Date Data Source [id number] 12/08/2020 02:20:00 PM EST [facility] Name Value Range Interpretation Code Description Data Shanti rce(s) Supporting Document(s) SARS coronavirus 2 RNA Not Detected [facility] This lab was ordered by [facility] and reported by [facility]. ID Date Data Source [id number] 11/30/2020 01:30:00 PM EST [facility] Name Value Range Interpretation Code Description Data Shanti rce(s) Supporting Document(s) SARS coronavirus 2 RNA [facility] This lab was ordered by [facility] and reported by [facility]. ID Date Data Source [id number] 11/23/2020 06:30:00 AM EST [facility] Name Value Range Interpretation Code Description Data Shanti rce(s) Supporting Document(s) SARS coronavirus 2 RNA [facility] This lab was ordered by [facility] and reported by [facility]. ID Date Data Source [id number] 11/16/2020 06:30:00 AM EST [facility] Name Value Range Interpretation Code Description Data Shanti rce(s) Supporting Document(s) SARS coronavirus 2 RNA [facility] This lab was ordered by [facility] and reported by [facility]. ID Date Data Source [id number] 11/09/2020 06:37:00 AM EST [facility] Name Value Range Interpretation Code Description Data Shanti rce(s) Supporting Document(s) SARS coronavirus 2 RNA [facility] This lab was ordered by [facility] and reported by [facility]. ID Date Data Source [id number] 11/02/2020 09:00:00 AM EST [facility] Name Value Range Interpretation Code Description Data Shanti rce(s) Supporting Document(s) SARS coronavirus 2 RNA [facility] This lab was ordered by [facility] and reported by [facility]. ID Date Data Source [id number] 10/26/2020 02:02:00 PM EST [facility] Name Value Range Interpretation Code Description Data Shanti rce(s) Supporting Document(s) SARS coronavirus 2 RNA [facility] This lab was ordered by [facility] and reported by [facility]. ID Date Data Source [id number] 10/19/2020 09:00:00 AM EST [facility] Name Value Range Interpretation Code Description Data Shanti rce(s) Supporting Document(s) SARS coronavirus 2 RNA [facility] This lab was ordered by [facility] and reported by [facility]. ID Date Data Source [id number] 10/18/2020 12:00:00 AM EST [facility] Name Value Range Interpretation Code Description Data Shanti rce(s) Supporting Document(s) SARS-CoV2 Rapid Antigen [facility] This lab was ordered by [facility] and reported by [facility]. ID Date Data Source [id number] 10/15/2020 12:00:00 AM EST [facility] Name Value Range Interpretation Code Description Data Shanti rce(s) Supporting Document(s) 2019-nCoV RNA XXX NATANAEL+probe-Imp [facility] This lab was ordered by [facility] and reported by [employer]. ID Date Data Source [id number] 10/08/2020 12:00:00 AM EST [facility] Name Value Range Interpretation Code Description Data Shanti rce(s) Supporting Document(s) SARS coronavirus 2 Ag [facility] This lab was ordered by [facility] and reported by [facility]. ID Date Data Source [id number] 10/05/2020 06:30:00 AM EST [facility] Name Value Range Interpretation Code Description Data Shanti rce(s) Supporting Document(s) SARS coronavirus 2 RNA [facility] This lab was ordered by [facility] and reported by [facility]. ID Date Data Source [id number] 09/28/2020 06:00:00 AM EST [facility] Name Value Range Interpretation Code Description Data Shanti rce(s) Supporting Document(s) SARS coronavirus 2 RNA [facility] This lab was ordered by [facility] and reported by [facility]. ID Date Data Source [id number] 09/21/2020 05:30:00 AM EDT [facility] Name Value Range Interpretation Code Description Data Shanti rce(s) Supporting Document(s) SARS coronavirus 2 RNA [facility] This lab was ordered by [facility] and reported by [facility]. ID Date Data Source [id number] 09/14/2020 01:00:00 PM EDT [facility] Name Value Range Interpretation Code Description Data Shanti rce(s) Supporting Document(s) SARS coronavirus 2 RNA [facility] [facility] and reported by [facility]. ID Date Data Source [id number] 09/07/2020 08:00:00 AM EDT [facility] Name Value Range Interpretation Code Description Data Shanti rce(s) Supporting Document(s) SARS coronavirus 2 RNA [facility] This lab was ordered by [facility] and reported by [facility]. ID Date Data Source [id number] 08/31/2020 05:30:00 AM EDT [facility] Name Value Range Interpretation Code Description Data Shanti rce(s) Supporting Document(s) SARS coronavirus 2 RNA [facility] This lab was ordered by [facility] and reported by [facility]. ID Date Data Source [id number] 08/24/2020 01:00:00 PM EDT [facility] Name Value Range Interpretation Code Description Data Shanti rce(s) Supporting Document(s) SARS coronavirus 2 RNA [facility] This lab was ordered by [facility] and reported by [facility]. ID Date Data Source [id number] 08/17/2020 01:15:00 PM EDT [facility] Name Value Range Interpretation Code Description Data Shanti rce(s) Supporting Document(s) SARS coronavirus 2 RNA [facility] This lab was ordered by [facility] and reported by [facility]. ID Date Data Source [id number] 08/10/2020 06:00:00 AM EDT [facility] Name Value Range Interpretation Code Description Data Shanti rce(s) Supporting Document(s) SARS coronavirus 2 RNA [facility] This lab was ordered by [facility] and reported by [facility]. ID Date Data Source [id number] 08/05/2020 02:00:00 PM EDT [facility] Name Value Range Interpretation Code Description Data Shanti rce(s) Supporting Document(s) SARS coronavirus 2 RNA [facility] This lab was ordered by [facility] and reported by [facility]. ID Date Data Source [id number] 07/30/2020 08:00:00 AM EDT [facility] Name Value Range Interpretation Code Description Data Shanti rce(s) Supporting Document(s) SARS coronavirus 2 RNA [facility] This lab was ordered by [facility] and reported by [facility]. ID Date Data Source [id number] 07/23/2020 02:30:00 PM EDT [facility] Name Value Range Interpretation Code Description Data Shanti rce(s) Supporting Document(s) SARS coronavirus 2 RNA [facility] This lab was ordered by [facility] and reported by [facility]. ID Date Data Source [id number] 06/15/2020 03:16:00 PM EDT [facility] Name Value Range Interpretation Code Description Data Shanti rce(s) Supporting Document(s) SARS coronavirus 2 RNA [facility] This lab was ordered by [facility] and reported by [facility]. ID Date Data Source [id number] 06/08/2020 03:18:00 PM EDT [facility] Name Value Range Interpretation Code Description Data Shanti rce(s) Supporting Document(s) SARS coronavirus 2 RNA [facility] This lab was ordered by [facility] and reported by [facility]. ID Date Data Source [id number] 06/01/2020 02:50:00 PM EDT [facility] Name Value Range Interpretation Code Description Data Shanti rce(s) Supporting Document(s) SARS coronavirus 2 RNA [facility] This lab was ordered by [facility] and reported by [facility]. ID Date Data Source [id number] 05/25/2020 11:31:00 AM EDT [facility] Name Value Range Interpretation Code Description Data Shanti rce(s) Supporting Document(s) SARS CORONAVIRUS 2 RNA [facility] This lab was ordered by [facility] and reported by [facility]. ID Date Data Source [id number] 05/18/2020 05:30:00 AM EDT [facility] Name Value Range Interpretation Code Description Data Shanti rce(s) Supporting Document(s) SARS CORONAVIRUS 2 RNA [facility] This lab was ordered by [facility] and reported by [facility]. ID Date Data Source [id number] 05/13/2020 12:00:00 AM EDT [facility] Name Value Range Interpretation Code Description Data Shanti rce(s) Supporting Document(s) SARS CORONAVIRUS 2 RNA [facility] This lab was ordered by [facility] and reported by [facility]. ID Date Data Source [id number] 05/04/2020 10:34:00 PM EDT [facility] Name Value Range Interpretation Code Description Data Shanti rce(s) Supporting Document(s) UMALB Urine Creatinine result Normal (applies t o non-numeric results) [facility] Interpret with care as there is no estab lished reference range associated with this assay's methodology that pertains to this particular sex and/or age. UMALB Microalbumin,Ur result <1.7 Normal (applies to non-numeric results) [facility] UMALB Alb/Cre Ratio,Ur result Normal (applies t o non-numeric results) [facility] Test Performed By: [facility] [address] [place] [address] Director: Nato Osborne MD Reference Ranges for Microalbumin,spot: Normal <30 ug/mg creatinine Microalbuminuria 30-300 ug/mg creatinine Clinical Albuminuria >300 ug/mg creatinine ID Date Data Source [id number] 05/04/2020 10:33:00 PM EDT [facility] Name Value Range Interpretation Code Description Data Shanti rce(s) Supporting Document(s) CRP,Wide Range result <3.00 Normal (applies to non-nu meric results) [facility] Test Performed By: [facility] [address] [place] [address] Director: Nato Osborne MD ID Date Data Source [id number] 05/04/2020 10:24:00 PM EDT [facility] Name Value Range Interpretation Code Description Data Shanti rce(s) Supporting Document(s) Creatinine,Urine Normal (applies to non-numeric results) [facility] Interpret with care as there is no estab lished reference range associated with this assay's methodology that pertains to this particular sex and/or age. Microalbumin,Urine <1.7 Normal (applies to non-numer ic results) [facility] Albumin/Creatinine Ratio,Urine Normal (applies to non-numeric results) [facility] Test Performed By: [facility] [address] [place] [address] Director: Nato Osborne MD Reference Ranges for Microalbumin,spot: Normal <30 ug/mg creatinine Microalbuminuria 30-300 ug/mg creatinine Clinical Albuminuria >300 ug/mg creatinine ID Date Data Source [id number] 05/04/2020 10:09:00 PM EDT [facility] Value Range Interpretation Code Description Data Shanti rce(s) Supporting Document(s) C-Reactive Protein,Wide Range <3.00 Normal (applies t o non-numeric results) [facility] Test Performed By: [facility] [address] [place] [address] Director: Nato Osborne MD ID Date Data Source [id number] 05/04/2020 03:59:00 PM [facility] Value Range Interpretation Code Description Data Shanti rce(s) Supporting Document(s) Vitamin D, Total 30.0-100.0 Below low normal [facility] ID Date Data Source [id number] 05/04/2020 03:53:00 PM [facility] Name Value Range Interpretation Code Description Data Shanti rce(s) Supporting Document(s) White Blood Count 3.5-10.5 Normal (applies to non-numeri c results) [facility] Red Blood Count 3.90-5.00 Normal (applies to non-numeric results) [facility] Hemoglobin 12.0-15.5 Normal (applies to non-numeric resul ts) [facility] Hematocrit 34.9-44.5 Normal (applies to non-numeric resul ts) [facility] Mean Corpuscular Volume 81.2-95.1 Normal (applies to non- numeric results) [facility] Mean Corpuscular Hgb 25.6-32.2 Normal (applies to non-num tessie results) [facility] Mean Corpuscular Hgb Conc 32.0-36.0 Normal (applies to no n-numeric results) [facility] Red Cell Distribution Width 11.9-15.5 Normal (appli es to non-numeric results) [facility] Platelet Count 253 x10 3/uL 150-450 Normal (applies to non-numeric results) [facility] Mean Platelet Volume 9.4-12.4 Normal (applies to non-num tessie results) [facility] Neutrophils% (Auto) 31.0-71.0 Normal (applies to non-nume deirdre results) [facility] Lymphocytes% (Auto) 20.0-55.0 Normal (applies to non-nume deirdre results) [facility] Monocytes% (Auto) 4.0-12.0 Normal (applies to non-numeri c results) [facility] Eosinophils% (Auto) 1.0-8.0 Normal (applies to non-nume deirdre results) [facility] Basophils% (Auto) 0.0-2.0 Normal (applies to non-numeri c results) [facility] Immature Granulocytes% (Auto) 0.0-2.0 Normal (cory lies to non-numeric results) [facility] Neutrophils# (Auto) 1.50-6.20 Above high normal [facility] Lymphocytes# (Auto) 1.20-4.00 Normal (applies to non-nume deirdre results) [facility] Monocytes# (Auto) 0.00-0.90 Normal (applies to non-numeri c results) [facility] Eosinophils# (Auto) 0.00-0.50 Normal (applies to non-nume deirdre results) [facility] Basophils# (Auto) 0.00-0.20 Normal (applies to non-numeri c results) [facility] Immature Granulocytes# (Auto) 0.00-7.00 No rmal (applies to non-numeric results) [facility] ID Date Data Source [id number] 05/04/2020 03:53:00 PM [facility] Name Value Range Interpretation Code Description Data Shanti rce(s) Supporting Document(s) Erythrocyte Sedimentation rate 8 mm/hr 0-20 N ormal (applies to non-numeric results) [facility] ID Date Data Source [id number] 05/04/2020 03:44:00 PM EDT [facility] Name Value Range Interpretation Code Description Data Shanti rce(s) Supporting Document(s) Sodium 141 mmol/L 136-145 Normal (applies to non-numeric resul ts) [facility] Potassium 3.5-5.1 Normal (applies to non-numeric resul ts) [facility] Chloride 106 mmol/L 98-107 Normal (applies to non-numeric resul ts) [facility] Carbon Dioxide CO2 21-32 Normal (applies to non-numer ic results) [facility] Anion Gap 5.0-16.0 Normal (applies to non-numeric resul ts) [facility] BUN 19 mg/dL 7-18 Above high normal [facility] Creatinine,Serum 0.7-1.2 Normal (applies to non-numeric results) [facility] GFR >60 Normal (applies to non-numeric results) [facility] Glucose Level 96 mg/dL 60-99 Normal (applies to non-numeric re sults) [facility] Reference range is only applicable when patient is fasting Note the following drug interference: Sulfasalazine Sulfapyridine Can see falsely depressed Can see falsely elevated result with up to 17% results with up to 11% decrease in measurement increase in measurement Recommend patients be collected for this test prior to administration of either drug. Calcium 8.5-10.1 Normal (applies to non-numeric resul ts) [facility] Bilirubin,Total 0.1-1.9 Normal (applies to non-numeric results) [facility] SGOT(AST) 11 U/L 15-37 Below low normal [facility] Note the following drug interference: Sulfasalazine Sulfapyridine Can see falsely depressed Can see falsely elevated result with up to 10% results with up to 10% decrease in measurement increase in measurement Recommend patients be collected for this test prior to administration of either drug. SGPT(ALT) 17 U/L 12-78 Normal (applies to non-numeric resul ts) [facility] Note the following drug interference: Sulfasalazine Sulfapyridine Can see falsely depressed Can see falsely elevated result with up to 29% results with up to 10% decrease in measurement increase in measurement Recommend patients be collected for this test prior to administration of either drug. Alkaline Phosphatase 77 U/L 38-126 Normal (applies to non-num tessie results) [facility] can increase Alkaline Phosp le vels up to 2 times the normal adult value. Normal values for children and adolescents are 2 to 3 times the normal adult value. Total Protein 6.0-8.2 Normal (applies to non-numeric re sults) [facility] Albumin Level 3.4-5.0 Normal (applies to non-numeric re sults) [facility] ID Date Data Source [id number] 05/04/2020 03:44:00 PM EDT [facility] Name Value Range Interpretation Code Description Data Shanti rce(s) Supporting Document(s) Triglycerides 149 mg/dL <150 Normal (applies to non-numeric re sults) [facility] Cholesterol 237 mg/dL 100-200 Above high normal [facility] LDL Cholesterol Calculated 169 0-130 Above high normal [facility] HDL Cholesterol 38 mg/dL 40-60 Below low normal [facility] Cholesterol/HDL Ratio 3.6-6.7 Normal (applies to non-nu meric results) [facility] ID Date Data Source [id number] 05/04/2020 03:44:00 PM EDT [facility] Name Value Range Interpretation Code Description Data Shanti rce(s) Supporting Document(s) Thyroid Stimulate Hormone TSH 0.358-3.74 No rmal (applies to non-numeric results) [facility] ID Date Data Source [id number] 05/04/2020 03:44:00 PM EDT [facility] Name Value Range Interpretation Code Description Data Shanti rce(s) Supporting Document(s) Free T4 (Free Thyroxine) 0.76-1.46 Normal (applies to non -numeric results) [facility] ID Date Data Source [id number] 05/04/2020 03:30:00 PM EDT [facility] IF IND Name Value Range Interpretation Code Description Data Shanti rce(s) Supporting Document(s) Color,Urine Colorl-Dk Y Normal (applies to non-numeric res ults) [facility] Clarity,Urine Clear Normal (applies to non-numeric re sults) [facility] Specific [place],Urine 1.005-1.030 Normal (applies to non- numeric results) [facility] pH,Urine 5.0-8.0 Normal (applies to non-numeric resul ts) [facility] Protein,Urine Negative Normal (applies to non-numeric re sults) [facility] Glucose,Urine Negative Normal (applies to non-numeric re sults) [facility] Ketones,Urine Negative Normal (applies to non-numeric re sults) [facility] Blood,Urine Negative Normal (applies to non-numeric resu lts) [facility] Bilirubin,Urine Negative Normal (applies to non-numeric results) [facility] Urobilinogen,Urine 0.2-1.0 Normal (applies to non-numer ic results) [facility] Leukocyte Esterase,Urine Negative Normal (applies to non -numeric results) [facility] Nitrite,Urine Negative Normal (applies to non-numeric re sults) [facility] RBC,Urine None Seen Normal (applies to non-numeric resul ts) [facility] WBC,Urine None Seen Normal (applies to non-numeric resul ts) [facility] Casts,Urine None Seen Normal (applies to non-numeric resu lts) [facility] Squamous Cells,Urine None Seen Gutierrez [facility] Bacteria,Urine None Seen Normal (applies to non-numeric r esults) [facility] ID Date Data Source [id number] 03/30/2020 01:05:00 PM EDT [facility] Name Value Range Interpretation Code Description Data Shanti rce(s) Supporting Document(s) SARS CORONAVIRUS 2 RNA [facility] This lab was ordered by [facility] and reported by [facility]. ID Date Data Source [id number] 12/13/2019 12:05:00 PM [facility] Imaging Services Department Imaging Report [address], [place] [address] %(RAD)RES..mtdd.print.filter("line") Name: CONSTANCE WYMAN : 1970 Age/Sex: 49F Ordering Provider: MICHAEL Humphrey Med Rec #: [id number] Reg Status: [facility] Room #: Date of Service: 12/12/19 Report Number: [id number] cc:MARIA GUADALUPE Rocha Send Report To: [id number] XRP/XR Foot Rt Min. 3 Views Reason for exam: pain injury FINDINGS: Spurring and joint space narrowing at the 1st DIP joint is consistent with degenerative disease. There may also be degenerative changes between the 1st lateral sesamoid bone and the 1st metatarsal head. No acute fractures are seen. The soft tissues are intact. IMPRESSION: Findings at the 1st MTP joint and the joint between the 1st lateralsesamoid and the 1st metatarsal head consistent with degenerative disease. Time portable performed: Fluoroscopy time in seconds: Number of Exposures: Contrast Agent in ml: Method of Administration: REPORT SIGNATURE ON FILE Reported By: Darrick Pang MD <Electronically signed by Darrick Pang MD> 12/13/19 1532 Dictation Date/Time: 12/12/19 1600 Transcribed Date/Time: 12/13/19 1205 Butt Welder: MIGUEL ANGEL Name Value Range Interpretation Code Description Data Shanti rce(s) Supporting Document(s) ID Date Data Source [id number] 11/08/2019 04:33:00 AM [facility] Name Value Range Interpretation Code Description Data Shanti rce(s) Supporting Document(s) Varicella-Zoster IgG Ab,S res See Note No rmal (applies to non-numeric results) [facility] Presence of detectable Varicella Zoster virus IgG antibodies. Test performed [place] [address] ID Date Data Source [id number] 11/08/2019 04:33:00 AM [facility] Name Value Range Interpretation Code Description Data Shanti rce(s) Supporting Document(s) Rubeola (Measles) Ab,IgG res Normal (applies to non-numeric results) [facility] Results suggest response to immunization or prior exposure to the virus. REFERENCE VALUE Vaccinated: Positive (>=1.1 AI) Unvaccinated: Negative (<=0.8 AI) Measles IgG Antibody Index Normal (applies to n on-numeric results) [facility] Test Performed by: [place] [address] Boatswain Mate: Joseph Whitlock M.D. Ph.D.; CLIA# [id number] ID Date Data Source [id number] 11/08/2019 04:33:00 AM [facility] Name Value Range Interpretation Code Description Data Shanti rce(s) Supporting Document(s) Mumps Antibody IgG See Note Normal (applies to non-numer ic results) [facility] Presence of detectable mumps virus IgG a ntibodies. Test performed or referred by The [address] [address] ID Date Data Source [id number] 11/08/2019 04:33:00 AM [facility] Name Value Range Interpretation Code Description Data Shanti rce(s) Supporting Document(s) Hepatitis B Surface Ab QL res Normal (applies t o non-numeric results) [facility] Patient is considered to be immune to in fection with HBV. REFERENCE VALUE Unvaccinated: Negative Vaccinated: Positive Hepatitis B Surface Ab Qnt res 194 mIU/mL N ormal (applies to non-numeric results) [facility] REFERENCE VALUE------ Unvaccinated: <5.0 Vaccinated: >=12.0 Test Performed by: [place] [address] Boatswain Mate: Joseph Whitlock M.D. Ph.D.; CLIA# [id number] ID Date Data Source [id number] 11/07/2019 06:45:00 PM [facility] Value Range Interpretation Code Description Data Shanti rce(s) Supporting Document(s) Varicella-Zoster IgG Ab,S res See Note No rmal (applies to non-numeric results) [facility] Presence of detectable Varicella Zoster virus IgG antibodies. Test performed [place] [address] ID Date Data Source [id number] 11/07/2019 06:45:00 PM [facility] Name Value Range Interpretation Code Description Data Shanti rce(s) Supporting Document(s) Rubeola (Measles) Ab,IgG res Normal (applies to non-numeric results) [facility] Results suggest response to immunization or prior exposure to the virus. REFERENCE VALUE Vaccinated: Positive (>=1.1 AI) Unvaccinated: Negative (<=0.8 AI) Measles IgG Antibody Index Normal (applies to n on-numeric results) [facility] Test Performed by: [facility] [address] [address] Boatswain Mate: Joseph Whitlock M.D. Ph.D.; CLIA# [id number] ID Date Data Source [id number] 11/07/2019 06:45:00 PM [facility] Name Value Range Interpretation Code Description Data Shanti rce(s) Supporting Document(s) Mumps Antibody IgG See Note Normal (applies to non-numer ic results) [facility] Presence of detectable mumps virus IgG a ntibodies. Test performed or referred by The [address] [address] ID Date Data Source [id number] 11/07/2019 06:45:00 PM [facility] Value Range Interpretation Code Description Data Shanti rce(s) Supporting Document(s) Hepatitis B Surface Ab QL res Normal (applies t o non-numeric results) [facility] Patient is considered to be immune to in fection with HBV. REFERENCE VALUE Unvaccinated: Negative Vaccinated: Positive Hepatitis B Surface Ab Qnt res 194 mIU/mL N ormal (applies to non-numeric results) [facility] REFERENCE VALUE------ Unvaccinated: <5.0 Vaccinated: >=12.0 Test Performed by: [address] [address] Boatswain Mate: Joseph Whitlock M.D. Ph.D.; CLIA# [id number] ID Date Data Source [id number] 11/05/2019 09:54:00 PM [facility] Name Value Range Interpretation Code Description Data Shanti rce(s) Supporting Document(s) Rubella Ab,IgG result >10.0 Normal (applies to non-nu meric results) [facility] Test [facility] By[facility] [address] [place] [address] Director: Nato Osborne MD Interpretation of Results Less than 5.0 IU/mL - Negative for IgG antibodies to Rubella virus 5.0 - 9.9 IU/mL - Equivocal. Suggest repeat testing on new sample 10.0 IU/mL or greater - Positive for IgG antibodies to Rubella virus ID Date Data Source [id number] 11/05/2019 09:42:00 PM EST [facility] Name Value Range Interpretation Code Description Data Shanti rce(s) Supporting Document(s) Rubella Ab,IgG >10.0 Normal (applies to non-numeric r esults) [facility] Test Performed By: [facility] [address] [place] [address] Director: Nato Osborne MD Interpretation of Results Less than 5.0 IU/mL - Negative for IgG antibodies to Rubella virus 5.0 - 9.9 IU/mL - Equivocal. Suggest repeat testing on new sample 10.0 IU/mL or greater - Positive for IgG antibodies to Rubella virus Procedure Social History Code Duration Value Status Description Data Source(s ) Smoking 11/30/2020 12:00:00 AM EST Current Smoker completed Curre nt Smoker eCW1 ([facility]) Smoking 11/30/2020 12:00:00 AM EST Current Smoker completed Curre nt Smoker eCW1 ([facility]) Smoking 09/30/2020 12:00:00 AM EST Current Smoker completed Curre nt Smoker eCW1 ([facility]) Smoking 09/30/2020 12:00:00 AM EST Current Smoker completed Curre nt Smoker eCW1 ([facility]) Smoking 09/30/2020 12:00:00 AM EST Current Smoker completed Curre nt Smoker eCW1 ([facility]) Smoking 04/30/2020 12:00:00 AM EDT Current Smoker completed Curre nt Smoker eCW1 ([facility]) Smoking 04/30/2020 12:00:00 AM EDT Current Smoker completed Curre nt Smoker eCW1 ([facility]) Smoking 04/30/2020 12:00:00 AM EDT Current Smoker completed Curre nt Smoker eCW1 ([facility]) Smoking 04/30/2020 12:00:00 AM EDT Current Smoker completed Curre nt Smoker eCW1 ([facility]) Vital Signs ID Date Data Source [id number] Name Value Range Interpretation Code Description Data Source(s) Diastolic blood pressure 58 mm[Hg] 58 mm[Hg] eCW1 ([facility]) Systolic blood pressure 117 mm[Hg] 117 mm[Hg] e CW1 ([facility]) Body temperature 95.9 [degF] 95.9 [degF] eCW1 ( [facility]) Respiratory rate 18 /min 18 /min eCW1 ([facility]) Heart rate 69 /min 69 /min eCW1 ([facility]) Body mass index (BMI) [Ratio] 31.28 kg/m2 31.28 kg/m2 eCW1 ([facility]) Body height 65 [in_i] 65 [in_i] eCW1 ([facility]) Body weight 188.0 [lb_av] 188.0 [lb_av] eCW1 ([facility]) Body mass index (BMI) [Ratio] 30.6 kg/m2 30.6 k g/m2 MEDENT ([facility]) Body height 65 [in_i] 65 [in_i] MEDENT ([facility]) 5'5" Body weight 184.00 [lb_av] 184.00 [lb_av] MEDEN T ([facility]) Body temperature 99.5 [degF] 99.5 [degF] [facility] ([facility]) Oxygen saturation in Arterial blood by Pulse oximetry 96 % 96 % MED[facility] ([facility]) Respiratory rate 18 /min 18 /min MEDENT ( [facility]) Heart rate 58 /min 58 /min MEDENT ([facility]) Diastolic blood pressure 75 mm[Hg] 75 mm[Hg] MEDENT ([facility], [facility]) Systolic blood pressure 108 mm[Hg] 108 mm[Hg] M EDENT ([facility], [facility]) Diastolic blood pressure 53 mm[Hg] 53 mm[Hg] eCW1 ([facility]) Systolic blood pressure 112 mm[Hg] 112 mm[Hg] e CW1 ([facility]) Body temperature 97.5 [degF] 97.5 [degF] eCW1 ( [facility]) Respiratory rate 18 /min 18 /min eCW1 ([facility]) Heart rate 56 /min 56 /min eCW1 ([facility]) Body mass index (BMI) [Ratio] 30.62 kg/m2 30.62 kg/m2 eCW1 ([facility]) Body height 65 [in_i] 65 [in_i] eCW1 ([facility]) Body weight 184.0 [lb_av] 184.0 [lb_av] eCW1 ([facility]) Diastolic blood pressure 66 mm[Hg] 66 mm[Hg] eCW1 ([facility]) Systolic blood pressure 123 mm[Hg] 123 mm[Hg] e CW1 ([facility]) Body temperature 96.0 [degF] 96.0 [degF] eCW1 ( [facility]) Respiratory rate 18 /min 18 /min eCW1 ([facility]) Heart rate 60 /min 60 /min eCW1 ([facility]) Body mass index (BMI) [Ratio] 32.11 kg/m2 32.11 kg/m2 eCW1 ([facility]) Body height 65 [in_us] 65 [in_us] eCW1 ([facility]) Body weight Measured 193 [lb_av] 193 [lb_av] eC W1 ([facility]) Diastolic blood pressure 58 mm[Hg] 58 mm[Hg] eCW1 ([facility]) Systolic blood pressure 107 mm[Hg] 107 mm[Hg] e CW1 ([facility]) Body temperature 96.0 [degF] 96.0 [degF] eCW1 ( [facility]) Respiratory rate 18 /min 18 /min eCW1 ([facility]) Heart rate 61 /min 61 /min eCW1 ([facility]) Body mass index (BMI) [Ratio] 32.28 kg/m2 32.28 kg/m2 eCW1 ([facility]) Body height 65 [in_us] 65 [in_us] eCW1 ([facility]) Body weight Measured 194.0 [lb_av] 194.0 [lb_av ] eCW1 ([facility]) Diastolic blood pressure 77 mm[Hg] 77 mm[Hg] eCW1 ([facility]) Systolic blood pressure 127 mm[Hg] 127 mm[Hg] e CW1 ([facility]) Body temperature 97.4 [degF] 97.4 [degF] eCW1 ( [facility]) Respiratory rate 16 /min 16 /min eCW1 ([facility]) Heart rate 52 /min 52 /min eCW1 ([facility]) Body mass index (BMI) [Ratio] 33.48 kg/m2 33.48 kg/m2 W1 ([facility]) Body height 65 [in_us] 65 [in_us] eCW1 ([facility]) Body weight Measured 201.2 [lb_av] 201.2 [lb_av ] eCW1 ([facility]) Diastolic blood pressure 77 mm[Hg] 77 mm[Hg] eCW1 ([facility]) Systolic blood pressure 127 mm[Hg] 127 mm[Hg] e CW1 ([facility]) Body temperature 97.4 [degF] 97.4 [degF] eCW1 ( [facility]) Respiratory rate 16 /min 16 /min eCW1 ([facility]) Heart rate 52 /min 52 /min eCW1 ([facility]) Body mass index (BMI) [Ratio] 33.48 kg/m2 33.48 kg/m2 eCW1 ([facility]) Body height 65 [in_us] 65 [in_us] eCW1 ([facility]) Body weight Measured 201.2 [lb_av] 201.2 [lb_av ] eCW1 ([facility]) ID Date Data Source [id number] 04/15/2020 04:42:00 PM EDT [facility] spital Name Value Range Interpretation Code Description Data Source(s) Weight Measurement Method 8 8 [facility] Weight 3040 3040 [facility] pital Temperature Source 7 7 [facility] Temperature 97.2 97.2 [facility] spital Respiratory Effort 1 1 [facility] Respiratory Rate 17 17 [facility] Pulse Assessment Method 4 4 [facility] Pulse Rate 64 64 [facility] Height 65 65 [facility] 129/54 129/54 [facility] Weight Measurement Method 8 8 [facility] Weight 3040 3040 [facility] pital Temperature Source 7 7 [facility] Temperature 97.2 97.2 [facility] spital Respiratory Effort 1 1 [facility] Respiratory Rate 16 16 [facility] Pulse Assessment Method 4 4 [facility] Pulse Rate 64 64 [facility] Height 65 65 [facility] 129/54 129/54 [facility] Weight Measurement Method 8 8 [facility] Weight 3040 3040 [facility] pital Temperature Source 7 7 [facility] Temperature 97.2 97.2 [facility] spital Respiratory Effort 1 1 [facility] Respiratory Rate 16 16 [facility] Pulse Assessment Method 4 4 [facility] Pulse Rate 64 64 [facility]ital Height 65 65 [facility] 129/54 129/54 [facility] Patient Treatment Plan of Care Planned Activity Planned Date Details Description Data Source (s) Oxycodone Hydrochloride 15 MG Oral Tablet 11/30/2020 12:00:00 AM ES T eCW1 ([facility]) Baclofen 10 MG Oral Tablet 11/30/2020 12:00:00 AM EST eCW1 ([facility]) Morphine Sulfate 30 MG Extended Release Oral Capsule 12:00:00 AM EST eCW1 ([facility]) Oxycodone Hydrochloride 15 MG Oral Tablet 11/30/2020 12:00:00 AM ES T eCW1 ([facility]) Baclofen 10 MG Oral Tablet 11/30/2020 12:00:00 AM EST eCW1 ([facility]) Morphine Sulfate 30 MG Extended Release Oral Capsule 12:00:00 AM EST eCW1 ([facility]) Oxycodone Hydrochloride 15 MG Oral Tablet 11/10/2020 12:00:00 AM ES T eCW1 ([facility]) Morphine Sulfate 30 MG Extended Release Oral Tablet [M S Contin] 11/04/2020 12:00:00 AM EST eCW1 ([facility]) Oxycodone Hydrochloride 15 MG Oral Tablet 11/04/2020 12:00:00 AM ES T eCW1 ([facility]) Morphine Sulfate 30 MG Extended Release Oral Tablet [M S Contin] 11/04/2020 12:00:00 AM EST eCW1 ([facility]) Morphine Sulfate 30 MG Extended Release Oral Tablet [M S Contin] 09/30/2020 12:00:00 AM EST eCW1 ([facility]) Oxycodone Hydrochloride 15 MG Oral Tablet 09/30/2020 12:00:00 AM ES T eCW1 ([facility]) Morphine Sulfate 15 MG Extended Release Oral Tablet 09/11/20 12:00:00 AM EDT eCW1 ([facility]) Oxycodone Hydrochloride 15 MG Oral Tablet 09/11/2020 12:00:00 AM ED T eCW1 ([facility]) Ketorolac Tromethamine 10 MG Oral Tablet 04/30/2020 12:00:00 AM EDT eCW1 ([facility]) Ketorolac Tromethamine 10 MG Oral Tablet 04/30/2020 12:00:00 AM EDT eCW1 ([facility]) Ketorolac Tromethamine 10 MG Oral Tablet 04/30/2020 12:00:00 AM EDT eCW1 ([facility]) Oxycodone Hydrochloride 15 MG Oral Tablet 04/24/2020 12:00:00 AM ED T eCW1 ([facility]) Morphine Sulfate 15 MG Extended Release Oral Tablet 04/24/20 12:00:00 AM EDT eCW1 ([facility]) Oxycodone Hydrochloride 15 MG Oral Tablet 04/24/2020 12:00:00 AM ED T eCW1 ([facility]) Morphine Sulfate 15 MG Extended Release Oral Tablet 04/24/20 12:00:00 AM EDT eCW1 ([facility]) Oxycodone Hydrochloride 15 MG Oral Tablet 04/24/2020 12:00:00 AM ED T eCW1 ([facility]) Morphine Sulfate 15 MG Extended Release Oral Tablet 04/24/20 12:00:00 AM EDT eCW1 ([facility]) Ketorolac Tromethamine 10 MG Oral Tablet 04/16/2020 12:00:00 AM EDT eCW1 ([facility]) Morphine Sulfate 15 MG Extended Release Oral Tablet 03/18/20 12:00:00 AM EDT eCW1 ([facility]) Oxycodone Hydrochloride 15 MG Oral Tablet 03/18/2020 12:00:00 AM ED T eCW1 ([facility]) Morphine Sulfate 15 MG Extended Release Oral Tablet 02/17/20 12:00:00 AM EDT eCW1 ([facility]) Oxycodone Hydrochloride 15 MG Oral Tablet 02/17/2020 12:00:00 AM ED T eCW1 ([facility]) Morphine Sulfate 15 MG Extended Release Oral Tablet 01/16/20 12:00:00 AM EST eCW1 ([facility]) Oxycodone Hydrochloride 15 MG Oral Tablet 01/16/2020 12:00:00 AM ES T eCW1 ([facility]) Oxycodone Hydrochloride 15 MG Oral Tablet 01/13/2020 12:00:00 AM ES T eCW1 ([facility]) Morphine Sulfate 15 MG Extended Release Oral Tablet 01/13/20 20 12:00:00 AM EST eCW1 ([facility]) Morphine Sulfate 15 MG Extended Release Oral Tablet 11/29/19 20 12:00:00 AM EST eCW1 ([facility]) naloxegol 25 MG Oral Tablet [Movantik] 11/29/2019 12:00:00 AM EST eCW1 ([facility]) Oxycodone Hydrochloride 15 MG Oral Tablet 11/29/2019 12:00:00 AM ES T eCW1 ([facility]) Morphine Sulfate 15 MG Extended Release Oral Tablet 10/29/20 19 12:00:00 AM EST eCW1 ([facility]) Oxycodone Hydrochloride 15 MG Oral Tablet 10/29/2019 12:00:00 AM ES T eCW1 ([facility]) Morphine Sulfate 15 MG Extended Release Oral Tablet 10/29/20 19 12:00:00 AM EST eCW1 ([facility]) Oxycodone Hydrochloride 15 MG Oral Tablet 10/29/2019 12:00:00 AM ES T eCW1 ([facility]) Morphine Sulfate 15 MG Extended Release Oral Tablet 10/29/20 19 12:00:00 AM EST eCW1 ([facility]) Oxycodone Hydrochloride 15 MG Oral Tablet 10/29/2019 12:00:00 AM ES T eCW1 ([facility])
[2020-12-14] MEDS ORDERED: PRED20TA PO (09:41)
[2020-12-14] MEDS ORDERED: BACL10TA2 PO (09:41)
[2020-12-14] MEDS ORDERED: LEVO750T13 PO (09:41)
[2020-12-14] MEDS ORDERED: ACET-907 PO (09:41)
--- OUTSIDE RECORDS SUMMARY | 2020-12-14 10:01 | CCD ---
Author Author [facility] Organization [facility] Address Unknown Phone Unavailable Support Name Relationship Address Phone THANG [place] [address] [facility] Next Of Kin [address] [place] [address] Boogie WYMANSSICA Next Of Kin [address] [place] [address] CELL JLBOABRIL Next Of Kin [address] [place] [address] NONE, PT PER Next Of Kin - -, - - - NONE, REQUESTED Next Of Kin [address] [place] [address] DISABLED Next Of Kin Unknown Unavailable MARY BARDALES Next Of Kin [address] [place] [address] UE Next Of Kin Unknown Unavailable [facility] Next Of Kin Unknown DONNIE VILA Next Of Kin [address] [place] [address] [facility] Next Of Kin [address] [place] [address] [facility] [place] [address] R[place] [address] [facility] [place] [address] NI [place] [address] NAKIA W[place] [address] NAKIA WYMAN Next Of Kin [address] [place] [address] DONNIE VILA ECON [address] [place] [address] Unavailable NONE, REQUESTED ECON [address] [place] [address] Unavailable none, [place] [address] Unavailable Care Team Providers Care Systems Testing Laboratory Technician Name Role Phone Rolo Will PA Unavailable Rolo Will PA Unavailable Rolo Will PA Unavailable + Rolo Will PA Unavailable + Rolo Will PA Unavailable Rolo Will PA Unavailable Rolo Will PA Unavailable Campanaro, Mare Sheree PA Unavailable Unavailable [...] Bernadette Ballard MD Unavailable Unavailable SHABBIR ABARCA JAVA XML DEVELOPER Unavailable Unavailable ABARCA, SHABBIR RICHARD JAVA XML DEVELOPER Unavailable Unavailable ABARCA, SHABBIR RICHARD JAVA XML DEVELOPER Unavailable Unavailable ABARCA, SHABBIR RICHARD JAVA XML DEVELOPER Unavailable Unavailable ABARCA, SHABBIR RICHARD JAVA XML DEVELOPER Unavailable Unavailable ABARCA, SHABBIR RICHARD JAVA XML DEVELOPER Unavailable Unavailable ABARCA, SHABBIR RICHARD JAVA XML DEVELOPER Unavailable Unavailable ABARCA, SHABBIR RICHARD JAVA XML DEVELOPER Unavailable Unavailable ABARCA, SHABBIR RICHARD JAVA XML DEVELOPER Unavailable Unavailable ABARCA, SHABBIR RICHARD JAVA XML DEVELOPER Unavailable Unavailable ABARCA, SHABBIR RICHARD JAVA XML DEVELOPER Unavailable Unavailable ABARCA, SHABBIR RICHARD JAVA XML DEVELOPER Unavailable Unavailable ABARCA, SHABBIR RICHARD JAVA XML DEVELOPER Unavailable Unavailable ABARCA, SHABBIR RICHARD JAVA XML DEVELOPER Unavailable Unavailable ABARCA, SHABBIR RICHARD JAVA XML DEVELOPER Unavailable Unavailable ABARCA, SHABBIR RICHARD JAVA XML DEVELOPER Unavailable Unavailable ABARCA, SHABBIR RICHARD JAVA XML DEVELOPER Unavailable Unavailable ABARCA, SHABBIR RICHARD JAVA XML DEVELOPER Unavailable Unavailable ABARCA, SHABBIR RICHARD JAVA XML DEVELOPER Unavailable Unavailable ABARCA, SHABBIR RICHARD JAVA XML DEVELOPER Unavailable Unavailable ABARCA, SHABBIR RICHARD JAVA XML DEVELOPER Unavailable Unavailable ABARCA, SHABBIR RICHARD JAVA XML DEVELOPER Unavailable Unavailable ABARCA, SHABBIR RICHARD JAVA XML DEVELOPER Unavailable Unavailable ABARCA, SHABBIR RICHARD JAVA XML DEVELOPER Unavailable Unavailable ABARCA, SHABBIR RICHARD JAVA XML DEVELOPER Unavailable Unavailable ABARCA, SHABBIR RICHARD JAVA XML DEVELOPER Unavailable Unavailable ABARCA, SHABBIR RICHARD JAVA XML DEVELOPER Unavailable Unavailable ABARCA, SHABBIR RICHARD JAVA XML DEVELOPER Unavailable Unavailable ABARCA, SHABBIR RICHARD JAVA XML DEVELOPER Unavailable Unavailable ABARCA, SHABBIR RICHARD JAVA XML DEVELOPER Unavailable Unavailable ABARCA, SHABBIR RICHARD JAVA XML DEVELOPER Unavailable Unavailable ABARCA, SHABBIR RICHARD JAVA XML DEVELOPER Unavailable Unavailable ABARCA, SHABBIR RICHARD JAVA XML DEVELOPER Unavailable Unavailable ABARCA, SHABBIR RICHARD JAVA XML DEVELOPER Unavailable Unavailable ABARCA, SHABBIR RICHARD JAVA XML DEVELOPER Unavailable Unavailable ABARCA, SHABBIR RICHARD JAVA XML DEVELOPER Unavailable Unavailable ABARCA, SHABBIR RICHARD JAVA XML DEVELOPER Unavailable Unavailable ABARCA, SHABBIR RICHARD JAVA XML DEVELOPER Unavailable Unavailable ABARCA, SHABBIR RICHARD JAVA XML DEVELOPER Unavailable Unavailable ABARCA, SHABBIR RICHARD JAVA XML DEVELOPER Unavailable Unavailable ABARCA, SHABBIR RICHARD JAVA XML DEVELOPER Unavailable Unavailable ABARCA, SHABBIR RICHARD JAVA XML DEVELOPER Unavailable Unavailable ABARCA, SHABBIR RICHARD JAVA XML DEVELOPER Unavailable Unavailable ABARCA, SHABBIR RICHARD JAVA XML DEVELOPER Unavailable Unavailable ABARCA, SHABBIR RICHARD JAVA XML DEVELOPER Unavailable Unavailable ABARCA, SHABBIR RICHARD JAVA XML DEVELOPER Unavailable Unavailable ABARCA, SHABBIR RICHARD JAVA XML DEVELOPER Unavailable Unavailable ABARCA, SHABBIR RICHARD JAVA XML DEVELOPER Unavailable Unavailable ABARCA, SHABBIR RICHARD JAVA XML DEVELOPER Unavailable Unavailable ABARCA, SHABBIR RICHARD JAVA XML DEVELOPER Unavailable Unavailable Renee Espana MD Unavailable Unavailable [...] is protected by Article 27-F of the [facility] Public Health law. If you continue you may have access to information: Regarding HIV / AIDS; Provided by facilities licensed or operated by the [facility] Office of Mental Health; or Provided by the [facility] Office for People With Developmental Disabilities. If such information is present, then the following [facility] mandated warning applies: This information has [...] law may result in a fine or retirement sentence or both. A general authorization for the release of medical or other information is NOT sufficient authorization for further disc losure. Family History Family Member Name Family Member Gender Family Member Status Date o f Status Description Data Source(s) Unknown Male Problem MEDENT ([facility]) Encounters Encounter Providers Location Date Indications Data Source(s ) Unknown [address] [facility] [address] 12/08/2020 12:00:00 AM EST eCW1 ([facility]) Outpatient Attender: Marifer RODRIGUEZ ED-HCCEDWPCP 04/2021 01:46:00 PM EST - 12/02/2020 01:47:00 PM [facility] Patient discharged. Outpatient [address] [facility] [place] [address] 11/30/2020 12:00:00 AM EST eCW1 ([facility]) Unknown [address] [facility] [place] [address] 11/10/2020 12:00:00 AM EST eCW1 ([facility]) Unknown [address] [facility] [place] [address] 11/04/2020 12:00:00 AM EST eCW1 ([facility]) Outpatient Attender: Marifer RODRIGUEZ ED-HCCEDWPCP 05/2020 03:34:00 PM EST - 11/02/2020 03:35:00 PM EST [facility] Patient discharged. Outpatient Attender: Sheree woodardy 10/08/2020 04:25:00 PM EST [facility] ([facility]) [place] [address] [facility] [address] 09/30/2020 12:00:00 AM EST eCW1 ([facility]) Unknown [address] [facility] [address] 09/11/2020 12:00:00 AM EDT eCW1 ([facility]) Outpatient Attender: Marifer RODRIGUEZ ED-HCCEDWPC 01:43:00 PM EDT - 09/10/2020 01:44:00 PM EDT [facility] Patient discharged. Outpatient Attender: Marifer RODRIGUEZ ED-HCCEDWPC 08/2020 01:45:00 PM EDT - 08/06/2020 01:46:00 PM EDT [facility] Patient discharged. Outpatient Attender: Marifer RODRIGUEZ ED-HCCEDWPC 01:05:00 PM EDT - 07/14/2020 01:06:00 PM EDT [facility] Patient discharged. Outpatient Attender: Marifer RODRIGUEZ ED-HCCEDWPC 11/2019 07:55:00 AM EDT - 05/27/2020 07:56:00 AM EDT [facility] Patient discharged. [place] [address] [facility] [address] 05/06/2020 12:00:00 AM EDT eCW1 ([facility]) Outpatient [facility]-LABEJ[facility] 05/04/2020 08:15:00 PM EDT [facility] Outpatient Attender: Marifer RODRIGUEZ ED-HCCEDWPCP 06/2020 07:07:00 AM EDT - 05/04/2020 07:08:00 AM EDT [facility] Patient discharged. TeleMedicine Est. Pt. Level [address] [place] [phone] 04/30/2020 12:00:00 AM EDT eCW1 ([facility]) [place] [address] [facility] [address] 04/23/2020 12:00:00 AM EDT eCW1 ([facility] [address] [place] [phone] 04/16/2020 12:00:00 AM EDT eCW1 ([facility]) Outpatient Attender: Marifer RODRIGUEZ ED-HCCDEKPCP 03/2020 01:17:00 PM EDT - 03/31/2020 01:18:00 PM EDT [facility] Patient discharged. [facility] [address] [place] [phone] 03/26/2020 12:00:00 AM EDT eCW1 ([facility]) [facility] [address] [place] [phone] 03/18/2020 12:00:00 AM EDT eCW1 ([facility]) [facility] [address] [place] [phone] 03/17/2020 12:00:00 AM EDT eCW1 ([facility]) [facility] [address] [place] [phone] 02/21/2020 12:00:00 AM EDT eCW1 ([facility]) [facility] [address] [place] [phone] 02/17/2020 12:00:00 AM EDT eCW1 ([facility]) [facility] [address] [place] [phone] 01/16/2020 12:00:00 AM EST eCW1 ([facility]) [facility] [address] [place] [phone] 01/13/2020 12:00:00 AM EST eCW1 ([facility]) Outpatient Attender: RICHARD ABARCA [facility] 09:53:00 AM EST - 01/09/2020 09:54:00 AM EST [facility] Patient discharged. [facility] [address] [place] [phone] 01/09/2020 12:00:00 AM EST eCW1 ([facility]) Outpatient Attender: RICHARD ABARCA [facility] 02:26:00 PM EST - 12/16/2019 02:27:00 PM EST [facility] Patient discharged. Emergency Attender: Dwaine RODRIGUEZ ED-ED 020 02:37:00 PM EST - 12/12/2019 03:57:00 PM EST RT FOOT BIG TOE INJURY [facility] RT FOOT BIG TOE INJURY Patient discharged. Outpatient Referrer: Renee Espana MD 12/05/2019 03: 50:00 PM EST [facility] [address] [place] [phone] 11/29/2019 12:00:00 AM EST eCW1 ([facility]) [facility] [address] [place] [phone] 11/15/2019 12:00:00 AM EST eCW1 ([facility]) Outpatient [facility]-LABEJN 11/05/2019 02:43:00 PM EST [facility] Outpatient Attender: Carol Ballard MDAttender: CAROL BALLARD MD ED-[facility] 11/05/2019 12:26:00 PM EST PRE EMPLOYMENT [facility] PRE EMPLOYMENT [facility] [address] [place] [phone] 10/28/2019 12:00:00 AM EST eCW1 ([facility]) Outpatient Attender: CAROL BALLARD MD -[facility] 10/22/2019 10:0 6:00 AM EST PRE EMPLOYMENT [facility] PRE EMPLOYMENT Medications Medication Brand Name Start [...] MOUTH EVERY DAY FOR 10 DAYS SOLD: 021 [facility] Baclofen 10 MG Oral Tablet Baclofen 10 MG 11/30/2020 12:00:00 AM ES T 1.0 {tablet} active Baclofen 10 MG eCW1 ([facility]) Oxycodone Hydrochloride 15 MG Oral Tablet Oxycodone HC l 15 MG Oxycodone HCl 15 MG 11/30/2020 12:00:00 AM EST 1.0 {tablet} activ e Oxycodone HCl 15 MG eCW1 ([facility]) Baclofen 10 MG Oral Tablet Baclofen 10 MG 11/30/2020 12:00:00 AM ES T 1.0 {tablet} active Baclofen 10 MG eCW1 ([facility]) 800 mg 11/30/2020 12:00:00 AM EST tablet [...] activ e Oxycodone HCl 15 MG eCW1 ([facility]) 4 mg 11/30/2020 12:00:00 AM EST tablet,disintegrating [...] Morphine Sulfate ER 30 MG eCW1 ( [facility]) Morphine Sulfate 30 MG Extended Release Oral Capsule M orphine Sulfate ER 30 MG Morphine Sulfate ER 30 MG 11/30/2020 12:00:00 AM EST 1.0 {tablet} active Morphine Sulfate ER 30 MG eCW1 ( [facility]) 10 mg 11/30/2020 12:00:00 AM EST tablet [...] activ e Oxycodone HCl 15 MG eCW1 ([facility]) 1 % 11/09/2020 12:00:00 AM EST lotion 60 APPLY TWO TIMES A DAY APPLY TWO TIMES A DAY SOLD: 11/11/2020 [facility] Oxycodone Hydrochloride 15 MG Oral Tablet Oxycodone HC l 15 MG Oxycodone HCl 15 MG 11/04/2020 12:00:00 AM EST 1.0 {tablet} activ e Oxycodone HCl 15 MG eCW1 ([facility]) Morphine Sulfate 30 MG Extended Release Oral Tablet [M S Contin] MS Contin 30 MG MS Contin 30 MG 11/04/2020 12:00:00 AM EST 1.0 {tablet} suspended MS Contin 30 MG eCW1 ([facility]) 30 mg 11/04/2020 12:00:00 AM EST tablet [...] {tablet} active MS Contin 30 MG eCW1 ([facility]) Morphine Sulfate 30 MG Extended Release Oral Tablet [M S Contin] MS Contin 30 MG MS Contin 30 MG 11/04/2020 12:00:00 AM EST 1.0 {tablet} suspended MS Contin 30 MG eCW1 ([facility]) Morphine Sulfate 30 MG Extended Release Oral Tablet [M S Contin] MS Contin 30 MG MS Contin 30 MG 11/04/2020 12:00:00 AM EST 1.0 {tablet} active MS Contin 30 MG eCW1 ([facility]) 1 mg 11/03/2020 12:00:00 AM EST tablet [...] 10/08/2020 12:00:00 AM EST RESPIRATORY active MEDENT ([facility]) Amoxicillin 875 MG / Clavulanate 125 MG Oral Tablet Am oxicillin/Clavulanate Potassium 10/08/2020 12:00:00 AM EST ORAL active MEDENT ([facility], [facility]) 12 HR Guaifenesin 600 MG Extended Release Oral Tablet [Mucin ex] Mucinex 10/08/2020 12:00:00 AM EST ORAL active MEDENT ([facility]) 90 mcg/actuation 10/08/2020 12:00:00 AM EST HFA [...] MAXIMUM DAILY DOSE = 3 SOLD: 10/05/2020 [facility] Oxycodone Hydrochloride 15 MG Oral Tablet Oxycodone HC l 15 MG Oxycodone HCl 15 MG 09/30/2020 12:00:00 AM EST 1.0 {tablet} activ e Oxycodone HCl 15 MG eCW1 ([facility]) Morphine Sulfate 30 MG Extended Release Oral Tablet [M S Contin] MS Contin 30 MG MS Contin 30 MG 09/30/2020 12:00:00 AM EST 1.0 {tablet} active MS Contin 30 MG eCW1 ([facility]) 30 mg 09/30/2020 12:00:00 AM EST tablet extended release 30 TAKE ONE TABLET BY MOUTH BEFORE BEDTIME MAXIMUM DAILY DOSE = 1 TABLET TAKE ONE TABLET BY MOUTH BEFORE BEDTIME MAXIMUM DAILY DOSE = 1 TABLET SOLD: 10/01/2020 [facility] Morphine Sulfate 30 MG Extended Release Oral Capsule M orphine Sulfate ER 30 MG Morphine Sulfate ER 30 MG 09/11/2020 12:00:00 AM EDT 1.0 {tablet} active Morphine Sulfate ER 30 MG eCW1 ( [facility]) Morphine Sulfate 30 MG Extended Release Oral Capsule M orphine Sulfate ER 30 MG Morphine Sulfate ER 30 MG 09/11/2020 12:00:00 AM EDT 1.0 {tablet} active Morphine Sulfate ER 30 MG eCW1 ( [facility]) Morphine Sulfate 15 MG Extended Release Oral Tablet Mo rphine Sulfate ER 15 MG Morphine Sulfate ER 15 MG 09/11/2020 12:00:00 AM EDT 1.0 {tablet} active Morphine Sulfate ER 15 MG eCW1 ( [facility]) Morphine Sulfate 30 MG Extended Release Oral Capsule M orphine Sulfate ER 30 MG Morphine Sulfate ER 30 MG 09/11/2020 12:00:00 AM EDT 1.0 {tablet} active Morphine Sulfate ER 30 MG eCW1 ( [facility]) Oxycodone Hydrochloride 15 MG Oral Tablet Oxycodone HC l 15 MG Oxycodone HCl 15 MG 09/11/2020 12:00:00 AM EDT 1.0 {tablet} activ e Oxycodone HCl 15 MG eCW1 ([facility]) 20 mg 09/10/2020 12:00:00 AM EDT tablet [...] APPLY TWO TIMES A DAY SOLD: 09/14/2020 [facility] 1 mg 09/02/2020 12:00:00 AM EDT tablet 90 TAKE ONE TABLET BY MOUTH THREE TIMES A DAY NEEDED MAXIMUM DAILY DOSE = 3 TAKE ONE TABLET BY MOUTH THREE TIMES A DAY NEEDED MAXIMUM DAILY DOSE = 3 SOLD: 09/03/2020 [facility] 15 mg 08/13/2020 12:00:00 AM EDT tablet extended release 30 TAKE ONE TABLET BY MOUTH EVERY DAY DIRECTED MAXIMUM DAILY DOSE = 1 TAKE ONE TABLET BY MOUTH EVERY DAY DIRECTED MAXIMUM DAILY DOSE = 1 SOLD: 08/13/2020 [facility] 10 mg 08/12/2020 12:00:00 AM EDT [...] TABLET BY MOUTH EVERY DAY SOLD: 08/07/2020 [facility] Paroxetine Hydrochloride 40 MG Oral Tablet PAROXETINE HCL 08/06/2020 12:00:00 AM EDT tablet 90 TAKE ONE TABLET BY MOUTH CECY DAY IN THE MORNING TAKE ONE TABLET BY MOUTH EVERY DAY IN THE MORNING SOLD: 08/07/2020 [facility] 24 HR Bupropion Hydrochloride 300 MG Extended Release Oral T ablet BUPROPION HCL 08/06/2020 12:00:00 AM EDT tablet extended release 24 hr 90 TAKE ONE TABLET BY MOUTH EVERY DAY TAKE ONE TABLET BY MOUTH EVERY DAY SOLD: 11/02/2020 [facility] Paroxetine Hydrochloride 40 MG Oral Tablet [...] MOUTH EVERY DAY SOLD: 06/03/2020 [facility] 750 mg 06/03/2020 12:00:00 AM EDT [...] suspended Ketor olac Tromethamine 10 MG eCW1 ([facility]) Ketorolac Tromethamine 10 MG Oral Tablet Ketorolac Trometham ine 10 MG 04/30/2020 12:00:00 AM EDT active Ketorola c Tromethamine 10 MG eCW1 ([facility]) Ketorolac Tromethamine 10 MG Oral Tablet Ketorolac Trometham ine 10 MG 04/30/2020 12:00:00 AM EDT suspended Ketor olac Tromethamine 10 MG eCW1 ([facility]) Ketorolac Tromethamine 10 MG Oral Tablet Ketorolac Trometham ine 10 MG 04/30/2020 12:00:00 AM EDT suspended Ketor olac Tromethamine 10 MG eCW1 ([facility]) Ketorolac Tromethamine 10 MG Oral Tablet Ketorolac Trometham ine 10 MG 04/30/2020 12:00:00 AM EDT suspended Ketor olac Tromethamine 10 MG eCW1 ([facility]) Ketorolac Tromethamine 10 MG Oral Tablet Ketorolac Trometham ine 10 MG 04/30/2020 12:00:00 AM EDT active Ketorola c Tromethamine 10 MG eCW1 ([facility]) Ketorolac Tromethamine 10 MG Oral Tablet Ketorolac Trometham ine 10 MG 04/30/2020 12:00:00 AM EDT active Ketorola c Tromethamine 10 MG eCW1 ([facility]) Ketorolac Tromethamine 10 MG Oral Tablet Ketorolac Trometham ine 10 MG 04/30/2020 12:00:00 AM EDT active Ketorola c Tromethamine 10 MG eCW1 ([facility]) Ketorolac Tromethamine 10 MG Oral Tablet Ketorolac Trometham ine 10 MG 04/30/2020 12:00:00 AM EDT suspended Ketor olac Tromethamine 10 MG eCW1 ([facility]) Oxycodone Hydrochloride 15 MG Oral Tablet Oxycodone HC l 15 MG Oxycodone HCl 15 MG 04/24/2020 12:00:00 AM EDT 1.0 {tablet} activ e Oxycodone HCl 15 MG eCW1 ([facility]) Oxycodone Hydrochloride 15 MG Oral Tablet Oxycodone HC l 15 MG Oxycodone HCl 15 MG 04/24/2020 12:00:00 AM EDT 1.0 {tablet} activ e Oxycodone HCl 15 MG eCW1 ([facility]) Morphine Sulfate 15 MG Extended Release Oral Tablet Mo rphine Sulfate ER 15 MG Morphine Sulfate ER 15 MG 04/24/2020 12:00:00 AM EDT 1.0 {tablet} active Morphine Sulfate ER 15 MG eCW1 ( [facility]) Oxycodone Hydrochloride 15 MG Oral Tablet Oxycodone HC l 15 MG Oxycodone HCl 15 MG 04/24/2020 12:00:00 AM EDT 1.0 {tablet} activ e Oxycodone HCl 15 MG eCW1 ([facility]) Morphine Sulfate 15 MG Extended Release Oral Tablet Mo rphine Sulfate ER 15 MG Morphine Sulfate ER 15 MG 04/24/2020 12:00:00 AM EDT 1.0 {tablet} active Morphine Sulfate ER 15 MG eCW1 ( [facility]) Morphine Sulfate 15 MG Extended Release Oral Tablet Mo rphine Sulfate ER 15 MG Morphine Sulfate ER 15 MG 04/24/2020 12:00:00 AM EDT 1.0 {tablet} active Morphine Sulfate ER 15 MG eCW1 ( [facility]) Ketorolac Tromethamine 10 MG Oral Tablet Ketorolac Trometham ine 10 MG 04/16/2020 12:00:00 AM EDT suspended Ketor olac Tromethamine 10 MG eCW1 ([facility]) Ketorolac Tromethamine 10 MG Oral Tablet Ketorolac Trometham ine 10 MG 04/16/2020 12:00:00 AM EDT suspended Ketor olac Tromethamine 10 MG eCW1 ([facility]) Ketorolac Tromethamine 10 MG Oral Tablet Ketorolac Trometham ine 10 MG 04/16/2020 12:00:00 AM EDT active 1 tablet with food or milk as needed eCW1 ([facility]) Ketorolac Tromethamine 10 MG Oral Tablet Ketorolac Trometham ine 10 MG 04/16/2020 12:00:00 AM EDT suspended Ketor olac Tromethamine 10 MG eCW1 ([facility]) Ketorolac Tromethamine 10 MG Oral Tablet Ketorolac Trometham ine 10 MG 04/16/2020 12:00:00 AM EDT suspended Ketor olac Tromethamine 10 MG eCW1 ([facility]) Ketorolac Tromethamine 10 MG Oral Tablet Ketorolac Trometham ine 10 MG 04/16/2020 12:00:00 AM EDT suspended Ketor olac Tromethamine 10 MG eCW1 ([facility]) Ketorolac Tromethamine 10 MG Oral Tablet Ketorolac Trometham ine 10 MG 04/16/2020 12:00:00 AM EDT suspended Ketor olac Tromethamine 10 MG eCW1 ([facility]) Ketorolac Tromethamine 10 MG Oral Tablet Ketorolac Trometham ine 10 MG 04/16/2020 12:00:00 AM EDT suspended Ketor olac Tromethamine 10 MG eCW1 ([facility]) Ketorolac Tromethamine 10 MG Oral Tablet Ketorolac Trometham ine 10 MG 04/16/2020 12:00:00 AM EDT suspended Ketor olac Tromethamine 10 MG eCW1 ([facility]) Ketorolac Tromethamine 10 MG Oral Tablet Ketorolac Trometham ine 10 MG 04/16/2020 12:00:00 AM EDT suspended Ketor olac Tromethamine 10 MG eCW1 ([facility]) Oxycodone Hydrochloride 15 MG Oral Tablet Oxycodone HC l 15 MG Oxycodone HCl 15 MG 03/18/2020 12:00:00 AM EDT active 1 tablet eCW1 ([facility]) Morphine Sulfate 15 MG Extended Release Oral Tablet Mo rphine Sulfate ER 15 MG Morphine Sulfate ER 15 MG 03/18/2020 12:00:00 AM EDT active 1 tablet eCW1 ([facility]) 750 mg 02/23/2020 12:00:00 AM EDT tablet [...] 12:00:00 AM EDT active 1 tablet eCW1 ([facility]) Oxycodone Hydrochloride 15 MG Oral Tablet Oxycodone HC l 15 MG Oxycodone HCl 15 MG 02/17/2020 12:00:00 AM EDT active 1 tablet eCW1 ([facility]) Oxycodone Hydrochloride 15 MG Oral Tablet Oxycodone HC l 15 MG Oxycodone HCl 15 MG 01/16/2020 12:00:00 AM EST active 1 tablet eCW1 ([facility]) Morphine Sulfate 15 MG Extended Release Oral Tablet Mo rphine Sulfate ER 15 MG Morphine Sulfate ER 15 MG 01/16/2020 12:00:00 AM EST active 1 tablet eCW1 ([facility]) Morphine Sulfate 15 MG Extended Release Oral Tablet Mo rphine Sulfate ER 15 MG Morphine Sulfate ER 15 MG 01/13/2020 12:00:00 AM EST active 1 tablet eCW1 ([facility]) Oxycodone Hydrochloride 15 MG Oral Tablet Oxycodone HC l 15 MG Oxycodone HCl 15 MG 01/13/2020 12:00:00 AM EST active 1 tablet eCW1 ([facility]) 10 mg 12/13/2019 12:00:00 AM EST tablet [...] {tablet_in_the_morning} susp ended Movantik 25 MG eCW1 ([facility]) naloxegol 25 MG Oral Tablet [Movantik] Movantik 25 MG Movant ik 25 MG 11/29/2019 12:00:00 AM EST 1.0 {tablet_in_the_morning} susp ended Movantik 25 MG eCW1 ([facility]) naloxegol 25 MG Oral Tablet [Movantik] Movantik 25 MG Movant ik 25 MG 11/29/2019 12:00:00 AM EST 1.0 {tablet_in_the_morning} susp ended Movantik 25 MG eCW1 ([facility]) naloxegol 25 MG Oral Tablet [Movantik] Movantik 25 MG Movant ik 25 MG 11/29/2019 12:00:00 AM EST 1.0 {tablet_in_the_morning} susp ended Movantik 25 MG eCW1 ([facility]) naloxegol 25 MG Oral Tablet [Movantik] Movantik 25 MG Movant ik 25 MG 11/29/2019 12:00:00 AM EST 1.0 {tablet_in_the_morning} susp ended Movantik 25 MG eCW1 ([facility]) 15 mg 11/29/2019 12:00:00 AM EST tablet [...] {tablet_in_the_morning} susp ended Movantik 25 MG eCW1 ([facility]) Oxycodone Hydrochloride 15 MG Oral Tablet Oxycodone HC l 15 MG Oxycodone HCl 15 MG 11/29/2019 12:00:00 AM EST active 1 tablet eCW1 ([facility]) naloxegol 25 MG Oral Tablet [Movantik] Movantik 25 MG Movant ik 25 MG 11/29/2019 12:00:00 AM EST 1.0 {tablet_in_the_morning} susp ended Movantik 25 MG eCW1 ([facility]) 15 mg 11/29/2019 12:00:00 AM EST tablet [...] {tablet_in_the_morning} susp ended Movantik 25 MG eCW1 ([facility]) naloxegol 25 MG Oral Tablet [Movantik] Movantik 25 MG Movant ik 25 MG 11/29/2019 12:00:00 AM EST suspended 1 tab let in the morning eCW1 ([facility]) naloxegol 25 MG Oral Tablet [Movantik] Movantik 25 MG Movant ik 25 MG 11/29/2019 12:00:00 AM EST 1.0 {tablet_in_the_morning} susp ended Movantik 25 MG eCW1 ([facility]) naloxegol 25 MG Oral Tablet [Movantik] Movantik 25 MG Movant ik 25 MG 11/29/2019 12:00:00 AM EST active 1 tablet in the morning eCW1 ([facility]) Morphine Sulfate 15 MG Extended Release Oral Tablet Mo rphine Sulfate ER 15 MG Morphine Sulfate ER 15 MG 11/29/2019 12:00:00 AM EST active 1 tablet eCW1 ([facility]) 800 mg 11/25/2019 12:00:00 AM EST tablet [...] 12:00:00 AM EST active 1 tablet eCW1 ([facility]) 750 mg 10/29/2019 12:00:00 AM EST tablet 120 TAKE 1 TABLET BY MOUTH EVERY 6 HOURS NEEDED TAKE 1 TABLET BY MOUTH EVERY 6 HOURS NEEDED SOLD: 019 [facility] Oxycodone Hydrochloride 15 MG Oral Tablet Oxycodone HC l 15 MG Oxycodone HCl 15 MG 10/29/2019 12:00:00 AM EST active 1 tablet eCW1 ([facility]) Morphine Sulfate 15 MG Extended Release Oral Tablet Mo rphine Sulfate ER 15 MG Morphine Sulfate ER 15 MG 10/29/2019 12:00:00 AM EST active 1 tablet eCW1 ([facility]) 750 mg 10/29/2019 12:00:00 AM EST tablet 120 TAKE 1 TABLET BY MOUTH EVERY 6 HOURS NEEDED TAKE 1 TABLET BY MOUTH EVERY 6 HOURS NEEDED SOLD: 020 [facility] Oxycodone Hydrochloride 15 MG Oral Tablet Oxycodone HC l 15 MG Oxycodone HCl 15 MG 10/29/2019 12:00:00 AM EST active 1 tablet eCW1 ([facility]) 15 mg 10/29/2019 12:00:00 AM EST tablet extended release 30 TAKE ONE TABLET BY MOUTH AT BEDTIME MAXIMUM DAILY DOSE = 1 TAKE ONE TABLET BY MOUTH AT BEDTIME MAXIMUM DAILY DOSE = 1 SOLD: 10/31/2019 [facility] Morphine Sulfate 15 MG Extended Release Oral Tablet Mo rphine Sulfate ER 15 MG Morphine Sulfate ER 15 MG 10/29/2019 12:00:00 AM EST active 1 tablet eCW1 ([facility]) 750 mg 10/29/2019 12:00:00 AM EST tablet 120 TAKE 1 TABLET BY MOUTH EVERY 6 HOURS NEEDED TAKE 1 TABLET BY MOUTH EVERY 6 HOURS NEEDED SOLD: 020 [facility] Morphine Sulfate 15 MG Extended Release Oral Tablet Mo rphine Sulfate ER 15 MG Morphine Sulfate ER 15 MG 10/29/2019 12:00:00 AM EST active 1 tablet eCW1 ([facility]) 40 mg 10/15/2019 12:00:00 AM EST tablet [...] type / Coverage type Policy ID Covered constitution party ID Covered constitution party's relationship to wharton Policy [place] Plan Information [place]/307 [id number] SP [id number] SELF PAY ONLY [id number] [place]/307 [id number] SP [id number] [place]LLUS [place] [id number] S [id number] [place] 306/806 [id number] SP [id number] [place] 306/806 [id number] SP [id number] EXCELLUS BCBS B [id number] S [id number] EXCELLUS H [id number] Self [id number] MEDICARE [id number] SP [id number] SELF PAY FINANCIAL ASSISTANCE 521 S 521 HUMANA GOLD [id number] SP [id number] HRSA UNINSURED FUND SP MEDICARE [id number] S [id number] N62 MEDICARE C [id number] S [id number] N62 MEDICARE A [id number] Self [id number] A SELF PAY ONLY [id number] SP [id number] MEDICARE [id number] S [id number] N62 MEDICARE [id number] S [id number] N62 ANSI-Medicare Part B [id number] ANSI-Medicaid [id number] ANSI-Medicare Part B [id number] ANSI-Medicaid [id number] MEDICARE [id number] S [id number] ANSI-Medicaid [id number] ANSI-Medicare Part B [id number] ANSI-Medicaid [id number] ANSI-Medicare Part B [id number] ANSI-Medicare Part B [id number] ANSI-Medicaid [id number] ANSI-Medicare Part B [id number] ANSI-Medicaid [id number] MEDICARE [id number] SP [id number] N62 ANSI-Medicare Part B [id number] ANSI-Medicaid [id number] ANSI-Medicare Part B [id number] ANSI-Medicaid [id number] [place] Primary [id number] Self [id number] Bso ZFC,Yot,ZFH,Ymb,ZFP Health Maintenance Organization (HMO) [id number] Family Dependent [id number] BS [facility] Part B [id number] Self [id number] Medicare [facility] Medicare Primary [id number] Self [id number] ANSI-Medicare Part B [id number] ANSI-Medicaid [id number] Bso ZFC,Yot,ZFH,Ymb,ZFP Health Maintenance Organization (HMO) [id number] Family Dependent [id number] [facility] Part B [id number] Self [id number] [place] Primary [id number] Self [id number] ANSI-Medicare Part B [id number] ANSI-Medicaid [id number] ANSI-Medicare Part B [id number] ANSI-Medicaid [id number] ANSI-Medicare Part B [id number] ANSI-Medicaid [id number] ANSI-Medicare Part B [id number] ANSI-Medicaid [id number] ANSI-Medicaid [id number] ANSI-Medicare Part B [id number] Bso ZFC,Yot,ZFH,Ymb,ZFP Health Maintenance Organization (HMO) [id number] Family Dependent [id number] BS [facility] Part B [id number] Self [id number] Medicare [place] Medicare Primary [id number] Self [id number] ANSI-Medicaid [id number] ANSI-Medicare Part B [id number] ANSI-Medicaid [id number] ANSI-Medicare Part B [id number] ANSI-Medicare Part B [id number] ANSI-Medicaid [id number] ANSI-Medicare Part B [id number] ANSI-Medicaid [id number] ANSI-Medicaid [id number] ANSI-Medicare Part B [id number] ANSI-Medicare Part B [id number] ANSI-Medicaid [id number] ANSI-Medicare Part B [id number] ANSI-Medicaid [id number] ANSI-Medicare Part B [id number] ANSI-Medicaid [id number] ANSI-Medicare Part B [id number] ANSI-Medicaid [id number] MEDICARE [id number] SP [id number] A ANSI-Medicare Part B [id number] ANSI-Medicaid [id number] ANSI-Medicare Part B [id number] ANSI-Medicaid [id number] MEDICAID [id number] SP [id number] MEDICARE A [id number] Self [id number] A DME Jurisdiction A [facility] C [id number] SELF [id number] Medicaid [facility] Healthcare S D [id number] SELF [id number] Medicare C [id number] SELF [id number] A MEDICARE [id number] SP [id number] A O UNAVAILABLE UNAVAILA BLE SELF PAY UNAVAILABLE SP UNAVAILA BLE EXCELLUS BCBS B YOU [id number] S YO U [id number] MEDICARE PART A -O/P [id number] 18 [id number] UNHC COMMUNITY PLAN XIX [id number] 18 [id number] BLUE CROSS BLUE SHIELD-O/P YOU [id number] 18 YOU [id number] MEDICAID M [id number] Self [id number] MEDICARE C [id number] S [id number] A [place] Primary [id number] Self [id number] MEDICARE [id number] SP [id number] A [place] Medicare Primary [id number] Self [id number] UNHC COMMUNITY PLAN [facility] [id number] SP [id number] MEDICAID [id number] SP [id number] MEDICAID M [id number] S [id number] [facility] COMMUNITY PLAN [facility] [id number] SP [id number] [facility] I [id number] Self [id number] [facility] Suyapa/MCR Health Maintenance Organization (HMO) Self [facility]) O [id number] S [id number] [facility] [id number] SP [id number] PMA MANAGEMENT [facility] [id number] SP [id number] [place] P[place] 302/307 [id number] [id number] [place] 306/806 [id number] SP [id number] BLUE CROSS BLUE SHIELD-CLINIC [id number] 18 [id number] MEDICAID M [id number] Self [id number] MEDICAID W [id number] S [id number] BCBS HMO [place] O [id number] S [id number] B/S BLUE PPO/HSA (33) [id number] [place] 306/806 [id number] SP [id number] EXCELLUS BCBS P [id number] S [id number] [place] 306/8 P [id number] S [id number] Problems, Conditions, and Diagnoses Code Display Name Description Problem Type Effective Dates Data Source(s) M96.1 73035303 Post laminectomy syndrome Problem 01/16/2020 12:00:00 AM EST eCW1 ([facility]) M96.1 [id number] Post laminectomy syndrome Problem 01/16/2020 12:00:00 AM EST eCW1 ([facility]) R41.3 Other amnesia OTHER AMNESIA Diagnosis 11/02/2020 03:34:00 PM [facility] M32.9 Systemic lupus erythematosus, unspecifie d SYSTEMIC LUPUS ERYTHEMATOSUS, UNSPECIFIED Diagnosis 11/02/2020 03:34:00 PM [facility] spital M51.26 Other intervertebral disc displacement, lumbar region OTHER INTERVERTEBRAL DISC DISPLACEMENT, LUMBAR REGION Diagnosis 2019 01:43:00 PM [facility] F41.9 Anxiety disorder, unspecified ANXIETY DISORDER, UNSPEC IFIED Diagnosis 09/10/2020 01:43:00 PM [facility] F32.9 Major depressive disorder, single episod e, unspecified MAJOR DEPRESSIVE DISORDER, SINGLE EPISODE, UNSPECIFIED Diagnosis 08/06/2020 01:45:00 PM [facility] L03.211 Cellulitis of face CELLULITIS OF FACE Diagnosis 01:05:00 PM [facility] J01.90 Acute sinusitis, unspecified ACUTE SINUSITIS, UNSPECIF IED Diagnosis 05/04/2020 07:07:00 AM [facility] E55.9 Vitamin D deficiency, unspecified VITAMIN D DEFI CIENCY, UNSPECIFIED Diagnosis 05/04/2020 07:07:00 AM [facility] I10 Essential (primary) hypertension ESSENTIAL (PRIMARY) H YPERTENSION Diagnosis 05/04/2020 07:07:00 AM [facility] M79.7 Fibromyalgia FIBROMYALGIA Diagnosis 05/04/2020 07:07:00 A M [facility] J01.40 Acute pansinusitis, unspecified ACUTE PANSINUSIT IS, UNSPECIFIED Diagnosis 01/09/2020 09:53:00 AM [facility] J40 Bronchitis, not specified as acute or ch ronic BRONCHITIS, NOT SPECIFIED ACUTE OR CHRONIC Diagnosis 01/09/2020 09:53:[address] [facility] Y92.[address] in unspecified n on-institutional (private) residence as the place of occurrence of the external cause OTH PLACE IN UNSP NON-INSTITUT (PRIVATE) RESIDENCE PLACE Diagnosis 12/12/2019 02:37:00 PM [facility] W01.0XXA Fall on same level from slip ping, tripping and stumbling without subsequent striking against object, initial encounter FALL SAME LEV FROM SLIP/TRIP W/O STRIKE AGAINST OBJECT, INIT Diagnosis 12/12/2019 02:37:0 0 PM [facility] S92.311A Displaced fracture of first metatarsal bone, right foot, initial encounter for closed fracture DISP FX OF FIRST METATARSAL BONE, RIGHT FOOT, INIT Diagnosis 12/12/2019 02:37:00 PM [facility] spital Surgeries/Procedures Procedure Description Date Indications Data Source(s) Hospital outpatient clinic visit for assessment and ma nagement of a patient Hospital Outpatient Clinic Visit 05/04/2020 12:00:00 AM [facility] COLLECTION VENOUS BLOOD VENIPUNCTURE ROUTINE VENIPUNCTURE 12:00:00 AM [facility] THYROXINE FREE ASSAY OF FREE THYROXINE 05/04/2020 12:00:00 AM [facility] THYROID STIMULATING HORMONE TSH ASSAY THYROID STIM HORMONE 0 05/04/2020 12:00:00 AM [facility] 25 HYDROXY INCLUDES FRACTIONS IF PERFORMED VITAMIN D 25 HYDR OXY 05/04/2020 12:00:00 AM [facility] URNLS DIP STICK/TABLET REAGENT AUTO MICROSCOPY URINALYSIS AU TO W/SCOPE 05/04/2020 12:00:00 AM [facility] SEDIMENTATION RATE RBC NON-AUTOMATED RBC SED RATE NONAUTOMAT ED 05/04/2020 12:00:00 AM [facility] BLOOD COUNT COMPLETE AUTO&AUTO DIFRNTL WBC COUNT COMPLETE CB C W/AUTO DIFF WBC 05/04/2020 12:00:00 AM [facility] ALBUMIN URINE MICROALBUMIN QUANTIATIVE UR ALBUMIN QUANTITATI VE 05/04/2020 12:00:00 AM [facility] CREATININE OTHER SOURCE ASSAY OF URINE CREATININE 05/04/2020 12:00: 00 AM [facility] C-REACTIVE PROTEIN C-REACTIVE PROTEIN 05/04/2020 12:00:00 AM [facility] LIPID PANEL LIPID PANEL 05/04/2020 12:00:00 AM [facility] COMPREHENSIVE METABOLIC PANEL COMPREHEN METABOLIC PANEL 06/2020 12:00:00 AM [facility] RADEX FOOT COMPLETE MINIMUM 3 VIEWS X-RAY EXAM OF FOOT 11/27 12:00:00 AM [facility] Injection, ketorolac tromethamine, per 15 mg 0 12:00:00 AM [facility] THERAPEUTIC PROPHYLACTIC/DX INJECTION SUBQ/IM THER/PROPH/CHRISSIE G INJ SC/IM 12/12/2019 12:00:00 AM [facility] EMERGENCY DEPARTMENT VISIT MODERATE SEVERITY EMERGENCY DEPT VISIT 12/12/2019 12:00:00 AM [facility] Results ID Date Data Source [id number] 12/08/2020 02:20:00 PM EST [facility] Name Value Range Interpretation Code Description Data Shanti rce(s) Supporting Document(s) SARS coronavirus 2 RNA Not Detected [facility] This lab was ordered by [facility] and reported by [facility]. ID Date Data Source [id number] 11/30/2020 01:30:00 PM EST [facility] Name Value Range Interpretation Code Description Data Shanti rce(s) Supporting Document(s) SARS coronavirus 2 RNA [facility] This lab was ordered by [facility] and reported by [facility]. ID Date Data Source [id number] 11/23/2020 06:30:00 AM EST [facility] Name Value Range Interpretation Code Description Data Shanti rce(s) Supporting Document(s) SARS coronavirus 2 RNA [facility] This lab was ordered by [facility] and reported by [facility]. ID Date Data Source [id number] 11/16/2020 06:30:00 AM EST [facility] Name Value Range Interpretation Code Description Data Shanti rce(s) Supporting Document(s) SARS coronavirus 2 RNA [facility] This lab was ordered by [facility] and reported by [facility]. ID Date Data Source [id number] 11/09/2020 06:37:00 AM EST [facility] Name Value Range Interpretation Code Description Data Shanti rce(s) Supporting Document(s) SARS coronavirus 2 RNA [facility] This lab was ordered by [facility] and reported by [facility]. ID Date Data Source [id number] 11/02/2020 09:00:00 AM EST [facility] Name Value Range Interpretation Code Description Data Shanti rce(s) Supporting Document(s) SARS coronavirus 2 RNA [facility] This lab was ordered by [facility] and reported by [facility]. ID Date Data Source [id number] 10/26/2020 02:02:00 PM EST [facility] Name Value Range Interpretation Code Description Data Shanti rce(s) Supporting Document(s) SARS coronavirus 2 RNA [facility] This lab was ordered by [facility] and reported by [facility]. ID Date Data Source [id number] 10/19/2020 09:00:00 AM EST [facility] Name Value Range Interpretation Code Description Data Shanti rce(s) Supporting Document(s) SARS coronavirus 2 RNA [facility] This lab was ordered by [facility] and reported by [facility]. ID Date Data Source [id number] 10/18/2020 12:00:00 AM EST [facility] Name Value Range Interpretation Code Description Data Shanti rce(s) Supporting Document(s) SARS-CoV2 Rapid Antigen [facility] This lab was ordered by [facility] and reported by [facility]. ID Date Data Source [id number] 10/15/2020 12:00:00 AM EST [facility] Name Value Range Interpretation Code Description Data Shanti rce(s) Supporting Document(s) 2019-nCoV RNA XXX NATANAEL+probe-Imp [facility] This lab was ordered by [facility] and reported by [employer] ID Date Data Source [id number] 10/08/2020 12:00:00 AM EST [facility] Name Value Range Interpretation Code Description Data Shanti rce(s) Supporting Document(s) SARS coronavirus 2 Ag [facility] This lab was ordered by [facility] and reported by [facility]. ID Date Data Source [id number] 10/05/2020 06:30:00 AM EST [facility] Name Value Range Interpretation Code Description Data Shanti rce(s) Supporting Document(s) SARS coronavirus 2 RNA [facility] This lab was ordered by [facility] and reported by [facility]. ID Date Data Source [id number] 09/28/2020 06:00:00 AM EST [facility] Name Value Range Interpretation Code Description Data Shanti rce(s) Supporting Document(s) SARS coronavirus 2 RNA [facility] This lab was ordered by [facility] and reported by [facility]. ID Date Data Source [id number] 09/21/2020 05:30:00 AM EDT [facility] Name Value Range Interpretation Code Description Data Shanti rce(s) Supporting Document(s) SARS coronavirus 2 RNA [facility] This lab was ordered by [facility] and reported by [facility]. ID Date Data Source [id number] 09/14/2020 01:00:00 PM EDT [facility] Name Value Range Interpretation Code Description Data Shanti rce(s) Supporting Document(s) SARS coronavirus 2 RNA [facility] This lab was ordered by [facility] and reported by [facility]. ID Date Data Source [id number] 09/07/2020 08:00:00 AM EDT [facility] Name Value Range Interpretation Code Description Data Shanti rce(s) Supporting Document(s) SARS coronavirus 2 RNA [facility] This lab was ordered by [facility] and reported by [facility]. ID Date Data Source [id number] 08/31/2020 05:30:00 AM EDT [facility] Name Value Range Interpretation Code Description Data Shanti rce(s) Supporting Document(s) SARS coronavirus 2 RNA [facility] This lab was ordered by [facility] and reported by [facility]. ID Date Data Source [id number] 08/24/2020 01:00:00 PM EDT [facility] Name Value Range Interpretation Code Description Data Shanti rce(s) Supporting Document(s) SARS coronavirus 2 RNA [facility] This lab was ordered by [facility] and reported by [facility]. ID Date Data Source [id number] 08/17/2020 01:15:00 PM EDT [facility] Name Value Range Interpretation Code Description Data Shanti rce(s) Supporting Document(s) SARS coronavirus 2 RNA [facility] This lab was ordered by [facility] and reported by [facility]. ID Date Data Source [id number] 08/10/2020 06:00:00 AM EDT [facility] Name Value Range Interpretation Code Description Data Shanti rce(s) Supporting Document(s) SARS coronavirus 2 RNA [facility] This lab was ordered by [facility] and reported by [facility]. ID Date Data Source [id number] 08/05/2020 02:00:00 PM EDT [facility] Name Value Range Interpretation Code Description Data Shanti rce(s) Supporting Document(s) SARS coronavirus 2 RNA [facility] This lab was ordered by [facility] and reported by [facility]. ID Date Data Source [id number] 07/30/2020 08:00:00 AM EDT [facility] Name Value Range Interpretation Code Description Data Shanti rce(s) Supporting Document(s) SARS coronavirus 2 RNA [facility] This lab was ordered by [facility] and reported by [facility]. ID Date Data Source [id number] 07/23/2020 02:30:00 PM EDT [facility] Name Value Range Interpretation Code Description Data Shanti rce(s) Supporting Document(s) SARS coronavirus 2 RNA [facility] This lab was ordered by [facility] and reported by [facility]. ID Date Data Source [id number] 06/15/2020 03:16:00 PM EDT [facility] Name Value Range Interpretation Code Description Data Shanti rce(s) Supporting Document(s) SARS coronavirus 2 RNA [facility] This lab was ordered by [facility] and reported by [facility]. ID Date Data Source [id number] 06/08/2020 03:18:00 PM EDT [facility] Name Value Range Interpretation Code Description Data Shanti rce(s) Supporting Document(s) SARS coronavirus 2 RNA [facility] This lab was ordered by [facility] and reported by [facility]. ID Date Data Source [id number] 06/01/2020 02:50:00 PM EDT [facility] Name Value Range Interpretation Code Description Data Shanti rce(s) Supporting Document(s) SARS coronavirus 2 RNA [facility] This lab was ordered by [facility] and reported by [facility]. ID Date Data Source [id number] 05/25/2020 11:31:00 AM EDT [facility] Name Value Range Interpretation Code Description Data Shanti rce(s) Supporting Document(s) SARS CORONAVIRUS 2 RNA [facility] This lab was ordered by [facility] and reported by [facility]. ID Date Data Source [id number] 05/18/2020 05:30:00 AM EDT [facility] Name Value Range Interpretation Code Description Data Shanti rce(s) Supporting Document(s) SARS CORONAVIRUS 2 RNA [facility] This lab was ordered by [facility] and reported by [facility]. ID Date Data Source [id number] 05/13/2020 12:00:00 AM EDT [facility] Name Value Range Interpretation Code Description Data Shanti rce(s) Supporting Document(s) SARS CORONAVIRUS 2 RNA [facility] This lab was ordered by [facility] and reported by [facility]. ID Date Data Source [id number] 05/04/2020 10:34:00 PM EDT [facility] Name Value Range Interpretation Code Description Data Shanti rce(s) Supporting Document(s) UMALB Urine Creatinine result Normal (applies t o non-numeric results) [facility] Interpret with care as there is no estab lished reference range associated with this assay's methodology that pertains to this particular sex and/or age. UMALB Microalbumin,Ur result <1.7 Normal (applies to non-numeric results) [facility],Ur result Normal (applies t o non-numeric results) [facility] Test Performed By: [facility] [address] [place] [address] Director: Nato Osborne MD Reference Ranges for Microalbumin,spot: Normal <30 ug/mg creatinine Microalbuminuria 30-300 ug/mg creatinine Clinical Albuminuria >300 ug/mg creatinine ID Date Data Source [id number] 05/04/2020 10:33:00 PM EDT [facility] Name Value Range Interpretation Code Description Data Shanti rce(s) Supporting Document(s) CRP,Wide Range result <3.00 Normal (applies to non-nu meric results) [facility] [address] [place] [address] Director: Nato Osborne MD ID Date Data Source [id number] 05/04/2020 10:24:00 PM EDT [facility] Name Value Range Interpretation Code Description Data Shanti rce(s) Supporting Document(s) Creatinine,Urine Normal (applies to non-numeric results) [facility] Interpret with care as there is no estab lished reference range associated with this assay's methodology that pertains to this particular sex and/or age. Microalbumin,Urine <1.7 Normal (applies to non-numer ic results) [facility] Albumin/Creatinine Ratio,Urine Normal (applies to non-numeric results) [facility] Test Performed By: [facility] [address] [place] [address] Director: Nato Osborne MD Reference Ranges for Microalbumin,spot: Normal <30 ug/mg creatinine Microalbuminuria 30-300 ug/mg creatinine Clinical Albuminuria >300 ug/mg creatinine ID Date Data Source [id number] 05/04/2020 10:09:00 PM EDT [facility] Value Range Interpretation Code Description Data Shanti rce(s) Supporting Document(s) C-Reactive Protein,Wide Range <3.00 Normal (applies t o non-numeric results) [facility] Test Performed By: [facility] [address] [place] [address] Director: Nato Osborne MD ID Date Data Source [id number] 05/04/2020 03:59:00 PM [facility] Name Value Range Interpretation Code Description Data Shanti rce(s) Supporting Document(s) Vitamin D, Total 30.0-100.0 Below low normal [facility] ID Date Data Source [id number] 05/04/2020 03:53:00 PM [facility] Name Value Range Interpretation Code Description Data Shanti rce(s) Supporting Document(s) White Blood Count 3.5-10.5 Normal (applies to non-numeri c results) [facility] Red Blood Count 3.90-5.00 Normal (applies to non-numeric results) [facility] Hemoglobin 12.0-15.5 Normal (applies to non-numeric resul ts) [facility] Hematocrit 34.9-44.5 Normal (applies to non-numeric resul ts) [facility] Mean Corpuscular Volume 81.2-95.1 Normal (applies to non- numeric results) [facility] Mean Corpuscular Hgb 25.6-32.2 Normal (applies to non-num tessie results) [facility] Mean Corpuscular Hgb Conc 32.0-36.0 Normal (applies to no n-numeric results) [facility] Red Cell Distribution Width 11.9-15.5 Normal (appli es to non-numeric results) [facility] Platelet Count 253 x10 3/uL 150-450 Normal (applies to non-numeric results) [facility] Mean Platelet Volume 9.4-12.4 Normal (applies to non-num tessie results) [facility] Neutrophils% (Auto) 31.0-71.0 Normal (applies to non-nume deirdre results) [facility] Lymphocytes% (Auto) 20.0-55.0 Normal (applies to non-nume deirdre results) [facility] Monocytes% (Auto) 4.0-12.0 Normal (applies to non-numeri c results) [facility] Eosinophils% (Auto) 1.0-8.0 Normal (applies to non-nume deirdre results) [facility] Basophils% (Auto) 0.0-2.0 Normal (applies to non-numeri c results) [facility] Immature Granulocytes% (Auto) 0.0-2.0 Normal (cory lies to non-numeric results) [facility] Neutrophils# (Auto) 1.50-6.20 Above high normal [facility] Lymphocytes# (Auto) 1.20-4.00 Normal (applies to non-nume deirdre results) [facility] Monocytes# (Auto) 0.00-0.90 Normal (applies to non-numeri c results) [facility] Eosinophils# (Auto) 0.00-0.50 Normal (applies to non-nume deirdre results) [facility] Basophils# (Auto) 0.00-0.20 Normal (applies to non-numeri c results) [facility] Immature Granulocytes# (Auto) 0.00-7.00 No rmal (applies to non-numeric results) [facility] ID Date Data Source [id number] 05/04/2020 03:53:00 PM EDT [facility] Name Value Range Interpretation Code Description Data Shanti rce(s) Supporting Document(s) Erythrocyte Sedimentation rate 8 mm/hr 0-20 N ormal (applies to non-numeric results) [facility] ID Date Data Source [id number] 05/04/2020 03:44:00 PM EDT [facility] Name Value Range Interpretation Code Description Data Shanti rce(s) Supporting Document(s) Sodium 141 mmol/L 136-145 Normal (applies to non-numeric resul ts) [facility] Potassium 3.5-5.1 Normal (applies to non-numeric resul ts) [facility] Chloride 106 mmol/L 98-107 Normal (applies to non-numeric resul ts) [facility] Carbon Dioxide CO2 21-32 Normal (applies to non-numer ic results) [facility] Anion Gap 5.0-16.0 Normal (applies to non-numeric resul ts) [facility] BUN 19 mg/dL 7-18 Above high [facility] Creatinine,Serum 0.7-1.2 Normal (applies to non-numeric results) [facility] GFR >60 Normal (applies to non-numeric results) [facility] Glucose Level 96 mg/dL 60-99 Normal (applies to non-numeric re sults) [facility] Reference range is only applicable when patient is fasting Note the following drug interference: Sulfasalazine Sulfapyridine Can see falsely depressed Can see falsely elevated result with up to 17% results with up to 11% decrease in measurement increase in measurement Recommend patients be collected for this test prior to administration of either drug. Calcium 8.5-10.1 Normal (applies to non-numeric resul ts) [facility] Bilirubin,Total 0.1-1.9 Normal (applies to non-numeric results) [facility] SGOT(AST) 11 U/L 15-37 Below low normal [facility] aryan Note the following drug interference: Sulfasalazine Sulfapyridine Can see falsely depressed Can see falsely elevated result with up to 10% results with up to 10% decrease in measurement increase in measurement Recommend patients be collected for this test prior to administration of either drug. SGPT(ALT) 17 U/L 12-78 Normal (applies to non-numeric resul ts) [facility] Note the following drug interference: Sulfasalazine Sulfapyridine Can see falsely depressed Can see falsely elevated result with up to 29% results with up to 10% decrease in measurement increase in measurement Recommend patients be collected for this test prior to administration of either drug. Alkaline Phosphatase 77 U/L 38-126 Normal (applies to non-num tessie results) [facility] can increase Alkaline Phosp le vels up to 2 times the normal adult value. Normal values for children and adolescents are 2 to 3 times the normal adult value. Total Protein 6.0-8.2 Normal (applies to non-numeric re sults) [facility] Albumin Level 3.4-5.0 Normal (applies to non-numeric re sults) [facility] ID Date Data Source [id number] 05/04/2020 03:44:00 PM EDT [facility] Name Value Range Interpretation Code Description Data Shanti rce(s) Supporting Document(s) Triglycerides 149 mg/dL <150 Normal (applies to non-numeric re sults) [facility] Cholesterol 237 mg/dL 100-200 Above high normal [facility] LDL Cholesterol Calculated 169 0-130 Above high normal [facility] HDL Cholesterol 38 mg/dL 40-60 Below low normal [facility] Cholesterol/HDL Ratio 3.6-6.7 Normal (applies to non-nu meric results) [facility] ID Date Data Source [id number] 05/04/2020 03:44:00 PM EDT [facility] Name Value Range Interpretation Code Description Data Shanti rce(s) Supporting Document(s) Thyroid Stimulate Hormone TSH 0.358-3.74 No rmal (applies to non-numeric results) [facility] ID Date Data Source [id number] 05/04/2020 03:44:00 PM EDT [facility] Name Value Range Interpretation Code Description Data Shanti rce(s) Supporting Document(s) Free T4 (Free Thyroxine) 0.76-1.46 Normal (applies to non -numeric results) [facility] ID Date Data Source [id number] 05/04/2020 03:30:00 PM EDT [facility] IF IND Name Value Range Interpretation Code Description Data Shanti rce(s) Supporting Document(s) Color,Urine Colorl-Dk Y Normal (applies to non-numeric res ults) [facility] Clarity,Urine Clear Normal (applies to non-numeric re sults) [facility] Specific Mcfaddin,Urine 1.005-1.030 Normal (applies to non- numeric results) [facility] pH,Urine 5.0-8.0 Normal (applies to non-numeric resul ts) [facility] Protein,Urine Negative Normal (applies to non-numeric re sults) [facility] Glucose,Urine Negative Normal (applies to non-numeric re sults) [facility] Ketones,Urine Negative Normal (applies to non-numeric re sults) [facility] Blood,Urine Negative Normal (applies to non-numeric resu lts) [facility] Bilirubin,Urine Negative Normal (applies to non-numeric results) [facility] Urobilinogen,Urine 0.2-1.0 Normal (applies to non-numer ic results) [facility] Leukocyte Esterase,Urine Negative Normal (applies to non -numeric results) [facility] Nitrite,Urine Negative Normal (applies to non-numeric re sults) [facility] RBC,Urine None Seen Normal (applies to non-numeric resul ts) [facility] WBC,Urine None Seen Normal (applies to non-numeric resul ts) [facility] Casts,Urine None Seen Normal (applies to non-numeric resu lts) [facility] Squamous Cells,Urine None Seen [facility] Bacteria,Urine None Seen Normal (applies to non-numeric r esults) [facility] ID Date Data Source [id number] 03/30/2020 01:05:00 PM EDT [facility] Name Value Range Interpretation Code Description Data Shatni rce(s) Supporting Document(s) SARS CORONAVIRUS 2 RNA [facility] This lab was ordered by [facility] and reported by [facility]. ID Date Data Source [id number] 12/13/2019 12:05:00 PM [facility] Imaging Services Department Imaging Report [address], [place] [address] %(RAD)RES..mtdd.print.filter("line") Name: CONSTANCE WYMAN : 1970 Age/Sex: 49F Ordering Provider: MICHAEL Humphrey Med Rec #: [id number] Reg Status: [facility] Room #: Date of Service: 12/12/19 Report Number: [id number] cc:MARIA GUADALUPE Rocha Send Report To: [id number] XRP/XR Foot Rt Min. 3 Views Reason [...] Date/Time: 12/12/19 1600 Transcribed Date/Time: 12/13/19 1205 Emergency Room Clerk: BASILKATIUSKA Name Value Range Interpretation Code Description Data Shanti rce(s) Supporting Document(s) ID Date Data Source [id number] 11/08/2019 04:33:00 AM EST [facility] Name Value Range Interpretation Code Description Data Shanti rce(s) Supporting Document(s) Varicella-Zoster IgG Ab,S res See Note No rmal (applies to non-numeric results) [facility] Presence of detectable Varicella Zoster virus IgG antibodies. Test performed [place] [address] ID Date Data Source [id number] 11/08/2019 04:33:00 AM [facility] Name Value Range Interpretation Code Description Data Shanti rce(s) Supporting Document(s) Rubeola (Measles) Ab,IgG res Normal (applies to non-numeric results) [facility] Results suggest response to immunization or prior exposure to the virus. REFERENCE VALUE Vaccinated: Positive (>=1.1 AI) Unvaccinated: Negative (<=0.8 AI) Measles IgG Antibody Index Normal (applies to n on-numeric results) [facility] Test Performed by: [place] [address] Deputy Jailer: Joseph Whitlock M.D. Ph.D.; CLIA# [id number] ID Date Data Source [id number] 11/08/2019 04:33:00 AM [facility] Name Value Range Interpretation Code Description Data Shanti rce(s) Supporting Document(s) Mumps Antibody IgG See Note Normal (applies to non-numer ic results) [facility] Presence of detectable mumps virus IgG a ntibodies. Test performed [place] [address] ID Date Data Source [id number] 11/08/2019 04:33:00 AM [facility] Name Value Range Interpretation Code Description Data Shanti rce(s) Supporting Document(s) Hepatitis B Surface Ab QL res Normal (applies t o non-numeric results) [facility] Patient is considered to be immune to in fection with HBV. REFERENCE VALUE Unvaccinated: Negative Vaccinated: Positive Hepatitis B Surface Ab Qnt res 194 mIU/mL N ormal (applies to non-numeric results) [facility] REFERENCE VALUE------ Unvaccinated: <5.0 Vaccinated: >=12.0 Test Performed by: [place] [address] Deputy Jailer: Joseph Whitlock M.D. Ph.D.; CLIA# [id number] ID Date Data Source [id number] 11/07/2019 06:45:00 PM [facility] Name Value Range Interpretation Code Description Data Shanti rce(s) Supporting Document(s) Varicella-Zoster IgG Ab,S res See Note No rmal (applies to non-numeric results) [facility] Presence of detectable Varicella Zoster virus IgG antibodies. Test performed or referred by The [address] [address] ID Date Data Source [id number] 11/07/2019 06:45:00 PM [facility] Name Value Range Interpretation Code Description Data Shanti rce(s) Supporting Document(s) Rubeola (Measles) Ab,IgG res Normal (applies to non-numeric results) [facility] Results suggest response to immunization or prior exposure to the virus. REFERENCE VALUE Vaccinated: Positive (>=1.1 AI) Unvaccinated: Negative (<=0.8 AI) Measles IgG Antibody Index Normal (applies to n on-numeric results) [facility] Test Performed by: [facility] [address] [place] [address] Deputy Jailer: Joseph Whitlock M.D. Ph.D.; CLIA# [id number] ID Date Data Source [id number] 11/07/2019 06:45:00 PM EST [facility] Name Value Range Interpretation Code Description Data Shanti rce(s) Supporting Document(s) Mumps Antibody IgG See Note Normal (applies to non-numer ic results) [facility] Presence of detectable mumps virus IgG a ntibodies. Test performed [place] [address] ID Date Data Source [id number] 11/07/2019 06:45:00 PM [facility] Name Value Range Interpretation Code Description Data Shanti rce(s) Supporting Document(s) Hepatitis B Surface Ab QL res Normal (applies t o non-numeric results) [facility] Patient is considered to be immune to in fection with HBV. REFERENCE VALUE Unvaccinated: Negative Vaccinated: Positive Hepatitis B Surface Ab Qnt res 194 mIU/mL N ormal (applies to non-numeric results) [facility] REFERENCE VALUE------ Unvaccinated: <5.0 Vaccinated: >=12.0 Test Performed by: [facility] [address] [place] [address] Deputy Jailer: Joseph Whitlock M.D. Ph.D.; CLIA# [id number] ID Date Data Source [id number] 11/05/2019 09:54:00 PM EST [facility] Name Value Range Interpretation Code Description Data Shanti rce(s) Supporting Document(s) Rubella Ab,IgG result >10.0 Normal (applies to non-nu meric results) [facility] Test Performed By: [facility] [address] [place] [address] Director: Nato Osborne MD Interpretation of Results Less than 5.0 IU/mL - Negative for IgG antibodies to Rubella virus 5.0 - 9.9 IU/mL - Equivocal. Suggest repeat testing on new sample 10.0 IU/mL or greater - Positive for IgG antibodies to Rubella virus ID Date Data Source [id number] 11/05/2019 09:42:00 PM [facility] Name Value Range Interpretation Code Description Data Shanti rce(s) Supporting Document(s) Rubella Ab,IgG >10.0 Normal (applies to non-numeric r esults) [facility] Test Performed By: [facility] [address] [place] [address] Director: Nato Osborne MD Interpretation of Results [...] Current Smoker completed Curre nt Smoker eCW1 ([facility]) Smoking 11/30/2020 12:00:00 AM EST Current Smoker completed Curre nt Smoker eCW1 ([facility]) Smoking 09/30/2020 12:00:00 AM EST Current Smoker completed Curre nt Smoker eCW1 ([facility]) Smoking 09/30/2020 12:00:00 AM EST Current Smoker completed Curre nt Smoker eCW1 ([facility]) Smoking 09/30/2020 12:00:00 AM EST Current Smoker completed Curre nt Smoker eCW1 ([facility]) Smoking 04/30/2020 12:00:00 AM EDT Current Smoker completed Curre nt Smoker eCW1 ([facility]) Smoking 04/30/2020 12:00:00 AM EDT Current Smoker completed Curre nt Smoker eCW1 ([facility]) Smoking 04/30/2020 12:00:00 AM EDT Current Smoker completed Curre nt Smoker eCW1 ([facility]) Smoking 04/30/2020 12:00:00 AM EDT Current Smoker completed Curre nt Smoker eCW1 ([facility]) Vital Signs ID Date Data Source [id number] Name Value Range Interpretation Code Description Data Source(s) Diastolic blood pressure 58 mm[Hg] 58 mm[Hg] eCW1 ([facility]) Systolic blood pressure 117 mm[Hg] 117 mm[Hg] e CW1 ([facility]) Body temperature 95.9 [degF] 95.9 [degF] eCW1 ( [facility]) Respiratory rate 18 /min 18 /min eCW1 ([facility]) Heart rate 69 /min 69 /min eCW1 ([facility]) Body mass index (BMI) [Ratio] 31.28 kg/m2 31.28 kg/m2 eCW1 ([facility]) Body height 65 [in_i] 65 [in_i] eCW1 ([facility]) Body weight 188.0 [lb_av] 188.0 [lb_av] eCW1 ([facility]) Body mass index (BMI) [Ratio] 30.6 kg/m2 30.6 k g/m2 MEDENT ([facility]) Body height 65 [in_i] 65 [in_i] MEDENT ([facility]) 5'5" Body weight 184.00 [lb_av] 184.00 [lb_av] MEDEN T ([facility]) Body temperature 99.5 [degF] 99.5 [degF] MEDENT ([facility]) Oxygen saturation in Arterial blood by Pulse oximetry 96 % 96 % MEDENT ([facility]) Respiratory rate 18 /min 18 /min MEDENT ( [facility]) Heart rate 58 /min 58 /min MEDENT ([facility], [facility]) Diastolic blood pressure 75 mm[Hg] 75 mm[Hg] MEDENT ([facility], [facility]) Systolic blood pressure 108 mm[Hg] 108 mm[Hg] M EDENT ([facility], [facility]) Diastolic blood pressure 53 mm[Hg] 53 mm[Hg] eCW1 ([facility]) Systolic blood pressure 112 mm[Hg] 112 mm[Hg] e CW1 ([facility]) Body temperature 97.5 [degF] 97.5 [degF] eCW1 ( [facility]) Respiratory rate 18 /min 18 /min eCW1 ([facility]) Heart rate 56 /min 56 /min eCW1 ([facility]) Body mass index (BMI) [Ratio] 30.62 kg/m2 30.62 kg/m2 eCW1 ([facility]) Body height 65 [in_i] 65 [in_i] eCW1 ([facility]) Body weight 184.0 [lb_av] 184.0 [lb_av] eCW1 ([facility]) Diastolic blood pressure 66 mm[Hg] 66 mm[Hg] eCW1 ([facility]) Systolic blood pressure 123 mm[Hg] 123 mm[Hg] e CW1 ([facility]) Body temperature 96.0 [degF] 96.0 [degF] eCW1 ( [facility]) Respiratory rate 18 /min 18 /min eCW1 ([facility]) Heart rate 60 /min 60 /min eCW1 ([facility]) Body mass index (BMI) [Ratio] 32.11 kg/m2 32.11 kg/m2 eCW1 ([facility]) Body height 65 [in_us] 65 [in_us] eCW1 ([facility]) Body weight Measured 193 [lb_av] 193 [lb_av] eC W1 ([facility]) Diastolic blood pressure 58 mm[Hg] 58 mm[Hg] eCW1 ([facility]) Systolic blood pressure 107 mm[Hg] 107 mm[Hg] e CW1 ([facility]) Body temperature 96.0 [degF] 96.0 [degF] eCW1 ( [facility]) Respiratory rate 18 /min 18 /min eCW1 ([facility]) Heart rate 61 /min 61 /min eCW1 ([facility]) Body mass index (BMI) [Ratio] 32.28 kg/m2 32.28 kg/m2 eCW1 ([facility]) Body height 65 [in_us] 65 [in_us] eCW1 ([facility]) Body weight Measured 194.0 [lb_av] 194.0 [lb_av ] eCW1 ([facility]) Diastolic blood pressure 77 mm[Hg] 77 mm[Hg] eCW1 ([facility]) Systolic blood pressure 127 mm[Hg] 127 mm[Hg] e CW1 ([facility]) Body temperature 97.4 [degF] 97.4 [degF] eCW1 ( [facility]) Respiratory rate 16 /min 16 /min eCW1 ([facility]) Heart rate 52 /min 52 /min eCW1 ([facility]) Body mass index (BMI) [Ratio] 33.48 kg/m2 33.48 kg/m2 eCW1 ([facility]) Body height 65 [in_us] 65 [in_us] eCW1 ([facility]) Body weight Measured 201.2 [lb_av] 201.2 [lb_av ] eCW1 ([facility]) Diastolic blood pressure 77 mm[Hg] 77 mm[Hg] eCW1 ([facility]) Systolic blood pressure 127 mm[Hg] 127 mm[Hg] e CW1 ([facility]) Body temperature 97.4 [degF] 97.4 [degF] eCW1 ( [facility]) Respiratory rate 16 /min 16 /min eCW1 ([facility]) Heart rate 52 /min 52 /min eCW1 ([facility]) Body mass index (BMI) [Ratio] 33.48 kg/m2 33.48 kg/m2 eCW1 ([facility]) Body height 65 [in_us] 65 [in_us] eCW1 ([facility]) Body weight Measured 201.2 [lb_av] 201.2 [lb_av ] eCW1 ([facility]) ID Date Data Source [id number] 04/15/2020 04:42:00 PM EDT [facility] Name Value Range Interpretation Code Description Data Source(s) Weight Measurement Method 8 8 [facility] Weight 3040 3040 [facility] pital Temperature Source 7 7 [facility] Temperature 97.2 97.2 [facility] Respiratory Effort 1 1 [facility] Respiratory Rate 17 17 [facility] Pulse Assessment Method 4 4 [facility] Pulse Rate 64 64 [facility] pital Height 65 65 [facility] Blood Pressure 129/54 129/54 [facility] Weight Measurement Method 8 8 [facility] Weight 3040 3040 [facility] pital Temperature Source 7 7 [facility] Temperature 97.2 97.2 [facility] spital Respiratory Effort 1 1 [facility] Respiratory Rate 16 16 [facility] Pulse Assessment Method 4 4 [facility] Pulse Rate 64 64 [facility]ital Height 65 65 [facility] 129/54 129/54 [facility] Weight Measurement Method 8 8 [facility] Weight 3040 3040 [facility] pital Temperature Source 7 7 [facility] Temperature 97.2 97.2 [facility] Respiratory Effort 1 1 [facility] Respiratory Rate 16 16 [facility] Pulse Assessment Method 4 4 [facility] Pulse Rate 64 64 [facility] pital Height 65 65 [facility] Blood Pressure 129/54 129/54 [facility] Patient Treatment Plan of Care Planned Activity Planned Date Details Description Data Source (s) Oxycodone Hydrochloride 15 MG Oral Tablet 11/30/2020 12:00:00 AM ES T eCW1 ([facility]) Baclofen 10 MG Oral Tablet 11/30/2020 12:00:00 AM EST eCW1 ([facility]) Morphine Sulfate 30 MG Extended Release Oral Capsule 12:00:00 AM EST eCW1 ([facility]) Oxycodone Hydrochloride 15 MG Oral Tablet 11/30/2020 12:00:00 AM ES T eCW1 ([facility]) Baclofen 10 MG Oral Tablet 11/30/2020 12:00:00 AM EST eCW1 ([facility]) Morphine Sulfate 30 MG Extended Release Oral Capsule 12:00:00 AM EST eCW1 ([facility]) Oxycodone Hydrochloride 15 MG Oral Tablet 11/10/2020 12:00:00 AM ES T eCW1 ([facility]) Morphine Sulfate 30 MG Extended Release Oral Tablet [M S Contin] 11/04/2020 12:00:00 AM EST eCW1 ([facility]) Oxycodone Hydrochloride 15 MG Oral Tablet 11/04/2020 12:00:00 AM ES T eCW1 ([facility]) Morphine Sulfate 30 MG Extended Release Oral Tablet [M S Contin] 11/04/2020 12:00:00 AM EST eCW1 ([facility]) Morphine Sulfate 30 MG Extended Release Oral Tablet [M S Contin] 09/30/2020 12:00:00 AM EST eCW1 ([facility]) Oxycodone Hydrochloride 15 MG Oral Tablet 09/30/2020 12:00:00 AM ES T eCW1 ([facility]) Morphine Sulfate 15 MG Extended Release Oral Tablet 09/11/20 12:00:00 AM EDT eCW1 ([facility]) Oxycodone Hydrochloride 15 MG Oral Tablet 09/11/2020 12:00:00 AM ED T eCW1 ([facility]) Ketorolac Tromethamine 10 MG Oral Tablet 04/30/2020 12:00:00 AM EDT eCW1 ([facility]) Ketorolac Tromethamine 10 MG Oral Tablet 04/30/2020 12:00:00 AM EDT eCW1 ([facility]) Ketorolac Tromethamine 10 MG Oral Tablet 04/30/2020 12:00:00 AM EDT eCW1 ([facility]) Oxycodone Hydrochloride 15 MG Oral Tablet 04/24/2020 12:00:00 AM ED T eCW1 ([facility]) Morphine Sulfate 15 MG Extended Release Oral Tablet 04/24/20 12:00:00 AM EDT eCW1 ([facility]) Oxycodone Hydrochloride 15 MG Oral Tablet 04/24/2020 12:00:00 AM ED T eCW1 ([facility]) Morphine Sulfate 15 MG Extended Release Oral Tablet 04/24/20 12:00:00 AM EDT eCW1 ([facility]) Oxycodone Hydrochloride 15 MG Oral Tablet 04/24/2020 12:00:00 AM ED T eCW1 ([facility]) Morphine Sulfate 15 MG Extended Release Oral Tablet 04/24/20 12:00:00 AM EDT eCW1 ([facility]) Ketorolac Tromethamine 10 MG Oral Tablet 04/16/2020 12:00:00 AM EDT eCW1 ([facility]) Morphine Sulfate 15 MG Extended Release Oral Tablet 03/18/20 12:00:00 AM EDT eCW1 ([facility]) Oxycodone Hydrochloride 15 MG Oral Tablet 03/18/2020 12:00:00 AM ED T eCW1 ([facility]) Morphine Sulfate 15 MG Extended Release Oral Tablet 02/17/20 12:00:00 AM EDT eCW1 ([facility]) Oxycodone Hydrochloride 15 MG Oral Tablet 02/17/2020 12:00:00 AM ED T eCW1 ([facility]) Morphine Sulfate 15 MG Extended Release Oral Tablet 01/16/20 12:00:00 AM EST eCW1 ([facility]) Oxycodone Hydrochloride 15 MG Oral Tablet 01/16/2020 12:00:00 AM ES T eCW1 ([facility]) Oxycodone Hydrochloride 15 MG Oral Tablet 01/13/2020 12:00:00 AM ES T eCW1 ([facility]) Morphine Sulfate 15 MG Extended Release Oral Tablet 01/13/20 20 12:00:00 AM EST eCW1 ([facility]) Morphine Sulfate 15 MG Extended Release Oral Tablet 11/29/19 20 12:00:00 AM EST eCW1 ([facility]) naloxegol 25 MG Oral Tablet [Movantik] 11/29/2019 12:00:00 AM EST eCW1 ([facility]) Oxycodone Hydrochloride 15 MG Oral Tablet 11/29/2019 12:00:00 AM ES T eCW1 ([facility]) Morphine Sulfate 15 MG Extended Release Oral Tablet 10/29/20 19 12:00:00 AM EST eCW1 ([facility]) Oxycodone Hydrochloride 15 MG Oral Tablet 10/29/2019 12:00:00 AM ES T eCW1 ([facility]) Morphine Sulfate 15 MG Extended Release Oral Tablet 10/29/20 19 12:00:00 AM EST eCW1 ([facility]) Oxycodone Hydrochloride 15 MG Oral Tablet 10/29/2019 12:00:00 AM ES T eCW1 ([facility]) Morphine Sulfate 15 MG Extended Release Oral Tablet 10/29/20 19 12:00:00 AM EST eCW1 ([facility]) Oxycodone Hydrochloride 15 MG Oral Tablet 10/29/2019 12:00:00 AM ES T eCW1 ([facility])
--- NOTE | 2020-12-14 10:13 | REP ---
INDICATION: SOB. COMPARISON: Comparison chest x-ray November 21, 2019.. TECHNIQUE: Sitting AP portable chest x-ray. FINDINGS: There is mild bibasilar linear platelike atelectasis. Lung gómez are otherwise clear. Pleural angles are sharp. No infiltrate is seen. Heart size is normal. Pulmonary vasculature is not increased. No acute bony abnormality. IMPRESSION: Mild bibasilar platelike atelectasis. Otherwise no acute disease. <Electronically signed by Juan Camara > 12/14/20 1001
[2020-12-14 10:28] LABS: BASO # 0.1 10^3/uL (0.0-0.2); BASO % 0.8 % (0.0-1.0); EOS # 0.1 10^3/uL (0.0-0.5); HEMATOCRIT 40.1 % (36.0-47.0); HEMOGLOBIN 12.9 g/dl (12.0-15.5); LYMPH # 2.7 10^3/uL (1.5-5.0); LYMPH % 34.5 % (24.0-44.0); MEAN CORPUSCULAR HEMOGLOBIN 29.3 pg (27.0-33.0); MEAN CORPUSCULAR HGB CONC 32.2 g/dl (32.0-36.5); MEAN CORPUSCULAR VOLUME 91.1 fl (80.0-96.0); MONO # 0.4 10^3/uL (0.0-0.8); MONO % 5.5 % (0.0-5.0); NEUTROPHILS # 4.5 10^3/uL (1.5-8.5); NEUTROPHILS % 57.9 % (36.0-66.0); PLATELET COUNT, AUTOMATED 212 10^3/uL (150-450); WHITE BLOOD COUNT 7.7 10^3/uL (4.0-10.0)
[2020-12-14 10:56] LABS: BLOOD UREA NITROGEN 23 MG/DL (7-18); CALCIUM LEVEL 9.3 MG/DL (8.5-10.1); CARBON DIOXIDE LEVEL 29 MEQ/L (21-32); CHLORIDE LEVEL 106 MEQ/L (98-107); CREATININE FOR GFR 0.89 MG/DL (0.55-1.30); GLOMERULAR FILTRATION RATE > 60.0 (>51); GLUCOSE, FASTING 128 MG/DL (70-100); POTASSIUM SERUM 3.8 MEQ/L (3.5-5.1); SODIUM LEVEL 142 MEQ/L (136-145)
[2020-12-14 12:00] VITALS: BP 110/58
== END 2020-12-14 12:17 | disposition home or self-care (01) ==
LOC: M ED 09:14
DX: B34.8 Other viral infections of unspecified site (principal); F32.9 Major depressive disorder, single episode, unspecified; F41.9 Anxiety disorder, unspecified; Z79.1 Long term (current) use of non-steroidal anti-inflammatories (NSAID); Z79.891 Long term (current) use of opiate analgesic; Z79.899 Other long term (current) drug therapy; Z88.8 Allergy status to other drugs, medicaments and biological substances

== ENCOUNTER → 2021-01-19 | Outpatient (CLI) | payer BC ==
[~2021-01-19] MED LIST changes: +ACET-907 PO; +BACL10TA2 PO
--- NOTE | 2021-01-19 11:21 | REP ---
INDICATION: RIGHT HIP PAIN. COMPARISON: None. TECHNIQUE: AP pelvis and AP and frogleg right hip views. Three views. FINDINGS: AP view of pelvis demonstrates an intact bony pelvic ring. There is a spinous process fusion clamp across the L4-5 interspinous space. There are surgical clips in the right lower quadrant. The bowel gas pattern is normal. A right hip arthroplasty is seen in position. No bony destructive lesion is seen. AP and frogleg views of the right hip show normal alignment of the prosthetic components of the right hip arthroplasty. No erosive changes seen. There is no evidence to suggest loosening or fracture. IMPRESSION: Status post right hip arthroplasty. L4-5 lumbar spine fusion. Clips in the right lower quadrant. No acute abnormality. <Electronically signed by Juan Camara > 01/19/21 [id number]
== END ==
LOC: M SOG 09:13
PROVIDERS: ATTEND Orthopaedic Surgery Sports Medicine
DX: M16.0 Bilateral primary osteoarthritis of hip (principal); Z96.641 Presence of right artificial hip joint; Z97.8 Presence of other specified devices; Z98.1 Arthrodesis status

== ENCOUNTER → 2021-01-28 | Outpatient (CLI) | payer BC ==
--- NOTE | 2021-01-28 11:41 | REP ---
INDICATION: PRESENCE OF RIGHT ARTIFICIAL HIP JOINT. COMPARISON: None. TECHNIQUE: Axial noncontrast images of the right hip with coronal and sagittal reformations. FINDINGS: Patient is noted to be status post right hip replacement with normal appearance and positioning to the acetabular and femoral components. No adjacent lucencies or fluid collections are identified. The osseous structures are intact and essentially normal. There is no evidence for acute fracture or dislocation. Surrounding musculature and soft tissue structures are relatively intact and normal. No obvious fluid collection or abnormality identified IMPRESSION: No obvious acute pathology appreciated. Stable normal appearance of the right hip replacement and surrounding musculoskeletal structures. <Electronically signed by Nathan Farr > 01/28/21 [id number]
== END ==
LOC: M RAD 11:20
PROVIDERS: ATTEND Orthopaedic Surgery Sports Medicine
DX: Z96.641 Presence of right artificial hip joint (principal)

== ENCOUNTER → 2021-02-04 | Outpatient (CLI) | payer BC ==
--- NOTE | 2021-02-10 01:04 | ECWPNPC ---
PATIENT NAME: CONSTANCE WYMAN : 1970 GENDER: FEMALE VISIT DATE: 02/04/2021 DISCHARGE DATE: 02/04/21 1208 VISIT LOCKED DATE TIME: PHYSICIAN: KIM VELASCO RESOURCE: KIM VELASCO REASON FOR APPOINTMENT 1. 2 MONTH BACK PAIN HISTORY OF PRESENT ILLNESS GENERAL: HERE FOR F/U AND MEDICINE MANAGEMENT OF CHRONIC LOW BACK PAIN.CURRENTLY VERY UNCOMFORTABLE WITH LUPUS FLARE UP.ON PREDNISONE TAPER WITH PRITI C[employer]WR[employer],PRIMARY CARE PROVIDER.FOLLOWING WITH [facility] FOR PERSISTENT LEFT HIP PAIN .HISTORY OF LEFT HIP REPLACEMENT.REPORTING SEVERE RIGHT LOW BACK PAIN THAT MAKES IT DIFFICULT TO WALK. -. FALL RISK SCREENING: SCREENING : NO FALLS REPORTED IN THE LAST YEAR. PAIN SCREENING: PATIENT HAS A COMPLAINT OF ACUTE OR CHRONIC PAIN :YES LOCATION OF PAIN:LOW BACK INTENSITY OF PAIN (SCALE OF 1 TO 10):7 WHAT DOES YOUR PAIN FEEL LIKE:SHOOTING DURATION:CONTINOUS, CONSTANT, ALL DAY PAIN IS INCREASED BY:ACTIVITIES PAIN IS DECREASED BY:USE OF PAIN MEDICATIONS NURSING NOTE: HAD A FALL IN MARCH DID NOT GO THE ER. PAIN CENTER INTAKE QUESTIONS: DO YOU HAVE A HISTORY OF MRSA? :NO DO YOU TAKE A BLOOD THINNERS? :NO DO YOU HAVE ANY BLEEDING DISORDERS? :NO ANY NEW NUMBNESS OR WEAKNESS IN YOUR LEGS OR ARMS? :YES PAIN GOES DOWN BOTH LEGS ANY PACEMAKER,DEFIBRILLATOR, OR DORSAL COLUMN STIMULATOR? :NO DO YOU HAVE ANY RASHES OR OPEN SORES? :NO ARE YOU ALLERGIC TO IV DYE? :NO ARE YOU DIABETIC? :NO ANY NEW PROBLEMS WITH YOUR MEDICATIONS? :NO HAVE YOU RECEIVED A VACCINE IN THE PAST 30 DAYS? :YES IF SO WHAT VACCINE AND WHEN? 2ND COVID 01/12/2021 DO YOU PLAN TO RECEIVE A VACCINE IN THE NEXT 21 DAYS? :NO DO YOU NEED ANY PRESCRIPTION? :YES OXYCODONE, MORPHINE, SOMA DO YOU TAKE ANY IMMUNOSUPPRESSIVE MEDICATIONS? :NO IS THERE A CHANCE YOU COULD BE ? :NO ARE YOU BREAST FEEDING? :NO CURRENT MEDICATIONS TAKING LASIX 40 MG TABLET 1 TABLET ORALLY BID TAKING POTASSIUM CHLORIDE 20 MG CAPSULE EXTENDED RELEASE 1 CAPSULE WITH FOOD ORALLY TWICE A DAY TAKING WELLBUTRIN XL 150 MG TABLET EXTENDED RELEASE 24 HOUR 1 TABLET IN THE MORNING ORALLY ONCE A DAY TAKING PAXIL 30 MG TABLET 1 TABLET IN THE MORNING ORALLY ONCE A DAY TAKING XANAX 1 MG TABLET 1 TABLET ORALLY THREE TIMES DAILY NEEDED TAKING ATENOLOL 50 MG TABLET 1 TABLET ORALLY TWICE DAILY TAKING PROBIOTIC - TABLET DELAYED RELEASE 1 CAPSULE ORALLY DAILY TAKING BACLOFEN 10 MG TABLET 1 TABLET ORALLY EVERY 8 HOURS 3 TIMES A DAY TAKING MORPHINE SULFATE ER 30 MG CAPSULE EXTENDED RELEASE 24 HOUR 1 TABLET ORALLY MDD 1 DAILY TAKING OXYCODONE HCL 15 MG TABLET 1 TABLET ORALLY EVERY 8 HOURS NEEDED FOR PAIN MDD 3 TAKING PREDNISOLONE 5 MG TABLET 1 TABLET IN THE MORNING WITH FOOD OR MILK ORALLY 60MG ONCE A DAY, NOTES: START 02/03/2021 NOT-TAKING SOMA 350 MG TABLET 1 TABLET NEEDED ORALLY AT BED TIME NOT-TAKING MS CONTIN 30 MG TABLET EXTENDED RELEASE 1 TABLET ORALLY BEFORE BEDTIME NOT-TAKING TEMAZEPAM 30 MG CAPSULE 1 CAPSULE AT BEDTIME NEEDED ORALLY BEFORE BEDTIME NEEDED FOR SLEEP NOT-TAKING PREDNISONE 20 MG TABLET 1 TABLET ORALLY DAILY, NOTES: 1 WEEK NOT-TAKING KETOROLAC TROMETHAMINE 10 MG TABLET 1 TABLET WITH FOOD OR MILK NEEDED ORALLY EVERY 6 HRS NOT-TAKING LEVAQUIN 750 MG TABLET 1 TABLET ORALLY ONCE A DAY NOT-TAKING KETOROLAC TROMETHAMINE 10 MG TABLET 1 TABLET WITH FOOD OR MILK NEEDED ORALLY EVERY 6 HRS NOT-TAKING MOVANTIK 25 MG TABLET 1 TABLET IN THE MORNING ORALLY ONCE A DAY NOT-TAKING AMOXICILLIN 875 MG TABLET 1 TABLET ORALLY EVERY 12 HRS, NOTES: 10 DAYS NOT-TAKING MEDROL 4 MG TABLET THERAPY PACK DIRECTED ORALLY DIRECTED NOT-TAKING BUSPAR 15 MG ORALLY TWICE A DAY NOT-TAKING VALIUM 10 MG TABLET 1 TABLET NEEDED ORALLY PRN MDD1 #10 TAB SHOULD LAST 30 DAYS NOT-TAKING NORTRIPTYLINE HCL 10 MG CAPSULE 3 CAPSULE= 30 MG ORALLY ONCE A DAY NOT-TAKING METHOTREXATE 8 TABS OF 2.5MG ORAL WEEKLY NOT-TAKING LYRICA 200 MG CAPSULE 1 CAPSULE ORALLY TID MDD3 NOT-TAKING FENTANYL 75 MCG/HR PATCH 72 HOUR 1 PATCH TO SKIN TRANSDERMAL 1 PATCH [id number] MEDICATION LIST REVIEWED AND RECONCILED WITH THE PATIENT PAST MEDICAL HISTORY FIBROMYALGIA LUPUS INTERSTITIAL LUNG DISEASE INFLAMMATORY ARTHRITIS BROKEN RIGHT SHOULDER CHRONIC BACK PAIN BRONCHITIS/SINUSITIS SINUS KESHIA ON EKG PNEUMONIA LOW BACK PAIN ALLERGIES MOBIC: AGGRESIVE - SIDE EFFECTS NEURONTIN: AGGRESIVE - SIDE EFFECTS IMURAN: NAUSEA/VOMITING - SIDE EFFECTS SOCIAL HISTORY GENERAL: TOBACCO USE ARE YOU A:CURRENT SMOKER HOW MANY CIGARETTES A DAY DO YOU SMOKE?5 OR LESS ARE YOU INTERESTED IN QUITTING?THINKING ABOUT QUITTING PATIENT COUNSELED ON THE DANGERS OF TOBACCO USE AND URGED TO QUIT:11/30/2020 VAPORYES E-CIGARETTENO LATEX QUESTIONNAIRE LATEX ALLERGY : HAVE YOU EVER DEVELOPED ANY TYPE OF REACTION AFTER HANDLING LATEX PRODUCTS SUCH RUBBER GLOVES, CONDOMS, DIAPHRAGMS, BALLOONS, SOCKS, OR UNDERWEAR?YES - PLEASE INDICATE :RUBBER GLOVES HANDS GET RED LATEX ALLERGY : HAVE YOU EVER DEVELOPED ANY TYPE OF REACTION DURING OR AFTER DENTAL APPOINTMENT, VAGINAL/RECTAL EXAMINATION, SURGICAL PROCEDURE, OR ANY OTHER EXPOSURE?NO LATEX RISK : HAVE YOU EVER HAD ANY DIFFICULTY BREATHING OR HIVES AFTER EATING OR HANDLING ANY FRUITS, OR VEGETABLES; SUCH KIWI, BANANAS, STONE FRUITS, OR CHESTNUTSNO LATEX RISK : DO YOU HAVE A PREVIOUS PERSONAL HISTORY OF MORE THAN NINE SURGERIES, SPINA BIFIDA, OR REPEATED CATHERIZATIONS? NO LATEX RISK : ARE YOU FREQUENTLY EXPOSED TO LATEX PRODUCTS IN YOUR OCCUPATION?NO DATE ASKED : 02/04/2021 ALCOHOL USE: NO. LUNG CANCER SCREENING SMOKING STATUS:CURRENT SMOKER IS THE PATIENT BETWEEN THE AGE OF 55 AND 77?NO ALCOHOL SCREENING DID YOU HAVE A DRINK CONTAINING ALCOHOL IN THE PAST YEAR?NO POINTS0 INTERPRETATIONNEGATIVE RECREATIONAL DRUG USE DRUG USE?NO PATIENT DENIES ABUSE OR MISSUSED OF ANY MEDICATION. PATIENT DENIES USE OF ANY ILLEGAL SUBSTANCE INCLUDING MARIJUANA OR COCAINE. CAFFEINE CAFFEINE USE?YES HOW OFTEN AND HOW MUCH? 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 HCP INFORMATION GIVEN TO AND HELP OFFERED IN COMPLETING IF NEEDED. DECLINED AT THIS TIME. REVIEW OF SYSTEMS CONSTITUTIONAL: ANY RECENT FEVER NO . CHILLS NO . WEIGHT CHANGE OF UNKNOWN REASONS NO . GASTROENTEROLOGY: NEW UNEXPLAINABLE CHANGES IN BOWEL CONTROL NO . CONSTIPATION NO . GENITOURINARY: ANY NEW CHANGE IN BLADDER CONTROL? NO . NEUROLOGY: NEW ONSET DIZZINESS OR NEUROLOGICAL CHANGES NOT MENTIONED NO . NEW NUMBNESS OR PAIN PATTERNS NOT MENTIONED AND PERTINENT TO TODAY'S VISIT NO . CARDIOLOGY: NEW CHEST PRESSURE NO . PATIENT DENIES NO . RESPIRATORY: UNEXPLAINABLE COUGH NO . NEW SHORTNESS OF BREATH NO . VITAL SIGNS WT 190.2 LBS, HT 65 IN, BMI 31.65 INDEX, BP 108/71 MM HG, HR 56 /MIN, RR 18 /MIN, TEMP 98.0 F, OXYGEN SAT % 98%, SAFE IN ENV? (Y/N) YES, NA INITIALS AW [id number].JORDY MA. EXAMINATION GENERAL: EXAM DEFEERED DUE TO IMMUNOSUPPRESSION. ASSESSMENTS CHRONIC PRESCRIPTION OPIATE USE - Z79.891 (PRIMARY) INTERVERTEBRAL DISC DISORDERS WITH RADICULOPATHY, LUMBAR REGION - M51.16 INFLAMMATORY ARTHROPATHY - M19.90 TREATMENT CHRONIC PRESCRIPTION OPIATE USE INCREASE BACLOFEN TABLET, 10 MG, 1 TABLET, ORALLY, Q6H 4X DAILY, 30 DAYS, 120, REFILLS 2 REFILL MORPHINE SULFATE ER CAPSULE EXTENDED RELEASE 24 HOUR, 30 MG, 1 TABLET, ORALLY MDD 1, DAILY, 30 DAYS, 30 TABLET, REFILLS 0 REFILL OXYCODONE HCL TABLET, 15 MG, 1 TABLET, ORALLY, EVERY 8 HOURS NEEDED FOR PAIN MDD 3, 30 DAYS, 90 NOTES: ISTOP REGISTRY REVIEWED AND DEMONSTRATES COMPLLIANCE. BRINGS IN MEDICATIONS WHICH IS APPROPRIATE FOR WHAT WAS DISPENSED. RECENT URINE TOXICOLOGY REVIEWED. NO UNAUTHORIZED MEDICATIONS. NO ILLICIT SUBSTANCES AND PRESCRIBED MEDICATIONS WERE PRESENT. PROCEDURE CODES FA211 ESTABILISHED PATIENT [facility] CHARGE DISPOSITION & COMMUNICATION FOLLOW UP 2 MONTHS (REASON: MED MGMNT-LBP /LEFT HIP PAIN) ELECTRONICALLY SIGNED BY GABE WELLS ON 02/09/2021 AT 01:11 PM EDT DISCLAIMER : THIS IS A VISIT SUMMARY EXTRACTED FROM THE [facility] CHART. IT IS NOT A COPY OF THE [facility] PROGRESS NOTE. [facility]
== END ==
LOC: M PAIN 11:15
PROVIDERS: ATTEND Nurse Practitioner Family
DX: M51.16 Intervertebral disc disorders with radiculopathy, lumbar region (principal); M19.90 Unspecified osteoarthritis, unspecified site; M79.7 Fibromyalgia; M32.9 Systemic lupus erythematosus, unspecified; J84.9 Interstitial pulmonary disease, unspecified; F17.210 Nicotine dependence, cigarettes, uncomplicated; Z79.891 Long term (current) use of opiate analgesic; Z79.899 Other long term (current) drug therapy; Z88.6 Allergy status to analgesic agent; Z88.8 Allergy status to other drugs, medicaments and biological substances

== ENCOUNTER → 2021-02-16 | Outpatient (CLI) | payer BC ==
[2021-02-16 08:13] LABS: BASO # 0.1 10^3/uL (0.0-0.2); BASO % 0.7 % (0.0-1.0); EOS # 0.3 10^3/uL (0.0-0.5); EOS % 4.6 % (0.0-3.0); HEMATOCRIT 37.8 % (36.0-47.0); HEMOGLOBIN 11.9 g/dl (12.0-15.5); LYMPH % 43.6 % (24.0-44.0); MEAN CORPUSCULAR HEMOGLOBIN 28.7 pg (27.0-33.0); MEAN CORPUSCULAR HGB CONC 31.5 g/dl (32.0-36.5); MEAN CORPUSCULAR VOLUME 91.1 fl (80.0-96.0); MONO # 0.4 10^3/uL (0.0-0.8); MONO % 6.2 % (2.0-8.0); NEUTROPHILS # 3.1 10^3/uL (1.5-8.5); NEUTROPHILS % 44.5 % (36.0-66.0); PLATELET COUNT, AUTOMATED 211 10^3/uL (150-450); RED BLOOD COUNT 4.15 10^6/uL (4.00-5.40); WHITE BLOOD COUNT 6.9 10^3/uL (4.0-10.0)
[2021-02-16 09:13] LABS: ALBUMIN 3.6 GM/DL (3.2-5.2); ALT/SGPT 20 U/L (12-78); BILIRUBIN,TOTAL 0.2 MG/DL (0.2-1.0); BLOOD UREA NITROGEN 18 MG/DL (7-18); CARBON DIOXIDE LEVEL 30 MEQ/L (21-32); CHLORIDE LEVEL 108 MEQ/L (98-107); CHOLESTEROL LEVEL 172 MG/DL (<200); CHOLESTEROL RISK RATIO 3.372 (<5); CREATININE FOR GFR 0.91 MG/DL (0.55-1.30); GLOMERULAR FILTRATION RATE > 60.0 (>51); GLUCOSE, FASTING 93 MG/DL (70-100); HDL CHOLESTEROL 51 MG/DL (>40); LDL CHOLESTEROL 78 MG/DL (<100); MAGNESIUM LEVEL 2.4 MG/DL (1.8-2.4); NON-HDL-C 121 MG/DL; POTASSIUM SERUM 4.9 MEQ/L (3.5-5.1); SODIUM LEVEL 141 MEQ/L (136-145); TOTAL PROTEIN 6.1 GM/DL (6.4-8.2); TRIGLYCERIDES LEVEL 216 MG/DL (<150)
[2021-02-16 09:25] LABS: ERYTHROCYTE SEDIMENTATION RATE 6 mm/hr (0-30)
[2021-02-16 10:23] LABS: TOTAL 25(OH) VITAMIN D 22.6 NG/ML (30.0-100.0)
== END ==
LOC: M LAB 07:33
PROVIDERS: ATTEND Physician Assistant
DX: E55.9 Vitamin D deficiency, unspecified (principal); I10 Essential (primary) hypertension; K59.00 Constipation, unspecified

== ENCOUNTER → 2021-02-16 | Outpatient (CLI) | payer BC ==
[2021-02-16 08:13] LABS: HEMATOCRIT 38.1 % (36.0-47.0); HEMOGLOBIN 12.1 g/dl (12.0-15.5); MEAN CORPUSCULAR HEMOGLOBIN 29.2 pg (27.0-33.0); MEAN CORPUSCULAR HGB CONC 31.8 g/dl (32.0-36.5); MEAN CORPUSCULAR VOLUME 91.8 fl (80.0-96.0); PLATELET COUNT, AUTOMATED 213 10^3/uL (150-450); RED BLOOD COUNT 4.15 10^6/uL (4.00-5.40)
[2021-02-16 08:56] LABS: ATYPICAL LYMPH 15 % (0-5); BASOPHILS 4 % (0-1); EOSINOPHILS 4 % (0-3); LYMPHOCYTES 33 % (16-44); MONOCYTES 7 % (0-5); NEUTROPHILS 37 % (28-66)
[2021-02-16 08:59] LABS: PLATELET ESTIMATE NORMAL (NORMAL)
[2021-02-16 09:25] LABS: ERYTHROCYTE SEDIMENTATION RATE 6 mm/hr (0-30)
== END ==
LOC: M LAB 07:35
PROVIDERS: ATTEND Orthopaedic Surgery Sports Medicine
DX: M16.0 Bilateral primary osteoarthritis of hip (principal)

== ENCOUNTER → 2021-03-09 | Outpatient (CLI) | payer BC ==
--- NOTE | 2021-03-10 23:38 | ECWPNPC ---
PATIENT NAME: CONSTANCE WYMAN : 1970 GENDER: FEMALE VISIT DATE: 03/09/2021 DISCHARGE DATE: 03/09/21 1055 VISIT LOCKED DATE TIME: PHYSICIAN: KIM VELASCO RESOURCE: KIM VELASCO REASON FOR APPOINTMENT 1. MED MGMNT-LBP /LEFT HIP PAIN HISTORY OF PRESENT ILLNESS GENERAL: HERE FOR F/U OF CHRONIC RIGHT HIP PAIN AND LOW BACK PAIN.WILL BE HAVING REVISION OF RIGHT HIP AT THE END OF THIS MONTH. FINDS CURRENT CHRONIC PAIN MEDICATION SOMEWHAT HELPFUL AT REDUCING PAIN AND KEEPING HER FUNCTIONAL. DENIES ADVERSE SIDE EFFECTS. BRINGS IN HER MEDICATION WHICH IS APPROPRIATE FOR WHAT IS DISPENSED. 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 -. FALL RISK SCREENING: SCREENING MORE THAN 1-2 FALL IN THE PAST YEAR DID NOT GO THE ER. PAIN SCREENING: PATIENT HAS A COMPLAINT OF ACUTE OR CHRONIC PAIN :YES LOCATION OF PAIN:LOW BACK, LEFT HIP, RIGHT HIP INTENSITY OF PAIN (SCALE OF 1 TO 10):10 WHAT DOES YOUR PAIN FEEL LIKE:ACHING, BURNING, CONTINOUS, SHARP, STABBING, TENDER, THROBBING DURATION:CONTINOUS, CONSTANT, ALL DAY PAIN IS INCREASED BY:ACTIVITIES PAIN IS DECREASED BY:USE OF PAIN MEDICATIONS NURSING NOTE: -. PAIN CENTER INTAKE QUESTIONS: DO YOU HAVE A HISTORY OF MRSA? :NO DO YOU TAKE A BLOOD THINNERS? :NO DO YOU HAVE ANY BLEEDING DISORDERS? :NO ANY NEW NUMBNESS OR WEAKNESS IN YOUR LEGS OR ARMS? :YES PAIN GOES DOWN BOTH LEGS ANY PACEMAKER,DEFIBRILLATOR, OR DORSAL COLUMN STIMULATOR? :NO DO YOU HAVE ANY RASHES OR OPEN SORES? :NO ARE YOU ALLERGIC TO IV DYE? :NO ARE YOU DIABETIC? :NO ANY NEW PROBLEMS WITH YOUR MEDICATIONS? :NO HAVE YOU RECEIVED A VACCINE IN THE PAST 30 DAYS? :NO DO YOU PLAN TO RECEIVE A VACCINE IN THE NEXT 21 DAYS? :NO DO YOU NEED ANY PRESCRIPTION? :YES OXYCODONE, MORPHINE, BACFOLEN DO YOU TAKE ANY IMMUNOSUPPRESSIVE MEDICATIONS? :NO IS THERE A CHANCE YOU COULD BE ? :NO ARE YOU BREAST FEEDING? :NO CURRENT MEDICATIONS TAKING LASIX 40 MG TABLET 1 TABLET ORALLY BID TAKING POTASSIUM CHLORIDE 20 MG CAPSULE EXTENDED RELEASE 1 CAPSULE WITH FOOD ORALLY TWICE A DAY TAKING WELLBUTRIN XL 150 MG TABLET EXTENDED RELEASE 24 HOUR 1 TABLET IN THE MORNING ORALLY ONCE A DAY TAKING PAXIL 30 MG TABLET 1 TABLET IN THE MORNING ORALLY ONCE A DAY TAKING XANAX 1 MG TABLET 1 TABLET ORALLY THREE TIMES DAILY NEEDED TAKING ATENOLOL 50 MG TABLET 1 TABLET ORALLY TWICE DAILY TAKING PROBIOTIC - TABLET DELAYED RELEASE 1 CAPSULE ORALLY DAILY TAKING BACLOFEN 10 MG TABLET 1 TABLET ORALLY Q6H 4X DAILY TAKING MORPHINE SULFATE ER 30 MG CAPSULE EXTENDED RELEASE 24 HOUR 1 TABLET ORALLY MDD 1 DAILY TAKING OXYCODONE HCL 15 MG TABLET 1 TABLET ORALLY EVERY 8 HOURS NEEDED FOR PAIN MDD 3 NOT-TAKING PREDNISOLONE 5 MG TABLET 1 TABLET IN THE MORNING WITH FOOD OR MILK ORALLY 60MG ONCE A DAY, NOTES: START 02/03/2021 NOT-TAKING SOMA 350 MG TABLET 1 TABLET NEEDED ORALLY AT BED TIME NOT-TAKING MS CONTIN 30 MG TABLET EXTENDED RELEASE 1 TABLET ORALLY BEFORE BEDTIME NOT-TAKING TEMAZEPAM 30 MG CAPSULE 1 CAPSULE AT BEDTIME NEEDED ORALLY BEFORE BEDTIME NEEDED FOR SLEEP NOT-TAKING PREDNISONE 20 MG TABLET 1 TABLET ORALLY DAILY, NOTES: 1 WEEK NOT-TAKING KETOROLAC TROMETHAMINE 10 MG TABLET 1 TABLET WITH FOOD OR MILK NEEDED ORALLY EVERY 6 HRS NOT-TAKING LEVAQUIN 750 MG TABLET 1 TABLET ORALLY ONCE A DAY NOT-TAKING KETOROLAC TROMETHAMINE 10 MG TABLET 1 TABLET WITH FOOD OR MILK NEEDED ORALLY EVERY 6 HRS NOT-TAKING MOVANTIK 25 MG TABLET 1 TABLET IN THE MORNING ORALLY ONCE A DAY NOT-TAKING AMOXICILLIN 875 MG TABLET 1 TABLET ORALLY EVERY 12 HRS, NOTES: 10 DAYS NOT-TAKING MEDROL 4 MG TABLET THERAPY PACK DIRECTED ORALLY DIRECTED NOT-TAKING BUSPAR 15 MG ORALLY TWICE A DAY NOT-TAKING VALIUM 10 MG TABLET 1 TABLET NEEDED ORALLY PRN MDD1 #10 TAB SHOULD LAST 30 DAYS NOT-TAKING NORTRIPTYLINE HCL 10 MG CAPSULE 3 CAPSULE= 30 MG ORALLY ONCE A DAY NOT-TAKING METHOTREXATE 8 TABS OF 2.5MG ORAL WEEKLY NOT-TAKING LYRICA 200 MG CAPSULE 1 CAPSULE ORALLY TID MDD3 NOT-TAKING FENTANYL 75 MCG/HR PATCH 72 HOUR 1 PATCH TO SKIN TRANSDERMAL 1 PATCH H93E=EPC MEDICATION LIST REVIEWED AND RECONCILED WITH THE PATIENT PAST MEDICAL HISTORY FIBROMYALGIA LUPUS INTERSTITIAL LUNG DISEASE INFLAMMATORY ARTHRITIS BROKEN RIGHT SHOULDER CHRONIC BACK PAIN BRONCHITIS/SINUSITIS SINUS KESHIA ON EKG PNEUMONIA LOW BACK PAIN ALLERGIES MOBIC: AGGRESIVE - SIDE EFFECTS NEURONTIN: AGGRESIVE - SIDE EFFECTS IMURAN: NAUSEA/VOMITING - SIDE EFFECTS SURGICAL HISTORY L4-5 LAMINECTOMY LOWER BACK SURGERY (DR. VALENCIA) 08/2016 APPENDECTOMY 1983 ABDOMINAL ADHESION SURGERY LUNG BIOPSY RIGHT HIP REPLACEMENT 12/2018 RIGHT HIP SURG REPLACEMENT 03/22/2021 SOCIAL HISTORY GENERAL: TOBACCO USE ARE YOU A:CURRENT SMOKER ARE YOU INTERESTED IN QUITTING?THINKING ABOUT QUITTING COUNSELED THE PATIENT ON SMOKING CESSATION, EDUCATION [id number]/13/2021 HOW MANY CIGARETTES A DAY DO YOU SMOKE?5 OR LESS PATIENT COUNSELED ON THE DANGERS OF TOBACCO USE AND URGED TO QUIT:11/30/2020 VAPORYES E-CIGARETTENO LATEX QUESTIONNAIRE LATEX ALLERGY : HAVE YOU EVER DEVELOPED ANY TYPE OF REACTION AFTER HANDLING LATEX PRODUCTS SUCH RUBBER GLOVES, CONDOMS, DIAPHRAGMS, BALLOONS, SOCKS, OR UNDERWEAR?YES - PLEASE INDICATE :RUBBER GLOVES HANDS GET RED LATEX ALLERGY : HAVE YOU EVER DEVELOPED ANY TYPE OF REACTION DURING OR AFTER DENTAL APPOINTMENT, VAGINAL/RECTAL EXAMINATION, SURGICAL PROCEDURE, OR ANY OTHER EXPOSURE?NO LATEX RISK : HAVE YOU EVER HAD ANY DIFFICULTY BREATHING OR HIVES AFTER EATING OR HANDLING ANY FRUITS, OR VEGETABLES; SUCH KIWI, BANANAS, STONE FRUITS, OR CHESTNUTSNO LATEX RISK : DO YOU HAVE A PREVIOUS PERSONAL HISTORY OF MORE THAN NINE SURGERIES, SPINA BIFIDA, OR REPEATED CATHERIZATIONS? NO LATEX RISK : ARE YOU FREQUENTLY EXPOSED TO LATEX PRODUCTS IN YOUR OCCUPATION?NO DATE ASKED : 03/09/2021 ALCOHOL USE: NO. LUNG CANCER SCREENING SMOKING STATUS:CURRENT SMOKER IS THE PATIENT BETWEEN THE AGE OF 55 AND 77?NO ALCOHOL SCREENING DID YOU HAVE A DRINK CONTAINING ALCOHOL IN THE PAST YEAR?NO POINTS0 INTERPRETATIONNEGATIVE RECREATIONAL DRUG USE DRUG USE?NO PATIENT DENIES ABUSE OR MISSUSED OF ANY MEDICATION. PATIENT DENIES USE OF ANY ILLEGAL SUBSTANCE INCLUDING MARIJUANA OR COCAINE. CAFFEINE CAFFEINE USE?YES HOW OFTEN AND HOW MUCH? 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 HCP INFORMATION GIVEN TO AND HELP OFFERED IN COMPLETING IF NEEDED. DECLINED AT THIS TIME. HOSPITALIZATION/MAJOR DIAGNOSTIC PROCEDURE LUPUS BACK PAIN SURGERY ER ON SEPTEMBER 19 AND ER VISIT: BACK 11/15 REVIEW OF SYSTEMS CONSTITUTIONAL: ANY RECENT FEVER NO . CHILLS NO . WEIGHT CHANGE OF UNKNOWN REASONS NO . GASTROENTEROLOGY: NEW UNEXPLAINABLE CHANGES IN BOWEL CONTROL NO . CONSTIPATION NO . GENITOURINARY: ANY NEW CHANGE IN BLADDER CONTROL? NO . NEUROLOGY: NEW ONSET DIZZINESS OR NEUROLOGICAL CHANGES NOT MENTIONED NO . NEW NUMBNESS OR PAIN PATTERNS NOT MENTIONED AND PERTINENT TO TODAY'S VISIT NO . CARDIOLOGY: NEW CHEST PRESSURE NO . PATIENT DENIES NO . RESPIRATORY: UNEXPLAINABLE COUGH NO . NEW SHORTNESS OF BREATH NO . VITAL SIGNS WT 194 LBS, HT 65 IN, BMI 32.28 INDEX, BP 139/84 MM HG, HR 68 /MIN, RR 16 /MIN, TEMP 97.6 F, OXYGEN SAT % 98%, SAFE IN ENV? (Y/N) YES, NA INITIALS [place] 10:18T.JORDY ADAME. EXAMINATION GENERAL EXAMINATION: GENERALAWAKE,ALERT ,PLEASANT . PSYCHAFFECT NORMAL . LUNGS:LUNG PAN ARE CLEAR TO AUSCULTATION BILATERALLY. GOOD MOVEMENT OF AIR . HEART:S1, S2 IN A REGULAR RATE AND RHYTHM. NO SIGNIFICANT MURMURS, RUBS OR GALLOPS NOTED . ASSESSMENTS CHRONIC PRESCRIPTION OPIATE USE - Z79.891 (PRIMARY) INTERVERTEBRAL DISC DISORDERS WITH RADICULOPATHY, LUMBAR REGION - M51.16 INFLAMMATORY ARTHROPATHY - M19.90 TREATMENT CHRONIC PRESCRIPTION OPIATE USE REFILL MORPHINE SULFATE ER CAPSULE EXTENDED RELEASE 24 HOUR, 30 MG, 1 TABLET, ORALLY MDD 1, DAILY, 30 DAYS, 30 TABLET, REFILLS 0 REFILL OXYCODONE HCL TABLET, 15 MG, 1 TABLET, ORALLY, EVERY 8 HOURS NEEDED FOR PAIN MDD 3, 30 DAYS, 90 NOTES: ISTOP REGISTRY REVIEWED AND DEMONSTRATES COMPLLIANCE. BRINGS IN MEDICATIONS WHICH IS APPROPRIATE FOR WHAT WAS DISPENSED. RECENT URINE TOXICOLOGY REVIEWED. NO UNAUTHORIZED MEDICATIONS. NO ILLICIT SUBSTANCES AND PRESCRIBED MEDICATIONS WERE PRESENT. , RISKS OF NARCOTIC/OPIOD MEDICATIONS INCLUDES BUT IS NOT LIMITED TO RISK OF DEPENDANCE/DEVELOPMENT OF ADDICTION, MOOD DISTURBANCE AND DEPRESSION, OSTEOPOROSIS, HORMONAL AND LABIDAL CHANGES, RESPIRATORY DEPRESSION AND . PATIENT IS ADVISED NOT TO DRIVE OR DRINK ALCOHOL WHILE ON THESE MEDICATIONS. PROCEDURE CODES FA211 ESTABILISHED PATIENT [facility] CHARGE DISPOSITION & COMMUNICATION FOLLOW UP 2 MONTHS (REASON: MED MGMNT/UTOX) ELECTRONICALLY SIGNED BY GABE WELLS ON 03/10/2021 AT 11:49 AM EDT DISCLAIMER : THIS IS A VISIT SUMMARY EXTRACTED FROM THE [employer] CHART. IT IS NOT A COPY OF THE [employer] PROGRESS NOTE. CHRISTOFER
== END ==
LOC: M PAIN 10:00
PROVIDERS: ATTEND Nurse Practitioner Family
DX: M51.16 Intervertebral disc disorders with radiculopathy, lumbar region (principal); M19.90 Unspecified osteoarthritis, unspecified site; M79.7 Fibromyalgia; L93.0 Discoid lupus erythematosus; J84.9 Interstitial pulmonary disease, unspecified; F17.210 Nicotine dependence, cigarettes, uncomplicated; Z79.891 Long term (current) use of opiate analgesic; Z79.899 Other long term (current) drug therapy; Z88.6 Allergy status to analgesic agent; Z88.8 Allergy status to other drugs, medicaments and biological substances

== ENCOUNTER → 2021-03-15 | Outpatient (CLI) | payer BC ==
[2021-03-15 11:18] LABS: BASO # 0.1 10^3/uL (0.0-0.2); BASO % 1.6 % (0.0-1.0); EOS # 0.2 10^3/uL (0.0-0.5); EOS % 4.7 % (0.0-3.0); HEMOGLOBIN 12.2 g/dl (12.0-15.5); LYMPH % 41.2 % (24.0-44.0); MEAN CORPUSCULAR HEMOGLOBIN 29.2 pg (27.0-33.0); MEAN CORPUSCULAR HGB CONC 32.1 g/dl (32.0-36.5); MEAN CORPUSCULAR VOLUME 90.9 fl (80.0-96.0); MONO # 0.4 10^3/uL (0.0-0.8); MONO % 7.6 % (2.0-8.0); NEUTROPHILS # 2.2 10^3/uL (1.5-8.5); NEUTROPHILS % 44.7 % (36.0-66.0); PLATELET COUNT, AUTOMATED 223 10^3/uL (150-450); RED BLOOD COUNT 4.18 10^6/uL (4.00-5.40); WHITE BLOOD COUNT 4.9 10^3/uL (4.0-10.0)
[2021-03-15 11:20] LABS: APPEARANCE, URINE HAZY (CLEAR); BACTERIA, URINE AUTO 1+ (NEGATIVE); BILIRUBIN, URINE AUTO NEGATIVE (NEGATIVE); BLOOD, URINE BLOOD NEGATIVE (NEGATIVE); COLOR, URINE YELLOW (YELLOW); GLUCOSE, URINE (UA) AUTO NEGATIVE (NEGATIVE); KETONE, URINE AUTO NEGATIVE (NEGATIVE); LEUKOCYTE ESTERASE, URINE AUTO TRACE (NEGATIVE); NITRITE, URINE AUTO NEGATIVE (NEGATIVE); PROTEIN, URINE AUTO NEGATIVE (NEGATIVE); RBC, URINE AUTO 2 /HPF (0-3); SPECIFIC GRAVITY URINE AUTO 1.018 (1.002-1.035); SQUAMOUS EPITHELIAL CELL UR AU 4 /HPF (0-6); UROBILINOGEN, URINE AUTO 0.2 mg/dL (0.0-2.0); WBC, URINE AUTO 5 /HPF (0-3)
[2021-03-15 14:05] LABS: ALBUMIN 3.5 GM/DL (3.2-5.2); BILIRUBIN,TOTAL 0.2 MG/DL (0.2-1.0); CREATININE FOR GFR 1.24 MG/DL (0.55-1.30); GLOMERULAR FILTRATION RATE 48.5 (>51)
== END ==
LOC: M LAB 10:04
PROVIDERS: ATTEND Physician Assistant
DX: Z01.818 Encounter for other preprocedural examination (principal)

== ENCOUNTER → 2021-03-15 | Outpatient (CLI) | payer BC ==
[~2021-03-15] MED LIST changes: +ACET-861 PO; -ALPR1TAB3; -ATEN50TA2; -BUPR300T92; +BUPR300T92 PO; -HYDR50TA70; +HYDR50TA70 PO; -MORP-69; +OXYC5SOL11 PO; -PARO40TA2; +PARO40TA2 PO; -POTA1TAB14; +POTA1TAB14 PO
[2021-03-15 11:18] LABS: HEMATOCRIT 38.1 % (36.0-47.0); HEMOGLOBIN 12.3 g/dl (12.0-15.5); MEAN CORPUSCULAR HEMOGLOBIN 29.6 pg (27.0-33.0); MEAN CORPUSCULAR HGB CONC 32.3 g/dl (32.0-36.5); MEAN CORPUSCULAR VOLUME 91.6 fl (80.0-96.0); PLATELET COUNT, AUTOMATED 219 10^3/uL (150-450); RED BLOOD COUNT 4.16 10^6/uL (4.00-5.40); WHITE BLOOD COUNT 5.1 10^3/uL (4.0-10.0)
[2021-03-15 11:56] LABS: ATYPICAL LYMPH 7 % (0-5); BASOPHILS 1 % (0-1); EOSINOPHILS 4 % (0-3); LYMPHOCYTES 29 % (16-44); MONOCYTES 3 % (0-5); NEUTROPHILS 56 % (28-66); PLATELET ESTIMATE NORMAL (NORMAL)
[2021-03-15 14:05] LABS: ALBUMIN 3.5 GM/DL (3.2-5.2); BILIRUBIN,TOTAL 0.2 MG/DL (0.2-1.0); CALCIUM LEVEL 8.7 MG/DL (8.5-10.1); CREATININE FOR GFR 1.32 MG/DL (0.55-1.30); GLOMERULAR FILTRATION RATE 45.2 (>51); TOTAL PROTEIN 5.9 GM/DL (6.4-8.2)
== END ==
LOC: M LAB 10:08
PROVIDERS: ATTEND Orthopaedic Surgery Adult Reconstructive Orthopaedic Surgery
DX: T84.031A Mechanical loosening of internal left hip prosthetic joint, initial encounter (principal); Y83.1 Surgical operation with implant of artificial internal device as the cause of abnormal reaction of the patient, or of later complication, without mention of misadventure at the time of the procedure

== ENCOUNTER → 2021-03-17 | Outpatient (CLI) | payer BC | LOC: M LABSMTC 11:41 | PROVIDERS: ATTEND Anesthesiology | DX: Z01.818 Encounter for other preprocedural examination (principal); Z11.52 Encounter for screening for COVID-19 ==

== ENCOUNTER 2021-03-22 06:10 | Inpatient (IN) | payer BC ==
[~2021-03-22] VITALS: Ht 165.1 cm; Wt 88.9 kg
[~2021-03-22 06:10] MED LIST changes: +ACETAMINOPHEN 500 MG TAB PO ONE; +LR 1,000 ML IV ONE; +NAPROXEN 250 MG TAB PO ONE; +PREGABALIN 25 MG CAP (LYRICA) PO ONE; +TRANEXAMIC ACID INJection 1,000 MG in NS 60 ML IV ONE; +ceFAZolin SOD 2 GM in IV 1 EA IV ONE; +dexameTHASONE 4 MG/ML 1ML VIAL (J1100 PER 1MG) IV ONE
[2021-03-22] MEDS ORDERED: ROCURONIUM BROMIDE 50 MG/5 ML VIAL As Ordered ONE ×2 (06:55→08:59)
[2021-03-22] MEDS ORDERED: MIDAZOLAM INJ 2MG/2ML VIAL (J2250 PER 1MG) As Ordered ONE (06:55)
[2021-03-22] MEDS ORDERED: fentaNYL 100 MCG/2 ML INJECTION (J3010) As Ordered ONE ×2 (06:55→11:29)
[2021-03-22] MEDS ORDERED: LIDOCAINE 2% 100MG/5ML SDV (FOR ANES.) As Ordered ONE (06:56)
[2021-03-22] MEDS ORDERED: propofoL 200 MG/20 ML VIAL As Ordered ONE (06:56)
[2021-03-22] MEDS ORDERED: BUPIVACAINE/EPIN 0.5% 30 ML VIAL As Ordered ONE (07:40)
--- NOTE | 2021-03-22 07:55 | ECGEPIP ---
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
[2021-03-22] MEDS ORDERED: PHENYLephrine 500MCG 5ML (100MCG/ML) SYRINGE As Ordered ONE (07:57)
[2021-03-22] MEDS ORDERED: ePHEDrine SULFATE 25 MG/5 ML(5MG/ML) SYRINGE As Ordered ONE (07:58)
[2021-03-22] MEDS: TRANEXAMIC ACID 100 MG/ML 10ML VIAL As Ordered ONE (08:01)
[2021-03-22] MEDS ORDERED: ACETAMINOPHEN 1000MG 100ML IV BTL (OFIRMEV) (J0131 PER 10MG) As Ordered ONE (08:13)
[2021-03-22] MEDS ORDERED: KETAMINE HCL 200 MG/20 ML VIAL As Ordered ONE (08:22)
[2021-03-22] MEDS ORDERED: ONDANSETRON 4MG/2ML VIAL As Ordered ONE (09:44)
[2021-03-22] MEDS ORDERED: SUGAMMADEX SODIUM 500 MG/5 ML VIAL (BRIDION) As Ordered ONE (09:44)
[2021-03-22] MEDS ORDERED: MOM 30ML SUSPENSION UDC PO PRN (11:30)
[2021-03-22] MEDS ORDERED: ALPRAZolam 0.5 MG TAB PO PRN (11:30)
[2021-03-22] MEDS ORDERED: MAALOX 30 ML SUSP *UDC PO PRN (11:30)
[2021-03-22] MEDS ORDERED: hydrOXYzine 50 MG TAB PO PRN (11:30)
[2021-03-22] MEDS ORDERED: IBUPROFEN 800 MG TAB PO PRN (11:30)
[2021-03-22] MEDS ORDERED: ACETAMINOPHEN 500 MG TAB PO PRN (11:30)
[2021-03-22] MEDS: fentaNYL 100 MCG/2 ML INJECTION (J3010) IV PRN ×2 (11:33→11:42)
[2021-03-22] MEDS ORDERED: oxyCODONE 5MG TAB PO PRN ×2 (11:40→11:50)
[2021-03-22] MEDS ORDERED: ONDANSETRON 4MG/2ML VIAL IV PRN ×2 (11:40→14:05)
[2021-03-22] MEDS ORDERED: HYDROMORPHONE HCL 0.5 MG/ 0.5 ML SYRINGE (J1170 PER 1) IV PRN (11:40)
[2021-03-22] MEDS ORDERED: LR 1,000 ML IV SCH ×2 (11:40→14:05)
--- NOTE | 2021-03-22 11:57 | REP ---
INDICATION: post op. COMPARISON: 01/19/2021. TECHNIQUE: Two views right hip. FINDINGS: Right hip prosthesis is in good position. Osseous structures are intact and well aligned. Metallic clips are again seen projecting in the region of the right lower quadrant. IMPRESSION: Right hip prosthesis shows good alignment. <Electronically signed by Jacob Hill > 03/22/21 1157
[2021-03-22] MEDS ORDERED: GLUCOSE 4GM CHEW TABLET PO PRN (12:20)
[2021-03-22] MEDS ORDERED: DEXTROSE 50% 50 ML SYRINGE IV PRN (12:20)
[2021-03-22] MEDS ORDERED: GLUCAGON INJ 1MG VIAL SC PRN (12:20)
--- NOTE | 2021-03-22 12:33 | HPEPDOC ---
[facility] Medical History & Physical Date of Admission Mar 22, 2021 Date of Service: Mar 22, 2021 Attending Physician: ISACC PERKINS DO History and Physical CHIEF COMPLAINT: Right hip acetabular revision HISTORY OF PRESENT ILLNESS: Patient came in today for scheduled right hip acetabular revision surgery. Her surgery is now completed and she is being admitted postop. Other than right hip pain which is expected postoperatively, she does not have any other complaints, concerns, or illnesses. CODE STATUS: Full code PAST MEDICAL HISTORY: Fibromyalgia Systemic lupus erythematous Interstitial lung disease Inflammatory arthritis Anxiety Depression GERD Headaches Hypertension Irritable colon Smoker Obesity Chart makes mention of borderline diabetes PAST SURGICAL HISTORY: L4-5 laminectomy in 2016 Right hip surgery earlier today SOCIAL HISTORY: Current smoker. Denies alcohol or illicit drug use FAMILY HISTORY: Her daughter from complications of multiple sclerosis. Apparently diabetes, hearing loss, hypertension, kidney disease, and rest cancer run in the family REVIEW OF SYSTEMS: Constitutional: Patient denies fevers, chills, night sweats, recent weight gain/loss. HEENT: Patient denies blurred or double vision, transient visual disturbances, postnasal drip, epistaxis, sore throat, difficulty chewing or swallowing food. Cardiovascular: Patient denies chest discomfort/pain, palpitations, exertional dyspnea, orthopnea, edema of the extremities, claudication. Respiratory: Patient denies dyspnea, wheezing, cough, hemoptysis, sputum production. Gastrointestinal: Patient denies nausea, vomiting, diarrhea, constipation, abdominal pain, melena, hematochezia, hematemesis, jaundice. PHYSICAL EXAMINATION: General: Awake, alert, oriented 3. She appears to be in [id number] dis tress secondary to right hip postoperative pain. HEENT: Head normocephalic atraumatic, conjunctiva are pink, sclera are nonicteric, buccal mucosa is pink and moist with no lesions in the oropharynx. Hearing is grossly intact to conversation. Respiratory: Clear to auscultation bilaterally with no wheezes, rales, or rhonchi. Cardiovascular: Regular rate and rhythm, with no rubs, gallops, or murmur. Abdomen: Soft, nontender, nondistended, no hepatosplenomegaly appreciated. Bowel sounds present. Extremities: 2+ pulses in the radial and dorsalis pedis bilaterally. No evidence of clubbing or cyanosis. ASSESSMENT/PLAN: Postop right hip arthroplasty -Dressing changes, activity orders, and decision as to when she is safe for discharge per recommendations from orthopedic surgery -Physical therapy has been consulted Fibromyalgia Inflammatory arthritis Headaches Chronic pain - Continue with home medications of baclofen, morphine, oxycodone. Systemic lupus erythematous Interstitial lung disease Smoker - Given that she is on quite a bit of opioids in conjunction with interstitial lung disease, will put her on continuous O2 monitoring. -Smoking cessation recommended. Anxiety Depression -Continue home dose of alprazolam, bupropion, paroxetine GERD -Continue home dose of pantoprazole Hypertension -Continue home dose of atenolol, furosemide Suspicion for borderline diabetes -Will check her glucose levels before meals and at bedtime, and administer short acting insulin on a sliding scale basis. Obesity - Complicating care Vital Signs Vital Signs Date Time Temp Pulse Resp B/P (MAP) Pulse Ox O2 Delivery O2 Flow Rate FiO2 03/22/21 12:24 18 100 Nasal Cannula 3.0 03/22/21 12:20 77 100/60 (73) 03/22/21 06:38 97.3 Laboratory Data Microbiology Microbiology 03/22/21 Gram Stain - Final, Resulted 03/22/21 Wound Culture, Resulted Pending 03/22/21 Anaerobic Culture, Received Pending Home Medications Scheduled Atenolol (Atenolol) 50 Mg Tablet, PO BID Baclofen (Baclofen) 10 Mg Tablet, 10 MG PO QID Bupropion HCl (Bupropion Xl) 300 Mg Tab.er.24h, PO DAILY Furosemide (Lasix) 40 Mg Tablet, 40 MG PO BID Morphine Sulfate (Morphine Sulfate ER) 15 Mg Tablet.er, 30 MG PO QHS Pantoprazole Sodium (Pantoprazole Sodium) 40 Mg Tab, 40 MG PO BID Paroxetine HCl (Paroxetine HCl) 40 Mg Tablet, PO DAILY Potassium Chloride (Potassium Chloride) 20 Meq Tablet.er, PO BID Scheduled PRN Acetaminophen (Acetaminophen) 500 Mg Tablet, 1,000 MG PO TIDP PRN for PAIN Alprazolam (Alprazolam) 1 Mg Tablet, PO TIDP PRN for ANXIETY/AGITATION Hydroxyzine HCl (Hydroxyzine HCl) 50 Mg Tablet, PO TIDP PRN for ITCHING Ibuprofen (Ibuprofen) 800 Mg Tablet, 800 MG PO TIDP PRN for PAIN Oxycodone HCl (Oxycodone HCl) 5 Mg/5 Ml Solution, 15 MG PO TIDP PRN for PAIN Allergies Coded Allergies: gabapentin (Verified Allergy, Severe, mental status changes, 03/17/21) meloxicam (Verified Allergy, Severe, mental status changes, 03/17/21) latex (Verified Allergy, Intermediate, rash, 03/17/21) A-FIB/CHADSVASC A-FIB History Current/History of A-Fib/PAF?: No ISACC PERKINS DO Mar 22, 2021 12:33
[2021-03-22 13:15] VITALS: BP_SYST 76; BP_SYST 82; BP_DIAS 38; BP_DIAS 53
[2021-03-22] MEDS ORDERED: NS 1,000 ML IV ONE (13:20)
[2021-03-22] MEDS ORDERED: NS 1,000 ML IV SCH (13:20)
[2021-03-22] MEDS ORDERED: SENNA 8.6 MG TAB (SENOKOT) PO PRN (13:25)
[2021-03-22 13:45] VITALS: BP 101/57
[2021-03-22] MEDS ORDERED: MORP30TASA PO (13:50)
[2021-03-22] MEDS ORDERED: OXYC-1 PO (13:50)
[2021-03-22] MEDS ORDERED: MIRA3350 PO (13:50)
[2021-03-22] MEDS ORDERED: VITA50005 PO (13:50)
[2021-03-22] MEDS ORDERED: ONDA4TAB6 PO (13:50)
[2021-03-22 14:47] VITALS: BP 103/55
--- NOTE | 2021-03-22 15:11 | ROOPDOC ---
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 anesthetic ESTIMATED BLOOD LOSS: Approximately less than 300 mL mL. COMPLICATIONS: No known complications REMARKS: ICD 10. Modifier 80: Another surgeon, was utilized during this procedure to help with retraction and decision making. During the revision procedure. Components: Jeffrey acetabular components: Trident 2 titanium cluster hole acetabular shell, 56 mm F MDM liner, cementless, 46 mm F Biolox delta ceramic femoral head revision, 28 mm +12, 12/14 mm taper for the DePuy stem Faith MDM X3 insert, 28 mm size 28/52, size 46F PROCEDURE NOTE: The patient was brought to the operating room for revision of right acetabular component failed due to malalignment. She was seen in the preoperative area and the right lower extremity was signed and all documentation was completed including updating the H&P. No medical changes were reported DESCRIPTION OF PROCEDURE: Patient was brought to the operating room and transferred to the operating room table. A surgical timeout was carried out before the general anesthetic was induced. The patient was then appropriately positioned in the left lateral decubitus position with appropriate padding including an axillary roll. The Stulberg positioner was utilized. The right lower extremity was cleansed with a chlorhexidine scrub followed by 2 alcohol swabs of the right lower extremity, and finally a hydrogen peroxide swab over the incision site. She underwent a standard sterile prep with the leg position using candycane wharton and 2 chlorhexidine swabs were carried out. Patient's right lower extremity was then prepped in the standard fashion and draped in the standard fashion. Once the instruments and been set up completely, the surgical safety checklist, and surgical process was carried out. The right hip. Previous incision view of the anterolateral approach was demarcated with the skin marker. The distal three quarters of this incision was ellipsed out and discarded. The full length of the previous incision was not utilized. Electrocautery was utilized to down through subcutaneous tissue down to the fascia. The fascia was split and it was noted that there was some joint fluid coming out. Initially this was thought to be bursal fluid. However, when the fascia thomas was opened up using the Martinez scissors. It was noted that there was a complete tear of the capsule and gluteus minimus and medius from the greater trochanter and proximal femur. The hardware was visible. Electrocautery was used to remove soft tissue off of the proximal femur and all allow complete visualization of the joint. After cautery was used to remove scar tissue. Some of this scar tissue was sent for ORIF of Gram stain, culture and sensitivity. There were no obvious signs of infection. Once appropriate soft tissue dissection had occurred, the right hip was dislocated. The leg was placed in the bag and the femoral head was removed using an impactor. The components all appeared to be well seated with no signs of loosening or infection or otherwise. Additional soft tissue removal using electrocautery and the rongeur was carried out. The anterior rim of the bone in the acetabular region was removed using a curved osteotome and a rongeur. An attempt using a drill bit and a corkscrew was used to remove the cup, however, ultimately a curved osteotome was used to remove this. The cup did not appear to have any damage. The trunnion of the femoral component appeared to be undamaged. The acetabular liner component was appropriately sized to a 42 for the easy out device. This centralizer was placed. The sizing showed that approximately a 52 would be appropriate. A 52 mm cup, short and long saw blade were utilized. This was done in a very cautious stepwise manner circumferentially starting with the short blade and then moving to the long blade until the cup was completely loose and removed with a [place]. Minimal bone loss was noted on the backside of the acetabular component. It was noted that the posterior wall was quite thin. However, I was able to ream up for a line to line fit, using a 56 mm reamer. The trial 56 mm cup was placed in position. This appeared to be appropriate. The final component was impacted with appropriate version. The MDM liner was impacted and tested with the Liberty to ensure that it was not loose. Attention was then turned to the femoral component. A trial dual mobility MDM liner was placed. This was found to be slightly loose, which was to be anticipated as the cup had been deepened by a few millimeters. The head, neck size was upsized to a +12. This was trialed and found to be appropriate without any laxity or shuck. A full stable range of motion was noted without any signs of subluxation or dislocation. The wound was irrigated with normal sterile saline. 2 g of IV tranexamic acid were applied topically into the wound, followed by some Betadine. This was allowed to sit for 3 minutes. It was then irrigated out. The local anesthetic cocktail of ropivacaine, ketorolac, epinephrine and clonidine was instilled into the soft tissues in the posterior capsular region. The final head component was assembled for the MDM liner. The trunnion was cleansed and dried. And the head and MDM liner combination were impacted and found to be secure. This was reduced and found to have a good stable range of motion throughout. The wound was thoroughly irrigated and the capsular area was closed with #1 Vicryl. An osteotome and rongeur were used to remove the sclerotic bone from the greater trochanter and the acetabular drill bit was used to create 2 x 3.5 mm drill bit holes for a transosseous repair of the abductor tendon. Some of the soft tissue capsular tissue was removed with electrocautery to allow better adherence of the scarring tissue. #1 Vicryl was used for 2 transosseous repairs followed by a running repair, which was reinforced with the #1 Vicryl. An irrigation was then carried out between the layers. The fascial layer was then repaired using an interrupted #1 Vicryl and then a running Stratafix barbed suture. Another irrigation with Betadine was carried out. The cutaneous layer was closed with interrupted #1 Vicryl followed by running 2. 0 Vicryl. The subcuticular tissue was closed with a antibacterial 3. 0 Monocryl suture. An Irrigation was carried out between layers. The wound was cleansed and the skin was cleansed with Betadine. This skin edges were then washed with normal sterile saline followed by drying and then application of Mastisol for Steri-Strips. A Mepilex AG waterproof dressing was then applied and reinforced with Tegaderms at the top and bottom where there were some curling of the dressing. The patient had the anesthetic reversed. There transferred to the bed under my supervision. The patient was taken to the recovery room in stable condition with no known complications. X-ray imaging in the PACU showed that the right hip prosthesis was in good position without any signs of dislocation or complication. Postoperative orders were completed. The hospitalist service was contacted for admitting the patient and managing medical conditions. Patient will be weightbearing as tolerated with a walker. The dressing will remain in position for 7 days. The patient will have no active abduction of her right hip for 6 weeks due to the abductor tendon repair. Home care and home/outpatient physical therapy will be arranged. The patient will be seen for follow-up in the office in approximately 2 weeks for reassessment. DONNIE AYALA MD Mar 22, 2021 15:11
[2021-03-22 15:45] VITALS: BP 103/59
[2021-03-22] MEDS: HumaLOG INSULIN (NovoLOG) PER UNIT SC SCH (16:35)
[2021-03-22] MEDS: BACLOFEN 10 MG TAB PO SCH ×2 (16:39→20:51)
[2021-03-22] MEDS: ceFAZolin SOD 2 GM in IV 1 EA IV SCH (16:40)
[2021-03-22] MEDS: FUROSEMIDE 40 MG TAB PO SCH (16:40)
[2021-03-22 16:45] VITALS: BP 101/58
[2021-03-22] MEDS: ASPIRIN 81MG ENTERIC TABLET PO SCH (20:51)
[2021-03-22] MEDS: POTASSIUM CHLORIDE 10 MEQ SR TABLET PO SCH (20:51)
[2021-03-22] MEDS: atenoloL 50 MG TAB PO SCH (20:51)
[2021-03-22] MEDS: PANTOPRAZOLE 40MG TAB (PROTONIX) PO SCH (20:52)
[2021-03-22] MEDS: DOCUSATE SODIUM 100MG CAPSULE PO SCH (20:52)
[2021-03-22] MEDS ORDERED: HumaLOG INSULIN (NovoLOG) PER UNIT SC SCH (21:00)
[2021-03-22] MEDS ORDERED: MORPHINE 15 MG SA TAB PO SCH ×2 (21:00)
[2021-03-23] MEDS: ceFAZolin SOD 2 GM in IV 1 EA IV SCH (00:58)
[2021-03-23] MEDS: oxyCODONE 5MG TAB PO PRN ×2 (04:38→11:23)
[2021-03-23 06:00] VITALS: BP 123/69
[2021-03-23 06:38] LABS: HEMOGLOBIN 9.8 g/dl (12.0-15.5); MEAN CORPUSCULAR HEMOGLOBIN 29.1 pg (27.0-33.0); MEAN CORPUSCULAR HGB CONC 32.7 g/dl (32.0-36.5); PLATELET COUNT, AUTOMATED 146 10^3/uL (150-450); RED BLOOD COUNT 3.37 10^6/uL (4.00-5.40); WHITE BLOOD COUNT 6.5 10^3/uL (4.0-10.0)
[2021-03-23 06:56] LABS: BLOOD UREA NITROGEN 19 MG/DL (7-18); CALCIUM LEVEL 8.2 MG/DL (8.5-10.1); CARBON DIOXIDE LEVEL 28 MEQ/L (21-32); CHLORIDE LEVEL 110 MEQ/L (98-107); CREATININE FOR GFR 0.67 MG/DL (0.55-1.30); GLOMERULAR FILTRATION RATE > 60.0 (>51); GLUCOSE, FASTING 110 MG/DL (70-100); SODIUM LEVEL 143 MEQ/L (136-145)
[2021-03-23] MEDS: HumaLOG INSULIN (NovoLOG) PER UNIT SC SCH (07:30)
--- NOTE | 2021-03-23 07:58 | IPNPDOC ---
Text Note Date of Service The patient was seen on 03/23/21. NOTE POD 1 Right hip acetabular revision with abductor repair: Pt doing well. Pain well controlled. Was up and about in the room walking with walker and assist. Patient states that her back feels a lot better after surgery, as well as her hip. X-ray imaging in the PACU demonstrates that the right total hip arthroplasty with revision acetabulum is in good position without any obvious signs of complication. The patient's right lower extremity shows a palpable posterior tibial pulse. She is able to move her right foot and ankle and she has intact sensation grossly. The dressing was examined. The dressing will stay in position for 7 days. There is no evidence of any staining on the dressing to suggest any bleeding. The patient will be evaluated by physical therapy and occupational therapy today for possible discharge. I have spoken with the charge nurse, With regards to home therapy, occupational therapy and nursing. The patient will be able to be discharged home today with follow-up in the clinic in 10-14 days. Discharge Instructions Total Hip Arthroplasty 1. Pain: You may take medications as prescribed for pain. Supplement with ibuprofen and Tylenol as needed. Ice pack to operative hip as tolerated. 2. Wound care: Nursing to Remove dressing on postop day 7. Call [phone] with any questions or concerns. Hygiene: The patient may shower. No tub baths. Check dressing seal prior to bathing. Report any drainage or opening of the wound immediately to the surgeon's office [phone] 3. Activity: WBAT on the right lower extremity. Front wheeled walker versus crutches for ambulation. , No active abduction of the right hip for 6 weeks Fall precautions. Anterolateral hip precautions (NO figure of 4/crossing legs, combined external rotation/extension, combined internal rotation/abduction). 4. Driving: No driving until cleared by your surgeon. Do not drive if taking narcotic pain medications as these may make you drowsy. 5. DVT Prophylaxis: Continue taking aspirin 81 mg twice a day as prescribed for the prevention of blood clots. Ankle pumps every 1 hour while awake. CECI hose at all times for 1 month after surgery. May remove for hygiene and wound care. 6. Placement: Plan is to discharge patient to home with home health including nursing and physical therapy and occupational therapy. 7. Surgeon Follow-up: The patient is scheduled to be seen in Dr. Ayala's office 2 weeks post op with xrays. 8. Primary care Follow-up: Please see your primary care provider in the next 2 to 5 weeks for general medical re-evaluation and medication review. 9. Labs: CBC without differential and BMP to be drawn on postop day 3 with results to PCP and please fax to [phone]. 10. Please contact [facility] if you have any questions or concerns at [phone]. 11. Vitamin C, and gentle iron for 1 month postop, Senokot for constipation, when necessary. VS,Fishbone, I+O VS, Fishbone, I+O Laboratory Tests 03/23/21 06:05 Vital Signs Date Time Temp Pulse Resp B/P (MAP) Pulse Ox O2 Delivery O2 Flow Rate FiO2 03/23/21 06:00 98.9 81 18 123/69 (87) 94 Room Air 03/22/21 16:45 2.0 I&O- Last 24 Hours up to 6 AM 03/23/21 06:00 Intake Total 2380 ml Output Total 1400 ml Balance 980 ml DONNIE AYALA MD Mar 23, 2021 07:58
[2021-03-23] MEDS: POTASSIUM CHLORIDE 10 MEQ SR TABLET PO SCH (08:19)
[2021-03-23] MEDS: PANTOPRAZOLE 40MG TAB (PROTONIX) PO SCH (08:20)
[2021-03-23] MEDS: BACLOFEN 10 MG TAB PO SCH (08:21)
[2021-03-23] MEDS: FUROSEMIDE 40 MG TAB PO SCH (08:22)
[2021-03-23] MEDS: ASPIRIN 81MG ENTERIC TABLET PO SCH (08:22)
[2021-03-23 08:23] VITALS: BP 123/69
[2021-03-23] MEDS: atenoloL 50 MG TAB PO SCH (08:23)
[2021-03-23] MEDS: DOCUSATE SODIUM 100MG CAPSULE PO SCH (08:27)
[2021-03-23] MEDS ORDERED: PARoxetine 20MG TABLET PO SCH (09:00)
[2021-03-23] MEDS ORDERED: ASCORBIC ACID 500 MG TAB PO SCH (09:00)
[2021-03-23] MEDS ORDERED: NAPROXEN 250 MG TAB PO SCH (09:00)
[2021-03-23] MEDS ORDERED: buPROPion **XL** TABLET 150MG (WELLBUTRIN XL) PO SCH (09:00)
[2021-03-23] MEDS ORDERED: NAPR-849 PO (09:05)
[2021-03-23] MEDS ORDERED: ASPI-551 PO (09:05)
[2021-03-23] MEDS ORDERED: MORP15TASA PO (09:05)
[2021-03-23] MEDS ORDERED: OXYC-517 PO (09:05)
[2021-03-23] MEDS ORDERED: DOK1CAP7 PO (09:11)
[2021-03-23] MEDS ORDERED: SENN18TA PO (09:11)
[2021-03-23] MEDS ORDERED: ASCO50TA PO (09:11)
[2021-03-23] MEDS ORDERED: NAPR500T6 PO (09:23)
[2021-03-23 10:00] VITALS: BP 131/74
--- NOTE | 2021-03-23 10:13 | DSES ---
DISCHARGE SUMMARY DATE OF ADMISSION: 03/22/2021 DATE OF DISCHARGE: 03/23/2021 ORTHOPEDIC SURGEON: Dr. Cheung. PROCEDURE: Revision right head acetabular component and minor with excision and revision of scar and transosseous tendon repair 03/22/2021. 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 DISCHARGE MEDICATIONS: 1. Ascorbic acid 500 daily. 2. Aspirin 81 b.i.d. 3. Colace 100 b.i.d. 4. Morphine Extended Release 30 mg q.h.s. 5. Naprosyn 500 mg daily. 6. Oxycodone 15 mg p.o. every 6 hours as needed for severe pain. 7. Senokot two tablets daily as needed. 8. Tylenol 1 gram t.i.d. as needed. 9. Xanax 1 mg t.i.d. as needed. 10.Atenolol 50 b.i.d. 11.Baclofen 10 q.i.d. 12.Bupropion 300 daily. 13.Vitamin D two 50,000 units three times a week. 14.Lasix 40 b.i.d. 15.Hydroxyzine 50 q.i.d. as needed. 16.Ibuprofen 800 t.i.d. as needed. 17.Zofran 4 mg t.i.d. as needed. 18.Oxycodone 15 mg p.o. every 8 hours as needed for pain. 19.Protonix 40 b.i.d. 20.Paroxetine 40 daily. 21.MiraLax 17 grams daily. 22.Potassium 20 mEq b.i.d. HOSPITAL COURSE: A 51-year-old female admitted 03/22/2021 due to revision surgery right hip acetabular head, admitted to the hospitalist service postoperatively with on other acute issues overnight. Patient was evaluated by physical therapy, occupational therapy, and kept on pain medications, bowel regimen with no acute issues overnight. Perioperative management per orthopedic surgery including activity level. She was started on aspirin 81 mg b.i.d. for DVT prophylaxis. Pain was controlled with recommendations for discharge home. Patient is to follow-up with Dr. Cheung as recommended. Postop management per Dr. Cheung. PHYSICAL EXAMINATION ON DISCHARGE: VITAL SIGNS: Temperature 98.9, pulse 81, respiratory rate 18, blood pressure 123/69, 94% on room air. GENERAL: Awake, alert and oriented x3. Ambulating well with her walker unassisted. LUNGS: Clear to auscultation. No wheezing, rales or rhonchi. HEART: S1, S1, sinus rhythm. ABDOMEN: Soft, nontender, non-distended. Positive bowel sounds. EXTREMITIES: Right lower extremity with posterior tibialis pulse noted. Intact sensation. No numbness or paresthesias. LABORATORY DATA: White count 6.5, hemoglobin 9.8, hematocrit 30, platelet count 146,000. Sodium 142, potassium 4, chloride 110, bicarb 28, BUN 19, creatinine 0.67, glucose 110. MICROBIOLOGY: Right hip wound culture no organism seen, few wbc's. Hip x-ray 03/22/2021; right hip prosthesis shows good alignment. TIME SPENT ON DISCHARGE: 30 minutes. MTDD
== END 2021-03-23 12:05 | disposition home health service (06) | DRG 301 ==
LOC: M OR 06:10 → M MS5PR 13:05
PROVIDERS: ADMIT Orthopaedic Surgery Adult Reconstructive Orthopaedic Surgery; ATTEND General Practice
PROC: 0SR Lower Joints, Replacement (ICD-10-PCS; 2021-03-22)
PROC: 0LQJ0ZZ Repair Right Hip Tendon, Open Approach (ICD-10-PCS; 2021-03-22)
PROC: 0SP90JZ Removal of Synthetic Substitute from Right Hip Joint, Open Approach (ICD-10-PCS; principal; 2021-03-22 07:30)
DX: T84.020A Dislocation of internal right hip prosthesis, initial encounter (principal); J84.9 Interstitial pulmonary disease, unspecified; M32.9 Systemic lupus erythematosus, unspecified; E66.9 Obesity, unspecified; Z68.32 Body mass index [BMI] 32.0-32.9, adult; Y83.1 Surgical operation with implant of artificial internal device as the cause of abnormal reaction of the patient, or of later complication, without mention of misadventure at the time of the procedure; M79.7 Fibromyalgia; F41.9 Anxiety disorder, unspecified; F32.9 Major depressive disorder, single episode, unspecified; K21.9 Gastro-esophageal reflux disease without esophagitis; R51.9 Headache, unspecified; I10 Essential (primary) hypertension; K58.9 Irritable bowel syndrome, unspecified; F17.210 Nicotine dependence, cigarettes, uncomplicated; G89.29 Other chronic pain; M06.4 Inflammatory polyarthropathy; R73.03 Prediabetes; Z79.899 Other long term (current) drug therapy; Z88.6 Allergy status to analgesic agent; Z91.040 Latex allergy status; Z88.8 Allergy status to other drugs, medicaments and biological substances

== ENCOUNTER 2021-03-24 07:45 | Outpatient (RCR) | payer BC ==
[~2021-03-24 07:45] MED LIST changes: -ACETAMINOPHEN 500 MG TAB PO ONE; +ASCO50TA PO; +ASPI-551 PO; +DOK1CAP7 PO; -LR 1,000 ML IV ONE; +MIRA3350 PO; +MORP30TASA PO; +NAPR-849 PO; +NAPR500T6 PO; -NAPROXEN 250 MG TAB PO ONE; +OXYC-517 PO; -PREGABALIN 25 MG CAP (LYRICA) PO ONE; +SENN18TA PO; -TRANEXAMIC ACID INJection 1,000 MG in NS 60 ML IV ONE; +VITA50005 PO; -ceFAZolin SOD 2 GM in IV 1 EA IV ONE; -dexameTHASONE 4 MG/ML 1ML VIAL (J1100 PER 1MG) IV ONE
== END 2021-03-26 ==
LOC: M PT 07:45
PROVIDERS: ATTEND Orthopaedic Surgery Adult Reconstructive Orthopaedic Surgery
DX: Z96.641 Presence of right artificial hip joint (principal)

== ENCOUNTER → 2021-04-05 | Outpatient (CLI) | payer BC ==
--- NOTE | 2021-04-05 13:49 | REP ---
INDICATION: POST OP COMPARISON: None. TECHNIQUE: AP view of the pelvis with AP and frog lateral views right hip. FINDINGS: Satisfactory right hip replacement. Remainder of the osseous structures are intact and essentially age-appropriate. IMPRESSION: Satisfactory right hip replacement radiographs. <Electronically signed by Nathan Farr > 04/05/21 [id number]
== END ==
LOC: M SOG 08:08
PROVIDERS: ATTEND Orthopaedic Surgery Adult Reconstructive Orthopaedic Surgery
DX: Z96.641 Presence of right artificial hip joint (principal)

== ENCOUNTER 2021-04-22 13:45 | Outpatient (RCR) | payer BC | END 2021-04-26 | LOC: M PT 13:45 | PROVIDERS: ATTEND Orthopaedic Surgery Adult Reconstructive Orthopaedic Surgery | DX: Z96.641 Presence of right artificial hip joint (principal) ==

== ENCOUNTER → 2021-04-22 | Outpatient (CLI) | payer BC ==
--- NOTE | 2021-04-22 12:34 | REP ---
INDICATION: F/U ARTIFICIAL HIP Status post arthroplasty. COMPARISON: None. TECHNIQUE: Limited AP pelvis and neutral and/frog-lateral views of the right hip. FINDINGS: The patient is status post right hip replacement with normal positioning and appearance to the femoral and acetabular components. Visualized osseous structures are essentially age-appropriate. IMPRESSION: Normal appearance of the right hip replacement. Osseous structures are grossly unremarkable. <Electronically signed by Nathan Farr > 04/22/21 [id number]
== END ==
LOC: M SOG 08:09
PROVIDERS: ATTEND Orthopaedic Surgery Adult Reconstructive Orthopaedic Surgery
DX: Z96.641 Presence of right artificial hip joint (principal)

== ENCOUNTER → 2021-04-28 | Outpatient (CLI) | payer BC ==
--- NOTE | 2021-04-29 03:06 | ECWPNPC ---
PATIENT NAME: CONSTANCE WYMAN : 1970 GENDER: FEMALE VISIT DATE: 04/28/2021 DISCHARGE DATE: 04/28/21 1043 VISIT LOCKED DATE TIME: PHYSICIAN: KIM VELASCO RESOURCE: KIM VELASCO REASON FOR APPOINTMENT 1. MED MGMNT/UTOX HISTORY OF PRESENT ILLNESS DEPRESSION SCREENING: PHQ-9 LITTLE INTEREST OR PLEASURE IN DOING THINGSSEVERAL DAYS FEELING DOWN, DEPRESSED, OR HOPELESSSEVERAL DAYS TROUBLE FALLING OR STAYING ASLEEP, OR SLEEPING TOO MUCHNOT AT ALL FEELING TIRED OR HAVING LITTLE ENERGYNOT AT ALL POOR APPETITE OR OVEREATING NOT AT ALL FEELING BAD ABOUT YOURSELF-OR THAT YOU ARE A FAILURE OR HAVE LET YOURSELF OR YOUR FAMILY DOWN NOT AT ALL TROUBLE CONCENTRATING ON THINGS, SUCH READING THE NEWSPAPER OR WATCHING TELEVISION NEARLY EVERY DAY MOVING OR SPEAKING SO SLOWLY THAT OTHER PEOPLE COULD HAVE NOTICED. OR THE OPPOSITE- BEING SO FIDGETY OR RESTLESS THAT YOU HAVE BEEN MOVING AROUND A LOT MORE THAN USUALSEVERAL DAYS THOUGHTS THAT YOU WOULD BE BETTER OFF , OR OF HURTING YOURSELF IN SOME WAY?NOT AT ALL TOTAL SCORE:6 INTERPRETATIONMILD DEPRESSION PHQ-2 (2015 EDITION) LITTLE INTEREST OR PLEASURE IN DOING THINGS?SEVERAL DAYS FEELING DOWN, DEPRESSED, OR HOPELESS?SEVERAL DAYS TOTAL SCORE2 GENERAL: HERE FOR FOLLOW-UP OF CHRONIC LOW BACK PAIN AND RIGHT HIP PAIN. HAD RIGHT HIP REVISION 4 WEEKS AGO AND IS DOING VERY WELL. ATTENDING PHYSICAL THERAPY. USING LESS PAIN MEDICATION. WILL BE RETURNING TO WORK SHORTLY. DISCUSSED SLOWLY DECREASING AND DISCONTINUING PAIN MEDICATIONS. -. FALL RISK SCREENING: SCREENING : NO FALLS REPORTED IN THE LAST YEAR. PAIN SCREENING: PATIENT HAS A COMPLAINT OF ACUTE OR CHRONIC PAIN :YES LOCATION OF PAIN:LOW BACK, RIGHT HIP INTENSITY OF PAIN (SCALE OF 1 TO 10):1 WHAT DOES YOUR PAIN FEEL LIKE:ACHING, TENDER DURATION:CONTINOUS, CONSTANT, ALL DAY PAIN IS INCREASED BY:ACTIVITIES PAIN IS DECREASED BY:USE OF PAIN MEDICATIONS NURSING NOTE: -. PAIN CENTER INTAKE QUESTIONS: DO YOU HAVE A HISTORY OF MRSA? :NO DO YOU TAKE A BLOOD THINNERS? :NO DO YOU HAVE ANY BLEEDING DISORDERS? :NO ANY NEW NUMBNESS OR WEAKNESS IN YOUR LEGS OR ARMS? :YES PAIN GOES DOWN BOTH LEGS ANY PACEMAKER,DEFIBRILLATOR, OR DORSAL COLUMN STIMULATOR? :NO DO YOU HAVE ANY RASHES OR OPEN SORES? :NO ARE YOU ALLERGIC TO IV DYE? :NO ARE YOU DIABETIC? :NO ANY NEW PROBLEMS WITH YOUR MEDICATIONS? :NO HAVE YOU RECEIVED A VACCINE IN THE PAST 30 DAYS? :NO DO YOU PLAN TO RECEIVE A VACCINE IN THE NEXT 21 DAYS? :NO DO YOU NEED ANY PRESCRIPTION? :YES OXYCODONE, SOMA DO YOU TAKE ANY IMMUNOSUPPRESSIVE MEDICATIONS? :NO IS THERE A CHANCE YOU COULD BE ? :NO ARE YOU BREAST FEEDING? :NO CURRENT MEDICATIONS TAKING LASIX 40 MG TABLET 1 TABLET ORALLY BID TAKING POTASSIUM CHLORIDE 20 MG CAPSULE EXTENDED RELEASE 1 CAPSULE WITH FOOD ORALLY TWICE A DAY TAKING WELLBUTRIN XL 300 MG TABLET EXTENDED RELEASE 24 HOUR 1 TABLET IN THE MORNING ORALLY ONCE A DAY TAKING PAXIL 30 MG TABLET 1 TABLET IN THE MORNING ORALLY ONCE A DAY TAKING XANAX 1 MG TABLET 1 TABLET ORALLY THREE TIMES DAILY NEEDED TAKING ATENOLOL 50 MG TABLET 1 TABLET ORALLY TWICE DAILY TAKING PROBIOTIC - TABLET DELAYED RELEASE 1 CAPSULE ORALLY DAILY TAKING MORPHINE SULFATE ER 30 MG CAPSULE EXTENDED RELEASE 24 HOUR 1 TABLET ORALLY MDD 1 DAILY TAKING OXYCODONE HCL 15 MG TABLET 1 TABLET ORALLY EVERY 8 HOURS NEEDED FOR PAIN MDD 3 TAKING SOMA 350 MG TABLET 1 TABLET NEEDED ORALLY 3X DAILY PRN MDD3 TAKING KETOROLAC TROMETHAMINE 10 MG TABLET 1 TABLET WITH FOOD OR MILK NEEDED ORALLY FOUR TIMES A DAY NEEDED TAKING ASPIR-LOW 81 MG TABLET DELAYED RELEASE 1 TABLET ORALLY TWICE A DAY NOT-TAKING BACLOFEN 10 MG TABLET 1 TABLET ORALLY Q6H 4X DAILY NOT-TAKING PREDNISOLONE 5 MG TABLET 1 TABLET IN THE MORNING WITH FOOD OR MILK ORALLY 60MG ONCE A DAY, NOTES: START 02/03/2021 NOT-TAKING SOMA 350 MG TABLET 1 TABLET NEEDED ORALLY AT BED TIME NOT-TAKING MS CONTIN 30 MG TABLET EXTENDED RELEASE 1 TABLET ORALLY BEFORE BEDTIME NOT-TAKING TEMAZEPAM 30 MG CAPSULE 1 CAPSULE AT BEDTIME NEEDED ORALLY BEFORE BEDTIME NEEDED FOR SLEEP NOT-TAKING PREDNISONE 20 MG TABLET 1 TABLET ORALLY DAILY, NOTES: 1 WEEK NOT-TAKING KETOROLAC TROMETHAMINE 10 MG TABLET 1 TABLET WITH FOOD OR MILK NEEDED ORALLY EVERY 6 HRS NOT-TAKING LEVAQUIN 750 MG TABLET 1 TABLET ORALLY ONCE A DAY NOT-TAKING KETOROLAC TROMETHAMINE 10 MG TABLET 1 TABLET WITH FOOD OR MILK NEEDED ORALLY EVERY 6 HRS NOT-TAKING MOVANTIK 25 MG TABLET 1 TABLET IN THE MORNING ORALLY ONCE A DAY NOT-TAKING AMOXICILLIN 875 MG TABLET 1 TABLET ORALLY EVERY 12 HRS, NOTES: 10 DAYS NOT-TAKING MEDROL 4 MG TABLET THERAPY PACK DIRECTED ORALLY DIRECTED NOT-TAKING BUSPAR 15 MG ORALLY TWICE A DAY NOT-TAKING VALIUM 10 MG TABLET 1 TABLET NEEDED ORALLY PRN MDD1 #10 TAB SHOULD LAST 30 DAYS NOT-TAKING NORTRIPTYLINE HCL 10 MG CAPSULE 3 CAPSULE= 30 MG ORALLY ONCE A DAY NOT-TAKING METHOTREXATE 8 TABS OF 2.5MG ORAL WEEKLY NOT-TAKING LYRICA 200 MG CAPSULE 1 CAPSULE ORALLY TID MDD3 NOT-TAKING FENTANYL 75 MCG/HR PATCH 72 HOUR 1 PATCH TO SKIN TRANSDERMAL 1 PATCH R51Q=WWS MEDICATION LIST REVIEWED AND RECONCILED WITH THE PATIENT PAST MEDICAL HISTORY FIBROMYALGIA LUPUS INTERSTITIAL LUNG DISEASE INFLAMMATORY ARTHRITIS BROKEN RIGHT SHOULDER CHRONIC BACK PAIN BRONCHITIS/SINUSITIS SINUS KESHIA ON EKG PNEUMONIA LOW BACK PAIN ALLERGIES MOBIC: AGGRESIVE - SIDE EFFECTS NEURONTIN: AGGRESIVE - SIDE EFFECTS IMURAN: NAUSEA/VOMITING - SIDE EFFECTS SURGICAL HISTORY L4-5 LAMINECTOMY LOWER BACK SURGERY (DR. VALENCIA) 08/2016 APPENDECTOMY 1983 ABDOMINAL ADHESION SURGERY LUNG BIOPSY RIGHT HIP REPLACEMENT 12/2018 RIGHT HIP SURG REPLACEMENT 03/22/2021 SOCIAL HISTORY GENERAL: TOBACCO USE ARE YOU A:CURRENT SMOKER ARE YOU INTERESTED IN QUITTING?THINKING ABOUT QUITTING COUNSELED THE PATIENT ON SMOKING CESSATION, EDUCATION [id number]/02/2021 HOW MANY CIGARETTES A DAY DO YOU SMOKE?5 OR LESS PATIENT COUNSELED ON THE DANGERS OF TOBACCO USE AND URGED TO QUIT:11/30/2020 VAPORYES E-CIGARETTENO LATEX QUESTIONNAIRE LATEX ALLERGY : HAVE YOU EVER DEVELOPED ANY TYPE OF REACTION AFTER HANDLING LATEX PRODUCTS SUCH RUBBER GLOVES, CONDOMS, DIAPHRAGMS, BALLOONS, SOCKS, OR UNDERWEAR?YES - PLEASE INDICATE :RUBBER GLOVES HANDS GET RED LATEX ALLERGY : HAVE YOU EVER DEVELOPED ANY TYPE OF REACTION DURING OR AFTER DENTAL APPOINTMENT, VAGINAL/RECTAL EXAMINATION, SURGICAL PROCEDURE, OR ANY OTHER EXPOSURE?NO LATEX RISK : HAVE YOU EVER HAD ANY DIFFICULTY BREATHING OR HIVES AFTER EATING OR HANDLING ANY FRUITS, OR VEGETABLES; SUCH KIWI, BANANAS, STONE FRUITS, OR CHESTNUTSNO LATEX RISK : DO YOU HAVE A PREVIOUS PERSONAL HISTORY OF MORE THAN NINE SURGERIES, SPINA BIFIDA, OR REPEATED CATHERIZATIONS? NO LATEX RISK : ARE YOU FREQUENTLY EXPOSED TO LATEX PRODUCTS IN YOUR OCCUPATION?NO DATE ASKED : 04/28/2021 ALCOHOL USE: NO. LUNG CANCER SCREENING SMOKING STATUS:CURRENT SMOKER IS THE PATIENT BETWEEN THE AGE OF 55 AND 77?NO ALCOHOL SCREENING DID YOU HAVE A DRINK CONTAINING ALCOHOL IN THE PAST YEAR?NO POINTS0 INTERPRETATIONNEGATIVE RECREATIONAL DRUG USE DRUG USE?NO PATIENT DENIES ABUSE OR MISSUSED OF ANY MEDICATION. PATIENT DENIES USE OF ANY ILLEGAL SUBSTANCE INCLUDING MARIJUANA OR COCAINE. CAFFEINE CAFFEINE USE?YES HOW OFTEN AND HOW MUCH? 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 HCP INFORMATION GIVEN TO AND HELP OFFERED IN COMPLETING IF NEEDED. DECLINED AT THIS TIME. HOSPITALIZATION/MAJOR DIAGNOSTIC PROCEDURE LUPUS BACK PAIN SURGERY ER ON SEPTEMBER 19 AND ER VISIT: BACK 11/15 RIGHT HIP SURG REPLACEMENT 03/22/2021 REVIEW OF SYSTEMS CONSTITUTIONAL: ANY RECENT FEVER NO . CHILLS NO . WEIGHT CHANGE OF UNKNOWN REASONS NO . GASTROENTEROLOGY: NEW UNEXPLAINABLE CHANGES IN BOWEL CONTROL NO . CONSTIPATION NO . GENITOURINARY: ANY NEW CHANGE IN BLADDER CONTROL? NO . NEUROLOGY: NEW ONSET DIZZINESS OR NEUROLOGICAL CHANGES NOT MENTIONED NO . NEW NUMBNESS OR PAIN PATTERNS NOT MENTIONED AND PERTINENT TO TODAY'S VISIT NO . CARDIOLOGY: NEW CHEST PRESSURE NO . PATIENT DENIES NO . RESPIRATORY: UNEXPLAINABLE COUGH NO . NEW SHORTNESS OF BREATH NO . VITAL SIGNS WT 201.2 LBS, HT 65 IN, BMI 33.48 INDEX, BP 140/77 MM HG, HR 66 /MIN, RR 18 /MIN, TEMP 95.6 F, OXYGEN SAT % 99%, SAFE IN ENV? (Y/N) YES, NA INITIALS SC 10:09T.JORDY, PATIENT STATED THAT SHE HAS TAKEN HER MEDICATION YET. EXAMINATION GENERAL EXAMINATION: GENERALAWAKE,ALERT ,PLEASANT . PSYCHAFFECT NORMAL . LUNGS:LUNG PAN ARE CLEAR TO AUSCULTATION BILATERALLY. GOOD MOVEMENT OF AIR . HEART:S1, S2 IN A REGULAR RATE AND RHYTHM. NO SIGNIFICANT MURMURS, RUBS OR GALLOPS NOTED . ASSESSMENTS CHRONIC PRESCRIPTION OPIATE USE - Z79.891 (PRIMARY) INTERVERTEBRAL DISC DISORDERS WITH RADICULOPATHY, LUMBAR REGION - M51.16 TREATMENT CHRONIC PRESCRIPTION OPIATE USE LAB: URINE TEST GROUP JASON SPENCE 04/28/2021 10:40:14 AM > LAST DOSE: SOMA 04/28/2021 @6AM, MORPHINE 04/25/2021@10PM,OXYCODONE 04/28/2021 @6AM, XANAX 04/28/2021 @7AM NOTES: PATIENT WILL CONTINUE TO REDUCE NARCOTIC PAIN MEDICATIONS WE DISCUSSED TODAY. FOLLOW-UP IS SCHEDULED IN 2 MONTHS. , ISTOP REGISTRY REVIEWED AND DEMONSTRATES COMPLLIANCE. BRINGS IN MEDICATIONS WHICH IS APPROPRIATE FOR WHAT WAS DISPENSED. RECENT URINE TOXICOLOGY REVIEWED. NO UNAUTHORIZED MEDICATIONS. NO ILLICIT SUBSTANCES AND PRESCRIBED MEDICATIONS WERE PRESENT. PROCEDURE CODES FA211 ESTABILISHED PATIENT [facility] CHARGE DISPOSITION & COMMUNICATION FOLLOW UP 2 MONTHS (REASON: REVIEW URINE TOX/MED MGMNT) ELECTRONICALLY SIGNED BY GABE WELLS ON 04/28/2021 AT 01:31 PM EDT DISCLAIMER : THIS IS A VISIT SUMMARY EXTRACTED FROM THE [email or web address] CHART. IT IS NOT A COPY OF THE [email or web address] PROGRESS NOTE. CHRISTOFER
== END ==
LOC: M PAIN 10:00
PROVIDERS: ATTEND Nurse Practitioner Family
DX: M51.16 Intervertebral disc disorders with radiculopathy, lumbar region (principal); M79.7 Fibromyalgia; L93.0 Discoid lupus erythematosus; M54.5 Low back pain; J84.9 Interstitial pulmonary disease, unspecified; F17.210 Nicotine dependence, cigarettes, uncomplicated; Z79.891 Long term (current) use of opiate analgesic; Z79.82 Long term (current) use of aspirin; Z79.899 Other long term (current) drug therapy; Z88.8 Allergy status to other drugs, medicaments and biological substances; Z88.6 Allergy status to analgesic agent

== ENCOUNTER 2021-05-09 16:16 | Emergency (ER) | payer BC ==
[~2021-05-09] VITALS: Ht 165.1 cm; Wt 90.5 kg
[2021-05-09] MEDS ORDERED: SOMA250T PO (16:25)
[2021-05-09] MEDS ORDERED: MORPHINE 4 MG/ML 1ML VIAL/SYRINGE (J2270) IV ONE (17:35)
--- NOTE | 2021-05-09 17:51 | REP ---
INDICATION: DYSPNEA/COUGH. COMPARISON: Comparison chest x-ray December 14, 2020. TECHNIQUE: Portable upright AP chest radiograph. FINDINGS: There are linear densities in the bases bilaterally consistent with platelike atelectasis and or fibrosis. This is more prominent than on the prior study. No focal infiltrate is seen. Pleural angles are sharp. Left hemidiaphragm is slightly elevated. The heart is not enlarged. Pulmonary vasculature is not increased.. IMPRESSION: Bibasilar linear densities consistent with platelike atelectasis and/or fibrosis. No focal infiltrate is appreciated.. <Electronically signed by Juan Camara > 05/09/21 [id number]
[2021-05-09 18:06] LABS: HEMATOCRIT 37.7 % (36.0-47.0); MEAN CORPUSCULAR HEMOGLOBIN 28.1 pg (27.0-33.0); MEAN CORPUSCULAR HGB CONC 31.8 g/dl (32.0-36.5); MEAN CORPUSCULAR VOLUME 88.3 fl (80.0-96.0); PLATELET COUNT, AUTOMATED 238 10^3/uL (150-450); RED BLOOD COUNT 4.27 10^6/uL (4.00-5.40)
[2021-05-09 18:20] LABS: ATYPICAL LYMPH 7 % (0-5); EOSINOPHILS 6 % (0-3); LYMPHOCYTES 38 % (16-44); MONOCYTES 5 % (0-5); NEUTROPHILS 44 % (28-66); PLATELET ESTIMATE NORMAL (NORMAL)
[2021-05-09 18:21] LABS: PLATELET CLUMPS SMALL AMT
[2021-05-09 18:37] LABS: ALBUMIN 3.7 GM/DL (3.2-5.2); ALT/SGPT 19 U/L (12-78); BILIRUBIN,DIRECT < 0.1 MG/DL (0.0-0.2); BILIRUBIN,TOTAL 0.3 MG/DL (0.2-1.0); CK-MB VALUE MASS < 1.0 NG/ML (<3.6); CPK CREATINE PHOSPHOKINASE 66 U/L (26-192); MB/CK RELATIVE INDEX 1.52 (< OR =4); NT-PRO BNP 124 PG/ML (<125); THYROXINE (T4) 7.4 UG/DL (4.5-12.0); TOTAL PROTEIN 6.8 GM/DL (6.4-8.2); TROPONIN I < 0.02 NG/ML (< 0.10)
[2021-05-09] MEDS ORDERED: ISOVUE-370 76% 100ML VIAL As Ordered ONE (18:59)
--- NOTE | 2021-05-09 20:18 | REPVR ---
PROCEDURE INFORMATION: Exam: CTA Chest With Contrast Exam date and time: 05/09/2021 7:23 PM Age: 51 years old Clinical indication: Chest wall pain; Prior surgery; Surgery date: 1-6 months; Surgery type: Hip six weeks ago; Additional info: Right sided chest pain with SOB; R/O pe TECHNIQUE: Imaging protocol: Computed tomographic angiography of the chest with contrast. 3D rendering (Not supervised by radiologist): MIP and/or 3D reconstructed images were created by the technologist. Radiation optimization: All CT scans at this facility use at least one of these dose optimization techniques: automated exposure control; mA and/or kV adjustment per patient size (includes targeted exams where dose is matched to clinical indication); or iterative reconstruction. Contrast material: ISOVUE 370; Contrast volume: 75 ml; Contrast route: INTRAVENOUS (IV); COMPARISON: CT ANGIO CHEST 11/21/2019 8:08 AM FINDINGS: Pulmonary arteries: There are no pulmonary emboli. Aorta: There is no aortic dissection or aneurysm. Lungs: Right middle and lower lobe atelectasis. 3 mm calcified granuloma right middle lobe. Bibasilar atelectasis and/or fibrotic changes. Pleural spaces: Unremarkable. No pneumothorax. No pleural effusion. Heart: Unremarkable. No cardiomegaly. No pericardial effusion. Lymph nodes: Unremarkable. No enlarged lymph nodes. Bones/joints: Unremarkable. No acute fracture. Soft tissues: Unremarkable. IMPRESSION: 1. There is no aortic dissection or aneurysm. 2. There are no pulmonary emboli. 3. No acute pulmonary infiltrates. 4. Findings consistent with remote intrathoracic granulomatous infection. Electronically signed by: Alden Leray On 05/09/2021 20:18:00 PM
[2021-05-09 20:46] VITALS: BP 129/68
--- NOTE | 2021-05-10 16:56 | ECGEPIP ---
[facility] - ED Test Date: 2021-05-09 Pat Name: CONSTANCE WYMAN Department: Room: - Gender: Female Insecticide Supervisor: KATHERYN : 1970 Requested By: aCt Edward Order Number: [id number] Reading MD: Cat Edward Measurements Intervals Boody Rate: 67 P: 39 CA: 118 QRS: 50 QRSD: 84 T: 37 QT: 388 QTc: 409 Interpretive Statements Normal sinus rhythm similar 03/22/21 Electronically Signed on 05-10-2021 16:56:36 EDT by Cat Edward
== END 2021-05-09 20:55 | disposition home or self-care (01) ==
LOC: M ED 16:16
DX: J98.11 Atelectasis (principal); I10 Essential (primary) hypertension; J44.9 Chronic obstructive pulmonary disease, unspecified; K21.9 Gastro-esophageal reflux disease without esophagitis; M32.9 Systemic lupus erythematosus, unspecified; Z79.899 Other long term (current) drug therapy; Z79.82 Long term (current) use of aspirin; Z88.8 Allergy status to other drugs, medicaments and biological substances; Z91.040 Latex allergy status
CPT/HCPCS: 71045; 71275; 80047; 80076; 82550; 82553; 83880; 84436; 84443; 84484; 85025; 93005; 93041; 94760; 96374; 99285; J2270; Q9967

== ENCOUNTER 2021-05-19 11:30 | Outpatient (RCR) | payer BC ==
[~2021-05-19 11:30] MED LIST changes: +ERGO500029 PO; +SOMA250T PO; -VITA50005 PO
== END 2021-05-26 ==
LOC: M PT 11:30
PROVIDERS: ATTEND Orthopaedic Surgery Adult Reconstructive Orthopaedic Surgery
DX: Z96.641 Presence of right artificial hip joint (principal)

== ENCOUNTER → 2021-06-08 | Outpatient (CLI) | payer BC, SELFPAY ==
[~2021-06-08] MED LIST changes: +DOK1CAP4 PO; -DOK1CAP7 PO; -DOXY100C PO; +DOXY100C3 PO; -FLUC150T PO; +FLUC150T9 PO; +POTA-151 PO; -POTA20TA6 PO
== END ==
LOC: M SOG 14:40
PROVIDERS: ATTEND Orthopaedic Surgery Adult Reconstructive Orthopaedic Surgery
DX: M25.551 Pain in right hip (principal)

== ENCOUNTER → 2021-07-08 | Outpatient (CLI) | payer BC ==
[~2021-07-08] MED LIST changes: +FLUC150T PO; -FLUC150T9 PO; -POTA-151 PO; +POTA20TA6 PO
== END ==
LOC: M SOG 08:07
PROVIDERS: ATTEND Orthopaedic Surgery Adult Reconstructive Orthopaedic Surgery
DX: Z96.641 Presence of right artificial hip joint (principal)

== ENCOUNTER → 2021-10-13 | Outpatient (CLI) | payer OTHER, SELFPAY | LOC: M PAIN 14:30 | PROVIDERS: ATTEND Anesthesiology | DX: M96.1 Postlaminectomy syndrome, not elsewhere classified (principal); M51.16 Intervertebral disc disorders with radiculopathy, lumbar region; M79.604 Pain in right leg; M79.7 Fibromyalgia; L93.0 Discoid lupus erythematosus; J84.9 Interstitial pulmonary disease, unspecified; M54.50 Low back pain, unspecified; Z79.891 Long term (current) use of opiate analgesic; Z87.891 Personal history of nicotine dependence; Z79.82 Long term (current) use of aspirin; Z79.899 Other long term (current) drug therapy; Z88.6 Allergy status to analgesic agent; Z88.8 Allergy status to other drugs, medicaments and biological substances ==

== ENCOUNTER → 2021-12-20 | Outpatient (CLI) | payer SELFPAY ==
[~2021-12-20] MED LIST changes: +POTA-151 PO; -POTA20TA6 PO
== END ==
LOC: M LABSMTC 11:36
PROVIDERS: ATTEND Family Medicine
DX: Z20.822 Contact with and (suspected) exposure to COVID-19 (principal)

== ENCOUNTER → 2021-12-24 | Outpatient (CLI) | payer BC, SELFPAY ==
[~2021-12-24] MED LIST changes: -FLUC150T PO; +FLUC150T9 PO
== END ==
LOC: M SOG 08:27
PROVIDERS: ATTEND Orthopaedic Surgery Adult Reconstructive Orthopaedic Surgery
DX: Z96.641 Presence of right artificial hip joint (principal); G57.01 Lesion of sciatic nerve, right lower limb

== ENCOUNTER → 2022-01-20 | Outpatient (CLI) | payer BC | LOC: M PAIN 10:45 | PROVIDERS: ATTEND Nurse Practitioner Family | DX: M96.1 Postlaminectomy syndrome, not elsewhere classified (principal); M79.7 Fibromyalgia; L93.0 Discoid lupus erythematosus; J84.9 Interstitial pulmonary disease, unspecified; M54.50 Low back pain, unspecified; Z87.891 Personal history of nicotine dependence; Z79.82 Long term (current) use of aspirin; Z79.891 Long term (current) use of opiate analgesic; Z79.899 Other long term (current) drug therapy; Z88.6 Allergy status to analgesic agent; Z88.8 Allergy status to other drugs, medicaments and biological substances ==

== ENCOUNTER → 2022-01-26 | Outpatient (CLI) | payer BC | LOC: M PAIN 09:45 | PROVIDERS: ATTEND Nurse Practitioner Family | DX: M96.1 Postlaminectomy syndrome, not elsewhere classified (principal); M79.7 Fibromyalgia; L93.0 Discoid lupus erythematosus; J84.9 Interstitial pulmonary disease, unspecified; M54.50 Low back pain, unspecified; Z87.891 Personal history of nicotine dependence; Z79.891 Long term (current) use of opiate analgesic; Z79.82 Long term (current) use of aspirin; Z79.899 Other long term (current) drug therapy; Z88.6 Allergy status to analgesic agent; Z88.8 Allergy status to other drugs, medicaments and biological substances ==

== ENCOUNTER → 2022-02-03 | Outpatient (CLI) | payer BC ==
[2022-02-03 13:24] LABS: BASO # 0.1 10^3/uL (0.0-0.2); EOS # 0.3 10^3/uL (0.0-0.5); EOS % 4.6 % (0.0-3.0); HEMOGLOBIN 12.5 g/dl (12.0-15.5); LYMPH # 1.9 10^3/uL (1.5-5.0); LYMPH % 31.7 % (24.0-44.0); MEAN CORPUSCULAR HEMOGLOBIN 28.7 pg (27.0-33.0); MEAN CORPUSCULAR HGB CONC 32.9 g/dl (32.0-36.5); MEAN CORPUSCULAR VOLUME 87.4 fl (80.0-96.0); MONO # 0.4 10^3/uL (0.0-0.8); MONO % 6.1 % (2.0-8.0); NEUTROPHILS # 3.3 10^3/uL (1.5-8.5); NEUTROPHILS % 56.4 % (36.0-66.0); PLATELET COUNT, AUTOMATED 231 10^3/uL (150-450); RED BLOOD COUNT 4.35 10^6/uL (4.00-5.40); WHITE BLOOD COUNT 5.9 10^3/uL (4.0-10.0)
[2022-02-03 14:03] LABS: ERYTHROCYTE SEDIMENTATION RATE 10 mm/hr (0-30)
== END ==
LOC: M LAB 12:25
PROVIDERS: ATTEND Orthopaedic Surgery
DX: Z96.641 Presence of right artificial hip joint (principal)

== ENCOUNTER → 2022-02-03 | Outpatient (CLI) | payer BC ==
[2022-02-05 04:08] LABS: MUMPS VIRUS IgG ANTIBODY 11.5 AU/mL (Immune >10.9); RUBEOLA IgG ANTIBODY 57.8 AU/mL (Immune >16.4)
== END ==
LOC: M LAB 12:21
DX: Z01.84 Encounter for antibody response examination (principal)

== ENCOUNTER → 2022-06-15 | Outpatient (CLI) | payer OTHER ==
[~2022-06-15] MED LIST changes: +LEVO1TAB40 PO; -LEVO750T13 PO
== END ==
LOC: M PAIN 14:30
PROVIDERS: ATTEND Nurse Practitioner Family
DX: M96.1 Postlaminectomy syndrome, not elsewhere classified (principal); M79.7 Fibromyalgia; L93.0 Discoid lupus erythematosus; J84.9 Interstitial pulmonary disease, unspecified; M19.90 Unspecified osteoarthritis, unspecified site; M54.50 Low back pain, unspecified; R00.1 Bradycardia, unspecified; Z87.891 Personal history of nicotine dependence; Z79.891 Long term (current) use of opiate analgesic; Z79.82 Long term (current) use of aspirin; Z79.899 Other long term (current) drug therapy; Z88.6 Allergy status to analgesic agent; Z88.8 Allergy status to other drugs, medicaments and biological substances

== ENCOUNTER → 2022-10-18 | Outpatient (CLI) | payer BC | LOC: M PAIN 08:45 | PROVIDERS: ATTEND Nurse Practitioner Family | DX: M96.1 Postlaminectomy syndrome, not elsewhere classified (principal); M79.7 Fibromyalgia; L93.0 Discoid lupus erythematosus; J84.9 Interstitial pulmonary disease, unspecified; M12.80 Other specific arthropathies, not elsewhere classified, unspecified site; M54.50 Low back pain, unspecified; Z87.440 Personal history of urinary (tract) infections; Z87.891 Personal history of nicotine dependence; Z79.82 Long term (current) use of aspirin; Z79.891 Long term (current) use of opiate analgesic; Z79.899 Other long term (current) drug therapy; Z88.6 Allergy status to analgesic agent; Z88.8 Allergy status to other drugs, medicaments and biological substances ==

== ENCOUNTER → 2022-10-25 | Outpatient (CLI) | payer BC | LOC: M PAIN 16:15 | PROVIDERS: ATTEND Anesthesiology | DX: M96.1 Postlaminectomy syndrome, not elsewhere classified (principal); M79.7 Fibromyalgia; L93.0 Discoid lupus erythematosus; J84.9 Interstitial pulmonary disease, unspecified; M54.50 Low back pain, unspecified; Z87.891 Personal history of nicotine dependence; Z79.82 Long term (current) use of aspirin; Z79.891 Long term (current) use of opiate analgesic; Z79.899 Other long term (current) drug therapy; Z88.6 Allergy status to analgesic agent; Z88.8 Allergy status to other drugs, medicaments and biological substances ==

== ENCOUNTER → 2022-11-08 | Outpatient (CLI) | payer BC ==
[~2022-11-08] MED LIST changes: -PAXI30TA11 PO; +PAXI30TA12 PO
== END ==
LOC: M PAIN 08:00
PROVIDERS: ATTEND Anesthesiology
DX: M96.1 Postlaminectomy syndrome, not elsewhere classified (principal); M51.16 Intervertebral disc disorders with radiculopathy, lumbar region; M79.7 Fibromyalgia; L93.0 Discoid lupus erythematosus; J84.9 Interstitial pulmonary disease, unspecified; Z87.891 Personal history of nicotine dependence; Z79.891 Long term (current) use of opiate analgesic; Z79.899 Other long term (current) drug therapy; Z88.1 Allergy status to other antibiotic agents; Z88.8 Allergy status to other drugs, medicaments and biological substances
CPT/HCPCS: 76000; G0463

== ENCOUNTER 2022-11-23 06:06 | Emergency (ER) | payer BC ==
[~2022-11-23] VITALS: Ht 165.1 cm; Wt 86.4 kg
[2022-11-23 06:33] LABS: BASO % 0.5 % (0.0-1.0); EOS % 0.3 % (0.0-3.0); HEMATOCRIT 42.1 % (36.0-47.0); HEMOGLOBIN 13.8 g/dl (12.0-15.5); LYMPH # 1.9 10^3/uL (1.5-5.0); LYMPH % 23.3 % (24.0-44.0); MEAN CORPUSCULAR HEMOGLOBIN 30.3 pg (27.0-33.0); MEAN CORPUSCULAR HGB CONC 32.8 g/dl (32.0-36.5); MEAN CORPUSCULAR VOLUME 92.5 fl (80.0-96.0); MONO # 0.5 10^3/uL (0.0-0.8); NEUTROPHILS # 5.6 10^3/uL (1.5-8.5); NEUTROPHILS % 69.5 % (36.0-66.0); PLATELET COUNT, AUTOMATED 292 10^3/uL (150-450); RED BLOOD COUNT 4.55 10^6/uL (4.00-5.40)
[2022-11-23 07:05] LABS: LIPASE 27 U/L (12-53)
[2022-11-23 07:07] LABS: BILIRUBIN,DIRECT < 0.1 MG/DL (<0.4)
[2022-11-23 07:08] LABS: ALBUMIN 4.1 G/DL (3.2-5.2); ALKALINE PHOSPHATASE 78 U/L (46-116); ALT/SGPT 20 U/L (7.0-40); AST/SGOT 15 U/L (<34); BILIRUBIN,TOTAL 0.3 MG/DL (0.3-1.2); BLOOD UREA NITROGEN 21 MG/DL (9-23); CALCIUM LEVEL 9.3 MG/DL (8.5-10.1); CARBON DIOXIDE LEVEL 22 MMOL/L (20-31); CHLORIDE LEVEL 108 MMOL/L (98-107); CREATININE FOR GFR 0.67 MG/DL (0.55-1.30); GLOMERULAR FILTRATION RATE > 60.0 (>51); GLUCOSE, FASTING 106 MG/DL (60-100); POTASSIUM SERUM 4.2 MMOL/L (3.5-5.1); SODIUM LEVEL 141 MMOL/L (136-145)
[2022-11-23] MEDS ORDERED: predniSONE 20 MG TAB PO ONE (07:55)
[2022-11-23] MEDS: IPRATROPIUM 0.5MG/ALBUTEROL 2.5MG INH SOL UD 3ML (DUONEB) NEB SCH ×2 (08:30→08:54)
[2022-11-23 09:56] VITALS: BP 158/84
[2022-11-23] MEDS ORDERED: PRED20TA PO (10:00)
[2022-11-23] MEDS ORDERED: VENTAER INH (10:00)
== END 2022-11-23 10:18 | disposition home or self-care (01) ==
LOC: M ED 06:06
DX: J98.01 Acute bronchospasm (principal); M35.9 Systemic involvement of connective tissue, unspecified; J84.170 Interstitial lung disease with progressive fibrotic phenotype in diseases classified elsewhere; I10 Essential (primary) hypertension; K58.9 Irritable bowel syndrome, unspecified; M79.7 Fibromyalgia; G89.29 Other chronic pain; M54.9 Dorsalgia, unspecified; Z88.8 Allergy status to other drugs, medicaments and biological substances; Z91.040 Latex allergy status; Z79.51 Long term (current) use of inhaled steroids; Z79.899 Other long term (current) drug therapy; Z79.82 Long term (current) use of aspirin
CPT/HCPCS: 36415; 71046; 80048; 80076; 83690; 85025; 94640; 99284; J7512

== ENCOUNTER 2023-01-16 09:46 | Emergency (ER) | payer BC ==
[~2023-01-16] VITALS: Ht 165.1 cm; Wt 86.4 kg
[~2023-01-16 09:46] MED LIST changes: +VENTAER INH
[2023-01-16] MEDS ORDERED: atenoloL 50 MG TAB PO ONE (10:00)
[2023-01-16] MEDS ORDERED: ACETAMINOPHEN 500 MG TAB PO ONE (10:00)
[2023-01-16 10:19] VITALS: BP 184/86
[2023-01-16 11:03] LABS: BLOOD UREA NITROGEN 14 MG/DL (9-23); CARBON DIOXIDE LEVEL 26 MMOL/L (20-31); CHLORIDE LEVEL 108 MMOL/L (98-107); CREATININE FOR GFR 0.62 MG/DL (0.55-1.30); GLOMERULAR FILTRATION RATE > 60.0 (>51); GLUCOSE, FASTING 100 MG/DL (60-100); SODIUM LEVEL 141 MMOL/L (136-145)
[2023-01-16] MEDS ORDERED: MORPHINE 15 MG SA TAB PO ONE (11:05)
[2023-01-16] MEDS ORDERED: ATEN50TA2 PO (11:07)
[2023-01-16 11:16] VITALS: BP 175/99
[2023-01-17] MEDS ORDERED: CARI1TAB7 PO (14:45)
[2023-01-17] MEDS ORDERED: TIZA10TA PO (14:45)
[2023-01-17] MEDS ORDERED: GABA-282 PO (14:45)
[2023-01-17] MEDS ORDERED: MORP15TA2 PO (14:45)
[2023-01-17] MEDS ORDERED: LOSA25TA13 PO (15:44)
[2023-01-17] MEDS ORDERED: ROSU20TA5 PO (15:44)
[2023-01-17] MEDS ORDERED: CLOP75TA99 PO (15:44)
[2023-01-17] MEDS ORDERED: ALPR2TAB3 PO (15:44)
[2023-01-17] MEDS ORDERED: SERT50TA29 PO (15:44)
[2023-01-17] MEDS ORDERED: CHLO125TA PO (15:44)
[2023-01-17] MEDS ORDERED: TOPI25CA5 PO (15:44)
== END 2023-01-16 11:30 | disposition home or self-care (01) ==
LOC: EDBD 09:46 → M ED 09:46
DX: I10 Essential (primary) hypertension (principal); R51.9 Headache, unspecified; M32.9 Systemic lupus erythematosus, unspecified; J84.9 Interstitial pulmonary disease, unspecified; G89.29 Other chronic pain; M54.50 Low back pain, unspecified; M79.7 Fibromyalgia; Z87.891 Personal history of nicotine dependence; Z88.8 Allergy status to other drugs, medicaments and biological substances; Z91.040 Latex allergy status; Z79.51 Long term (current) use of inhaled steroids; Z79.899 Other long term (current) drug therapy

== ENCOUNTER 2023-01-17 06:12 | Emergency (ER) | payer BC ==
[~2023-01-17] VITALS: Ht 165.1 cm; Wt 86.4 kg
[2023-01-17] MEDS ORDERED: ACETAMINOPHEN 500 MG TAB PO ONE (08:45)
[2023-01-17] MEDS ORDERED: diphenhydrAMINE 50MG/ML VIAL IV ONE (08:45)
[2023-01-17] MEDS ORDERED: METOCLOPRAMIDE INJ 10MG/2ML VIAL IV ONE (08:45)
[2023-01-17] MEDS ORDERED: NS 1,000 ML IV ONE (08:45)
[2023-01-17 09:23] LABS: BASO # 0.1 10^3/uL (0.0-0.2); BASO % 0.8 % (0.0-1.0); EOS # 0.2 10^3/uL (0.0-0.5); EOS % 3.6 % (0.0-3.0); HEMATOCRIT 43.2 % (36.0-47.0); LYMPH # 1.4 10^3/uL (1.5-5.0); LYMPH % 20.5 % (24.0-44.0); MEAN CORPUSCULAR HGB CONC 32.4 g/dl (32.0-36.5); MEAN CORPUSCULAR VOLUME 92.5 fl (80.0-96.0); MONO # 0.4 10^3/uL (0.0-0.8); MONO % 5.3 % (2.0-8.0); NEUTROPHILS # 4.6 10^3/uL (1.5-8.5); NEUTROPHILS % 69.5 % (36.0-66.0); PLATELET COUNT, AUTOMATED 265 10^3/uL (150-450); RED BLOOD COUNT 4.67 10^6/uL (4.00-5.40); WHITE BLOOD COUNT 6.6 10^3/uL (4.0-10.0)
[2023-01-17 09:36] LABS: INR 0.86; PARTIAL THROMBOPLASTIN TIME 24.6 SECONDS (24.8-34.2); PROTHROMBIN TIME 11.9 SECONDS (12.5-14.5)
[2023-01-17 09:52] LABS: THYROID STIMULATING HORMONE 0.875 uIU/ML (0.55-4.78)
[2023-01-17 09:56] LABS: FREE T4 0.97 NG/DL (0.89-1.76)
[2023-01-17 10:32] LABS: CK-MB VALUE MASS < 1.0 NG/ML (<3.6); CPK CREATINE PHOSPHOKINASE 112 U/L (34-145); MB/CK RELATIVE INDEX 0.89 (< OR =4)
[2023-01-17 11:59] LABS: ALBUMIN 3.5 G/DL (3.2-5.2); ALKALINE PHOSPHATASE 64 U/L (46-116); ALT/SGPT 18 U/L (7.0-40); AST/SGOT 15 U/L (<34); BILIRUBIN,TOTAL 0.3 MG/DL (0.3-1.2); BLOOD UREA NITROGEN 13 MG/DL (9-23); CALCIUM LEVEL 8.8 MG/DL (8.5-10.1); CARBON DIOXIDE LEVEL 26 MMOL/L (20-31); CHLORIDE LEVEL 112 MMOL/L (98-107); CREATININE FOR GFR 0.61 MG/DL (0.55-1.30); GLOMERULAR FILTRATION RATE > 60.0 (>51); GLUCOSE, FASTING 113 MG/DL (60-100); POTASSIUM SERUM 4.1 MMOL/L (3.5-5.1); SODIUM LEVEL 145 MMOL/L (136-145); TOTAL PROTEIN 5.8 G/DL (5.7-8.2)
[2023-01-17 14:32] LABS: APPEARANCE, URINE CLEAR (CLEAR); BACTERIA, URINE AUTO NEGATIVE (NEGATIVE); BILIRUBIN, URINE AUTO NEGATIVE (NEGATIVE); BLOOD, URINE BLOOD 1+ (NEGATIVE); COLOR, URINE YELLOW (YELLOW); GLUCOSE, URINE (UA) AUTO NEGATIVE (NEGATIVE); KETONE, URINE AUTO NEGATIVE (NEGATIVE); LEUKOCYTE ESTERASE, URINE AUTO NEGATIVE (NEGATIVE); MUCUS, URINE SMALL (NEGATIVE); NITRITE, URINE AUTO NEGATIVE (NEGATIVE); PROTEIN, URINE AUTO NEGATIVE (NEGATIVE); RBC, URINE AUTO 0 /HPF (0-3); SPECIFIC GRAVITY URINE AUTO 1.018 (1.002-1.035); SQUAMOUS EPITHELIAL CELL UR AU 1 /HPF (0-6); UROBILINOGEN, URINE AUTO 0.2 mg/dL (0.0-2.0); WBC, URINE AUTO 0 /HPF (0-3)
[2023-01-17] MEDS ORDERED: HOME MED LIST COMPLETE! XX SCH (14:45)
[2023-01-17] MEDS ORDERED: TIZA10TA PO (14:45)
[2023-01-17] MEDS ORDERED: MORP15TA2 PO (14:45)
[2023-01-17] MEDS ORDERED: GABA-282 PO (14:45)
[2023-01-17] MEDS ORDERED: CARI1TAB7 PO (14:45)
[2023-01-17 15:40] LABS: RSV AMPLIFICATION NEGATIVE (NEGATIVE)
[2023-01-17] MEDS ORDERED: CLOP75TA99 PO (15:44)
[2023-01-17] MEDS ORDERED: LOSA25TA13 PO (15:44)
[2023-01-17] MEDS ORDERED: TOPI25CA5 PO (15:44)
[2023-01-17] MEDS ORDERED: CHLO125TA PO (15:44)
[2023-01-17] MEDS ORDERED: ROSU20TA5 PO (15:44)
[2023-01-17] MEDS ORDERED: SERT50TA29 PO (15:44)
[2023-01-17] MEDS ORDERED: ALPR2TAB3 PO (15:44)
[2023-01-17 17:39] VITALS: BP 156/90
== END 2023-01-17 17:41 | disposition home or self-care (01) ==
LOC: M ED 06:12
DX: I67.1 Cerebral aneurysm, nonruptured (principal); G43.909 Migraine, unspecified, not intractable, without status migrainosus; I10 Essential (primary) hypertension; M32.9 Systemic lupus erythematosus, unspecified; R00.1 Bradycardia, unspecified; M54.50 Low back pain, unspecified; Z88.6 Allergy status to analgesic agent; Z91.040 Latex allergy status; Z87.891 Personal history of nicotine dependence; Z79.891 Long term (current) use of opiate analgesic; Z79.899 Other long term (current) drug therapy
CPT/HCPCS: 70450; 70544; 70551; 71045; 80047; 80053; 81001; 82550; 82553; 84439; 84443; 84484; 85025; 85610; 85730; 87631; 93005; 93041; 94760; 96361; 96374; 96375; 99285; J1200; J2765

== ENCOUNTER → 2023-04-10 | Outpatient (CLI) | payer BC ==
[~2023-04-10] MED LIST changes: +ALPR2TAB3 PO; +CHLO125TA PO; +CLOP75TA99 PO; +GABA-282 PO; +LOSA25TA13 PO; +MORP15TA2 PO; -OXYC-403 PO; +OXYC-673 PO; +POTA-298 PO; -POTA1TAB14 PO; +ROSU20TA5 PO; +SERT50TA29 PO; +TIZA10TA PO; +TOPI25CA5 PO
== END ==
LOC: M PAIN 16:30
PROVIDERS: ATTEND Anesthesiology
DX: M51.16 Intervertebral disc disorders with radiculopathy, lumbar region (principal); Z79.891 Long term (current) use of opiate analgesic; M96.1 Postlaminectomy syndrome, not elsewhere classified; G89.29 Other chronic pain; M25.551 Pain in right hip; M79.7 Fibromyalgia; L93.0 Discoid lupus erythematosus; J84.9 Interstitial pulmonary disease, unspecified; M54.50 Low back pain, unspecified; Z87.891 Personal history of nicotine dependence; Z79.82 Long term (current) use of aspirin; Z79.899 Other long term (current) drug therapy; Z88.6 Allergy status to analgesic agent; Z88.8 Allergy status to other drugs, medicaments and biological substances

== ENCOUNTER → 2023-05-25 | Outpatient (CLI) | payer BC ==
[~2023-05-25] MED LIST changes: -ROSU20TA5 PO; +ROSU20TA61 PO; +SENN-111 PO; -SENN18TA PO
== END ==
LOC: M PAIN 14:15
PROVIDERS: ATTEND Nurse Practitioner Family
DX: M96.1 Postlaminectomy syndrome, not elsewhere classified (principal); M79.7 Fibromyalgia; L93.0 Discoid lupus erythematosus; J84.9 Interstitial pulmonary disease, unspecified; M54.50 Low back pain, unspecified; Z87.891 Personal history of nicotine dependence; Z79.899 Other long term (current) drug therapy; Z88.6 Allergy status to analgesic agent; Z88.8 Allergy status to other drugs, medicaments and biological substances

== ENCOUNTER → 2023-06-01 | Outpatient (CLI) | payer BC | LOC: M SOG 08:00 | PROVIDERS: ATTEND Orthopaedic Surgery | DX: Z53.9 Procedure and treatment not carried out, unspecified reason (principal) ==

== ENCOUNTER → 2023-09-29 | Outpatient (CLI) | payer BC | LOC: M PAIN 09:30 | PROVIDERS: ATTEND Nurse Practitioner Family | DX: M96.1 Postlaminectomy syndrome, not elsewhere classified (principal); Z79.891 Long term (current) use of opiate analgesic; M79.7 Fibromyalgia; G89.29 Other chronic pain; L93.0 Discoid lupus erythematosus; J84.9 Interstitial pulmonary disease, unspecified; M54.50 Low back pain, unspecified; Z87.891 Personal history of nicotine dependence; Z79.899 Other long term (current) drug therapy; Z88.8 Allergy status to other drugs, medicaments and biological substances ==

== ENCOUNTER → 2023-11-28 | Outpatient (CLI) | payer BC | LOC: M PAIN 16:30 | PROVIDERS: ATTEND Nurse Practitioner Family | DX: M96.1 Postlaminectomy syndrome, not elsewhere classified (principal); Z79.891 Long term (current) use of opiate analgesic; M79.7 Fibromyalgia; G89.29 Other chronic pain; M54.50 Low back pain, unspecified; Z87.891 Personal history of nicotine dependence; Z79.82 Long term (current) use of aspirin; Z79.899 Other long term (current) drug therapy; Z88.8 Allergy status to other drugs, medicaments and biological substances ==

== ENCOUNTER → 2023-12-07 | Outpatient (CLI) | payer BC | LOC: M PLARAD 10:25 | PROVIDERS: ATTEND Nurse Practitioner Family | DX: M96.1 Postlaminectomy syndrome, not elsewhere classified (principal) ==

== ENCOUNTER → 2023-12-15 | Outpatient (CLI) | payer BC | LOC: M PAIN 15:30 | PROVIDERS: ATTEND Nurse Practitioner Family | DX: M96.1 Postlaminectomy syndrome, not elsewhere classified (principal); G89.29 Other chronic pain; M54.50 Low back pain, unspecified; M79.7 Fibromyalgia; L93.0 Discoid lupus erythematosus; Z87.891 Personal history of nicotine dependence; Z79.82 Long term (current) use of aspirin; Z79.891 Long term (current) use of opiate analgesic; Z79.899 Other long term (current) drug therapy; Z88.6 Allergy status to analgesic agent; Z88.8 Allergy status to other drugs, medicaments and biological substances ==

== ENCOUNTER → 2023-12-19 | Outpatient (CLI) | payer BC | LOC: M SOG 07:49 | PROVIDERS: ATTEND Orthopaedic Surgery | DX: M25.512 Pain in left shoulder (principal) ==

== ENCOUNTER 2023-12-21 07:13 | Outpatient (RCR) | payer BC | END 2023-12-27 | LOC: M PT 07:13 | PROVIDERS: ATTEND Orthopaedic Surgery | DX: M54.2 Cervicalgia (principal); M25.512 Pain in left shoulder ==

== ENCOUNTER → 2024-04-05 | Outpatient (CLI) | payer BC ==
[~2024-04-05] MED LIST changes: +BUPR-597 PO; -BUPR300T92 PO
== END ==
LOC: M PAIN 17:30
PROVIDERS: ATTEND Nurse Practitioner Family
DX: M96.1 Postlaminectomy syndrome, not elsewhere classified (principal); G89.29 Other chronic pain; M21.371 Foot drop, right foot; M79.7 Fibromyalgia; J84.9 Interstitial pulmonary disease, unspecified; M54.50 Low back pain, unspecified; Z79.891 Long term (current) use of opiate analgesic; Z79.82 Long term (current) use of aspirin; Z79.899 Other long term (current) drug therapy; Z88.8 Allergy status to other drugs, medicaments and biological substances

== ENCOUNTER → 2024-04-19 | Outpatient (CLI) | payer BC | LOC: M PAIN 15:30 | PROVIDERS: ATTEND Nurse Practitioner Family | DX: M51.16 Intervertebral disc disorders with radiculopathy, lumbar region (principal); G89.29 Other chronic pain; M79.7 Fibromyalgia; L93.0 Discoid lupus erythematosus; J84.9 Interstitial pulmonary disease, unspecified; Z87.891 Personal history of nicotine dependence; Z79.82 Long term (current) use of aspirin; Z79.891 Long term (current) use of opiate analgesic; Z79.899 Other long term (current) drug therapy; Z88.6 Allergy status to analgesic agent; Z88.8 Allergy status to other drugs, medicaments and biological substances ==

== ENCOUNTER 2024-06-24 12:26 | Emergency (ER) | payer BC ==
[~2024-06-24] VITALS: Ht 165.1 cm; Wt 81.3 kg
[~2024-06-24 12:26] MED LIST changes: +ONDA-282 PO; -ONDA4TAB6 PO
[2024-06-24] MEDS ORDERED: IBUP-1022 PO (12:56)
[2024-06-24] MEDS ORDERED: HYDR-3715 PO (12:56)
[2024-06-24] MEDS ORDERED: SOMA350T PO (12:56)
[2024-06-24] MEDS: methylPREDNISolone 125MG 2ML VIAL IV ONE (16:27)
[2024-06-24] MEDS: KETOROLAC 30 MG/ML 1ML VIAL IV ONE (16:28)
[2024-06-24 18:20] VITALS: BP 170/90; TEMP 96.9; O2SAT 97
[2024-06-24] MEDS ORDERED: PRED20TA PO (18:34)
== END 2024-06-24 18:47 | disposition home or self-care (01) ==
LOC: M ED 12:26
DX: M51.86 Other intervertebral disc disorders, lumbar region (principal); I10 Essential (primary) hypertension; Z88.8 Allergy status to other drugs, medicaments and biological substances; Z91.040 Latex allergy status; Z79.1 Long term (current) use of non-steroidal anti-inflammatories (NSAID); Z79.52 Long term (current) use of systemic steroids; Z79.899 Other long term (current) drug therapy
CPT/HCPCS: 72131; 81001; 96374; 96375; 99284; J1885; J2919

== ENCOUNTER → 2024-07-02 | Outpatient (CLI) | payer BC ==
[~2024-07-02] MED LIST changes: +HYDR-3715 PO; +IBUP-1022 PO; +SOMA350T PO
== END ==
LOC: M PAIN 16:00
PROVIDERS: ATTEND Nurse Practitioner Family
DX: M96.1 Postlaminectomy syndrome, not elsewhere classified (principal); G89.29 Other chronic pain; M79.7 Fibromyalgia; J84.9 Interstitial pulmonary disease, unspecified; L93.0 Discoid lupus erythematosus; M54.50 Low back pain, unspecified; Z87.891 Personal history of nicotine dependence; Z79.82 Long term (current) use of aspirin; Z79.891 Long term (current) use of opiate analgesic; Z79.899 Other long term (current) drug therapy; Z88.6 Allergy status to analgesic agent; Z88.8 Allergy status to other drugs, medicaments and biological substances

== ENCOUNTER → 2024-08-23 | Outpatient (CLI) | payer BC | LOC: M PLARAD 08:26 | PROVIDERS: ATTEND Nurse Practitioner Family | DX: M96.1 Postlaminectomy syndrome, not elsewhere classified (principal); M47.896 Other spondylosis, lumbar region ==

== ENCOUNTER → 2024-08-29 | Outpatient (CLI) | payer BC ==
[~2024-08-29] MED LIST changes: +GABA-1172 PO; -GABA-282 PO; +NAPR-1405 PO; -NAPR500T6 PO; -ROSU20TA61 PO; +ROSU20TA86 PO; -SENN-111 PO; +SENN-165 PO
== END ==
LOC: M PAIN 16:00
PROVIDERS: ATTEND Nurse Practitioner Family
DX: M96.1 Postlaminectomy syndrome, not elsewhere classified (principal); G89.29 Other chronic pain; M79.7 Fibromyalgia; M54.50 Low back pain, unspecified; J84.9 Interstitial pulmonary disease, unspecified; L93.0 Discoid lupus erythematosus; Z87.891 Personal history of nicotine dependence; Z79.82 Long term (current) use of aspirin; Z79.891 Long term (current) use of opiate analgesic; Z79.899 Other long term (current) drug therapy; Z88.6 Allergy status to analgesic agent; Z88.8 Allergy status to other drugs, medicaments and biological substances

== ENCOUNTER → 2024-09-16 | Outpatient (CLI) | payer BC | LOC: M PAIN 17:00 | PROVIDERS: ATTEND Nurse Practitioner Family | DX: M79.18 Myalgia, other site (principal); Z79.891 Long term (current) use of opiate analgesic; G89.29 Other chronic pain; L93.0 Discoid lupus erythematosus; Z87.891 Personal history of nicotine dependence; Z79.82 Long term (current) use of aspirin; Z79.899 Other long term (current) drug therapy; Z88.6 Allergy status to analgesic agent; Z88.8 Allergy status to other drugs, medicaments and biological substances ==

== ENCOUNTER → 2024-12-13 | Outpatient (CLI) | payer BC ==
[~2024-12-13] MED LIST changes: +TRIAMCINOLONE ACETONIDE SUSP 40MG/ML 1ML VIAL As Ordered ONE
== END ==
LOC: M PAIN 08:15
PROVIDERS: ATTEND Anesthesiology
DX: M79.18 Myalgia, other site (principal); G89.29 Other chronic pain; M54.50 Low back pain, unspecified; Z79.82 Long term (current) use of aspirin; Z79.891 Long term (current) use of opiate analgesic; Z79.899 Other long term (current) drug therapy; Z88.6 Allergy status to analgesic agent; Z88.8 Allergy status to other drugs, medicaments and biological substances
CPT/HCPCS: 20552; J0665; J3301

== ENCOUNTER → 2024-12-16 | Outpatient (CLI) | payer BC ==
[~2024-12-16] MED LIST changes: -TRIAMCINOLONE ACETONIDE SUSP 40MG/ML 1ML VIAL As Ordered ONE
== END ==
LOC: M PAIN 17:30
PROVIDERS: ATTEND Nurse Practitioner Family
DX: M79.18 Myalgia, other site (principal); G89.29 Other chronic pain; M54.50 Low back pain, unspecified; Z79.891 Long term (current) use of opiate analgesic; L93.0 Discoid lupus erythematosus; Z87.891 Personal history of nicotine dependence; Z79.82 Long term (current) use of aspirin; Z79.899 Other long term (current) drug therapy; Z88.6 Allergy status to analgesic agent; Z88.8 Allergy status to other drugs, medicaments and biological substances

== ENCOUNTER → 2025-05-30 | Outpatient (RCR) ==
[~2025-05-30] MED LIST changes: -BUPR-597 PO; +BUPR-766 PO; +CARI-555 PO; -CARI1TAB7 PO; +MORP-138 PO; -MORP15TASA PO
== END ==
LOC: M EMPSKH 05-13 13:21
PROVIDERS: ATTEND Family Medicine
DX: Z11.52 Encounter for screening for COVID-19 (principal)

== ENCOUNTER 2025-09-19 06:19 | Emergency (ER) | payer BC, OTHER ==
[~2025-09-19] VITALS: Ht 165.1 cm; Wt 84.1 kg
[~2025-09-19 06:19] MED LIST changes: -IBUP-1022 PO; +IBUP600T42 PO
[2025-09-19 06:23] VITALS: TEMP 97.3
[2025-09-19 07:19] LABS: BASO # 0.0 10^3/uL (0.0-0.2); BASO % 0.5 % (0.0-1.0); EOS # 0.0 10^3/uL (0.0-0.5); EOS % 0.0 % (0.0-3.0); LYMPH # 1.7 10^3/uL (1.5-5.0); LYMPH % 18.7 % (24.0-44.0); MONO # 0.7 10^3/uL (0.0-0.8); MONO % 7.4 % (2.0-8.0); NEUTROPHILS # 6.4 10^3/uL (1.5-8.5); NEUTROPHILS % 72.9 % (36.0-66.0); PLATELET COUNT, AUTOMATED 309 10^3/uL (150-450)
[2025-09-19 07:43] LABS: ALT/SGPT 20 U/L (7.0-40); AST/SGOT 13 U/L (<34); CALCIUM LEVEL 9.5 MG/DL (8.5-10.1); CARBON DIOXIDE LEVEL 26 MMOL/L (20-31); CHLORIDE LEVEL 105 MMOL/L (98-107); CREATININE FOR GFR 0.69 MG/DL (0.55-1.30); GLOMERULAR FILTRATION RATE > 90.0 (>51); POTASSIUM SERUM 3.7 MMOL/L (3.5-5.1); SODIUM LEVEL 143 MMOL/L (136-145)
[2025-09-19 08:42] LABS: MAGNESIUM LEVEL 2.2 MG/DL (1.8-2.4)
[2025-09-19 08:44] LABS: C REACTIVE PROTEIN QUANTITATIV < 0.50 MG/DL (<1.0)
[2025-09-19] MEDS: diphenhydrAMINE 50 MG/ML VIAL IV ONE (08:57)
[2025-09-19] MEDS: NS (Normal Saline) 0.9% 1,000 ML IV ONE (08:57)
[2025-09-19] MEDS: dexAMETHasone 4 MG/ML 1 ML VIAL IV ONE (08:57)
[2025-09-19] MEDS: KETOROLAC 30 MG/ML 1 ML VIAL IV ONE (10:13)
[2025-09-19 11:15] VITALS: BP 162/84; O2SAT 99
[2025-09-19] MEDS ORDERED: TOPI-21 PO (11:22)
== END 2025-09-19 11:34 | disposition home or self-care (01) ==
LOC: M ED 06:19
DX: R51.9 Headache, unspecified (principal); I10 Essential (primary) hypertension; R94.31 Abnormal electrocardiogram [ECG] [EKG]; Z88.8 Allergy status to other drugs, medicaments and biological substances; Z91.040 Latex allergy status; Z79.1 Long term (current) use of non-steroidal anti-inflammatories (NSAID); Z79.52 Long term (current) use of systemic steroids; Z79.899 Other long term (current) drug therapy
CPT/HCPCS: 70450; 80053; 83735; 84443; 85025; 86140; 93005; 94760; 96374; 96375; 99285; J1100; J1200; J1885; J2765